=== PATIENT | female | born 1945 | race Caucasian/White ===

== ENCOUNTER 2018-12-14 13:07 | Inpatient (IN) | payer OTHER ==
[2018-12-14 13:26] VITALS: BMI 18.1
--- NOTE | 2018-12-14 13:38 | PDOC ---
Attending Attestation - Resident Resident Name: Fabio Mccarty - ED Attending Attestation I have performed the following: I have examined & evaluated the patient, The case was reviewed & discussed with the resident, I agree w/resident's findings & plan, Exceptions are as noted - HPI HPI: 73 yo F no known PMH brought in by EMS s/p fall at home. Patient is unable to provide any history. As per family, there is always someone who checks on her daily and helps her bathe and change. The brother states he saw her yesterday and she was at baseline, spoke to her last night. He became concerned when she did not answer the phone today. He found that she had fallen. He states that he is ill himself (just had a kidney removed), and while he always goes to check on her, she is usually bathed by other people who see her daily. - Physicial Exam PE: GENERAL: Awake, alert, and oriented to person, in no acute distress. Poor hygiene. HEAD: +Abrasions to the chin. EYES: PERRLA, EOMI, sclera anicteric, conjunctiva clear ENT: Auricles normal inspection, hearing grossly normal, nares patent, oropharynx clear without exudates. Moist mucosa NECK: Normal ROM, supple, no lymphadenopathy, JVD, or masses LUNGS: Breath sounds equal, clear to auscultation bilaterally. No wheezes, and no crackles HEART: Regular rate and rhythm, normal S1 and S2, no murmurs, rubs or gallops ABDOMEN: Soft, nontender, normoactive bowel sounds. No guarding, no rebound. No masses MSK: +Ecchymoses to the elbows and knees B/L. +Abrasion to the L knee. +Large ecchymosis to the lower chest wall with some skin breakdown in the center of the lesion in a linear distribution. +Skin breakdown beneath the R breast. Extremities with normal range of motion, no edema. No clubbing or cyanosis. + Overgrown toenails, with L great toenail growing into a large curl and curving back over the toe. +Dirt beneath the fingernails. NEUROLOGICAL: Cranial nerves II through XII grossly intact. +Paucity of speech. Motor and sensation intact SKIN: Warm, Dry, normal turgor, no rashes. Multiple hyperkeratotic lesions to the face and feet. - Medical Decision Making 12/14/18 13:47 In light of her appearance, called case management to discuss, as this should be an APS case. Will do a skeletal survey, CTH and c-spine, labs (including CK in light of fall), and UA. Will admit, as she is an unsafe discharge.
--- NOTE | 2018-12-14 13:40 | PDOC ---
History of Present Illness - General History Source: Patient, Family (Brother and [id number] present at bedside) Exam Limitations: Clinical Condition - History of Present Illness Initial Comments: HPI: 73 y/o female BIBEMS to [facility] ER after being found on floor next to bed by brother and [id number]. Multiple old and new appearing injurious faulkner noted on body. Family reports they were previously unaware of such faulkner. Pt lives alone during the day and is assisted by a close family friend. Brother initially reported speaking to pt by telephone last evening, and became concerned after being unable to contact the pt by telephone this morning. On repeat interview, brother reports he and his saw the pt last evening and she was not found to be in any distress. On repeat interview, brother reports believing the pt fell on diana try on night table. Family only able to provide limited medical history. Pt unable to provide any information. PCP: None Social Hx: - Pt is an active smoker, family reports 2-3 packs per day. Medical Hx: - Family denies active medical problems, but has not followed with a physician since 2001. - No medications or known allergies <Fabio Mccarty - Last Filed: 12/17/18 16:47> <Latasha Miles - Last Filed: 12/18/18 16:34> - General Chief Complaint: Injury Stated Complaint: FALL Time Seen by Provider: 12/14/18 13:22 Past History - Past Medical History COPD: No - Suicide/Smoking/Psychosocial Hx Smoking History: Current every day smoker Number of Cigarettes Smoked Daily: 40 Information on smoking cessation initiated: No Hx Alcohol Use: No Drug/Substance Use Hx: No <Fabio Mccarty - Last Filed: 12/17/18 16:47> <Latasha Miles - Last Filed: 12/18/18 16:34> - Past Medical History Allergies/Adverse Reactions: Allergies Allergy/AdvReac Type Severity Reaction Status Date / Time No Known Allergies Allergy Verified 12/14/18 13:26 Home Medications: Ambulatory Orders NK [No Known Home Medication] 12/14/18 Review of Systems - Review of Systems Able to Perform ROS?: No (Pt condition) <Fabio Mccarty - Last Filed: 12/17/18 16:47> *Physical Exam - Vital Signs Last Vital Signs Temp Pulse Resp BP Pulse Ox 18 127/104 H 02/19/19 13:10 12/14/18 13:10 - Physical Exam Comments: Constitutional: Thin, cachectic elderly female in no acute distress. Malodorous with greasy hair and unwashed skin. Found semi-fowlers on hospital bed. Alert and oriented to person and place. Unable / unwilling to answer questions. Head: Normocephalic. No obvious external signs of trauma. Eyes: Pupils 3mm bilaterally. Gaze fixed to upper right side. Sclerae white. Nose: No nasal discharge. Neck: Turned to right side. Unable or unwilling to turn neck. Cardiovascular / Chest: Regular rate and regular rhythm. No murmur, rubs, clicks, or gallops. Peripheral pulses: radial pulses full. Linear lesion with ecchymosis and erythema across center of chest. Skin breakdown under right breast. Skin breakdown to medial aspect of left breast. Respiratory: Breathing unlabored. Equal chest rise and fall. Clear to auscultation bilaterally. No stridor, no wheezing, no rhonchi. Gastrointestinal: abdomen is soft, non-tender, non-distended. Linear erythema lesion across middle of abdomen. Neuro: Eyes open spontaneously. Oriented to person and place but not events or time. Unable or unwilling to move extremities or follow commands. Skin/MSK/Ext: Warm and dry. Circular erythema lesion to bilateral elbows, knees , and anterior aspect of pelvic crests. Old appearing ecchymosis and linear laceration to dorsal aspect of right hand and forearm. Female Pelvic: External genitalia unremarkable. No obvious signs of trauma. Unable to locate urethra for tobias placement. Attempts results in minimal mucosal bleeding. <Fabio Mccarty - Last Filed: 12/17/18 16:47> - Vital Signs Last Vital Signs Temp Pulse Resp BP Pulse Ox 97.9 F 74 18 131/68 99 12/18/18 14:00 12/18/18 14:00 12/18/18 14:00 12/18/18 14:00 12/18/18 09:00 <Latasha Miles - Last Filed: 12/18/18 16:34> Moderate Sedation - Procedure Monitoring Vital Signs: Procedure Monitoring Vital Signs Temperature Pulse Rate Respiratory Rate 18 12/14/18 13:10 Blood Pressure 127/104 H 12/14/18 13:10 O2 Sat by Pulse Oximetry (%) <Fabio Mccarty - Last Filed: 12/17/18 16:47> - Procedure Monitoring Vital Signs: Procedure Monitoring Vital Signs Temperature 97.9 F 12/18/18 14:00 Pulse Rate 74 12/18/18 14:00 Respiratory Rate 18 12/18/18 14:00 Blood Pressure 131/68 12/18/18 14:00 O2 Sat by Pulse Oximetry (%) 99 12/18/18 09:00 <Latasha Miles - Last Filed: 12/18/18 16:34> ED Treatment Course - LABORATORY CBC & Chemistry Diagram: 12/17/18 06:00 12/17/18 06:00 <Fabio Mccarty - Last Filed: 12/17/18 16:47> - LABORATORY CBC & Chemistry Diagram: 12/18/18 06:30 12/18/18 06:30 - ADDITIONAL ORDERS Additional order review: 12/14/18 12/14/18 14:45 14:00 RBC 5.20 MCV 89.4 MCHC 33.8 RDW 14.0 MPV 8.8 Neutrophils % 92.1 H Lymphocytes % 2.3 L Monocytes % 4.7 Eosinophils % 0.0 Basophils % 0.9 POC Glucometer 139 - Medications Given in the ED: ED Medications Discontinued Medications Generic Name Dose Route Start Last Admin Trade Name Monisha PRN Reason Stop Dose Admin Albuterol/Ipratropium 1 amp 12/16/18 00:19 12/16/18 00:36 Duoneb - NEB 12/16/18 00:20 1 amp ONCE ONE Administration Aspirin 300 mg 12/14/18 15:14 12/14/18 16:11 Asa - VA 12/14/18 15:15 300 mg ONCE ONE Administration Aspirin 81 mg 12/15/18 10:00 12/16/18 10:27 Ecotrin - PO 81 mg DAILY LUIS FELIPE Administration Furosemide 20 mg 12/16/18 09:17 12/16/18 10:27 Lasix Injection - IVPB 12/16/18 09:18 20 mg ONCE ONE Administration Furosemide 40 mg 12/18/18 11:12 12/18/18 11:25 Lasix - PO 12/18/18 11:13 40 mg ONCE ONE Administration Heparin Sodium (Porcine) 5,000 unit 12/14/18 22:00 12/15/18 14:43 Heparin - SQ 5,000 unit TID LUIS FELIPE Administration Dextrose/Lactated Ringer's 1,000 mls @ 0 mls/hr 12/14/18 14:15 12/14/18 15:04 D5-Lr - IV 1,000 mls/hr ASDIR LUIS FELIPE Administration Wide Open Piperacillin Sod/Tazobactam 50 mls @ 100 mls/hr 12/14/18 15:23 12/14/18 16:11 Sod 3.375 gm/ Dextrose IVPB 12/14/18 15:52 100 mls/hr ONCE ONE Administration Protocol Sodium Chloride 1,000 mls @ 100 mls/hr 12/14/18 16:00 12/14/18 16:11 Normal Saline - IV 100 mls/hr ASDIR LUIS FELIPE Administration Sodium Chloride 1,000 mls @ 75 mls/hr 12/14/18 21:29 12/15/18 20:44 Normal Saline - IV Not Given ASDIR LUIS FELIPE Piperacillin Sod/Tazobactam 50 mls @ 100 mls/hr 12/15/18 10:00 12/16/18 01:13 Sod 2.25 gm/ Dextrose IVPB 12/16/18 10:29 100 mls/hr Q8H-IV LUIS FELIPE Administration Protocol Heparin Sodium (Porcine) 25, 500 mls @ 16 mls/hr 12/15/18 18:15 12/17/18 05: 26 000 unit/ Sodium Chloride IV 800 unit/hr TITR LUIS FELIPE 16 mls/hr Administration Protocol 800 UNIT/HR Lisinopril 5 mg 12/18/18 11:13 12/18/18 11:25 Prinivil PO 12/18/18 11:14 5 mg ONCE ONE Administration Magnesium Sulfate 1 gm 12/18/18 08:52 12/18/18 09:33 Magnesium Sulfate IVPB 12/18/18 08:53 1 gm ONCE ONE Administration Metoprolol Tartrate 12.5 mg 12/15/18 10:00 12/15/18 21:15 Lopressor - PO 12.5 mg BID LUIS FELIPE Administration Potassium Phos/Sodium Phos 2 packet 12/17/18 09:22 12/17/18 10:21 Phos-Nak Packet - PO 12/17/18 09:23 2 packet ONCE ONE Administration Vancomycin HCl 1,000 mg 12/14/18 15:22 12/14/18 17:12 Vancomycin (Pre-Docked) IVPB 12/14/18 15:23 1,000 mg ONCE ONE Administration Protocol <Latasha Miles - Last Filed: 12/18/18 16:34> Medical Decision Making - Medical Decision Making *Reviewed vital signs, nursing notes, and prior visit documentation (if available). 73 y/o female with multiple injuries of varying ages to body. Limited medical history as pt does not follow with a physician. Reports vague unwitnessed fall. Unknown time on ground. Accompanied by brother and [id number]. Afebrile. Vitals unremarkable for hypotension or tachycardia. Physical exam as described above. Will obtain skeletal survey of areas of obvious injury. Will obtain basic labs. Will contact social work nurse for guidance in terms of reporting and with concern of pts inability to perform ADLs. Telephone conversation with social work nurse. Will come and evaluate the pt in the ED. Will consider APS versus police. Referral placed. No new or old bony injuries noted on radiographs. Lab reports T/S hemolyzed. Reordered. Elevated troponin and CK without EKG LOIS or STD. Ordered ASA VA. Will consult cardiology. 16:[address] Amaro. Verbally appraised of the pts HPI, ED course, and current plan of management. Expressed believe the pts elevated troponin was likely secondary to rhabdo given CK index is less than 5. Suggests aggressive fluid management with nephrology involvement. Will evaluate pt and likely order Echo. Telephone consultation with Dr. Cardozo, urologist waste transportation technician. Verbally appraised of the pts HPI, ED course, and current plan of management. Requested assistance with tobias placement given atypical urogenital anatomy and multiple attempts with adult and pediatric catheters. Suggested paging Dr. Lang, who he believed to still be in the hospital. Dr. Antonio is covering for Dr. Lang. Assisted with tobias placement in ED. Pt admitted to hospitalist service for acute rhabdomyolysis, elevated troponin, and placement. <Fabio Mccarty - Last Filed: 12/17/18 16:47> *DC/Admit/Observation/Transfer - Discharge Dispostion Decision to Admit order: Yes <Fabio Mccarty - Last Filed: 12/17/18 16:47> <Latasha Miles - Last Filed: 12/18/18 16:34> Diagnosis at time of Disposition: Fall in elderly patient, Very low level of personal hygiene, Skin breakdown Rhabdomyolysis Qualifiers: Rhabdomyolysis type: traumatic Encounter type: initial encounter Qualified Code (s): T79.6XXA - Traumatic ischemia of muscle, initial encounter - Discharge Dispostion Condition at time of disposition: Stable
[2018-12-14] MEDS ORDERED: DEXTROSE 5%-LACTATED RINGERS 1,000 ML IV SCH (14:15)
[2018-12-14 14:20] LABS: BASO % 0.9 % (0-2.0); HEMATOCRIT 46.5 % (32.4-45.2); HEMOGLOBIN 15.7 GM/dL (10.7-15.3); LYMPH % 2.3 % (8-40); MCH 30.2 pg (25.7-33.7); MCHC 33.8 g/dl (32.0-36.0); MEAN CELL VOLUME 89.4 fl (80-96); MEAN PLT VOLUME 8.8 fl (7.5-11.1); MONO % 4.7 % (3.8-10.2); NEUT % 92.1 % (42.8-82.8); PLATELET COUNT 302 K/MM3 (134-434); WHITE BLOOD COUNT 29.6 K/mm3 (4.0-10.0)
[2018-12-14 15:08] LABS: ALBUMIN 3.5 g/dl (3.4-5.0); ALK PHOS 138 U/L (45-117); ANION GAP 14 MMOL/L (8-16); BILIRUBIN,TOTAL 1.2 mg/dL (0.2-1); BLOOD UREA NITROGEN 33 mg/dL (7-18); CALCIUM 9.4 mg/dL (8.5-10.1); CHLORIDE 105 mmol/L (98-107); CO2 22 mmol/L (21-32); CREATININE 1.9 mg/dL (0.55-1.3); GLUCOSE,RANDOM 148 mg/dL (74-106); MAGNESIUM 2.6 mg/dL (1.8-2.4); PHOSPHOROUS 4.2 mg/dL (2.5-4.9); POTASSIUM 3.6 mmol/L (3.5-5.1); SGOT/AST 101 U/L (15-37); SGPT/ALT 23 U/L (13-61); SODIUM 140 mmol/L (136-145); TOT PROT 7.5 g/dl (6.4-8.2)
[2018-12-14] MEDS ORDERED: ASPIRIN 300 MG SUPP.RECT PR ONE (15:14)
[2018-12-14] MEDS ORDERED: VANCOMYCIN 1 GM in D5W (PRE-DOCKED) 1,000 MG/250 ML IVPB ONE (15:22)
[2018-12-14] MEDS ORDERED: PIPERACILLIN/TAZOB 3.375 GM 3.375 GM in DEXTROSE 5%-WATER - 50 ML IVPB ONE (15:23)
[2018-12-14 15:44] LABS: PLATELET ESTIMATE NORMAL
[2018-12-14 15:49] LABS: INR 1.11 (0.83-1.09); PROTHROMBIN TIME (PATIENT) 13.1 SEC (9.7-13.0)
[2018-12-14 15:52] LABS: ACTIVATED PTT 25.9 SECONDS (25.2-36.5)
[2018-12-14] MEDS ORDERED: SODIUM CHLORIDE 1,000 ML IV SCH (16:00)
[2018-12-14] MEDS ORDERED: PIPERACILLIN/TAZOB 3.375 GM 3.375 GM/50 ML BAG IVPB ONE (16:08)
[2018-12-14] MEDS ORDERED: VANCOMYCIN 1 GRAM (PRE-DOCKED) 1,000 MG/250 ML BAG IVPB ONE (16:08)
[2018-12-14] MEDS ORDERED: ASPIRIN 300 MG SUPP.RECT RC ONE (16:08)
--- NOTE | 2018-12-14 16:58 | CON.CARD ---
Consult Consult Specialty:: cardiology Reason for Consultation:: elevated TNI - History of Present Illness Chief Complaint: Pt alert; now able to recognize brother; knows she is in a hospital, but not which, nor the city or date. Denies any problems; no pain. Moves all extremities (weakly) on request. History of Present Illness: 73 yo white woman with no known PMH brought in by EMS s/p fall at home. Patient is unable to provide any history. As per family, there is always someone who checks on her daily and helps her bathe and change. The brother states he saw her yesterday and she was at baseline, spoke to her last night. He became concerned when she did not answer the phone today. He found that she had fallen. He states that he is ill himself (just had a kidney removed), and while he always goes to check on her, she is usually bathed by other people who see her daily. 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 Cardio/Vascular: Yes: CHF (systolic), Murmur (mod-severe AR) Reproductive: Yes: Postmenopausal ...: No - Alcohol/Substance Use Hx Alcohol Use: No - Smoking History Smoking history: Current every day smoker Aproximately how many cigarettes per day: 40 Home Medications - Allergies Allergies/Adverse Reactions: Allergies Allergy/AdvReac Type Severity Reaction Status Date / Time No Known Allergies Allergy Verified 12/14/18 13:26 - Home Medications Home Medications: Ambulatory Orders NK [No Known Home Medication] 12/14/18 Review of Systems Unable to obtain ROS, reason: dementia - Risk Factors Known Risk Factors: Yes: Age, Physical Inactivity, Other (disheveled; red bruises on chest, knees) Vital Signs: Vital Signs Temperature 98.5 F 12/14/18 15:03 Pulse Rate 98 H 12/14/18 15:03 Respiratory Rate 18 12/14/18 15:03 Blood Pressure 119/90 12/14/18 15:03 O2 Sat by Pulse Oximetry (%) 100 12/14/18 15:03 Constitutional: Yes: Thin Eyes: Yes: WNL HENT: Yes: WNL Neck: Yes: Decreased ROM Respiratory: Yes: Regular Gastrointestinal: Yes: Soft Renal/: No: Anuria Cardiovascular: Yes: Tachycardia JVD: No Carotid Bruit: No Heart Sounds: Yes: S1, S2 Murmur: Yes: Diastolic Murmur, Grade 2 Musculoskeletal: Yes: Muscle Weakness Extremities: Yes: Cool Edema: No Peripheral Pulses WNL: No Integumentary: Yes: Bruising (red large bruises on chest, elbows, knees) Neurological: Yes: Confusion, Weakness Psychiatric: Yes: Other (dementia) - Other Data Labs, Other Data: CBC, BMP 12/14/18 14:00 12/14/18 14:00 INR, PTT INR 1.11 (0.83-1.09) H 12/14/18 14:00 Troponin, BNP 12/14/18 14:00 Troponin I 13.70 H* Troponin, BNP 12/14/18 14:00 Troponin I 13.70 H* Abnormal Lab Results 12/17/18 12/17/18 06:00 06:00 PTT (Actin FS) 54.2 H Chloride 112 H BUN 25 H Calcium 7.7 L Phosphorus 2.3 L Creatine Kinase 1816 H CK-MB (CK-2) 8.7 H Imaging - Results Chest X-ray: Image Reviewed EKG: Image Reviewed Problem List - Problems (1) NSTEMI (non-ST elevated myocardial infarction) Assessment/Plan: +TNI +CKMB (though relative index is low, this may be due to high level of total CK caused by rhabdomyolysis). EKG: sinus tachycardia; inferior and anterior NJ (age undetermined); poor R wave progression. Recommend: IV fluids for rhabdomyolysis. ECHO for LVEF, wall motionn, chamber sizes, valve status. On ASA On metoprolol. IV heparin (unless contraindicated by fall with subsequent wounds). F/u lipids. Code(s): I21.4 - NON-ST ELEVATION (NSTEMI) MYOCARDIAL INFARCTION (2) CHF (congestive heart failure) Assessment/Plan: f/u ECHO BUN/Cr, Is and Os (Hodge); daily weight; electrolytes. Code(s): I50.9 - HEART FAILURE, UNSPECIFIED (3) Fall in elderly patient Code(s): R29.6 - REPEATED FALLS (4) Rhabdomyolysis Assessment/Plan: s/p fall, with extensive skin damage, bruises. TNI elevated; EKG changes suggestive of IW and AW NJ (age undetermined); poor R wave progression. ? NSTEMI with arrhythmia leading to syncope. CKMB elevateed (relative index is low, but likely due to high CK from rhabdo; cannot r/o NJ). Plan: Fluids IV bolus of 1-2 leters, then hourly (ECHO to determine LVEF, which will help dictate rate of IV). F/u BUN/Cr, electrolytes (Hodge catheter is needed). Serial TNI, CK/CKMG. EKG serially. See NSTEMI section. Code(s): M62.82 - RHABDOMYOLYSIS Qualifiers: Rhabdomyolysis type: traumatic Encounter type: initial encounter Qualified Code(s): T79.6XXA - Traumatic ischemia of muscle, initial encounter (5) Skin breakdown Code(s): L90.9 - ATROPHIC DISORDER OF SKIN, UNSPECIFIED (6) Very low level of personal hygiene Code(s): R46.0 - VERY LOW LEVEL OF PERSONAL HYGIENE (7) Sepsis Assessment/Plan: elevated WBCs, neutrophils. F?u with ID Code(s): A41.9 - SEPSIS, UNSPECIFIED ORGANISM
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
--- NOTE | 2018-12-14 21:12 | HP ---
CHIEF COMPLAINT: altered mental status, fall PCP:none HISTORY OF PRESENT ILLNESS: Patient is a 73 year old female with no known past medical history, BIBEMS after a fall. Patient is a poor historian, most of the history provided by the sister and brother. In the last 20 years, patient has been dependent on her siblings for necessities. Patient reportedly refused any doctor visits, and has not seen a doctor. About 4 years ago, after a fall, as per the brother, the patient since did not want to leave the house, with her siblings alternately taking care of her, bringing her food daily. During the day, patient's friend would come and visit her, and would take care of her during the day. Last night , brother visited the patient and brought her food. When he came home, he called the patient to say good night. In the morning, he tried calling the patient, but she was not answering the phone. Concerned, brother went to patient 's house, and found her lying flat, face down on the floor. He immediately called EMS. Patient reported remembering falling down, but could not provide any more information. She denies fever, chills, headache, dizziness, nausea, vomiting, chest pain, SOB, palpitations, abdominal pain, diarrhea, urinary symptoms. 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 PAST SURGICAL HISTORY: unknown Social History: Smokinppd x >50years Alcohol:occasional Drugs: denies Family History: noncontributory Allergies No Known Allergies Allergy (Verified 12/14/18 13:26) HOME MEDICATIONS: Home Medications Medication Instructions Recorded NK [No Known Home Medication] 12/14/18 REVIEW OF SYSTEMS CONSTITUTIONAL: Absent: fever, chills, diaphoresis, generalized weakness, malaise, loss of appetite, weight change HEENT: Absent: rhinorrhea, nasal congestion, throat pain, throat swelling, difficulty swallowing, mouth swelling, ear pain, eye pain, visual changes CARDIOVASCULAR: Absent: chest pain, syncope, palpitations, irregular heart rate, lightheadedness , peripheral edema RESPIRATORY: Absent: cough, shortness of breath, dyspnea with exertion, orthopnea, wheezing, stridor, hemoptysis GASTROINTESTINAL: Absent: abdominal pain, abdominal distension, nausea, vomiting, diarrhea, constipation, melena, hematochezia GENITOURINARY: Absent: dysuria, frequency, urgency, hesitancy, hematuria, flank pain, genital pain MUSCULOSKELETAL: Absent: myalgia, arthralgia, joint swelling, back pain, neck pain SKIN: Absent: rash, itching, pallor HEMATOLOGIC/IMMUNOLOGIC: Absent: easy bleeding, easy bruising, lymphadenopathy, frequent infections ENDOCRINE: Absent: unexplained weight gain, unexplained weight loss, heat intolerance, cold intolerance NEUROLOGIC: Absent: headache, focal weakness or paresthesias, dizziness, unsteady gait, seizure, mental status changes, bladder or bowel incontinence PSYCHIATRIC: Absent: anxiety, depression, suicidal or homicidal ideation, hallucinations. PHYSICAL EXAMINATION Vital Signs - 24 hr 12/14/18 12/14/18 12/14/18 13:10 14:41 15:03 Temperature 98.5 F Pulse Rate [ 98 H Apical] Respiratory 18 18 Rate Blood Pressure 127/104 H Blood Pressure 119/90 [Right Arm] O2 Sat by Pulse 100 100 Oximetry (%) GENERAL: Awake, alert, thin, cachectic and unkempt, on 2L NC HEAD: +wound on the chin EYES: PERRLA, EOMI, sclera anicteric, conjunctiva clear. EARS, NOSE, THROAT: Ears normal, oropharynx clear without exudates. Dry mucous membranes. NECK: left-sided neck flexion, unable to move neck LUNGS: Breath sounds equal, clear to auscultation bilaterally. HEART: Regular rate and rhythm, normal S1 and S2 without murmur, rub or gallop. ABDOMEN: Soft, nontender, not distended, normoactive bowel sounds. MUSCULOSKELETAL: Limited ROM on the neck and UE/LE UPPER EXTREMITIES: 2+ pulses, warm, well-perfused. No peripheral edema. LOWER EXTREMITIES: 2+ pulses, warm, well-perfused. No peripheral edema. NEUROLOGICAL: awake, alert, oriented to place and person, unable to follow commands, Motor strength at least 3/5 SKIN: Warm, dry, normal turgor, +erythema and wound on the chest, +erythema on both knees, +wound on left knee Laboratory Results - last 24 hr 12/14/18 12/14/1819 14:00 14:00 14:00 WBC 29.6 H RBC 5.20 Hgb 15.7 H Hct 46.5 H MCV 89.4 MCH 30.2 MCHC 33.8 RDW 14.0 Plt Count 302 MPV 8.8 Absolute Neuts (auto) 27.2 H Total Counted 100 Neutrophils % 92.1 H Neutrophils % (Manual) 89.0 H Band Neutrophils % 4.0 Lymphocytes % 2.3 L Lymphocytes % (Manual) 5.0 L Monocytes % 4.7 Monocytes % (Manual) 2 L Eosinophils % 0.0 Basophils % 0.9 Nucleated RBC % 0 Platelet Estimate Normal PT with INR INR PTT (Actin FS) Sodium 140 Potassium 3.6 Chloride 105 Carbon Dioxide 22 Anion Gap 14 BUN 33 H Creatinine 1.9 H Creat Clearance w eGFR 25.84 POC Glucometer Random Glucose 148 H Calcium 9.4 Phosphorus 4.2 Magnesium 2.6 H Total Bilirubin 1.2 H AST 101 H ALT 23 Alkaline Phosphatase 138 H Ammonia < 10.00 L Creatine Kinase 5600 H Creatine Kinase Index 0.8 CK-MB (CK-2) 49.55 H Troponin I 13.70 H* Total Protein 7.5 Albumin 3.5 Blood Type Antibody Screen 12/14/18 12/14/18 12/14/18 14:00 14:00 14:45 WBC RBC Hgb Hct MCV MCH MCHC RDW Plt Count MPV Absolute Neuts (auto) Total Counted Neutrophils % Neutrophils % (Manual) Band Neutrophils % Lymphocytes % Lymphocytes % (Manual) Monocytes % Monocytes % (Manual) Eosinophils % Basophils % Nucleated RBC % Platelet Estimate PT with INR 13.10 H INR 1.11 H PTT (Actin FS) 25.9 Sodium Potassium Chloride Carbon Dioxide Anion Gap BUN Creatinine Creat Clearance w eGFR POC Glucometer 139 Random Glucose Calcium Phosphorus Magnesium Total Bilirubin AST ALT Alkaline Phosphatase Ammonia Creatine Kinase Creatine Kinase Index CK-MB (CK-2) Troponin I Total Protein Albumin Blood Type Cancelled Antibody Screen Cancelled ASSESSMENT/PLAN: Patient is a 73 year old female with no known past medical history, BIBEMS after a fall. #Acute metabolic encephalopathy: unclear etiology -rule out infection, may be 2/2 concussion, rhabdomyolysis, LEILA -IV vanc/zosyn given at the ED prior to UA/UCx and BCx -Electrolytes wnl -Head CT: generalized volume loss with moderated ventricular dilatation and mod- marked periventricular chronic microvascular ischemic disease changes. No acute intracranial pathology -will order RPR, TSH, Vit B12, Folate, Utox, Salicylates and Tylenol level -UA negative for UTI -Urine and blood cx pending -Gentle IV hydration -Speech and swallow consulted #Rhabdomyolysis likely 2/2 fall -CK 5600 -UA 3+ blood, 1 RBC -IV fluids -will trend CK #Leukocytosis -likely reactive, will rule out infection -UA negative -Abdominal US ordered #Troponinemia -Trop 13.7 -likely 2/2 demand ischemia from HTN, LEILA, rhabdo -Will continue to trend Trop and EKG -Cardiology (Dr. Amaro) consulted. Recommendations appreciated. -Echo ordered #LEILA -BUN/Cr 33/1.9 -Likely 2/2 rhabdo, DHN -Will continue IV fluids -Nephrology (Dr. Linton) consulted. #Acute transaminitis, Hyperbilirubinemia -will trend LFTs -Abdominal US ordered #Prolonged QTc: 630 #FEN -IV NS @75cc/hr -Electrolytes wnl, routine bmp monitoring -NPO for now pending speech and swallow consult #Prophylaxis -Heparin 5000units sq tid #Disposition -full code -Social work in the case Visit type - Emergency Visit Emergency Visit: Yes ED Registration Date: 12/14/18 Care time: The patient presented to the Emergency Department on the above date and was hospitalized for further evaluation of their emergent condition. - New Patient This patient is new to me today: Yes Date on this admission: 12/15/18 - Critical Care Critical Care patient: No
[2018-12-14 21:42] LABS: COCAINE, UR NEGATIVE ng/ml (CUTOFF=300); METHADONE, UR NEGATIVE ng/ml (CUTOFF=300); OPIATES, URI NEGATIVE ng/ml (CUTOFF=300); PHENCYCLIDINE,URINE NEGATIVE ng/ml (CUTOFF=25); URINE AMPHETAMINES NEGATIVE ng/ml (CUTOFF=500); URINE APPEARANCE CLOUDY; URINE BARBITURATES NEGATIVE ng/ml (CUTOFF=200); URINE BENZODIAZEPINES NEGATIVE ng/ml (CUTOFF=200); URINE BILIRUBIN NEGATIVE (<2.0 mg/dL); URINE COLOR LTYELLOW; URINE GLUCOSE (UA) 3+ (NEGATIVE); URINE KETONE NEGATIVE (NEGATIVE); URINE LEUK ESTERASE NEGATIVE (NEGATIVE); URINE NITRITE NEGATIVE (NEGATIVE); URINE PROTEIN 2+ (NEGATIVE); URINE UROBILINOGEN NEGATIVE mg/dL (0.2-1.0)
[2018-12-14 21:46] LABS: EPI CELLS RARE /HPF (FEW); URINE HYALINE CAST 9 /lpf; URINE MUCUS RARE
[2018-12-14 22:16] LABS: CHOLESTEROL 162 mg/dL (50-200); HDL CHOLESTEROL 41 mg/dL (40-60); TRIGLYCERIDES 93 mg/dL (0-150)
[2018-12-14 23:18] LABS: ACTIVATED PTT 25.6 SECONDS (25.2-36.5)
[2018-12-14] MEDS ORDERED: HEPARIN NA (PORCINE) 5,000 UNITS/ML 1ML VIAL ONE (23:20)
[2018-12-14 23:24] LABS: INR 1.13 (0.83-1.09); PROTHROMBIN TIME (PATIENT) 13.3 SEC (9.7-13.0)
[2018-12-14] MEDS: SODIUM CHLORIDE 1,000 ML IV SCH (23:41)
[2018-12-14] MEDS: HEPARIN NA (PORCINE) 5,000 UNITS/ML 1ML VIAL SQ SCH (23:41)
[2018-12-15] MEDS: HEPARIN NA (PORCINE) 5,000 UNITS/ML 1ML VIAL SQ SCH ×2 (05:49→14:43)
[2018-12-15 06:58] LABS: BASO % 0.3 % (0-2.0); EOS % 0.1 % (0-4.5); HEMATOCRIT 40.7 % (32.4-45.2); HEMOGLOBIN 13.7 GM/dL (10.7-15.3); LYMPH % 3.8 % (8-40); MCH 29.8 pg (25.7-33.7); MCHC 33.7 g/dl (32.0-36.0); MEAN CELL VOLUME 88.5 fl (80-96); MEAN PLT VOLUME 8.7 fl (7.5-11.1); NEUT % 92.8 % (42.8-82.8); PLATELET COUNT 246 K/MM3 (134-434); WHITE BLOOD COUNT 21.2 K/mm3 (4.0-10.0)
[2018-12-15 07:46] LABS: ALBUMIN 2.6 g/dl (3.4-5.0); ALK PHOS 100 U/L (45-117); ANION GAP 8 MMOL/L (8-16); BILIRUBIN,TOTAL 1.1 mg/dL (0.2-1); BLOOD UREA NITROGEN 30 mg/dL (7-18); CALCIUM 7.9 mg/dL (8.5-10.1); CHLORIDE 112 mmol/L (98-107); CHOLESTEROL 164 mg/dL (50-200); CO2 21 mmol/L (21-32); CREATININE 1.1 mg/dL (0.55-1.3); GLUCOSE,RANDOM 98 mg/dL (74-106); HDL CHOLESTEROL 45 mg/dL (40-60); MAGNESIUM 1.9 mg/dL (1.8-2.4); PHOSPHOROUS 3.6 mg/dL (2.5-4.9); POTASSIUM 3.8 mmol/L (3.5-5.1); SGOT/AST 158 U/L (15-37); SGPT/ALT 27 U/L (13-61); SODIUM 141 mmol/L (136-145); TOT PROT 5.6 g/dl (6.4-8.2); TRIGLYCERIDES 100 mg/dL (0-150)
--- NOTE | 2018-12-15 08:48 | CON.CARD ---
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 - Alcohol/Substance Use Hx Alcohol Use: No - Smoking History Smoking history: Current every day smoker Have you smoked in the past 12 months: Yes Aproximately how many cigarettes per day: 40 Home Medications - Allergies Allergies/Adverse Reactions: Allergies Allergy/AdvReac Type Severity Reaction Status Date / Time No Known Allergies Allergy Verified 12/14/18 13:26 - Home Medications Home Medications: Ambulatory Orders NK [No Known Home Medication] 12/14/18 Vital Signs: Vital Signs Temperature 97.0 F L 12/15/18 05:00 Pulse Rate 94 H 12/15/18 05:00 Respiratory Rate 16 12/15/18 05:00 Blood Pressure 133/97 12/15/18 05:00 O2 Sat by Pulse Oximetry (%) 98 12/15/18 00:37 - Other Data Labs, Other Data: CBC, BMP 12/15/18 06:30 12/15/18 06:30 INR, PTT INR 1.13 (0.83-1.09) H 12/14/18 21:35 Troponin, BNP 12/14/18 12/14/18 12/15/18 14:00 21:35 06:30 Troponin I 13.70 H* 15.80 H* 14.30 H* Troponin, BNP 12/14/18 12/14/18 12/15/18 14:00 21:35 06:30 Troponin I 13.70 H* 15.80 H* 14.30 H*
[2018-12-15] MEDS ORDERED: PIPERACILLIN/TAZOBACTAM 2.25 GM VIAL IVPB ONE ×2 (09:13→16:46)
[2018-12-15] MEDS ORDERED: DEXTROSE 5%-WATER - 50 ML IVPB ONE ×2 (09:14→16:46)
[2018-12-15] MEDS: ASPIRIN COATED 81 MG TABLET.EC PO SCH (09:24)
[2018-12-15] MEDS: METOPROLOL TARTRATE 25 MG TABLET (FP) PO SCH ×2 (09:24→21:15)
[2018-12-15] MEDS: PIPERACILLIN/TAZOB 2.25 GM 2.25 GM in DEXTROSE 5%-WATER - 50 ML IVPB SCH ×2 (09:25→17:01)
--- NOTE | 2018-12-15 11:28 | CONSULT ---
Admitting History and Physical - Primary Care Physician PCP: Sun Rocha - Admission History of Present Illness: Per EMR: HISTORY OF PRESENT ILLNESS: Patient is a 73 year old female with no known past medical history, BIBEMS after a fall. Patient is a poor historian, most of the history provided by the sister and brother. In the last 20 years, patient has been dependent on her siblings for necessities. Patient reportedly refused any doctor visits, and has not seen a doctor. About 4 years ago, after a fall, as per the brother, the patient since did not want to leave the house, with her siblings alternately taking care of her, bringing her food daily. During the day, patient's friend would come and visit her, and would take care of her during the day. Last night , brother visited the patient and brought her food. When he came home, he called the patient to say good night. In the morning, he tried calling the patient, but she was not answering the phone. Concerned, brother went to patient 's house, and found her lying flat, face down on the floor. He immediately called EMS. Patient reported remembering falling down, but could not provide any more information. She denies fever, chills, headache, dizziness, nausea, vomiting, chest pain, SOB, palpitations, abdominal pain, diarrhea, urinary symptoms. 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 - Smoking History Smoking history: Current every day smoker Have you smoked in the past 12 months: Yes Aproximately how many cigarettes per day: 40 - Alcohol/Substance Use Hx Alcohol Use: No History - Admission Reason For Visit: POOR HYGIENE, FALL IN ELDERLY PATIENT - Diagnostics X-ray: Report Reviewed CT Scan: Report Reviewed - General Mental Status: Awake and Alert, Able to Follow Commands, Forgetful, Vague, Confused, Flat Affect Attention: Distractible, Mild Impairment, Moderate Impairment Ability to Follow Directions: Fair Head/Neck Control: Needs Assist (extended) - Hearing Hearing: Functional Hearing Aide: No Speech Evaluation - Communication Primary Language: [place] Communication: Yes: Simple Responses - Speech Production Intelligibility: Yes: WNL - Speech Characteristics Voice Loudness: Normal Voice Pitch: Yes: Normal Voice Phonatory-based Quality: Yes: Normal Speech Clarity: < 100% Nasal Resonance: Normal Articulation: Yes: Precise - Language/Auditory Comprehension Follows: Yes: 1 Stage Simple Commands Observation: Able to respond to yes/no queries: Yes, Yes/No Confusion: No, Comprehends Conversational Speech: Yes - Language/Verbal Expression Able to Communicate Wants and Needs: Yes: WNL - Swallow Evaluation/Bedside Assessment Current Nutritional Intake: NPO, Other (Tolerated medication) Oral Secretions: Yes: WFL Dentition: Yes: Edentulous Facial Symmetry at Rest: Facial Droop Left (slight?) Jaw Position: Open at Rest Smile: Weak (limited excursion. flat affect) Lingual Movement: Normal, Symmetric Lingual Speed of Movement: Normal Laryngeal Movement: Able to Palpate, Labored,delay initiation Rate of Intake: WFL Labial Seal: WFL Oral Prep Time: Increased Pocketing: None Timing of Swallow: Delayed Coughing/Throat Clear: Yes (thin liquid. "I need to catch my breath") Recommendations - Speech Evaluation, Impression/Plan Impression: Verbal,Monotonous but precise speech production, repeatedly called me "Shelby", Oriented to hospital and that she fell off her bed, otherwise not oriented "47"yo.Thinks she lives with her brother. Limited retention of info after 2 min with dsistraction. Left neglect? Aspiration on thin liquid. - Disposition Discharge to: [facility] - Dysphagia Impressions/Plan Swallowing Skills: Impaired Dysphagia Impressions: Mild Impairment, Moderate Impairment, Suspect Aspiration *Silent aspiration: cannot be R/O at bedside Dysphagia Treatment Plan: Small Bites, Chin Tuck/Down (piollow behind head, flex before PO intake), Clear Pocket Food, Trial Feedings, Safe Rate, 1/2 tsp. at a time, Elevate HOB during feed, Other (NPO if cough, congestion, fever) - Recommendations Diet Consistency: Dysphagia Pureed Medication Administration: Crushed with applesauce Liquids: Honey Thick (on tsp, no straws)
--- NOTE | 2018-12-15 12:29 | CONSULT ---
Consult Consult Specialty:: Nephrology Reason for Consultation:: bonnie and rhabdo - History of Present Illness Chief Complaint: braught in after being found on the floor History of Present Illness: Pt is a 73 year old female who was brought to the ER after being found on the floor. She is awake and able to give some history. She says she remembers falling and remembers being on the floor. She does not remember how long she was on the ground. She was found by her family and brought to the hospital. She has a brother that helps take care of her. She does not leave the house much. She was found to be in renal failure and found to be in rhabdo so I was called to evaluate her. She denies dysuria. 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 - Alcohol/Substance Use Hx Alcohol Use: No - Smoking History Smoking history: Current every day smoker Have you smoked in the past 12 months: Yes Aproximately how many cigarettes per day: 40 Home Medications - Allergies Allergies/Adverse Reactions: Allergies Allergy/AdvReac Type Severity Reaction Status Date / Time No Known Allergies Allergy Verified 12/14/18 13:26 - Home Medications Home Medications: Ambulatory Orders NK [No Known Home Medication] 12/14/18 Family Disease History - Family Disease History Family History: Denies Review of Systems - Review of Systems Constitutional: reports: Loss of Appetite, Malaise, Weakness Eyes: reports: No Symptoms HENT: reports: No Symptoms Neck: reports: No Symptoms Cardiovascular: reports: No Symptoms Respiratory: reports: No Symptoms Gastrointestinal: reports: No Symptoms Genitourinary: reports: No Symptoms Musculoskeletal: reports: Joint Pain Neurological: reports: Headache Endocrine: reports: No Symptoms Psychiatric: reports: No Symptoms Physical Exam Vital Signs: Vital Signs Temperature 97.3 F L 12/15/18 09:00 Pulse Rate 88 12/15/18 09:00 Respiratory Rate 17 12/15/18 09:00 Blood Pressure 139/82 12/15/18 09:00 O2 Sat by Pulse Oximetry (%) 98 12/15/18 09:00 Constitutional: Yes: Calm Eyes: Yes: Conjunctiva Clear Cardiovascular: Yes: S1, S2 Respiratory: Yes: CTA Bilaterally Gastrointestinal: Yes: Soft Renal/: Yes: Incontinence Musculoskeletal: Yes: Muscle Weakness Edema: No Neurological: Yes: Oriented Psychiatric: Yes: Oriented Labs: CBC, BMP 02/20/19 06:30 12/15/18 06:30 Laboratory Tests 12/14/18 12/14/18 12/14/18 14:00 14:00 21:35 WBC 29.6 H INR 1.13 H Sodium Potassium Carbon Dioxide Anion Gap BUN Creatinine 1.9 H Creatine Kinase 5600 H 12/15/18 12/15/18 06:30 06:30 WBC 21.2 H INR Sodium 141 Potassium 3.8 Carbon Dioxide 21 Anion Gap 8 BUN 30 H Creatinine 1.1 Creatine Kinase 5627 H Imaging - Results Ultrasound: Report Reviewed Problem List - Problems (1) Fall in elderly patient Code(s): R29.6 - REPEATED FALLS (2) NSTEMI (non-ST elevated myocardial infarction) Code(s): I21.4 - NON-ST ELEVATION (NSTEMI) MYOCARDIAL INFARCTION (3) Rhabdomyolysis Code(s): M62.82 - RHABDOMYOLYSIS Qualifiers: Rhabdomyolysis type: traumatic Encounter type: initial encounter Qualified Code(s): T79.6XXA - Traumatic ischemia of muscle, initial encounter Assessment/Plan Current Medications Generic Name Dose Route Start Last Admin Trade Name Freq PRN Reason Stop Dose Admin Aspirin 81 mg 12/15/18 10:00 12/15/18 09:24 Ecotrin - PO 81 mg DAILY LUIS FELIPE Administration Heparin Sodium (Porcine) 5,000 unit 12/14/18 22:00 12/15/18 05:49 Heparin - SQ 5,000 unit TID LUIS FELIPE Administration Sodium Chloride 1,000 mls @ 75 mls/hr 12/14/18 21:29 12/14/18 23:41 Normal Saline - IV 75 mls/hr ASDIR LUIS FELIPE Administration Piperacillin Sod/Tazobactam 50 mls @ 100 mls/hr 12/15/18 10:00 12/15/18 09:25 Sod 2.25 gm/ Dextrose IVPB 12/16/18 10:29 100 mls/hr Q8H-IV LUIS FELIPE Administration Protocol Piperacillin Sod/Tazobactam 50 mls @ 100 mls/hr 12/16/18 18:00 Sod 2.25 gm/ Dextrose IVPB Q8H-IV LUIS FELIPE Metoprolol Tartrate 12.5 mg 12/15/18 10:00 12/15/18 09:24 Lopressor - PO 12.5 mg BID LUIS FELIPE Administration Impression 1. rhabdo 2. bonnie 3. s/p fall 4. nstemi 5. htn Plan - renal function is improving - cont with fluids - monitor cpk - renal function is improved - cardio eval Dr Linton
[2018-12-15 13:01] LABS: ANISOCYTOSIS 0; HELMET CELLS 0; HOWELL-JOLLY BODIES 0; MACROCYTOSIS 0; OVALOCYTE 0; PLATELET ESTIMATE NORMAL; ROULEAU 0; SICKELED CELLS 0; TARGET CELLS 0; TEAR DROP CELLS 0; TOXIC GRANULATION 0
[2018-12-15] MEDS: SODIUM CHLORIDE 1,000 ML IV SCH ×2 (13:01→20:44)
--- NOTE | 2018-12-15 13:44 | PN ---
Physical Exam: SUBJECTIVE: Patient seen and examined at bedside- no acute events overnight- patient is oriented to self and place but not time however denies any pain OBJECTIVE: Vital Signs Period Temp Pulse Resp BP Sys/Robin Pulse Ox Last 24 Hr 97.0 F-98.5 F 84-108 16-20 119-139/82-97 97-100 GENERAL: The patient is awake, alert,, confused in no distress, cachectic EYES: PEERLA: EOMI; NECK: no JVD, no lymphadenopathy LUNGS: CTA B.L; no rales,rhnchi or wheezing HEART: Regular rate and rhythm, S1, S2 without murmur, rub or gallop. ABDOMEN: Soft, nontender, nondistended, normoactive bowel sounds, no guarding, no rebound, no hepatosplenomegaly, no masses. EXTREMITIES:warm; well-perfused, no clubbing/cyanosis or edema. PSYCH: Normal mood, normal affect. SKIN: Warm, dry, normal turgor, no rashes or lesions noted Laboratory Results - last 24 hr 12/14/18 12/14/18 12/14/18 09:40 14:00 14:00 WBC 29.6 H RBC 5.20 Hgb 15.7 H Hct 46.5 H MCV 89.4 MCH 30.2 MCHC 33.8 RDW 14.0 Plt Count 302 MPV 8.8 Absolute Neuts (auto) 27.2 H Total Counted 100 Neutrophils % 92.1 H Neutrophils % (Manual) 89.0 H Band Neutrophils % 4.0 Lymphocytes % 2.3 L Lymphocytes % (Manual) 5.0 L Monocytes % 4.7 Monocytes % (Manual) 2 L Eosinophils % 0.0 Basophils % 0.9 Nucleated RBC % 0 Platelet Estimate Normal PT with INR INR PTT (Actin FS) Sodium 140 Potassium 3.6 Chloride 105 Carbon Dioxide 22 Anion Gap 14 BUN 33 H Creatinine 1.9 H Creat Clearance w eGFR 25.84 POC Glucometer Random Glucose 148 H Hemoglobin A1c % Calcium 9.4 Phosphorus 4.2 Magnesium 2.6 H Total Bilirubin 1.2 H AST 101 H ALT 23 Alkaline Phosphatase 138 H Ammonia Creatine Kinase 5600 H Creatine Kinase Index 0.8 CK-MB (CK-2) 49.55 H Troponin I 13.70 H* Total Protein 7.5 Albumin 3.5 Triglycerides Cholesterol Total LDL Cholesterol HDL Cholesterol Vitamin B12 Serum Folate TSH Urine Color Urine Appearance Urine pH Ur Specific Knox Urine Protein Urine Glucose (UA) Urine Ketones Urine Blood Urine Nitrite Urine Bilirubin Urine Urobilinogen Ur Leukocyte Esterase Urine WBC (Auto) Urine RBC (Auto) Ur Epithelial Cells Hyaline Casts Urine Mucus Salicylates Opiates Screen Methadone Screen Acetaminophen Barbiturate Screen Phencyclidine Screen Ur Amphetamines Screen MDMA (Ecstasy) Screen Benzodiazepines Screen Cocaine Screen U Marijuana (THC) Screen RPR Titer Blood Type A POSITIVE Antibody Screen Negative 12/14/18 12/14/18 12/14/18 14:00 14:00 14:00 WBC RBC Hgb Hct MCV MCH MCHC RDW Plt Count MPV Absolute Neuts (auto) Total Counted Neutrophils % Neutrophils % (Manual) Band Neutrophils % Lymphocytes % Lymphocytes % (Manual) Monocytes % Monocytes % (Manual) Eosinophils % Basophils % Nucleated RBC % Platelet Estimate PT with INR 13.10 H INR 1.11 H PTT (Actin FS) 25.9 Sodium Potassium Chloride Carbon Dioxide Anion Gap BUN Creatinine Creat Clearance w eGFR POC Glucometer Random Glucose Hemoglobin A1c % Calcium Phosphorus Magnesium Total Bilirubin AST ALT Alkaline Phosphatase Ammonia < 10.00 L Creatine Kinase Creatine Kinase Index CK-MB (CK-2) Troponin I Total Protein Albumin Triglycerides Cholesterol Total LDL Cholesterol HDL Cholesterol Vitamin B12 Serum Folate TSH Urine Color Urine Appearance Urine pH Ur Specific Knox Urine Protein Urine Glucose (UA) Urine Ketones Urine Blood Urine Nitrite Urine Bilirubin Urine Urobilinogen Ur Leukocyte Esterase Urine WBC (Auto) Urine RBC (Auto) Ur Epithelial Cells Hyaline Casts Urine Mucus Salicylates Opiates Screen Methadone Screen Acetaminophen Barbiturate Screen Phencyclidine Screen Ur Amphetamines Screen MDMA (Ecstasy) Screen Benzodiazepines Screen Cocaine Screen U Marijuana (THC) Screen RPR Titer Blood Type Cancelled Antibody Screen Cancelled 12/14/18 12/14/18 12/14/18 14:45 21:20 21:20 WBC RBC Hgb Hct MCV MCH MCHC RDW Plt Count MPV Absolute Neuts (auto) Total Counted Neutrophils % Neutrophils % (Manual) Band Neutrophils % Lymphocytes % Lymphocytes % (Manual) Monocytes % Monocytes % (Manual) Eosinophils % Basophils % Nucleated RBC % Platelet Estimate PT with INR INR PTT (Actin FS) Sodium Potassium Chloride Carbon Dioxide Anion Gap BUN Creatinine Creat Clearance w eGFR POC Glucometer 139 Random Glucose Hemoglobin A1c % Calcium Phosphorus Magnesium Total Bilirubin AST ALT Alkaline Phosphatase Ammonia Creatine Kinase Creatine Kinase Index CK-MB (CK-2) Troponin I Total Protein Albumin Triglycerides Cholesterol Total LDL Cholesterol HDL Cholesterol Vitamin B12 Serum Folate TSH Urine Color Ltyellow Urine Appearance Cloudy Urine pH 5.0 Ur Specific Knox 1.011 Urine Protein 2+ H Urine Glucose (UA) 3+ H Urine Ketones Negative Urine Blood 3+ H Urine Nitrite Negative Urine Bilirubin Negative Urine Urobilinogen Negative Ur Leukocyte Esterase Negative Urine WBC (Auto) 5 Urine RBC (Auto) 1 Ur Epithelial Cells Rare Hyaline Casts 9 Urine Mucus Rare Salicylates Opiates Screen Negative Methadone Screen Negative Acetaminophen Barbiturate Screen Negative Phencyclidine Screen Negative Ur Amphetamines Screen Negative MDMA (Ecstasy) Screen Negative Benzodiazepines Screen Negative Cocaine Screen Negative U Marijuana (THC) Screen Negative RPR Titer Blood Type Antibody Screen 12/14/18 12/14/18 12/14/18 21:35 21:35 21:35 WBC RBC Hgb Hct MCV MCH MCHC RDW Plt Count MPV Absolute Neuts (auto) Total Counted Neutrophils % Neutrophils % (Manual) Band Neutrophils % Lymphocytes % Lymphocytes % (Manual) Monocytes % Monocytes % (Manual) Eosinophils % Basophils % Nucleated RBC % Platelet Estimate PT with INR 13.30 H INR 1.13 H PTT (Actin FS) 25.6 Sodium Potassium Chloride Carbon Dioxide Anion Gap BUN Creatinine Creat Clearance w eGFR POC Glucometer Random Glucose Hemoglobin A1c % Calcium Phosphorus Magnesium Total Bilirubin AST ALT Alkaline Phosphatase Ammonia Creatine Kinase Creatine Kinase Index CK-MB (CK-2) Troponin I 15.80 H* Total Protein Albumin Triglycerides 93 Cholesterol 162 Total LDL Cholesterol 104 H HDL Cholesterol 41 Vitamin B12 Serum Folate 6 TSH 0.80 Urine Color Urine Appearance Urine pH Ur Specific Knox Urine Protein Urine Glucose (UA) Urine Ketones Urine Blood Urine Nitrite Urine Bilirubin Urine Urobilinogen Ur Leukocyte Esterase Urine WBC (Auto) Urine RBC (Auto) Ur Epithelial Cells Hyaline Casts Urine Mucus Salicylates Opiates Screen Methadone Screen Acetaminophen Barbiturate Screen Phencyclidine Screen Ur Amphetamines Screen MDMA (Ecstasy) Screen Benzodiazepines Screen Cocaine Screen U Marijuana (THC) Screen RPR Titer Blood Type Antibody Screen 12/14/18 12/14/18 12/14/18 21:35 21:35 21:35 WBC RBC Hgb Hct MCV MCH MCHC RDW Plt Count MPV Absolute Neuts (auto) Total Counted Neutrophils % Neutrophils % (Manual) Band Neutrophils % Lymphocytes % Lymphocytes % (Manual) Monocytes % Monocytes % (Manual) Eosinophils % Basophils % Nucleated RBC % Platelet Estimate PT with INR INR PTT (Actin FS) Sodium Potassium Chloride Carbon Dioxide Anion Gap BUN Creatinine Creat Clearance w eGFR POC Glucometer Random Glucose Hemoglobin A1c % Calcium Phosphorus Magnesium Total Bilirubin AST ALT Alkaline Phosphatase Ammonia Creatine Kinase Creatine Kinase Index CK-MB (CK-2) Troponin I Total Protein Albumin Triglycerides Cholesterol Total LDL Cholesterol HDL Cholesterol Vitamin B12 286 Serum Folate TSH Urine Color Urine Appearance Urine pH Ur Specific Knox Urine Protein Urine Glucose (UA) Urine Ketones Urine Blood Urine Nitrite Urine Bilirubin Urine Urobilinogen Ur Leukocyte Esterase Urine WBC (Auto) Urine RBC (Auto) Ur Epithelial Cells Hyaline Casts Urine Mucus Salicylates < 1.7 L Opiates Screen Methadone Screen Acetaminophen < 2.0 L Barbiturate Screen Phencyclidine Screen Ur Amphetamines Screen MDMA (Ecstasy) Screen Benzodiazepines Screen Cocaine Screen U Marijuana (THC) Screen RPR Titer Nonreactive Blood Type Antibody Screen 12/14/18 12/15/18 12/15/18 21:35 06:30 06:30 WBC 21.2 H RBC 4.60 Hgb 13.7 Hct 40.7 MCV 88.5 MCH 29.8 MCHC 33.7 RDW 14.0 Plt Count 246 MPV 8.7 Absolute Neuts (auto) 19.6 H Total Counted Neutrophils % 92.8 H Neutrophils % (Manual) Band Neutrophils % Lymphocytes % 3.8 L D Lymphocytes % (Manual) Monocytes % 3.0 L Monocytes % (Manual) Eosinophils % 0.1 D Basophils % 0.3 Nucleated RBC % 0 Platelet Estimate PT with INR INR PTT (Actin FS) Sodium 141 Potassium 3.8 Chloride 112 H Carbon Dioxide 21 Anion Gap 8 BUN 30 H Creatinine 1.1 Creat Clearance w eGFR 48.55 POC Glucometer Random Glucose 98 Hemoglobin A1c % 5.7 Calcium 7.9 L Phosphorus 3.6 Magnesium 1.9 Total Bilirubin 1.1 H AST 158 H ALT 27 Alkaline Phosphatase 100 Ammonia Creatine Kinase 5627 H Creatine Kinase Index 0.9 CK-MB (CK-2) 52.3 H Troponin I 14.30 H* Total Protein 5.6 L Albumin 2.6 L Triglycerides 100 Cholesterol 164 Total LDL Cholesterol 99 HDL Cholesterol 45 Vitamin B12 Serum Folate TSH Urine Color Urine Appearance Urine pH Ur Specific Knox Urine Protein Urine Glucose (UA) Urine Ketones Urine Blood Urine Nitrite Urine Bilirubin Urine Urobilinogen Ur Leukocyte Esterase Urine WBC (Auto) Urine RBC (Auto) Ur Epithelial Cells Hyaline Casts Urine Mucus Salicylates Opiates Screen Methadone Screen Acetaminophen Barbiturate Screen Phencyclidine Screen Ur Amphetamines Screen MDMA (Ecstasy) Screen Benzodiazepines Screen Cocaine Screen U Marijuana (THC) Screen RPR Titer Blood Type Antibody Screen 12/15/18 12/15/18 06:30 06:30 WBC RBC Hgb Hct MCV MCH MCHC RDW Plt Count MPV Absolute Neuts (auto) Total Counted Neutrophils % Neutrophils % (Manual) Band Neutrophils % Lymphocytes % Lymphocytes % (Manual) Monocytes % Monocytes % (Manual) Eosinophils % Basophils % Nucleated RBC % Platelet Estimate PT with INR INR PTT (Actin FS) Sodium Potassium Chloride Carbon Dioxide Anion Gap BUN Creatinine Creat Clearance w eGFR POC Glucometer Random Glucose Hemoglobin A1c % 5.6 Calcium Phosphorus Magnesium Total Bilirubin AST ALT Alkaline Phosphatase Ammonia Creatine Kinase Creatine Kinase Index CK-MB (CK-2) Troponin I Total Protein Albumin Triglycerides Cholesterol Total LDL Cholesterol HDL Cholesterol Vitamin B12 Serum Folate TSH Urine Color Urine Appearance Urine pH Ur Specific Knox Urine Protein Urine Glucose (UA) Urine Ketones Urine Blood Urine Nitrite Urine Bilirubin Urine Urobilinogen Ur Leukocyte Esterase Urine WBC (Auto) Urine RBC (Auto) Ur Epithelial Cells Hyaline Casts Urine Mucus Salicylates Opiates Screen Methadone Screen Acetaminophen Barbiturate Screen Phencyclidine Screen Ur Amphetamines Screen MDMA (Ecstasy) Screen Benzodiazepines Screen Cocaine Screen U Marijuana (THC) Screen RPR Titer Blood Type A POSITIVE Antibody Screen Active Medications Generic Name Dose Route Start Last Admin Trade Name Freq PRN Reason Stop Dose Admin Aspirin 81 mg 12/15/18 10:00 12/15/18 09:24 Ecotrin - PO 81 mg DAILY LUIS FELIPE Administration Heparin Sodium (Porcine) 5,000 unit 12/14/18 22:00 12/15/18 05:49 Heparin - SQ 5,000 unit TID LUIS FELIPE Administration Sodium Chloride 1,000 mls @ 75 mls/hr 12/14/18 21:29 12/15/18 13:01 Normal Saline - IV 75 mls/hr ASDIR LUIS FELIPE Administration Piperacillin Sod/Tazobactam 50 mls @ 100 mls/hr 12/15/18 10:00 12/15/18 09:25 Sod 2.25 gm/ Dextrose IVPB 12/16/18 10:29 100 mls/hr Q8H-IV LUIS FELIPE Administration Protocol Piperacillin Sod/Tazobactam 50 mls @ 100 mls/hr 12/16/18 18:00 Sod 2.25 gm/ Dextrose IVPB Q8H-IV LUIS FELIPE Metoprolol Tartrate 12.5 mg 12/15/18 10:00 12/15/18 09:24 Lopressor - PO 12.5 mg BID LUIS FELIPE Administration ASSESSMENT/PLAN: Patient is a 73 year old female with no known past medical history, BIBEMS after a fall. #Acute metabolic encephalopathy: unclear etiology -rule out infection, may be 2/2 concussion, rhabdomyolysis, LEILA -Electrolytes wnl -Head CT: generalized volume loss with moderated ventricular dilatation and mod- marked periventricular chronic microvascular ischemic disease changes. No acute intracranial pathology -will order RPR, TSH, Vit B12, Folate, Utox, Salicylates and Tylenol level -UA negative for UTI -Urine and blood cx pending -Gentle IV hydration -Speech and swallow consulted- dysphagia diet #Rhabdomyolysis likely 2/2 fall -CK 5600 -UA 3+ blood, 1 RBC -IV fluids -will trend CK- improving #Leukocytosis -likely reactive, will rule out infection -UA negative -Abdominal US ordered #Troponinemia -Trop 13.7 -likely 2/2 demand ischemia from HTN, LEILA, rhabdo -Will continue to trend Trop and EKG -Cardiology (Dr. Amaro) consulted. Recommendations appreciated. -Echo ordered -ASA 81 daily; metoprolol 12.5 BID #LEILA -BUN/Cr 30/1.6 -Likely 2/2 rhabdo, DHN -Will continue IV fluids -Nephrology (Dr. Linton) consulted. #Acute transaminitis, Hyperbilirubinemia -will trend LFTs -Abdominal US ordered #Prolonged QTc: 630 #FEN -IV NS @75cc/hr -Electrolytes wnl, routine bmp monitoring -dysphagia pureed diet Problem List - Problems (1) CHF (congestive heart failure) Code(s): I50.9 - HEART FAILURE, UNSPECIFIED (2) NSTEMI (non-ST elevated myocardial infarction) Code(s): I21.4 - NON-ST ELEVATION (NSTEMI) MYOCARDIAL INFARCTION (3) Rhabdomyolysis Code(s): M62.82 - RHABDOMYOLYSIS Qualifiers: Rhabdomyolysis type: traumatic Encounter type: initial encounter Qualified Code(s): T79.6XXA - Traumatic ischemia of muscle, initial encounter Visit type - Emergency Visit Emergency Visit: Yes ED Registration Date: 12/14/18 Care time: The patient presented to the Emergency Department on the above date and was hospitalized for further evaluation of their emergent condition. - New Patient This patient is new to me today: Yes Date on this admission: 12/15/18 - Critical Care Critical Care patient: No
--- NOTE | 2018-12-15 14:11 | ECHO ---
Name: KARLIE DRAKE Exam:Adult Echocardiogram Study Date: 12/15/2018 08:24 AM Age: 73 yrs Reason For Study: NSTEMI Height: 71 in Weight: 236 lb BSA: 2.3 m2 MMode/2D Measurements & Calculations IVSd: 1.1 cm Ao root diam: 3.0 cm LVIDd: 4.2 cm LA dimension: 3.2 cm LVIDs: 2.6 cm LVPWd: 0.75 cm EDV(Teich): 78.8 ml LVOT diam: 2.1 cm ESV(Teich): 24.7 ml Doppler Measurements & Calculations MV E max shubham: 28.1 cm/sec Ao V2 max: 92.3 cm/sec MV A max shubham: 69.6 cm/sec Ao max P.4 mmHg MV E/A: 0.40 AI P1/2t: 346.0 msec MV dec time: 0.14 sec BERTA(V,D): 1.5 cm2 AI max shubham: 219.5 cm/sec LV V1 max P.62 mmHg AI max P.7 mmHg LV V1 max: 39.3 cm/sec AI dec slope: 185.8 cm/sec2 TR max shubham: 258.9 cm/sec Med Peak E' Shubham: 2.1 cm/sec TR max P.1 mmHg Med E/e': 13.5 Lat Peak E' Shubham: 1.8 cm/sec Lat E/e': 16.0 Left Ventricle The left ventricle is mildly dilated. Left ventricular systolic function is moderate to severely redu mary. Ejection Fraction = 30%. The transmitral spectral Doppler flow pattern is suggestive of impaired LV relaxation. There is apical akinesis. There are regional wall motion abnormalities as specified. Ther e is mid anteroseptal wall akinesis. Right Ventricle A calcified moderator band is seen in the right ventricle. The right ventricular systolic function is grossly normal. Atria The left atrium is mildly dilated. The right atrium is mildly dilated. There is no Doppler evidence f or an atrial septal defect. Mitral Valve There is mild mitral valve thickening. There is moderate mitral regurgitation. Tricuspid Valve There is moderate to severe tricuspid regurgitation. Right ventricular systolic pressure is elevated at 30- 40mmHg. Aortic Valve Moderate to severe aortic regurgitation. Pulmonic Valve The pulmonic valve is not well visualized. Trace to mild pulmonic valvular regurgitation. Great Vessels The aortic root is normal size. Pericardium/Pleura There is no pericardial effusion. Interpretation Summary The left ventricle is mildly dilated. Left ventricular systolic function is moderate to severely reduced. There is apical akinesis. There are regional wall motion abnormalities as specified. There is mid anteroseptal wall akinesis. The right ventricular systolic function is grossly normal. A calcified moderator band is seen in the right ventricle. The right atrium is mildly dilated. There is no Doppler evidence for an atrial septal defect. Moderate to severe aortic regurgitation. There is moderate to severe tricuspid regurgitation. Right ventricular systolic pressure is elevated at 30-40mmHg. Ejection Fraction = 30%. The transmitral spectral Doppler flow pattern is suggestive of impaired LV relaxation. The pulmonic valve is not well visualized. Trace to mild pulmonic valvular regurgitation. The aortic root is normal size. There is no pericardial effusion. Raphael Amaro MD 12/15/2018 02:10 PM
[2018-12-15] MEDS ORDERED: HEPARIN NA (PORCINE) 5,000 UNITS/ML 1ML VIAL IVPUSH PRN ×2 (18:04)
--- NOTE | 2018-12-15 18:07 | PN ---
Teaching Attending Note Name of Resident: Bette Sahu ATTENDING PHYSICIAN STATEMENT I saw and evaluated the patient. I reviewed the resident's note and discussed the case with the resident. I agree with the resident's findings and plan as documented. SUBJECTIVE: limited history as slightly confused but denies pain. OBJECTIVE: NAD, constantly calling her friend May HEENT: MMM, chin laceration . L thyroid lobe with a nodule. neck deviation to the R . no tenderness in neck CV: RRR, no M RG Lungs: limited exam, fine crackles at L base Ext: bruises and stage one on knees . long thick discoloered toe nails Skin : stage one and stage 2 ulcers on anterior chest wall. no decubs on sacral area. ASSESSMENT AND PLAN: 73 y/o lady with no medical care who lives alone, and presented after a fall . She was found to have Rhabdo, LEILA, and NSTEMI 1- Fall, ? mechanical vs syncpe. trauma w/u with no fractures or dislocations 2- Rhabdomyolysis : - cont IVf - follow CPk and Cr 3- LEILA: due to rhabdo and volume depletion . Cr is better now - cont IVF . monitor for signs of heart fialure, will diurese if needed 4- NSTEMI: trop peaked then trended down. echo with severely reduced Ef, decreased compliance, and Mod-Severe MR/AR. - add ASa and BB - card eval pending - ? need for heparin gtt . - further recs to follow 5- leukocytosis : no signs of infection . will monitor . hold off Abx 6- uro inserted a tobias in ER. dislodged now. urinating in diaper, with no residual. will not insert back. monitor 7- Podiatry consult for toe nail and foot care 8- Torticollis: monitor . No fx . 9- L thyrpid nodule enlargement with nodule. TSH nl .w/u as out pt will d/w social work
[2018-12-15] MEDS ORDERED: PT OWN MED DRAWER 7, Y5N ONE (19:49)
[2018-12-15 20:17] LABS: HEMOGLOBIN 13.7 GM/dL (10.7-15.3); MCH 30.7 pg (25.7-33.7); MCHC 34.3 g/dl (32.0-36.0); MEAN CELL VOLUME 89.4 fl (80-96); PLATELET COUNT 250 K/MM3 (134-434); RBC 4.48 M/mm3 (3.60-5.2); RDW 14.1 % (11.6-15.6); WHITE BLOOD COUNT 19.4 K/mm3 (4.0-10.0)
[2018-12-15] MEDS: HEPARIN - 25,000 UNIT in SODIUM CHLORIDE 495 ML IV SCH (20:43)
[2018-12-16] MEDS ORDERED: ALBUTEROL SO4 2.5/IPRATROPIUM 0.5 INH SOL 3 ML VIAL.NEB. NEB ONE (00:19)
[2018-12-16] MEDS ORDERED: PIPERACILLIN/TAZOBACTAM 2.25 GM VIAL IVPB ONE ×2 (01:10→01:12)
[2018-12-16] MEDS ORDERED: DEXTROSE 5%-WATER - 50 ML IVPB ONE ×2 (01:10→01:12)
[2018-12-16 01:13] LABS: ARTERIAL BLOOD GAS BASE EXCESS -4.1 meq/l (-2-2); ARTERIAL BLOOD GAS PCO2 31.8 mmHg (35-45); ARTERIAL BLOOD GAS PO2 85.3 mmHg (70-100)
[2018-12-16] MEDS: PIPERACILLIN/TAZOB 2.25 GM 2.25 GM in DEXTROSE 5%-WATER - 50 ML IVPB SCH (01:13)
[2018-12-16 01:16] LABS: ALLENS TEST POSITIVE
--- NOTE | 2018-12-16 02:33 | EKG ---
Test Reason : Blood Pressure : / mmHG Vent. Rate : 074 BPM Atrial Rate : 074 BPM P-R Int : 116 ms QRS Dur : 070 ms QT Int : 490 ms P-R-T Axes : 043 -48 134 degrees QTc Int : 543 ms SINUS RHYTHM WITH FREQUENT PREMATURE VENTRICULAR COMPLEXES POSSIBLE LEFT ATRIAL ENLARGEMENT LEFT AXIS DEVIATION INFERIOR INFARCT (CITED ON OR BEFORE 14-DEC-2018) T WAVE ABNORMALITY, CONSIDER ANTEROLATERAL ISCHEMIA PROLONGED QT ABNORMAL ECG WHEN COMPARED WITH ECG OF 15-DEC-2018 00:42, T WAVE INVERSION NOW EVIDENT IN ANTERIOR LEADS QT HAS LENGTHENED Confirmed by PAVITHRA ABDI MD ([id number]) on 12/16/2018 2:32:48 AM Referred By: PAVITHRA ABDI Confirmed By:PAVITHRA ABDI MD
--- NOTE | 2018-12-16 02:36 | EKG ---
Test Reason : Blood Pressure : / mmHG Vent. Rate : 103 BPM Atrial Rate : 103 BPM P-R Int : 114 ms QRS Dur : 072 ms QT Int : 366 ms P-R-T Axes : 069 -50 106 degrees QTc Int : 479 ms SINUS TACHYCARDIA WITH FREQUENT PREMATURE VENTRICULAR COMPLEXES BIATRIAL ENLARGEMENT LEFT ANTERIOR FASCICULAR BLOCK LEFT VENTRICULAR HYPERTROPHY WITH REPOLARIZATION ABNORMALITY INFERIOR INFARCT (CITED ON OR BEFORE 14-DEC-2018) ABNORMAL ECG WHEN COMPARED WITH ECG OF 14-DEC-2018 14:00, ST NO LONGER DEPRESSED IN INFERIOR LEADS Confirmed by PAVITHRA ABDI MD ([id number]) on 12/16/2018 2:36:23 AM Referred By: Confirmed By:PAVITHRA ABDI MD
[2018-12-16 08:11] LABS: HEMATOCRIT 38.4 % (32.4-45.2); HEMOGLOBIN 12.8 GM/dL (10.7-15.3); MCH 29.9 pg (25.7-33.7); MCHC 33.4 g/dl (32.0-36.0); MEAN CELL VOLUME 89.3 fl (80-96); PLATELET COUNT 231 K/MM3 (134-434); RBC 4.29 M/mm3 (3.60-5.2); RDW 13.9 % (11.6-15.6)
--- NOTE | 2018-12-16 08:32 | PN ---
Physical Exam: SUBJECTIVE: Patient seen and examined at bedside- patient was short of breath overnight; BNP was ordered and came back at 28,000; CXR done showing cardiomegaly and interstitial markings consistent with CHF; however this AM patient resting comfortably and her breathing is improved OBJECTIVE: Vital Signs Period Temp Pulse Resp BP Sys/Robin Pulse Ox Last 24 Hr 97.0 F-98.1 F 75-108 16-36 111-146/66-92 94-98 GENERAL: The patient is awake, alert oriented to self and place EYES: PEERLA; EOMI; no scleral icterus. NECK: no JVD; large lump on left side of neck LUNGS: slight crackles at the bases; distant breath sounds HEART: Regular rate and rhythm, S1, S2 without murmur, rub or gallop. ABDOMEN: Soft, nontender, nondistended, normoactive bowel sounds, no guarding, no rebound, no hepatosplenomegaly, no masses. EXTREMITIES: 2+ pulses, warm, well-perfused, no edema. PSYCH: Normal mood, normal affect. SKIN: Warm, dry, normal turgor, no rashes or lesions noted Laboratory Results - last 24 hr 12/14/18 12/14/18 12/14/18 09:40 14:00 21:35 WBC RBC Hgb Hct MCV MCH MCHC RDW Plt Count MPV Neutrophils % (Manual) Band Neutrophils % Lymphocytes % (Manual) Monocytes % (Manual) Eosinophils % (Manual) Basophils % (Manual) Myelocytes % (Man) Promyelocytes % (Man) Blast Cells % (Manual) Metamyelocytes Hypochromia Toxic Granulation Dohle Bodies Platelet Estimate Polychromasia Poikilocytosis Basophilic Stippling Anisocytosis Microcytosis Macrocytosis Spherocytes Sickle Cells Target Cells Tear Drop Cells Ovalocytes Stomatocytes Helmet Cells Giang-Mellott Bodies [place] Rings Jeremy Cells Acanthocytes (Spur) Rouleaux Fragmented RBCs Schistocytes PTT (Actin FS) Anticoagulation Therapy Puncture Site ABG pH ABG pCO2 at Pt Temp ABG pO2 at Pt Temp ABG HCO3 ABG O2 Sat (Measured) ABG O2 Content ABG Base Excess Paresh Test O2 Delivery Device Oxygen Flow Rate Vent Mode Vent Rate Mechanical Rate Pressure Support Vent Creatine Kinase Creatine Kinase Index CK-MB (CK-2) Troponin I B-Natriuretic Peptide RPR Titer Nonreactive Blood Type A POSITIVE Cancelled Antibody Screen Negative Cancelled 12/15/18 12/15/18 12/15/18 06:30 06:30 15:30 WBC RBC Hgb Hct MCV MCH MCHC RDW Plt Count MPV Neutrophils % (Manual) 97.0 H Band Neutrophils % 0.0 Lymphocytes % (Manual) 2.0 L Monocytes % (Manual) 1 L Eosinophils % (Manual) 0.0 Basophils % (Manual) 0.0 Myelocytes % (Man) 0 Promyelocytes % (Man) 0 Blast Cells % (Manual) 0 Metamyelocytes 0 Hypochromia 0 Toxic Granulation 0 Dohle Bodies 0 Platelet Estimate Normal Polychromasia 0 Poikilocytosis 0 Basophilic Stippling 0 Anisocytosis 0 Microcytosis 0 Macrocytosis 0 Spherocytes 0 Sickle Cells 0 Target Cells 0 Tear Drop Cells 0 Ovalocytes 0 Stomatocytes 0 Helmet Cells 0 Giang-Mellott Bodies 0 [place] Rings 0 Jeremy Cells 0 Acanthocytes (Spur) 0 Rouleaux 0 Fragmented RBCs 0 Schistocytes 0 PTT (Actin FS) Anticoagulation Therapy Puncture Site ABG pH ABG pCO2 at Pt Temp ABG pO2 at Pt Temp ABG HCO3 ABG O2 Sat (Measured) ABG O2 Content ABG Base Excess Paresh Test O2 Delivery Device Oxygen Flow Rate Vent Mode Vent Rate Mechanical Rate Pressure Support Vent Creatine Kinase Creatine Kinase Index CK-MB (CK-2) Troponin I 10.90 H* B-Natriuretic Peptide RPR Titer Blood Type A POSITIVE Antibody Screen 12/15/18 12/15/18 12/15/18 19:45 19:45 19:45 WBC 19.4 H RBC 4.48 Hgb 13.7 Hct 40.0 MCV 89.4 MCH 30.7 MCHC 34.3 RDW 14.1 Plt Count 250 MPV 9.0 Neutrophils % (Manual) Band Neutrophils % Lymphocytes % (Manual) Monocytes % (Manual) Eosinophils % (Manual) Basophils % (Manual) Myelocytes % (Man) Promyelocytes % (Man) Blast Cells % (Manual) Metamyelocytes Hypochromia Toxic Granulation Dohle Bodies Platelet Estimate Polychromasia Poikilocytosis Basophilic Stippling Anisocytosis Microcytosis Macrocytosis Spherocytes Sickle Cells Target Cells Tear Drop Cells Ovalocytes Stomatocytes Helmet Cells Giang-Mellott Bodies [place] Rings Drayden Cells Acanthocytes (Spur) Rouleaux Fragmented RBCs Schistocytes PTT (Actin FS) 29.0 Anticoagulation Therapy Puncture Site ABG pH ABG pCO2 at Pt Temp ABG pO2 at Pt Temp ABG HCO3 ABG O2 Sat (Measured) ABG O2 Content ABG Base Excess Paresh Test O2 Delivery Device Oxygen Flow Rate Vent Mode Vent Rate Mechanical Rate Pressure Support Vent Creatine Kinase 3770 H Creatine Kinase Index 0.8 CK-MB (CK-2) 30.9 H Troponin I 9.59 H* B-Natriuretic Peptide RPR Titer Blood Type Antibody Screen 12/16/18 12/16/18 12/16/18 01:05 02:45 02:45 WBC RBC Hgb Hct MCV MCH MCHC RDW Plt Count MPV Neutrophils % (Manual) Band Neutrophils % Lymphocytes % (Manual) Monocytes % (Manual) Eosinophils % (Manual) Basophils % (Manual) Myelocytes % (Man) Promyelocytes % (Man) Blast Cells % (Manual) Metamyelocytes Hypochromia Toxic Granulation Dohle Bodies Platelet Estimate Polychromasia Poikilocytosis Basophilic Stippling Anisocytosis Microcytosis Macrocytosis Spherocytes Sickle Cells Target Cells Tear Drop Cells Ovalocytes Stomatocytes Helmet Cells Giang-Mellott Bodies [place] Rings Drayden Cells Acanthocytes (Spur) Rouleaux Fragmented RBCs Schistocytes PTT (Actin FS) 58.6 H Anticoagulation Therapy No Result Required. Puncture Site Left radial ABG pH 7.40 ABG pCO2 at Pt Temp 31.8 L ABG pO2 at Pt Temp 85.3 ABG HCO3 19.3 L ABG O2 Sat (Measured) 96.0 ABG O2 Content 17.5 ABG Base Excess -4.1 L Paresh Test Positive O2 Delivery Device N/c 3.0lpm Oxygen Flow Rate Yes Vent Mode No Result Required. Vent Rate No Result Required. Mechanical Rate No Result Required. Pressure Support Vent No Result Required. Creatine Kinase Creatine Kinase Index CK-MB (CK-2) Troponin I B-Natriuretic Peptide 42799.8 H RPR Titer Blood Type Antibody Screen 12/16/18 12/16/18 02:45 07:00 WBC 17.0 H RBC 4.29 Hgb 12.8 Hct 38.4 MCV 89.3 MCH 29.9 MCHC 33.4 RDW 13.9 Plt Count 231 MPV 9.0 Neutrophils % (Manual) Band Neutrophils % Lymphocytes % (Manual) Monocytes % (Manual) Eosinophils % (Manual) Basophils % (Manual) Myelocytes % (Man) Promyelocytes % (Man) Blast Cells % (Manual) Metamyelocytes Hypochromia Toxic Granulation Dohle Bodies Platelet Estimate Polychromasia Poikilocytosis Basophilic Stippling Anisocytosis Microcytosis Macrocytosis Spherocytes Sickle Cells Target Cells Tear Drop Cells Ovalocytes Stomatocytes Helmet Cells Giang-Mellott Bodies [place] Rings Drayden Cells Acanthocytes (Spur) Rouleaux Fragmented RBCs Schistocytes PTT (Actin FS) Anticoagulation Therapy Puncture Site ABG pH ABG pCO2 at Pt Temp ABG pO2 at Pt Temp ABG HCO3 ABG O2 Sat (Measured) ABG O2 Content ABG Base Excess Paresh Test O2 Delivery Device Oxygen Flow Rate Vent Mode Vent Rate Mechanical Rate Pressure Support Vent Creatine Kinase Creatine Kinase Index CK-MB (CK-2) Troponin I 8.69 H* B-Natriuretic Peptide RPR Titer Blood Type Antibody Screen Active Medications Generic Name Dose Route Start Last Admin Trade Name Freq PRN Reason Stop Dose Admin Aspirin 81 mg 12/15/18 10:00 12/15/18 09:24 Ecotrin - PO 81 mg DAILY LUIS FELIPE Administration Heparin Sodium (Porcine) 1,000 unit 12/15/18 18:04 Heparin - IVPUSH PRN PRN Heparin Heparin Sodium (Porcine) 5,000 unit 12/15/18 18:04 Heparin - IVPUSH PRN PRN Heparin Heparin Sodium (Porcine) 25, 500 mls @ 16 mls/hr 12/15/18 18:15 12/15/18 20: 43 000 unit/ Sodium Chloride IV 800 unit/hr TITR LUIS FELIPE 16 mls/hr Administration Protocol 800 UNIT/HR Metoprolol Tartrate 12.5 mg 12/15/18 10:00 12/15/18 21:15 Lopressor - PO 12.5 mg BID LUIS FELIPE Administration Nicotine 14 mg 12/16/18 10:00 Nicoderm Patch - TD DAILY LUIS FELIPE ASSESSMENT/PLAN: Patient is a 73 year old female with no known past medical history, BIBEMS after a fall. #Acute metabolic encephalopathy: unclear etiology -Electrolytes wnl -Head CT: generalized volume loss with moderated ventricular dilatation and mod- marked periventricular chronic microvascular ischemic disease changes. No acute intracranial pathology -will order RPR, TSH, Vit B12, Folate, Utox, Salicylates and Tylenol level -UA negative for UTI -Gentle IV hydration -Speech and swallow consulted- dysphagia diet #Rhabdomyolysis likely 2/2 fall -CK 5600 -UA 3+ blood, 1 RBC -IV fluids- NS @75mls -will trend CK- improving #Leukocytosis -likely reactive, will rule out infection -UA negative -Abdominal US ordered #Troponinemia -Trop 13.7- latest is 8.9 -likely 2/2 demand ischemia from HTN, LEILA, rhabdo -Will continue to trend Trop and EKG -Cardiology (Dr. Amaro) consulted. Recommendations appreciated. -started on heparin drip last night -ASA 81 daily; metoprolol 25 BID #LEILA -BUN/Cr 30/1.6 -Likely 2/2 rhabdo, DHN -Will continue IV fluids -Nephrology (Dr. Linton) consulted. #Acute transaminitis, Hyperbilirubinemia -will trend LFTs- downtrending likely 2/2 rhabdo -Abdominal US ordered #Prolonged QTc: 630 #FEN -IV NS @75cc/hr -Electrolytes wnl, routine bmp monitoring -dysphagia pureed diet- going for barium swallow today Problem List - Problems (1) CHF (congestive heart failure) Code(s): I50.9 - HEART FAILURE, UNSPECIFIED (2) NSTEMI (non-ST elevated myocardial infarction) Code(s): I21.4 - NON-ST ELEVATION (NSTEMI) MYOCARDIAL INFARCTION (3) Rhabdomyolysis Code(s): M62.82 - RHABDOMYOLYSIS Qualifiers: Rhabdomyolysis type: traumatic Encounter type: initial encounter Qualified Code(s): T79.6XXA - Traumatic ischemia of muscle, initial encounter Visit type - Emergency Visit Emergency Visit: Yes ED Registration Date: 12/14/18 Care time: The patient presented to the Emergency Department on the above date and was hospitalized for further evaluation of their emergent condition. - New Patient This patient is new to me today: No - Critical Care Critical Care patient: No
[2018-12-16 08:42] LABS: ALBUMIN 2.6 g/dl (3.4-5.0); ALK PHOS 82 U/L (45-117); ANION GAP 8 MMOL/L (8-16); BILIRUBIN,TOTAL 0.7 mg/dL (0.2-1); BLOOD UREA NITROGEN 29 mg/dL (7-18); CALCIUM 7.7 mg/dL (8.5-10.1); CHLORIDE 112 mmol/L (98-107); CO2 21 mmol/L (21-32); CREATININE 0.8 mg/dL (0.55-1.3); GLUCOSE,RANDOM 89 mg/dL (74-106); POTASSIUM 3.6 mmol/L (3.5-5.1); SGOT/AST 137 U/L (15-37); SGPT/ALT 32 U/L (13-61); SODIUM 141 mmol/L (136-145); TOT PROT 5.5 g/dl (6.4-8.2)
[2018-12-16] MEDS ORDERED: FUROSEMIDE 100 MG/10 ML INJECTABLE VIAL IVPB ONE (09:17)
[2018-12-16] MEDS: SODIUM CHLORIDE 1,000 ML IV SCH (10:00)
[2018-12-16] MEDS: METOPROLOL TARTRATE 25 MG TABLET (FP) PO SCH ×2 (10:27→22:07)
[2018-12-16] MEDS: NICOTINE 14 MG/24 HOURS TOPICAL PATCH TD SCH (10:27)
[2018-12-16] MEDS: ASPIRIN COATED 81 MG TABLET.EC PO SCH (10:27)
--- NOTE | 2018-12-16 10:57 | CONSULT ---
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 - Alcohol/Substance Use Hx Alcohol Use: No - Smoking History Smoking history: Current every day smoker Have you smoked in the past 12 months: Yes Aproximately how many cigarettes per day: 40 Home Medications - Allergies Allergies/Adverse Reactions: Allergies Allergy/AdvReac Type Severity Reaction Status Date / Time No Known Allergies Allergy Verified 12/14/18 13:26 - Home Medications Home Medications: Ambulatory Orders NK [No Known Home Medication] 12/14/18 Physical Exam Vital Signs: Vital Signs Temperature 97.9 F 12/16/18 06:00 Pulse Rate 108 H 12/16/18 06:00 Respiratory Rate 18 12/16/18 06:00 Blood Pressure 146/90 12/16/18 06:00 O2 Sat by Pulse Oximetry (%) 97 12/16/18 03:00 Labs: CBC, BMP 12/16/18 07:00 12/16/18 07:00
--- NOTE | 2018-12-16 11:53 | EKG ---
Test Reason : Blood Pressure : / mmHG Vent. Rate : 082 BPM Atrial Rate : 082 BPM P-R Int : 106 ms QRS Dur : 076 ms QT Int : 446 ms P-R-T Axes : 060 -43 199 degrees QTc Int : 521 ms SINUS RHYTHM WITH SHORT VA WITH FREQUENT PREMATURE VENTRICULAR COMPLEXES IN A PATTERN OF BIGEMINY BIATRIAL ENLARGEMENT LEFT AXIS DEVIATION INFERIOR INFARCT (CITED ON OR BEFORE 14-DEC-2018) ANTERIOR INFARCT , AGE UNDETERMINED T WAVE ABNORMALITY, CONSIDER LATERAL ISCHEMIA ABNORMAL ECG WHEN COMPARED WITH ECG OF 15-DEC-2018 12:45, INVERTED T WAVES HAVE REPLACED NONSPECIFIC T WAVE ABNORMALITY IN INFERIOR LEADS Confirmed by ALOK SINHA MD ([id number]) on 12/16/2018 11:53:32 AM Referred By: Confirmed By:ALOK SINHA MD
--- NOTE | 2018-12-16 11:57 | EKG ---
Test Reason : Blood Pressure : / mmHG Vent. Rate : 110 BPM Atrial Rate : 110 BPM P-R Int : 000 ms QRS Dur : 064 ms QT Int : 466 ms P-R-T Axes : 070 -54 058 degrees QTc Int : 630 ms POOR DATA QUALITY, INTERPRETATION MAY BE ADVERSELY AFFECTED SINUS TACHYCARDIA WITH FREQUENT PREMATURE VENTRICULAR COMPLEXES LEFT ANTERIOR FASCICULAR BLOCK INFERIOR INFARCT , AGE UNDETERMINED ANTERIOR INFARCT , AGE UNDETERMINED PROLONGED QT ABNORMAL ECG NO PREVIOUS ECGS AVAILABLE Confirmed by ALOK SINHA MD ([id number]) on 12/16/2018 11:57:37 AM Referred By: Confirmed By:ALOK SINHA MD
--- NOTE | 2018-12-16 12:22 | PN ---
Progress Note, GLAZIER HELPER - Note Progress Note: CXR-Progressive bilateral infiltrates Pt was on Dys puree/honey thick liquids. Reported to tolerate meals last night and this morning.However, increased congestion last night,pt with labored breathing and tachypneic. Wheezes and crackles auscultated. r/o silent Aspiration Selected Entries 12/15/18 12/15/18 12/15/18 00:30 05:00 09:00 Diet Tolerated Eating (Feeding Moderate ) Ability Assistance Lunch Supper Temperature 98.0 F 97.0 F L 97.3 F L 12/15/18 12/15/18 12/15/18 14:39 18:00 21:00 Diet Tolerated Poor Eating (Feeding ) Ability Lunch NPO Supper 25% Temperature 97.3 F L 98.1 F 97.8 F 12/16/18 12/16/18 12/16/18 00:00 02:00 06:00 Diet Tolerated Fair Eating (Feeding ) Ability Lunch Supper Temperature 97.0 F L 97.4 F L 97.9 F Laboratory Tests 12/14/18 12/15/18 12/16/18 14:00 06:30 07:00 WBC 29.6 H 21.2 H 17.0 H Suggest: NPO/MBS
--- NOTE | 2018-12-16 12:23 | PN ---
Teaching Attending Note Name of Resident: Bette Sahu ATTENDING PHYSICIAN STATEMENT I saw and evaluated the patient. I reviewed the resident's note and discussed the case with the resident. I agree with the resident's findings and plan as documented. SUBJECTIVE: No fever or chills. denies any pain, denies SOB. events last night noted for hypoxia , and resp distress. she was placed on O2. OBJECTIVE: NAD, knows her location, not age or year. comfortable HEENT: MMM, chin laceration . L thyroid lobe enlargement . neck deviation to the R . no tenderness in neck CV: RRR, no MRG . + JVD Lungs: fine crackles at bases, half way down Ext: resolving erythema on knees . long thick discoloered toe nails Skin : stage one and stage 2 ulcers on anterior chest wall. ASSESSMENT AND PLAN: 73 y/o lady with no medical care who lives alone, and presented after a fall . She was found to have Rhabdo, LEILA, and NSTEMI 1- Fall, ? mechanical vs syncpe. trauma w/u with no fractures or dislocations 2- Rhabdomyolysis : - cont IVf - follow CPk and Cr 3- LEILA: due to rhabdo . resolved 4- NSTEMI: trop peaked then trended down. echo with severely reduced Ef, decreased compliance, and Mod-Severe MR/AR. - cont ASa - increase metoprolol due to BP and HR not at goal - heaprin gtt. - further recs to follow 5-Acute systolic heart failure: due to IVf which we need for rhabdo. Cxray , BNP reviewed. Now on O2 - give 20 of IV lasix today and reassess whil on IVF - repeat EKG reviewed. has prolonged QTC 521. 6- leukocytosis : no signs of infection . will monitor . hold off Abx 7- Podiatry consult for toe nail and foot care. recs are pending 8- Torticollis: monitor . No fx . 9- L thyrpid nodule enlargement with nodule. TSH nl .w/u as out pt will d/w social work family ( brother and sister) indicate that pt lives by herself. family checks on her daily and bring her food. she ambulated with a walker and able to get to fridge and eat . they have not been able to get her to the bathtub, so they clean her with wipes.
[2018-12-16] MEDS: ACETAMINOPHEN 325 MG TABLET (FP) PO PRN (14:41)
--- NOTE | 2018-12-16 16:15 | PN ---
Progress Note, Physician History of Present Illness: Pt seen and examined at bedside. She is more awake and interactive today. She denies shortness of breath. - Current Medication List Current Medications: Active Medications Acetaminophen (Tylenol -) 325 mg PO Q6H PRN PRN Reason: PAIN 1-3 Last Admin: 12/16/18 14:41 Dose: 325 mg Atorvastatin Calcium (Lipitor -) 10 mg PO HS [facility] Heparin Sodium (Porcine) (Heparin -) 1,000 unit IVPUSH PRN PRN PRN Reason: Heparin Heparin Sodium (Porcine) (Heparin -) 5,000 unit IVPUSH PRN PRN PRN Reason: Heparin Heparin Sodium (Porcine) 25, (000 unit/ Sodium Chloride) 500 mls @ 16 mls/hr IV TITR LUIS FELIPE; Protocol Last Admin: 12/15/18 20:43 Dose: 800 unit/hr, 16 mls/hr Sodium Chloride (Normal Saline -) 1,000 mls @ 75 mls/hr IV ASDIR [facility] Last Admin: 12/16/18 10:00 Dose: 75 mls/hr Metoprolol Tartrate (Lopressor -) 25 mg PO BID [facility] Last Admin: 12/16/18 10:27 Dose: 25 mg Nicotine (Nicoderm Patch -) 14 mg TD DAILY [facility] Last Admin: 12/16/18 10:27 Dose: 14 mg - Objective Vital Signs: Vital Signs Temperature 98.3 F 12/16/18 14:10 Pulse Rate 65 12/16/18 14:10 Respiratory Rate 18 12/16/18 14:10 Blood Pressure 110/64 12/16/18 14:10 O2 Sat by Pulse Oximetry (%) 97 12/16/18 03:00 Constitutional: Yes: Calm Eyes: Yes: Conjunctiva Clear HENT: Yes: Atraumatic Neck: Yes: Supple Cardiovascular: Yes: S1, S2 Respiratory: Yes: On Nasal O2 Gastrointestinal: Yes: Soft Genitourinary: Yes: Incontinence Musculoskeletal: Yes: Muscle Weakness Edema: No Neurological: Yes: Oriented Labs: CBC, BMP 12/16/18 07:00 12/16/18 07:00 INR, PTT INR 1.13 (0.83-1.09) H 12/14/18 21:35 Problem List - Problems (1) Fall in elderly patient Code(s): R29.6 - REPEATED FALLS (2) NSTEMI (non-ST elevated myocardial infarction) Code(s): I21.4 - NON-ST ELEVATION (NSTEMI) MYOCARDIAL INFARCTION (3) Rhabdomyolysis Code(s): M62.82 - RHABDOMYOLYSIS Qualifiers: Rhabdomyolysis type: traumatic Encounter type: initial encounter Qualified Code(s): T79.6XXA - Traumatic ischemia of muscle, initial encounter Assessment/Plan Current Medications Generic Name Dose Route Start Last Admin Trade Name Freq PRN Reason Stop Dose Admin Acetaminophen 325 mg 12/16/18 14:33 12/16/18 14:41 Tylenol - PO 325 mg Q6H PRN Administration PAIN 1-3 Atorvastatin Calcium 10 mg 12/16/18 22:00 Lipitor - PO HS LUIS FELIPE Heparin Sodium (Porcine) 1,000 unit 12/15/18 18:04 Heparin - IVPUSH PRN PRN Heparin Heparin Sodium (Porcine) 5,000 unit 12/15/18 18:04 Heparin - IVPUSH PRN PRN Heparin Heparin Sodium (Porcine) 25, 500 mls @ 16 mls/hr 12/15/18 18:15 12/15/18 20: 43 000 unit/ Sodium Chloride IV 800 unit/hr TITR LUIS FELIPE 16 mls/hr Administration Protocol 800 UNIT/HR Sodium Chloride 1,000 mls @ 75 mls/hr 12/16/18 09:30 12/16/18 10:00 Normal Saline - IV 75 mls/hr ASDIR LUIS FELIPE Administration Metoprolol Tartrate 25 mg 12/16/18 10:00 12/16/18 10:27 Lopressor - PO 25 mg BID LUIS FELIPE Administration Nicotine 14 mg 12/16/18 10:00 12/16/18 10:27 Nicoderm Patch - TD 14 mg DAILY LUIS FELIPE Administration Impression 1. rhabdo 2. bonnie 3. s/p fall 4. nstemi 5. htn Plan - cont fluids - cpk improving, cont fluids - repeat labs in am - rhabdo likely from being on the ground for an extended period of time - renal function is improved - cardio eval Dr Linton
[2018-12-16] MEDS ORDERED: PIPERACILLIN/TAZOB 2.25 GM 2.25 GM in DEXTROSE 5%-WATER - 50 ML IVPB SCH (18:00)
[2018-12-16] MEDS: ATORVASTATIN CA 10 MG TABLET (FP) PO SCH (22:07)
--- NOTE | 2018-12-16 22:15 | CONSULT ---
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 - Alcohol/Substance Use Hx Alcohol Use: No - Smoking History Smoking history: Current every day smoker Have you smoked in the past 12 months: Yes Aproximately how many cigarettes per day: 40 Home Medications - Allergies Allergies/Adverse Reactions: Allergies Allergy/AdvReac Type Severity Reaction Status Date / Time No Known Allergies Allergy Verified 12/14/18 13:26 - Home Medications Home Medications: Ambulatory Orders NK [No Known Home Medication] 12/14/18 Physical Exam Vital Signs: Vital Signs Temperature 98.3 F 12/16/18 14:10 Pulse Rate 65 12/16/18 14:10 Respiratory Rate 18 12/16/18 14:10 Blood Pressure 110/64 12/16/18 14:10 O2 Sat by Pulse Oximetry (%) 98 12/16/18 09:00 Extremities: Yes: Other (+tender dystrophic mycotic nails with subungual debris , +inflammed nail beds, +distal seperation of nail from bed, +onychomycosis x 10 ) Labs: CBC, BMP 12/16/18 07:00 12/16/18 07:00 Assessment/Plan onychomycosis pain Debride nails x 10. foot care q 8 weeks. off load heels. ammonium lactate b/l feet.
[2018-12-17] MEDS ORDERED: PT OWN MED DRAWER 7, Y5N ONE (04:35)
[2018-12-17] MEDS: SODIUM CHLORIDE 1,000 ML IV SCH ×2 (05:25→10:22)
[2018-12-17] MEDS: HEPARIN - 25,000 UNIT in SODIUM CHLORIDE 495 ML IV SCH (05:26)
[2018-12-17 07:36] LABS: HEMATOCRIT 36.1 % (32.4-45.2); HEMOGLOBIN 12.2 GM/dL (10.7-15.3); MCH 30.3 pg (25.7-33.7); MCHC 33.9 g/dl (32.0-36.0); MEAN CELL VOLUME 89.5 fl (80-96); MEAN PLT VOLUME 9.1 fl (7.5-11.1); PLATELET COUNT 211 K/MM3 (134-434); RBC 4.03 M/mm3 (3.60-5.2); WHITE BLOOD COUNT 8.7 K/mm3 (4.0-10.0)
[2018-12-17 08:53] LABS: ANION GAP 8 MMOL/L (8-16); BLOOD UREA NITROGEN 25 mg/dL (7-18); CALCIUM 7.7 mg/dL (8.5-10.1); CHLORIDE 112 mmol/L (98-107); CO2 24 mmol/L (21-32); CREATININE 0.7 mg/dL (0.55-1.3); GLUCOSE,RANDOM 90 mg/dL (74-106); MAGNESIUM 2.1 mg/dL (1.8-2.4); PHOSPHOROUS 2.3 mg/dL (2.5-4.9); POTASSIUM 3.5 mmol/L (3.5-5.1); SODIUM 144 mmol/L (136-145)
[2018-12-17] MEDS ORDERED: NAPH,MB-DB/K PH,MBDB POWDER PACKET PO ONE (09:22)
[2018-12-17] MEDS: NICOTINE 14 MG/24 HOURS TOPICAL PATCH TD SCH (10:21)
[2018-12-17] MEDS: METOPROLOL TARTRATE 25 MG TABLET (FP) PO SCH ×2 (10:22→21:00)
--- NOTE | 2018-12-17 11:05 | PN ---
Progress Note, Physician History of Present Illness: Pt seen and examined at bedside. She is more awake and alert. SHe denies shortness of breath. - Current Medication List Current Medications: Active Medications Acetaminophen (Tylenol -) 325 mg PO Q6H PRN PRN Reason: PAIN 1-3 Last Admin: 12/16/18 14:41 Dose: 325 mg Atorvastatin Calcium (Lipitor -) 10 mg PO HS [facility] Last Admin: 12/16/18 22:07 Dose: 10 mg Heparin Sodium (Porcine) (Heparin -) 1,000 unit IVPUSH PRN PRN PRN Reason: Heparin Heparin Sodium (Porcine) (Heparin -) 5,000 unit IVPUSH PRN PRN PRN Reason: Heparin Heparin Sodium (Porcine) 25, (000 unit/ Sodium Chloride) 500 mls @ 16 mls/hr IV TITR LUIS FELIPE; Protocol Last Admin: 12/17/18 05:26 Dose: 800 unit/hr, 16 mls/hr Sodium Chloride (Normal Saline -) 1,000 mls @ 75 mls/hr IV ASDIR [facility] Last Admin: 12/17/18 10:22 Dose: 75 mls/hr Metoprolol Tartrate (Lopressor -) 25 mg PO BID [facility] Last Admin: 12/17/18 10:22 Dose: 25 mg Nicotine (Nicoderm Patch -) 14 mg TD DAILY [facility] Last Admin: 12/17/18 10:21 Dose: 14 mg - Objective Vital Signs: Vital Signs Temperature 97.9 F 12/17/18 10:00 Pulse Rate 80 12/17/18 10:00 Respiratory Rate 16 12/17/18 10:00 Blood Pressure 125/48 L 12/17/18 10:00 O2 Sat by Pulse Oximetry (%) 100 12/16/18 21:00 Constitutional: Yes: Calm Eyes: Yes: Conjunctiva Clear HENT: Yes: Atraumatic Cardiovascular: Yes: S1, S2 Respiratory: Yes: CTA Bilaterally Gastrointestinal: Yes: Soft Genitourinary: Yes: Incontinence Musculoskeletal: Yes: Muscle Weakness Edema: No Neurological: Yes: Oriented Psychiatric: Yes: Oriented Labs: CBC, BMP 12/17/18 06:00 12/17/18 06:00 INR, PTT INR 1.13 (0.83-1.09) H 12/14/18 21:35 Problem List - Problems (1) Fall in elderly patient Code(s): R29.6 - REPEATED FALLS (2) NSTEMI (non-ST elevated myocardial infarction) Code(s): I21.4 - NON-ST ELEVATION (NSTEMI) MYOCARDIAL INFARCTION (3) Rhabdomyolysis Code(s): M62.82 - RHABDOMYOLYSIS Qualifiers: Rhabdomyolysis type: traumatic Encounter type: initial encounter Qualified Code(s): T79.6XXA - Traumatic ischemia of muscle, initial encounter Assessment/Plan Current Medications Generic Name Dose Route Start Last Admin Trade Name Freq PRN Reason Stop Dose Admin Acetaminophen 325 mg 12/16/18 14:33 12/16/18 14:41 Tylenol - PO 325 mg Q6H PRN Administration PAIN 1-3 Atorvastatin Calcium 10 mg 12/16/18 22:00 12/16/18 22:07 Lipitor - PO 10 mg HS LUIS FELIPE Administration Heparin Sodium (Porcine) 1,000 unit 12/15/18 18:04 Heparin - IVPUSH PRN PRN Heparin Heparin Sodium (Porcine) 5,000 unit 12/15/18 18:04 Heparin - IVPUSH PRN PRN Heparin Heparin Sodium (Porcine) 25, 500 mls @ 16 mls/hr 12/15/18 18:15 12/17/18 05: 26 000 unit/ Sodium Chloride IV 800 unit/hr TITR LUIS FELIPE 16 mls/hr Administration Protocol 800 UNIT/HR Sodium Chloride 1,000 mls @ 75 mls/hr 12/16/18 09:30 12/17/18 10:22 Normal Saline - IV 75 mls/hr ASDIR LUIS FELIPE Administration Metoprolol Tartrate 25 mg 12/16/18 10:00 12/17/18 10:22 Lopressor - PO 25 mg BID LUIS FELIPE Administration Nicotine 14 mg 12/16/18 10:00 12/17/18 10:21 Nicoderm Patch - TD 14 mg DAILY LUIS FELIPE Administration Laboratory Tests 12/17/18 06:00 Potassium 3.5 Phosphorus 2.3 L Creatine Kinase 1816 H Impression 1. rhabdo 2. bonnie 3. s/p fall 4. nstemi 5. htn Plan - replace phos - will give a dose of potassium - cont fluids - cpk improving - repeat cpk in am - rhabdo likely from being on the ground for an extended period of time - renal function is improved Dr Linton
--- NOTE | 2018-12-17 11:39 | PN ---
Progress Note, SERVICE CONSULTANT - Note Progress Note: Selected Entries 12/16/18 12/17/18 12/17/18 22:57 02:00 06:00 Supper 25% Temperature 97.3 F L 97.4 F L 12/17/18 10:00 Supper Temperature 97.9 F Laboratory Tests 12/15/18 12/16/18 06:30 07:00 WBC 21.2 H 17.0 H Pt on pureed diet and honey thick liquid. Tolerating it well. Reviewed MBS with staff and recommendastion for diet upgrade and compensatory swallowing strategies. Rec: dys ground, and sips of thin liquid Ensure, magic cup
--- NOTE | 2018-12-17 14:51 | PN ---
Physical Exam: SUBJECTIVE: Patient seen and examined at bedside- no acute events overnight; patients breathing is much improved; the social media job titles did a debridment on her toes yesterday' she denies any pain OBJECTIVE: Vital Signs Period Temp Pulse Resp BP Sys/Robin Pulse Ox Last 24 Hr 97.3 F-98 F 73-83 16-18 113-130/48-72 100-100 GENERAL: The patient is awake, oriented to self and place but not time EYES: PEERLA; EOMI; .no scleral icteur NECK: torticollis; left sided mass LUNGS:CTA B/L; no rales, rhonchi or wheezing HEART: CTA B/L; no rales, rhonchi or wheezing ABDOMEN: Soft, nontender, nondistended, normoactive bowel sounds, no guarding, no rebound, no hepatosplenomegaly, no masses. EXTREMITIES: 2+ pulses, warm, well-perfused, no edema. NEUROLOGICAL: Cranial nerves II through XII grossly intact. Normal speech, gait not observed. PSYCH: Normal mood, normal affect. SKIN: Warm, dry, normal turgor, no rashes or lesions noted Laboratory Results - last 24 hr 12/17/18 12/17/18 12/17/18 06:00 06:00 06:00 WBC 8.7 RBC 4.03 Hgb 12.2 Hct 36.1 MCV 89.5 MCH 30.3 MCHC 33.9 RDW 14.0 Plt Count 211 MPV 9.1 PTT (Actin FS) 54.2 H Sodium 144 Potassium 3.5 Chloride 112 H Carbon Dioxide 24 Anion Gap 8 BUN 25 H Creatinine 0.7 Creat Clearance w eGFR > 60 Random Glucose 90 Calcium 7.7 L Phosphorus 2.3 L Magnesium 2.1 Creatine Kinase 1816 H Creatine Kinase Index 0.4 CK-MB (CK-2) 8.7 H Active Medications Generic Name Dose Route Start Last Admin Trade Name Freq PRN Reason Stop Dose Admin Acetaminophen 325 mg 12/16/18 14:33 12/16/18 14:41 Tylenol - PO 325 mg Q6H PRN Administration PAIN 1-3 Atorvastatin Calcium 10 mg 12/16/18 22:00 12/16/18 22:07 Lipitor - PO 10 mg HS LUIS FELIPE Administration Heparin Sodium (Porcine) 1,000 unit 12/15/18 18:04 Heparin - IVPUSH PRN PRN Heparin Heparin Sodium (Porcine) 5,000 unit 12/15/18 18:04 Heparin - IVPUSH PRN PRN Heparin Heparin Sodium (Porcine) 25, 500 mls @ 16 mls/hr 12/15/18 18:15 12/17/18 05: 26 000 unit/ Sodium Chloride IV 800 unit/hr TITR LUIS FELIPE 16 mls/hr Administration Protocol 800 UNIT/HR Sodium Chloride 1,000 mls @ 75 mls/hr 12/16/18 09:30 12/17/18 10:22 Normal Saline - IV 75 mls/hr ASDIR LUIS FELIPE Administration Metoprolol Tartrate 25 mg 12/16/18 10:00 12/17/18 10:22 Lopressor - PO 25 mg BID LUIS FELIPE Administration Nicotine 14 mg 12/16/18 10:00 12/17/18 10:21 Nicoderm Patch - TD 14 mg DAILY LUIS FELIPE Administration ASSESSMENT/PLAN: Patient is a 73 year old female with no known past medical history, BIBEMS after a fall. #Acute metabolic encephalopathy: unclear etiology- resolved -Electrolytes wnl -Head CT: generalized volume loss with moderated ventricular dilatation and mod- marked periventricular chronic microvascular ischemic disease changes. No acute intracranial pathology #Rhabdomyolysis likely 2/ fall -CK 1816 -IV fluids- NS @75mls -will trend CK- improving #Leukocytosis -resolved #Troponinemia -Trop 13.7- peaked and downtrended -Cardiology (Dr. Amaro) consulted. Recommendations appreciated. -started on heparin drip ; can start plavix [address] amaro -ASA 81 daily; metoprolol 25 BID #LEILA -resolved -c/w fluids #Prolonged QTc: 630 #FEN -IV NS @75cc/hr -Electrolytes wnl, routine bmp monitoring -dysphagia pureed diet- Problem List - Problems (1) CHF (congestive heart failure) Code(s): I50.9 - HEART FAILURE, UNSPECIFIED (2) NSTEMI (non-ST elevated myocardial infarction) Code(s): I21.4 - NON-ST ELEVATION (NSTEMI) MYOCARDIAL INFARCTION (3) Rhabdomyolysis Code(s): M62.82 - RHABDOMYOLYSIS Qualifiers: Rhabdomyolysis type: traumatic Encounter type: initial encounter Qualified Code(s): T79.6XXA - Traumatic ischemia of muscle, initial encounter Visit type - Emergency Visit Emergency Visit: Yes ED Registration Date: 12/14/18 Care time: The patient presented to the Emergency Department on the above date and was hospitalized for further evaluation of their emergent condition. - New Patient This patient is new to me today: No - Critical Care Critical Care patient: No
--- NOTE | 2018-12-17 19:15 | PN ---
Teaching Attending Note Name of Resident: Bette Sahu ATTENDING PHYSICIAN STATEMENT I saw and evaluated the patient. I reviewed the resident's note and discussed the case with the resident. I agree with the resident's findings and plan as documented. SUBJECTIVE: No fever or chills . No pain, no SOB . No events over night OBJECTIVE: NAD, comfortable . neck is deviated to R HEENT: MMM, chin laceration. neck deviation to the R . no tenderness in neck CV: RRR, no MRG. + JVD Lungs: minimal crackles at bases , much improved form yesterday Ext: resolving erythema on knees . Skin : stage one and stage 2 ulcers on anterior chest wall.improved ASSESSMENT AND PLAN: 73 y/o lady with no medical care who lives alone, and presented after a fall . She was found to have Rhabdo, LEILA, and NSTEMI 1- Fall, ? mechanical vs syncpe. trauma w/u with no fractures or dislocations 2- Rhabdomyolysis : - cont IVF - follow CPk and Cr 3- LEILA: due to rhabdo . resolved 4- NSTEMI: trop peaked then trended down. echo with severely reduced Ef, decreased compliance, and Mod-Severe MR/AR. - cont ASa and add plavix. stop heparin gtt tomorrow am. d/w card - cont BB 5-Acute systolic heart failure: recievd IV lasix x 1 yesterday. improved. does not need o ne today. will assess later 6- leukocytosis : no signs of infection . resolved 7- Torticollis: monitor . No fx . 8- L thyrpid nodule enlargement with nodule. TSH nl .w/u as out pt unable to reach family to discuss code status
[2018-12-17] MEDS: ATORVASTATIN CA 10 MG TABLET (FP) PO SCH (21:00)
[2018-12-17] MEDS: ACETAMINOPHEN 325 MG TABLET (FP) PO PRN (21:00)
--- NOTE | 2018-12-18 07:48 | PN ---
Progress Note, Physician Chief Complaint: Pt opens eyes, responds to verbal queries; moves extremities on request. History of Present Illness: 73 yo white woman with no known PMH brought in by EMS s/p fall at home. Patient is unable to provide any history. As per family, there is always someone who checks on her daily and helps her bathe and change. The brother states he saw her yesterday and she was at baseline, spoke to her last night. He became concerned when she did not answer the phone today. He found that she had fallen. He states that he is ill himself (just had a kidney removed), and while he always goes to check on her, she is usually bathed by other people who see her daily. - Current Medication List Current Medications: Active Medications Acetaminophen (Tylenol -) 325 mg PO Q6H PRN PRN Reason: PAIN 1-3 Last Admin: 12/17/18 21:00 Dose: 325 mg Aspirin (Ecotrin -) 81 mg PO DAILY [facility] Atorvastatin Calcium (Lipitor -) 10 mg PO HS [facility] Last Admin: 12/17/18 21:00 Dose: 10 mg Clopidogrel Bisulfate (Plavix -) 75 mg PO DAILY [facility] Heparin Sodium (Porcine) (Heparin -) 1,000 unit IVPUSH PRN PRN PRN Reason: Heparin Heparin Sodium (Porcine) (Heparin -) 5,000 unit IVPUSH PRN PRN PRN Reason: Heparin Heparin Sodium (Porcine) 25, (000 unit/ Sodium Chloride) 500 mls @ 16 mls/hr IV TITR LUIS FELIPE; Protocol Last Admin: 12/17/18 05:26 Dose: 800 unit/hr, 16 mls/hr Sodium Chloride (Normal Saline -) 1,000 mls @ 75 mls/hr IV ASDIR [facility] Last Admin: 12/17/18 10:22 Dose: 75 mls/hr Metoprolol Tartrate (Lopressor -) 25 mg PO BID [facility] Last Admin: 12/17/18 21:00 Dose: 25 mg Nicotine (Nicoderm Patch -) 14 mg TD DAILY [facility] Last Admin: 12/17/18 10:21 Dose: 14 mg - Objective Vital Signs: Vital Signs Temperature 97.8 F 12/18/18 02:00 Pulse Rate 75 12/18/18 02:00 Respiratory Rate 20 12/18/18 02:00 Blood Pressure 165/63 12/18/18 02:00 O2 Sat by Pulse Oximetry (%) 99 12/17/18 21:00 Constitutional: Yes: Calm, Thin Eyes: Yes: WNL HENT: Yes: WNL Neck: Yes: Decreased ROM Cardiovascular: Yes: S1, S2 Respiratory: Yes: Regular Gastrointestinal: Yes: Soft ...Rectal Exam: Yes: Deferred Genitourinary: No: Anuria Breast(s): Yes: WNL Musculoskeletal: Yes: Muscle Weakness Extremities: Yes: Cool Edema: No Peripheral Pulses WNL: No Peripheral Pulses: Left Doralis Pedis: 1+, Right Dorsalis Pedis: 1+ Integumentary: Yes: Other (deformed toes; unkempt toonails) Neurological: Yes: Alert, Confusion, Weakness Psychiatric: Yes: Other (hx dementia) Labs: CBC, BMP 12/17/18 06:00 12/17/18 06:00 INR, PTT INR 1.13 (0.83-1.09) H 12/14/18 21:35 - ....Imaging Other: Image Reviewed Problem List - Problems (1) NSTEMI (non-ST elevated myocardial infarction) Assessment/Plan: +TNI +CKMB (though relative index is low, this may be due to high level of total CK caused by rhabdomyolysis). EKG: sinus tachycardia; inferior and anterior RI (age undetermined); poor R wave progression. Recommend: IV fluids for rhabdomyolysis. ECHO for LVEF, wall motionn, chamber sizes, valve status. On ASA On metoprolol. IV heparin (unless contraindicated by fall with subsequent wounds). F/u lipids. Code(s): I21.4 - NON-ST ELEVATION (NSTEMI) MYOCARDIAL INFARCTION (2) CHF (congestive heart failure) Assessment/Plan: f/u ECHO BUN/Cr, Is and Os (Hodge); daily weight; electrolytes. Code(s): I50.9 - HEART FAILURE, UNSPECIFIED (3) Fall in elderly patient Code(s): R29.6 - REPEATED FALLS (4) Rhabdomyolysis Assessment/Plan: s/p fall, with extensive skin damage, bruises. TNI elevated; EKG changes suggestive of IW and AW RI (age undetermined); poor R wave progression. ? NSTEMI with arrhythmia leading to syncope. CKMB elevateed (relative index is low, but likely due to high CK from rhabdo; cannot r/o RI). Plan: Fluids IV bolus of 1-2 leters, then hourly (ECHO to determine LVEF, which will help dictate rate of IV). F/u BUN/Cr, electrolytes (Hodge catheter is needed). Serial TNI, CK/CKMG. EKG serially. See NSTEMI section. Code(s): M62.82 - RHABDOMYOLYSIS Qualifiers: Rhabdomyolysis type: traumatic Encounter type: initial encounter Qualified Code(s): T79.6XXA - Traumatic ischemia of muscle, initial encounter (5) Skin breakdown Code(s): L90.9 - ATROPHIC DISORDER OF SKIN, UNSPECIFIED (6) Very low level of personal hygiene Code(s): R46.0 - VERY LOW LEVEL OF PERSONAL HYGIENE (7) Sepsis Assessment/Plan: elevated WBCs, neutrophils. F?u with ID Code(s): A41.9 - SEPSIS, UNSPECIFIED ORGANISM
[2018-12-18 08:04] LABS: HEMATOCRIT 37.8 % (32.4-45.2); HEMOGLOBIN 12.7 GM/dL (10.7-15.3); MCH 30.2 pg (25.7-33.7); MCHC 33.7 g/dl (32.0-36.0); MEAN CELL VOLUME 89.4 fl (80-96); MEAN PLT VOLUME 8.7 fl (7.5-11.1); PLATELET COUNT 228 K/MM3 (134-434); RBC 4.23 M/mm3 (3.60-5.2); RDW 14.2 % (11.6-15.6); WHITE BLOOD COUNT 10.8 K/mm3 (4.0-10.0)
[2018-12-18 08:38] LABS: ANION GAP 5 MMOL/L (8-16); BLOOD UREA NITROGEN 19 mg/dL (7-18); CALCIUM 8.4 mg/dL (8.5-10.1); CHLORIDE 113 mmol/L (98-107); CO2 27 mmol/L (21-32); CREATININE 0.7 mg/dL (0.55-1.3); GLUCOSE,RANDOM 98 mg/dL (74-106); MAGNESIUM 1.7 mg/dL (1.8-2.4); PHOSPHOROUS 2.8 mg/dL (2.5-4.9); POTASSIUM 3.8 mmol/L (3.5-5.1); SODIUM 145 mmol/L (136-145)
[2018-12-18] MEDS ORDERED: MAGNESIUM SULF 50% (8.12 MEQ/2 ML-1 GM VIAL) IVPB ONE (08:52)
[2018-12-18] MEDS ORDERED: PT OWN MED DRAWER 7, Y5N ONE (09:29)
[2018-12-18] MEDS: METOPROLOL TARTRATE 25 MG TABLET (FP) PO SCH ×2 (09:33→22:38)
[2018-12-18] MEDS: CLOPIDOGREL BISULFATE 75 MG TABLET (FP) PO SCH (09:33)
[2018-12-18] MEDS: ASPIRIN COATED 81 MG TABLET.EC PO SCH (09:33)
[2018-12-18] MEDS: NICOTINE 14 MG/24 HOURS TOPICAL PATCH TD SCH (09:33)
[2018-12-18] MEDS ORDERED: FUROSEMIDE 40 MG TABLET (FP) PO ONE (11:12)
[2018-12-18] MEDS ORDERED: LISINOPRIL 5 MG TABLET (FP) PO ONE (11:13)
--- NOTE | 2018-12-18 11:19 | PN ---
Teaching Attending Note Name of Resident: Krishna Bradshaw ATTENDING PHYSICIAN STATEMENT I saw and evaluated the patient. I reviewed the resident's note and discussed the case with the resident. I agree with the resident's findings and plan as documented. SUBJECTIVE: No fever or chills. No JONES, no NA/V , no CP or SOB OBJECTIVE: NAD, comfortable . HEENT: MMM, chin laceration. neck deviation to the R . CV: RRR, no MRG. + JVD Lungs: worsening crackles at bases Ext: resolving erythema on knees . Skin : chect wall laceration , improved ASSESSMENT AND PLAN: 73 y/o lady with no medical care who lives alone, and presented after a fall . She was found to have Rhabdo, LEILA, and NSTEMI 1- Fall, ? mechanical vs syncpe. trauma w/u with no fractures or dislocations 2- Rhabdomyolysis : CPK improved, still > 1000 - cont IVF at current rate - follow CPk and Cr 3- LEILA: due to rhabdo . resolved 4- NSTEMI: medical management echo with severely reduced Ef, decreased compliance, and Mod-Severe MR/AR. - DC heparin gtt. start Asa and plavix - cont BB - add low dose lisinopril as BP is not at goal 5-Acute systolic heart failure: improved. will give one dose of po lasix today as crackles are worse and she will continue on IVF 6- leukocytosis : no signs of infection . no fever , blood cx neg x 72 hours. neg urine cx. monitor off Abx 7- Torticollis: likely due to positioning while on floor . 8- L thyroid nodule enlargement with nodule. TSH nl .w/u as out pt start sq heparin for DVT px
[2018-12-18] MEDS: SODIUM CHLORIDE 1,000 ML IV SCH (11:26)
[2018-12-18] MEDS: ACETAMINOPHEN 325 MG TABLET (FP) PO PRN (11:40)
--- NOTE | 2018-12-18 12:49 | PN ---
Physical Exam: SUBJECTIVE: Patient seen and examined at bedside. Pt offers no complaints currently except feeling thirsty. She is AAOX2(person and place). OBJECTIVE: Vital Signs Temperature 97.6 F 12/18/18 10:00 Pulse Rate 84 12/18/18 10:00 Respiratory Rate 12/18/18 10:00 Blood Pressure 157/87 12/18/18 10:00 O2 Sat by Pulse Oximetry (%) 99 12/18/18 09:00 GENERAL: The patient is awake, alert, and oriented x2. Head turned to right and cannot turn to the left. EYES:extraocular movements intact ENT: Ears normal, nares patent NECK: Head turned to right from torticollis LUNGS: b/l crackles HEART: Regular rate and rhythm, S1, S2 ABDOMEN: Soft, nontender, nondistended, normoactive bowel sounds EXTREMITIES: warm, well-perfused, no edema. NEUROLOGICAL: torticollis of neck to the R PSYCH: Normal mood, normal affect. SKIN: Warm, dry Laboratory Results - last 24 hr 12/18/18 12/18/18 12/18/18 06:30 06:30 06:30 WBC 10.8 H RBC 4.23 Hgb 12.7 Hct 37.8 MCV 89.4 MCH 30.2 MCHC 33.7 RDW 14.2 Plt Count 228 MPV 8.7 PTT (Actin FS) 27.9 Sodium 145 Potassium 3.8 Chloride 113 H Carbon Dioxide 27 Anion Gap 5 L BUN 19 H Creatinine 0.7 Creat Clearance w eGFR > 60 Random Glucose 98 Calcium 8.4 L Phosphorus 2.8 Magnesium 1.7 L Creatine Kinase Creatine Kinase Index CK-MB (CK-2) 12/18/18 06:30 WBC RBC Hgb Hct MCV MCH MCHC RDW Plt Count MPV PTT (Actin FS) Sodium Potassium Chloride Carbon Dioxide Anion Gap BUN Creatinine Creat Clearance w eGFR Random Glucose Calcium Phosphorus Magnesium Creatine Kinase 1109 H Creatine Kinase Index 0.9 CK-MB (CK-2) 10.4 H Active Medications Generic Name Dose Route Start Last Admin Trade Name Freq PRN Reason Stop Dose Admin Acetaminophen 325 mg 12/16/18 14:33 12/18/18 11:40 Tylenol - PO 325 mg Q6H PRN Administration PAIN 1-3 Aspirin 81 mg 12/18/18 10:00 12/18/18 09:33 Ecotrin - PO 81 mg DAILY LUIS FELIPE Administration Atorvastatin Calcium 10 mg 12/16/18 22:00 12/17/18 21:00 Lipitor - PO 10 mg HS LUIS FELIPE Administration Clopidogrel Bisulfate 75 mg 12/18/18 10:00 12/18/18 09:33 Plavix - PO 75 mg DAILY LUIS FELIPE Administration Heparin Sodium (Porcine) 5,000 unit 12/18/18 14:00 Heparin - SQ TID LUIS FELIPE Sodium Chloride 1,000 mls @ 75 mls/hr 12/16/18 09:30 12/18/18 11:26 Normal Saline - IV 75 mls/hr ASDIR LUIS FELIPE Administration Lisinopril 5 mg 12/19/18 10:00 Prinivil PO DAILY LUIS FELIPE Metoprolol Tartrate 25 mg 12/16/18 10:00 12/18/18 09:33 Lopressor - PO 25 mg BID LUIS FELIPE Administration Nicotine 14 mg 12/16/18 10:00 12/18/18 09:33 Nicoderm Patch - TD 14 mg DAILY LUIS FELIPE Administration ASSESSMENT/PLAN: 73 y/o F w/no known PMH presented to the ER after a fall. She was found to have rhabdo, LEILA, and NSTEMI. -Fall -mechanical vs syncopal. etiology is unclear. Head CT was negative -continue to monitor on tele for arrhythmias -Rhabdomyolysis -CK continues to downtrend. -c/w NS @ 75 ml/hr -trend CK -LEILA secondary to rhabdomyolysis -now resolved -NSTEMI -heparin d/c'd today -c/w asa, plavix, lipitor, lopressor 25 mg bid -HTN -Will start on lisinopril 5 mg especially with hx of NSTEMI -CHF -crackles in lungs with fluids -will give lasix 40 mg po once -Torticollis -from fall. Will continue to monitor -DVT ppx -Heparin 5000 units sq q8h -FEN -NS @ 75 ml/hr -HypoMg - Mg sulfate 1g IV ordered -Dysphagia diet -Code status: Spoke with her brother Cesario Wolf on the phone today. He says her wishes would be to be FULL CODE. -Dispo: continue to monitor on tele Visit type - Emergency Visit Emergency Visit: Yes ED Registration Date: 12/14/18 Care time: The patient presented to the Emergency Department on the above date and was hospitalized for further evaluation of their emergent condition. - New Patient This patient is new to me today: Yes Date on this admission: 12/18/18 - Critical Care Critical Care patient: No
[2018-12-18] MEDS: HEPARIN NA (PORCINE) 5,000 UNITS/ML 1ML VIAL SQ SCH ×2 (14:06→22:39)
--- NOTE | 2018-12-18 16:32 | PN ---
Progress Note (short form) - Note Progress Note: covering dr bryan problems 1. rhabdo 2. bonnie 3. s/p fall 4. nstemi 5. htn Current Medications Acetaminophen (Tylenol -) 325 mg PO Q6H PRN PRN Reason: PAIN 1-3 Last Admin: 12/18/18 11:40 Dose: 325 mg Aspirin (Ecotrin -) 81 mg PO DAILY [facility] Last Admin: 12/18/18 09:33 Dose: 81 mg Atorvastatin Calcium (Lipitor -) 10 mg PO HS [facility] Last Admin: 12/17/18 21:00 Dose: 10 mg Clopidogrel Bisulfate (Plavix -) 75 mg PO DAILY [facility] Last Admin: 12/18/18 09:33 Dose: 75 mg Heparin Sodium (Porcine) (Heparin -) 5,000 unit SQ TID [facility] Last Admin: 12/18/18 14:06 Dose: 5,000 unit Sodium Chloride (Normal Saline -) 1,000 mls @ 75 mls/hr IV ASDIR [facility] Last Admin: 12/18/18 11:26 Dose: 75 mls/hr Lisinopril (Prinivil) 5 mg PO DAILY [facility] Metoprolol Tartrate (Lopressor -) 25 mg PO BID [facility] Last Admin: 12/18/18 09:33 Dose: 25 mg Nicotine (Nicoderm Patch -) 14 mg TD DAILY [facility] Last Admin: 12/18/18 09:33 Dose: 14 mg Last Vital Signs Temp Pulse Resp BP Pulse Ox 97.9 F 74 18 131/68 99 12/18/18 14:00 12/18/18 14:00 12/18/18 14:00 12/18/18 14:00 12/18/18 09:00 CBC, BMP 12/18/18 06:30 12/18/18 06:30 IMP rhabdo, no kidney injury, resolving cpk mild prerenal azotemia Plan continue supportive care
[2018-12-18] MEDS: ATORVASTATIN CA 10 MG TABLET (FP) PO SCH (22:38)
[2018-12-18] MEDS ORDERED: FUROSEMIDE 40 MG/4 ML INJECTABLE VIAL IVPUSH ONE (22:50)
[2018-12-19] MEDS: HEPARIN NA (PORCINE) 5,000 UNITS/ML 1ML VIAL SQ SCH ×3 (05:17→21:01)
[2018-12-19 07:51] LABS: BASO % 0.5 % (0-2.0); EOS % 0.4 % (0-4.5); HEMATOCRIT 37.5 % (32.4-45.2); HEMOGLOBIN 12.5 GM/dL (10.7-15.3); LYMPH % 5.3 % (8-40); MCHC 33.3 g/dl (32.0-36.0); MEAN CELL VOLUME 89.9 fl (80-96); MONO % 3.7 % (3.8-10.2); NEUT % 90.1 % (42.8-82.8); PLATELET COUNT 241 K/MM3 (134-434); RBC 4.17 M/mm3 (3.60-5.2); WHITE BLOOD COUNT 10.8 K/mm3 (4.0-10.0)
[2018-12-19 08:18] LABS: ALBUMIN 2.6 g/dl (3.4-5.0); ALK PHOS 85 U/L (45-117); ANION GAP 5 MMOL/L (8-16); BILIRUBIN,TOTAL 0.5 mg/dL (0.2-1); BLOOD UREA NITROGEN 14 mg/dL (7-18); CHLORIDE 108 mmol/L (98-107); CO2 30 mmol/L (21-32); CREATININE 0.7 mg/dL (0.55-1.3); GLUCOSE,RANDOM 98 mg/dL (74-106); MAGNESIUM 1.5 mg/dL (1.8-2.4); PHOSPHOROUS 2.8 mg/dL (2.5-4.9); POTASSIUM 3.4 mmol/L (3.5-5.1); SGOT/AST 51 U/L (15-37); SGPT/ALT 32 U/L (13-61); SODIUM 143 mmol/L (136-145); TOT PROT 5.7 g/dl (6.4-8.2)
[2018-12-19] MEDS: NICOTINE 14 MG/24 HOURS TOPICAL PATCH TD SCH (10:07)
[2018-12-19] MEDS: LISINOPRIL 5 MG TABLET (FP) PO SCH (10:07)
[2018-12-19] MEDS: SODIUM CHLORIDE 1,000 ML IV SCH (10:07)
[2018-12-19] MEDS: METOPROLOL TARTRATE 25 MG TABLET (FP) PO SCH ×2 (10:07→21:01)
[2018-12-19] MEDS: ASPIRIN COATED 81 MG TABLET.EC PO SCH (10:07)
[2018-12-19] MEDS: CLOPIDOGREL BISULFATE 75 MG TABLET (FP) PO SCH (10:07)
--- NOTE | 2018-12-19 15:30 | PN ---
Progress Note (short form) - Note Progress Note: Subjective: no fever or chills. No pain or SOB Objective: Vital Signs: Last Vital Signs Temp Pulse Resp BP Pulse Ox 97.9 F 78 20 138/71 97 12/19/18 14:00 12/19/18 14:00 12/19/18 14:00 12/19/18 14:00 12/19/18 09:00 Laboratory Results - last 24 hr 12/18/18 12/19/18 12/19/18 11:00 06:00 06:00 WBC 10.8 H RBC 4.17 Hgb 12.5 Hct 37.5 MCV 89.9 MCH 30.0 MCHC 33.3 RDW 14.0 Plt Count 241 MPV 9.0 Absolute Neuts (auto) 9.8 H Neutrophils % 90.1 H Lymphocytes % 5.3 L D Monocytes % 3.7 L Eosinophils % 0.4 D Basophils % 0.5 Nucleated RBC % 0 PTT (Actin FS) 31.6 Sodium Potassium Chloride Carbon Dioxide Anion Gap BUN Creatinine Creat Clearance w eGFR Random Glucose Calcium Phosphorus Magnesium Total Bilirubin AST ALT Alkaline Phosphatase Creatine Kinase Creatine Kinase Index CK-MB (CK-2) Total Protein Albumin Stool Occult Blood Negative 12/19/18 06:00 WBC RBC Hgb Hct MCV MCH MCHC RDW Plt Count MPV Absolute Neuts (auto) Neutrophils % Lymphocytes % Monocytes % Eosinophils % Basophils % Nucleated RBC % PTT (Actin FS) Sodium 143 Potassium 3.4 L Chloride 108 H Carbon Dioxide 30 Anion Gap 5 L BUN 14 Creatinine 0.7 Creat Clearance w eGFR > 60 Random Glucose 98 Calcium 8.0 L Phosphorus 2.8 Magnesium 1.5 L Total Bilirubin 0.5 AST 51 H ALT 32 Alkaline Phosphatase 85 Creatine Kinase 758 H Creatine Kinase Index 0.9 CK-MB (CK-2) 7.5 H Total Protein 5.7 L Albumin 2.6 L Stool Occult Blood Physical Exam: NAD, comfortable . HEENT: MMM, chin laceration. neck deviation to the R but position has improved . CV: RRR, no MRG. + JVD Lungs: crackles at bases Ext:bruises , no edema , thick discolored toe nails Skin : chest wall laceration , improved ASSESSMENT AND PLAN: 73 y/o lady with no medical care who lives alone, and presented after a fall . She was found to have Rhabdo, LEILA, and NSTEMI 1- Fall, ? mechanical vs syncpe. trauma w/u with no fractures or dislocations 2- Rhabdomyolysis : CPK improved. dc IVF 3- LEILA: due to rhabdo . resolved 4- NSTEMI: medical management - cont Asa and plavix - cont BB - cont lisinopril 5-Acute systolic heart failure: improved.dc iVF now. will assess for need of lasix in am 6- leukocytosis: no signs of infection. no fever , blood cx neg x 96 hours. neg urine cx. monitor off Abx 7- Torticollis: likely due to positioning while on floor . 8- L thyroid nodule enlargement with nodule. TSH nl .w/u as out pt SQ heparin for DVT px need rehab placement . might be ready tomorrow Visit type - Emergency Visit Emergency Visit: Yes ED Registration Date: 12/14/18 Care time: The patient presented to the Emergency Department on the above date and was hospitalized for further evaluation of their emergent condition. - New Patient This patient is new to me today: No - Critical Care Critical Care patient: No
[2018-12-19] MEDS ORDERED: MAGNESIUM SULF 50% (8.12 MEQ/2 ML-1 GM VIAL) IVPB ONE (15:32)
[2018-12-19] MEDS ORDERED: POTASSIUM CHLORIDE TABS 20 MEQ TABLET.ER (FP) PO ONE (15:32)
[2018-12-19] MEDS: ATORVASTATIN CA 10 MG TABLET (FP) PO SCH (21:01)
[2018-12-19] MEDS: AMMONIUM LACTATE 12% LOTION 225 GM BOTTLE TP SCH (21:01)
--- NOTE | 2018-12-19 21:39 | PN ---
Progress Note (short form) - Note Progress Note: covering dr bryan problems 1. rhabdo 2. bonnie 3. s/p fall 4. nstemi 5. htn Current Medications Acetaminophen (Tylenol -) 325 mg PO Q6H PRN PRN Reason: PAIN 1-3 Last Admin: 12/18/18 11:40 Dose: 325 mg Aspirin (Ecotrin -) 81 mg PO DAILY [facility] Last Admin: 12/19/18 10:07 Dose: 81 mg Atorvastatin Calcium (Lipitor -) 10 mg PO HS [facility] Last Admin: 12/19/18 21:01 Dose: 10 mg Clopidogrel Bisulfate (Plavix -) 75 mg PO DAILY [facility] Last Admin: 12/19/18 10:07 Dose: 75 mg Heparin Sodium (Porcine) (Heparin -) 5,000 unit SQ TID [facility] Last Admin: 12/19/18 21:01 Dose: 5,000 unit Lactic Acid (Lac-Hydrin 12) 1 applic TP BID [facility] Last Admin: 12/19/18 21:01 Dose: 1 applic Lisinopril (Prinivil) 5 mg PO DAILY [facility] Last Admin: 12/19/18 10:07 Dose: 5 mg Metoprolol Tartrate (Lopressor -) 25 mg PO BID [facility] Last Admin: 12/19/18 21:01 Dose: 25 mg Nicotine (Nicoderm Patch -) 14 mg TD DAILY [facility] Last Admin: 12/19/18 10:07 Dose: 14 mg Last Vital Signs Temp Pulse Resp BP Pulse Ox 98.1 F 45 L 19 131/58 L 97 12/19/18 18:00 12/19/18 18:00 12/19/18 18:00 12/19/18 18:00 12/19/18 09:00 o/e in nad lungs clear heart reg Abd soft Ext no edema CBC, BMP 12/19/18 06:00 12/19/18 06:00 CBC, BMP 12/18/18 06:30 12/18/18 06:30 IMP rhabdo, no kidney injury, resolving cpk mild prerenal azotemia- resolved Plan continue supportive care
--- NOTE | 2018-12-19 23:12 | CONS ---
DATE OF CONSULTATION: 12/14/2018 The patient is a 73-year-old female who was brought to the emergency room by EMS after sustaining a fall at home. The patient was unable to provide any history. As per her family, there is always someone there to check on her daily and help her. The brother states that he saw her yesterday on the 13 of December and she appeared to be fine. He became concerned when she did not answer the phone today. He went to the house and found her on the floor. He states that he usually takes care of her hygienically and other people take care of her. Multiple attempts in the emergency room to place a Hodge catheter were unsuccessful. Therefore, Urology was called. Physical examination revealed a frail, elderly female with a distended bladder. 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 Using a 14-Brune[place] coude with a wire guide, after difficulty and dilation, the Hodge was passed atraumatically. Approximately 600 mL of clear yellow urine was passed. The Hodge is attached to a leg bag. The patient is unable to communicate any history. Her medication list includes Lipitor, Tylenol, Plavix; therefore, will commence the patient on those medications. In the emergency room her temperature was 97.8, her blood pressure was 165/63, her pulse rate was 65. She does have a history of smoking daily. Her CBC revealed a white count of 8.7, hemoglobin of 12.2, hematocrit 36.1. Her platelets were 211. Her BUN was 25, creatinine 0.7. Random glucose was 90. Her INR was 1.3. IMPRESSION: At present, is a 73-year-old female with history of fall of undetermined time. She did have EKG suggestive of inferior wall and anterior wall myocardial infarction. She does have poor R-wave progression and a possible non-ST elevation myocardial infarction episode with an arrhythmia lead into syncope could have been the cause of the fall. She does have elevated CK, the MB band. This is indicative of rhabdomyolysis. Will follow with you. MP CANNON M.D. [id number]
[2018-12-20] MEDS ORDERED: ALBUTEROL SO4 2.5/IPRATROPIUM 0.5 INH SOL 3 ML VIAL.NEB. NEB ONE (00:06)
[2018-12-20] MEDS ORDERED: FUROSEMIDE 40 MG/4 ML INJECTABLE VIAL IVPUSH ONE (01:14)
[2018-12-20] MEDS ORDERED: FUROSEMIDE 40 MG/4 ML INJECTABLE VIAL ONE (01:22)
[2018-12-20] MEDS: HEPARIN NA (PORCINE) 5,000 UNITS/ML 1ML VIAL SQ SCH ×2 (05:15→13:45)
[2018-12-20 05:29] VITALS: BP 146/79; PULSE 86; TEMP 97.9
[2018-12-20 07:55] LABS: HEMATOCRIT 37.3 % (32.4-45.2); MCH 31.1 pg (25.7-33.7); MCHC 34.7 g/dl (32.0-36.0); MEAN CELL VOLUME 89.6 fl (80-96); MEAN PLT VOLUME 9.2 fl (7.5-11.1); PLATELET COUNT 270 K/MM3 (134-434); RBC 4.17 M/mm3 (3.60-5.2); RDW 13.9 % (11.6-15.6); WHITE BLOOD COUNT 9.7 K/mm3 (4.0-10.0)
[2018-12-20 08:20] LABS: ANION GAP 5 MMOL/L (8-16); BLOOD UREA NITROGEN 13 mg/dL (7-18); CHLORIDE 106 mmol/L (98-107); CO2 31 mmol/L (21-32); CREATININE 0.6 mg/dL (0.55-1.3); GLUCOSE,RANDOM 96 mg/dL (74-106); MAGNESIUM 2.2 mg/dL (1.8-2.4); PHOSPHOROUS 2.6 mg/dL (2.5-4.9); POTASSIUM 4.1 mmol/L (3.5-5.1); SODIUM 142 mmol/L (136-145)
[2018-12-20] MEDS: ASPIRIN COATED 81 MG TABLET.EC PO SCH (09:07)
[2018-12-20] MEDS: LISINOPRIL 5 MG TABLET (FP) PO SCH (09:07)
[2018-12-20] MEDS: AMMONIUM LACTATE 12% LOTION 225 GM BOTTLE TP SCH (09:07)
[2018-12-20] MEDS: CLOPIDOGREL BISULFATE 75 MG TABLET (FP) PO SCH (09:07)
[2018-12-20] MEDS: NICOTINE 14 MG/24 HOURS TOPICAL PATCH TD SCH (09:07)
[2018-12-20] MEDS: METOPROLOL TARTRATE 25 MG TABLET (FP) PO SCH (09:07)
--- NOTE | 2018-12-20 09:33 | EKG ---
Test Reason : Blood Pressure : / mmHG Vent. Rate : 097 BPM Atrial Rate : 097 BPM P-R Int : 104 ms QRS Dur : 078 ms QT Int : 398 ms P-R-T Axes : 060 -33 160 degrees QTc Int : 505 ms SINUS RHYTHM WITH SHORT [place] WITH FREQUENT PREMATURE VENTRICULAR COMPLEXES LEFT ATRIAL ENLARGEMENT LEFT AXIS DEVIATION ANTERIOR INFARCT (CITED ON OR BEFORE 14-DEC-2018) ABNORMAL ECG WHEN COMPARED WITH ECG OF 16-DEC-2018 09:02, NO SIGNIFICANT CHANGE WAS FOUND Confirmed by RENA MENENDEZ, CANDE ([id number]) on 12/20/2018 9:33:29 AM Referred By: TRINIDAD ARSHAD DR Confirmed By:CANDE CHASE MD
--- NOTE | 2018-12-20 09:41 | PN ---
Progress Note, Physician Chief Complaint: Pt more alert; knows name of hospital, city, state.Denies chest pain or dyspnea. History of Present Illness: 73 yo white woman with no known PMH brought in by EMS s/p fall at home. Patient is unable to provide any history. As per family, there is always someone who checks on her daily and helps her bathe and change. The brother states he saw her yesterday and she was at baseline, spoke to her last night. He became concerned when she did not answer the phone today. He found that she had fallen. He states that he is ill himself (just had a kidney removed), and while he always goes to check on her, she is usually bathed by other people who see her daily. - Current Medication List Current Medications: Active Medications Acetaminophen (Tylenol -) 325 mg PO Q6H PRN PRN Reason: PAIN 1-3 Last Admin: 12/18/18 11:40 Dose: 325 mg Aspirin (Ecotrin -) 81 mg PO DAILY [facility] Last Admin: 12/20/18 09:07 Dose: 81 mg Atorvastatin Calcium (Lipitor -) 10 mg PO HS [facility] Last Admin: 12/19/18 21:01 Dose: 10 mg Clopidogrel Bisulfate (Plavix -) 75 mg PO DAILY [facility] Last Admin: 12/20/18 09:07 Dose: 75 mg Heparin Sodium (Porcine) (Heparin -) 5,000 unit SQ TID [facility] Last Admin: 12/20/18 05:15 Dose: 5,000 unit Lactic Acid (Lac-Hydrin 12) 1 applic TP BID [facility] Last Admin: 12/20/18 09:07 Dose: 1 applic Lisinopril (Prinivil) 5 mg PO DAILY [facility] Last Admin: 12/20/18 09:07 Dose: 5 mg Metoprolol Tartrate (Lopressor -) 25 mg PO BID [facility] Last Admin: 12/20/18 09:07 Dose: 25 mg Nicotine (Nicoderm Patch -) 14 mg TD DAILY [facility] Last Admin: 12/20/18 09:07 Dose: 14 mg - Objective Vital Signs: Vital Signs Temperature 97.9 F 12/20/18 05:00 Pulse Rate 86 12/20/18 05:00 Respiratory Rate 22 H 12/20/18 08:12 Blood Pressure 146/79 12/20/18 05:00 O2 Sat by Pulse Oximetry (%) 94 L 12/20/18 08:12 Constitutional: Yes: Calm Eyes: Yes: WNL HENT: Yes: WNL Neck: Yes: WNL Cardiovascular: Yes: S1, S2 Respiratory: Yes: WNL Gastrointestinal: Yes: Soft ...Rectal Exam: Yes: Deferred Genitourinary: No: Anuria Breast(s): Yes: WNL Musculoskeletal: Yes: Muscle Weakness Extremities: Yes: Cool, Other (toe deformities) Edema: No Peripheral Pulses WNL: No Peripheral Pulses: Left Doralis Pedis: 1+, Right Dorsalis Pedis: 1+ Neurological: Yes: Alert, Confusion, Weakness Psychiatric: Yes: Other (hx dementia) Labs: CBC, BMP 12/20/18 07:00 12/20/18 07:00 INR, PTT INR 1.13 (0.83-1.09) H 12/14/18 21:35 - ....Imaging Other: Image Reviewed (telemetry: NSR; no arrhythmias) Problem List - Problems (1) NSTEMI (non-ST elevated myocardial infarction) Assessment/Plan: Resolvin rhabdomyolysis. TNI trending down. Consider coronary artery study (stress test) only after discussing with health- care proxy because of pt's mutlipel comorbities and mental status. Code(s): I21.4 - NON-ST ELEVATION (NSTEMI) MYOCARDIAL INFARCTION (2) CHF (congestive heart failure) Code(s): I50.9 - HEART FAILURE, UNSPECIFIED (3) Fall in elderly patient Code(s): R29.6 - REPEATED FALLS (4) Rhabdomyolysis Assessment/Plan: Largely resolved. F/u with unmanned aircraft systems roboticist. Code(s): M62.82 - RHABDOMYOLYSIS Qualifiers: Rhabdomyolysis type: traumatic Encounter type: initial encounter Qualified Code(s): T79.6XXA - Traumatic ischemia of muscle, initial encounter (5) Skin breakdown Code(s): L90.9 - ATROPHIC DISORDER OF SKIN, UNSPECIFIED (6) Very low level of personal hygiene Code(s): R46.0 - VERY LOW LEVEL OF PERSONAL HYGIENE (7) Sepsis Code(s): A41.9 - SEPSIS, UNSPECIFIED ORGANISM (8) Acute on chronic systolic (congestive) heart failure Assessment/Plan: Severely reduced LVEF. On metoprolol and lisionpril. Fecommend adding spironolactone. F/u BUN/Cr, electrolytes, daily weight, Is and Os. Code(s): I50.23 - ACUTE ON CHRONIC SYSTOLIC (CONGESTIVE) HEART FAILURE
--- NOTE | 2018-12-20 11:05 | PN ---
Progress Note, Physician History of Present Illness: 73 yo white woman with no known PMH brought in by EMS s/p fall at home. Patient is unable to provide any history. As per family, there is always someone who checks on her daily and helps her bathe and change. The brother states he saw her yesterday and she was at baseline, spoke to her last night. He became concerned when she did not answer the phone today. He found that she had fallen. He states that he is ill himself (just had a kidney removed), and while he always goes to check on her, she is usually bathed by other people who see her daily. - Current Medication List Current Medications: Active Medications Acetaminophen (Tylenol -) 325 mg PO Q6H PRN PRN Reason: PAIN 1-3 Last Admin: 12/18/18 11:40 Dose: 325 mg Aspirin (Ecotrin -) 81 mg PO DAILY [facility] Last Admin: 12/20/18 09:07 Dose: 81 mg Atorvastatin Calcium (Lipitor -) 10 mg PO HS [facility] Last Admin: 12/19/18 21:01 Dose: 10 mg Clopidogrel Bisulfate (Plavix -) 75 mg PO DAILY [facility] Last Admin: 12/20/18 09:07 Dose: 75 mg Furosemide (Lasix -) 20 mg PO DAILY [facility] Heparin Sodium (Porcine) (Heparin -) 5,000 unit SQ TID [facility] Last Admin: 12/20/18 05:15 Dose: 5,000 unit Lactic Acid (Lac-Hydrin 12) 1 applic TP BID [facility] Last Admin: 12/20/18 09:07 Dose: 1 applic Lisinopril (Prinivil) 5 mg PO DAILY [facility] Last Admin: 12/20/18 09:07 Dose: 5 mg Metoprolol Tartrate (Lopressor -) 25 mg PO BID [facility] Last Admin: 12/20/18 09:07 Dose: 25 mg Nicotine (Nicoderm Patch -) 14 mg TD DAILY [facility] Last Admin: 12/20/18 09:07 Dose: 14 mg - Objective Vital Signs: Vital Signs Temperature 97.9 F 12/20/18 05:00 Pulse Rate 86 12/20/18 05:00 Respiratory Rate 22 H 12/20/18 08:12 Blood Pressure 146/79 12/20/18 05:00 O2 Sat by Pulse Oximetry (%) 94 L 12/20/18 08:12 Eyes: Yes: WNL, Conjunctiva Clear, EOM Intact HENT: Yes: WNL, Atraumatic, Normocephalic Neck: Yes: WNL, Supple, Trachea Midline Cardiovascular: Yes: WNL, Regular Rate and Rhythm Respiratory: Yes: WNL, Regular, CTA Bilaterally Gastrointestinal: Yes: WNL, Normal Bowel Sounds Genitourinary: Yes: WNL Musculoskeletal: Yes: WNL Extremities: Yes: WNL Edema: No Integumentary: Yes: WNL ...Motor Strength: WNL Psychiatric: Yes: WNL Labs: CBC, BMP 12/20/18 07:00 12/20/18 07:00 INR, PTT INR 1.13 (0.83-1.09) H 12/14/18 21:35 Assessment/Plan - Problems (1) NSTEMI (non-ST elevated myocardial infarction) Assessment/Plan: Resolvin rhabdomyolysis. TNI trending down. Consider coronary artery study (stress test) only after discussing with health- care proxy because of pt's mutlipel comorbities and mental status. Code(s): I21.4 - NON-ST ELEVATION (NSTEMI) MYOCARDIAL INFARCTION (2) CHF (congestive heart failure) Code(s): I50.9 - HEART FAILURE, UNSPECIFIED (3) Fall in elderly patient Code(s): R29.6 - REPEATED FALLS (4) Rhabdomyolysis Assessment/Plan: Largely resolved. F/u with mainframe systems engineer. Code(s): M62.82 - RHABDOMYOLYSIS Qualifiers: Rhabdomyolysis type: traumatic Encounter type: initial encounter Qualified Code(s): T79.6XXA - Traumatic ischemia of muscle, initial encounter (5) Skin breakdown Code(s): L90.9 - ATROPHIC DISORDER OF SKIN, UNSPECIFIED (6) Very low level of personal hygiene Code(s): R46.0 - VERY LOW LEVEL OF PERSONAL HYGIENE (7) Sepsis Code(s): A41.9 - SEPSIS, UNSPECIFIED ORGANISM (8) Acute on chronic systolic (congestive) heart failure Assessment/Plan: Severely reduced LVEF. On metoprolol and lisionpril. Fecommend adding spironolactone. F/u BUN/Cr, electrolytes, daily weight, Is and Os. Code(s): I50.23 - ACUTE ON CHRONIC SYSTOLIC (CONGESTIVE) HEART FAILURE
--- NOTE | 2018-12-20 12:46 | PN ---
Progress Note, .NET DEVELOPER - Note Progress Note: Selected Entries 12/19/18 12/19/18 12/19/18 02:00 05:48 10:00 Breakfast Diet Tolerated Supper Temperature 97.6 F 98.4 F 97.8 F 12/19/18 12/19/18 12/19/18 14:00 18:00 20:50 Breakfast Diet Tolerated Well Supper 75% Temperature 97.9 F 98.1 F 12/19/18 12/20/18 12/20/18 21:00 00:15 05:00 Breakfast Diet Tolerated Supper Temperature 98.1 F 98.5 F 97.9 F 12/20/18 10:28 Breakfast 100% Diet Tolerated Well Supper Temperature Laboratory Tests 12/18/18 12/20/18 06:30 07:00 WBC 10.8 H 9.7 Medical events noted. Tolerating diet.
--- NOTE | 2018-12-20 13:42 | PN ---
Teaching Attending Note Name of Resident: Bette Sahu ATTENDING PHYSICIAN STATEMENT I saw and evaluated the patient. I reviewed the resident's note and discussed the case with the resident. I agree with the resident's findings and plan as documented. SUBJECTIVE: No fever or chills. No abd pain, no CP. OBJECTIVE: NAD, comfortable . HEENT: MMM, chin laceration which is dry now. neck deviation to the R CV: RRR, no MRG. + JVD Lungs: crackles at bases, imporved compared to yesterdya Ext:bruises , no edema , thick discolored toe nails Skin : chest wall laceration , improved , also dry now ASSESSMENT AND PLAN: 73 y/o lady with no medical care who lives alone, and presented after a fall . She was found to have Rhabdo, LEILA, and NSTEMI 1- Fall, ? mechanical vs syncpe. trauma w/u with no fractures or dislocations 2- Rhabdomyolysis : CPK improved. 3- LEILA: due to rhabdo . resolved 4- NSTEMI: medical management - cont Asa and plavix - cont BB - cont lisinopril 5-Acute systolic heart failure: improved. start lasix 20 daily and spironolactone given her EF. will need repeat echo in few weeks to evaluate EF 6- leukocytosis: no signs of infection. resolved 7- Torticollis: likely due to positioning while on floor f orm many hours. 8- L thyroid nodule enlargement with nodule. TSH nl. w/u as out pt DC to rehab today
--- NOTE | 2018-12-20 15:56 | PN ---
Progress Note, Physician History of Present Illness: Pt seen and examined at bedside. She is awake and appears comfortable. - Current Medication List Current Medications: Active Medications Acetaminophen (Tylenol -) 325 mg PO Q6H PRN PRN Reason: PAIN 1-3 Last Admin: 12/18/18 11:40 Dose: 325 mg Aspirin (Ecotrin -) 81 mg PO DAILY [facility] Last Admin: 12/20/18 09:07 Dose: 81 mg Atorvastatin Calcium (Lipitor -) 10 mg PO HS [facility] Last Admin: 12/19/18 21:01 Dose: 10 mg Clopidogrel Bisulfate (Plavix -) 75 mg PO DAILY [facility] Last Admin: 12/20/18 09:07 Dose: 75 mg Furosemide (Lasix -) 20 mg PO DAILY [facility] Heparin Sodium (Porcine) (Heparin -) 5,000 unit SQ TID [facility] Last Admin: 12/20/18 13:45 Dose: 5,000 unit Lactic Acid (Lac-Hydrin 12) 1 applic TP BID [facility] Last Admin: 12/20/18 09:07 Dose: 1 applic Lisinopril (Prinivil) 5 mg PO DAILY [facility] Last Admin: 12/20/18 09:07 Dose: 5 mg Metoprolol Tartrate (Lopressor -) 25 mg PO BID [facility] Last Admin: 12/20/18 09:07 Dose: 25 mg Nicotine (Nicoderm Patch -) 14 mg TD DAILY [facility] Last Admin: 12/20/18 09:07 Dose: 14 mg Spironolactone (Aldactone -) 25 mg PO DAILY [facility] - Objective Vital Signs: Vital Signs Temperature 97.9 F 12/20/18 05:00 Pulse Rate 86 12/20/18 05:00 Respiratory Rate 22 H 12/20/18 08:12 Blood Pressure 146/79 12/20/18 05:00 O2 Sat by Pulse Oximetry (%) 94 L 12/20/18 08:12 Constitutional: Yes: Calm Eyes: Yes: Conjunctiva Clear HENT: Yes: Atraumatic Neck: Yes: Supple Cardiovascular: Yes: S1, S2 Respiratory: Yes: CTA Bilaterally Gastrointestinal: Yes: Soft Genitourinary: Yes: Incontinence Musculoskeletal: Yes: WNL Edema: No Neurological: Yes: Oriented Psychiatric: Yes: Oriented Labs: CBC, BMP 12/20/18 07:00 12/20/18 07:00 INR, PTT INR 1.13 (0.83-1.09) H 12/14/18 21:35 Problem List - Problems (1) Fall in elderly patient Code(s): R29.6 - REPEATED FALLS (2) NSTEMI (non-ST elevated myocardial infarction) Code(s): I21.4 - NON-ST ELEVATION (NSTEMI) MYOCARDIAL INFARCTION (3) Rhabdomyolysis Code(s): M62.82 - RHABDOMYOLYSIS Qualifiers: Rhabdomyolysis type: traumatic Encounter type: initial encounter Qualified Code(s): T79.6XXA - Traumatic ischemia of muscle, initial encounter Assessment/Plan Current Medications Generic Name Dose Route Start Last Admin Trade Name Freq PRN Reason Stop Dose Admin Acetaminophen 325 mg 12/16/18 14:33 12/18/18 11:40 Tylenol - PO 325 mg Q6H PRN Administration PAIN 1-3 Aspirin 81 mg 12/18/18 10:00 12/20/18 09:07 Ecotrin - PO 81 mg DAILY [facility] Administration Atorvastatin Calcium 10 mg 12/16/18 22:00 12/19/18 21:01 Lipitor - PO 10 mg HS [facility] Administration Clopidogrel Bisulfate 75 mg 12/18/18 10:00 12/20/18 09:07 Plavix - PO 75 mg DAILY [facility] Administration Furosemide 20 mg 12/21/18 10:00 Lasix - PO DAILY [facility] Heparin Sodium (Porcine) 5,000 unit 12/18/18 14:00 12/20/18 13:45 Heparin - SQ 5,000 unit TID [facility] Administration Lactic Acid 1 applic 12/19/18 22:00 12/20/18 09:07 Lac-Hydrin 12 TP 1 applic BID [facility] Administration Lisinopril 5 mg 12/19/18 10:00 12/20/18 09:07 Prinivil PO 5 mg DAILY [facility] Administration Metoprolol Tartrate 25 mg 12/16/18 10:00 12/20/18 09:07 Lopressor - PO 25 mg BID [facility] Administration Nicotine 14 mg 12/16/18 10:00 12/20/18 09:07 Nicoderm Patch - TD 14 mg DAILY [facility] Administration Spironolactone 25 mg 12/21/18 10:00 Aldactone - PO DAILY [facility] Laboratory Tests 12/20/18 07:00 Creatine Kinase 386 H Laboratory Tests 12/20/18 07:00 Phosphorus 2.6 Magnesium 2.2 Impression 1. rhabdo 2. bonnie 3. s/p fall 4. nstemi 5. htn Plan - cpk improved - can stop fluids - encourage PO intake - phos level improved - renal function is improved Dr Linton
--- NOTE | 2018-12-20 17:38 | DS ---
Physical Exam: SUBJECTIVE: Patient seen and examined at bedside- patient was SOB/ diaphoretic overnight; she got a duonebs and 10 lasix OBJECTIVE: Vital Signs Period Temp Pulse Resp BP Sys/Robin Pulse Ox Last 24 Hr 97.9 F-98.5 F 45-90 19-30 131-152/53-79 94-94 PHYSICAL EXAM GENERAL: The patient is awake, oriented to self and place. EYES: PEELRA; EOMI: no scleral icterus NECK: Trachea midline, full range of motion, supple. LUNGS: CTA B/L; no rales, rhonchi or wheezing. HEART: Regular rate and rhythm, S1, S2 without murmur, rub or gallop. ABDOMEN: Soft, nontender, nondistended, normoactive bowel sounds, no guarding, no rebound, no hepatosplenomegaly, no masses. EXTREMITIES: 2+ pulses, warm, well-perfused, no edema. NEUROLOGICAL: Cranial nerves II through XII grossly intact. Normal speech, gait not observed. PSYCH: Normal mood, normal affect. SKIN: Warm, dry, normal turgor, no rashes or lesions noted. LABS Laboratory Results - last 24 hr 12/20/18 12/20/18 12/20/18 07:00 07:00 07:00 WBC 9.7 RBC 4.17 Hgb 13.0 Hct 37.3 MCV 89.6 MCH 31.1 MCHC 34.7 RDW 13.9 Plt Count 270 MPV 9.2 PTT (Actin FS) 30.2 Sodium 142 Potassium 4.1 Chloride 106 Carbon Dioxide 31 Anion Gap 5 L BUN 13 Creatinine 0.6 Creat Clearance w eGFR > 60 Random Glucose 96 Calcium 8.0 L Phosphorus 2.6 Magnesium 2.2 Creatine Kinase 386 H Creatine Kinase Index 1.1 CK-MB (CK-2) 4.4 H HOSPITAL COURSE: Date of Admission:12/14/18 73 y/o with no PMH came to the ED after being found on the ground by her brother ; her CK was elevated in the 7000's and she had a trop of 13. she was started on IVF,. seen by cardiology- was started on heparin drip for NSTEMI, in addition to metoprolol . patient was seen by batch blender as well. She was on IVF regularly and her CK was trended daily. she was on heparin drip for 3 days and then was started on plavix. we got an echo and her EF was 30 percent; she was started metoprolol 25 daily in addition to lipitor and lisinopril. She also was started on spironolactone 25 daily. she was discharged to SNF adn will need extensive outpatient cardio follow up for possible need for life vest Date of Discharge: 12/20/18 Minutes to complete discharge: 39 Discharge Summary Reason For Visit: POOR HYGIENE, FALL IN ELDERLY PATIENT Current Active Problems CHF (congestive heart failure) (Acute) NSTEMI (non-ST elevated myocardial infarction) (Acute) Skin breakdown (Chronic) Very low level of personal hygiene (Chronic) Condition: Stable - Instructions Diet, Activity, Other Instructions: You were brought to the hospital after you were found down by your brother and your muscle breakdown enzymes were very elevated. In addition, you were found to have a myocardial infarction for which we started you on medications. You were also found to have congestive heart failure for which you were started on a water pill. Your symptoms improved and you are going to a halfway facility. Please take the following medications; -Aspirin 81 daily -Metoprolol 25mg twice a day -Plavix 75 daily (which is a blood thinner) -Lasix 20mg daily -Lisinopril 5mg daily -Atorvastatin 10mg at bedtime -Spironolactone We are referring you to a primary care physician and would like you to follow up with them within one week. you will also need Please follow up with the food editor, Dr. Amaro within one week *if you begin to experience any chest pain, shortness of breath, fevers or chills please return to the emergency room immediately Referrals: Ahmet Marina MD [Staff Physician] - Raphael Amaro MD [Staff Physician] - 1 Week Disposition: [facility]ILITY - Home Medications Comprehensive Discharge Medication List: Ambulatory Orders Aspirin Coated [Ecotrin -] 81 mg PO DAILY tablet.ec 12/20/18 Atorvastatin Ca [Lipitor] 10 mg PO HS tablet 12/20/18 Clopidogrel Bisulfate [Plavix -] 75 mg PO DAILY tablet 12/20/18 Furosemide [Lasix -] 20 mg PO DAILY tablet 12/20/18 Lisinopril [Prinivil] 5 mg PO DAILY tablet 12/20/18 Metoprolol Tartrate [Lopressor -] 25 mg PO BID tablet 12/20/18 Spironolactone [Aldactone -] 25 mg PO DAILY tablet 12/20/18 Problem List - Problems (1) CHF (congestive heart failure) Code(s): I50.9 - HEART FAILURE, UNSPECIFIED (2) NSTEMI (non-ST elevated myocardial infarction) Code(s): I21.4 - NON-ST ELEVATION (NSTEMI) MYOCARDIAL INFARCTION (3) Rhabdomyolysis Code(s): M62.82 - RHABDOMYOLYSIS Qualifiers: Rhabdomyolysis type: traumatic Encounter type: initial encounter Qualified Code(s): T79.6XXA - Traumatic ischemia of muscle, initial encounter This patient is new to me today: No Emergency Visit: Yes ED Registration Date: 12/14/18 Care time: The patient presented to the Emergency Department on the above date and was hospitalized for further evaluation of their emergent condition. Critical Care patient: No - Discharge Referral Referred to [facility] Med [facility] No
[2018-12-21] MEDS ORDERED: FUROSEMIDE 20 MG TABLET (FP) PO SCH (10:00)
[2018-12-21] MEDS ORDERED: SPIRONOLACTONE 25 MG TABLET (FP) PO SCH (10:00)
== END 2018-12-20 18:40 | DRG 280 ==
LOC: JER 13:07 → JERBED 19:58 → J4S 12-15 01:05
PROVIDERS: ADMIT Internal Medicine; ATTEND Internal Medicine
DX: I21.4 Non-ST elevation (NSTEMI) myocardial infarction (principal); G93.41 Metabolic encephalopathy; I50.23 Acute on chronic systolic (congestive) heart failure; N17.9 Acute kidney failure, unspecified; R64 Cachexia; Z68.1 Body mass index [BMI] 19.9 or less, adult; T79.6XXA Traumatic ischemia of muscle, initial encounter; D72.829 Elevated white blood cell count, unspecified; I10 Essential (primary) hypertension
CPT/HCPCS: 36415; 36600; 70450-TC; 71045-TC-FY; 71111-TC-FY; 72125-TC; 72170-TC-FY; 73030-TC-RT-FY; 73060-TC-LT-FY; 73060-TC-RT-FY; 73070-TC-LT-FY; 73070-TC-RT-FY; 73090-TC-LT-FY; 73090-TC-RT-FY; 73552-TC-LT-FY; 73552-TC-RT-FY; 73560-TC-LT-FY; 73560-TC-RT-FY; 73590-TC-LT-FY; 73590-TC-RT-FY; 74230-TC-FY; 76700-TC; 80048; 80053; 80061; 80307; 81003; 81015; 82140; 82272; 82465; 82550; 82553; 82607; 82746; 82803; 82962; 83036; 83718; 83721; 83735; 83880; 84100; 84443; 84478; 84484; 85025; 85027; 85610; 85730; 86593; 86850; 86900; 86901; 87040; 87086; 92611-GN; 93005; 93010; 93306-TC; 94640; 97161-GP; 99285-25; J1644; J7030

== ENCOUNTER 2018-12-22 15:10 | Inpatient (IN) | payer OTHER ==
--- NOTE | 2018-12-22 15:18 | PDOC ---
History of Present Illness - General Stated Complaint: INJUYR TO SHOULDER Time Seen by Provider: 12/22/18 15:17 - History of Present Illness Initial Comments: 73yo F patient with PMH of CHF, [place] presenting from [facility] for suspected RUE fracture/dislocation/clot. Patient is oriented to person and place , but not time as she says she is 43yo and the month is March. Upon being asked, she denies any pain, responding "no, baby." Multiple attempts to call PA unsuccessful. tPA Exclusion checklist 3-4.5h - Time Elapsed Date last known well: 12/20/18 Time last known well: 17:35 Elaspsed time: 3 Day(s) and 13 Hour(s) and 59 Minutes - Thrombolytic Therapy Candidate Is patient eligible for thrombolytic therapy: No - Ineligibility reason(s) Reasons No tPA given: Outside of window - delayed arrival NIH Stroke Scale - Last Known Well Date/Time & Onset Date Last Known Well: 12/20/18 Time Last Known Well: 17:35 - Initial Evaluation Level of consciousness: Alert Ask patient the month and their age: Both incorrect Ask patient to open & close eyes; make fist and let go: Obeys both correctly Best gaze (horizontal eye movement): Normal Visual field testing: No visual field loss Facial paresis (Show teeth/raise eyebrows/close eyes tight): Normal symmetrical movement Motor Function: Left Arm: Normal Motor Function: Right Arm: Untestable (Joint fused or limb amputated), explain : (right shoulder dislocation) Motor Function: Left Leg: Normal (extends leg 30 degrees for 5 seconds without drift) Motor Function: Right Leg: Normal (extends leg 30 degrees for 5 seconds without drift) Limb Ataxia: Untestable (Joint fused or limb amputated), explain: (dislocated RUE) Sensory(Use pinprick test arms,legs,trunk,face/side to side): Mild to moderate decrease in sensation Best language (Describe picture, name items, read sentences): Mild to moderate aphasia (speaks with 2-3 word sentences, majority are monosyllabic) Dysarthria (read several words): Normal articulation Extinction and Inattention: No abnormality - Total Score NIH Stroke Scale Score: 4 Past History - Past Medical History Allergies/Adverse Reactions: Allergies Allergy/AdvReac Type Severity Reaction Status Date / Time No Known Allergies Allergy Verified 12/14/18 13:26 Home Medications: Ambulatory Orders Aspirin Coated [Ecotrin -] 81 mg PO DAILY tablet.ec 12/20/18 Atorvastatin Ca [Lipitor] 10 mg PO HS tablet 12/20/18 Clopidogrel Bisulfate [Plavix -] 75 mg PO DAILY tablet 12/20/18 Furosemide [Lasix -] 20 mg PO DAILY tablet 12/20/18 Lisinopril [Prinivil] 5 mg PO DAILY tablet 12/20/18 Metoprolol Tartrate [Lopressor -] 25 mg PO BID tablet 12/20/18 Spironolactone [Aldactone -] 25 mg PO DAILY tablet 12/20/18 COPD: No - Suicide/Smoking/Psychosocial Hx Smoking History: Current every day smoker Have you smoked in the past 12 months: Yes Number of Cigarettes Smoked Daily: 40 'Breaking Loose' booklet given: 12/15/18 Hx Alcohol Use: No Drug/Substance Use Hx: No Substance Use Type: None Hx Substance Use Treatment: No *Physical Exam - Physical Exam Comments: General: Awake, alert, and states her name but incorrect age ("43") and incorrect month ("March"), but correct name, year, and location; in no acute distress Head: no signs of trauma Eyes: EOMI, sclera anicteric ENT: Dry mucus membranes Neck: Normal ROM, supple Lungs: Lungs clear, Normal breath sounds Cardio: Regular rhythm, S1 and S2 present Abdomen: Soft, nontender. No guarding, no rebound, no masses Extremities: Distal pulses present RUE edematous, unable to extend above head, externally rotated and abducted SKIN: Warm, Dry, normal turgor Neurologic: Cranial nerves II through XII grossly intact. Normal speech. Follows commands Procedures - Joint Reduction Right Joint Reduction Site: right: Shoulder Pre-Procedure NV Exam: normal Conscious Sedation: No Procedure: Traction Counter Traction Post-Procedure NV Exam: normal Complications: No Splint: Yes Immobilized: Yes ED Treatment Course - LABORATORY CBC & Chemistry Diagram: 12/23/18 06:30 12/24/18 06:00 Medical Decision Making - Medical Decision Making 73yo F patient with PMH of CHF, [place] presenting from [facility] for suspected RUE fracture/dislocation/clot. Multiple attempts to call PA unsuccessful High suspicion for right shoulder dislocation and fracture given patient's physical exam Ordered radiographs and duplex of RUE CT head for suspected fall. Patient takes aspirin and plavix 12/22/18 16:52 Images confirm R. shoulder dislocation, impaction fx of radius CT head with findings for acute/subacute cerebellar infarct Plan to admit 12/22/18 18:25 Volar wrist splint applied with ortho-glass and sandra wrap Discussed case with neurology, Dr. Lazo, who will come evaluate the patient. 12/22/18 19:31 Patient dislocated right arm reduced. Neurovascularly intact. Post-reduction film ordered 12/22/18 19:52 Dr. Izquierdo evaluated patient. Appreciated recommendations. 12/22/18 20:19 Discussed case with inpatient team who accepted patient for admission under Dr. Jiménez 12/22/18 20:23 *DC/Admit/Observation/Transfer Diagnosis at time of Disposition: Dislocation, shoulder - Discharge Dispostion Condition at time of disposition: Guarded Decision to Admit order: Yes - Referrals - Patient Instructions - Post Discharge Activity
--- NOTE | 2018-12-22 16:15 | PDOC ---
Attending Attestation - HPI HPI: 12/22/18 16:21 The patient is a 73 year old female, with a significant past medical history of CHF, who presents to the emergency department sent by [facility] for suspected redislocation of right shoulder after being discharged from our hospital 2 days ago. The patient is confused at baseline and unable to provide history. Allergies: NKDA PCP - Dr. Melton <Jade Jensen - Last Filed: 12/22/18 17:38> - Resident Resident Name: Latasha Marquis - ED Attending Attestation I have performed the following: I have examined & evaluated the patient, The case was reviewed & discussed with the resident, I agree w/resident's findings & plan, Exceptions are as noted - Physicial Exam PE: 12/22/18 18:23 GENERAL: The patient is in no acute distress, HEAD: Normal with no signs of trauma. EYES: PERRLA, EOMI, pt does not appear to focus on examiner ENT: Ears normal, nares patent, oropharynx clear without exudates. Moist mucous membranes. NECK: Normal range of motion, supple without midline tenderness LUNGS: Breath sounds equal, clear to auscultation bilaterally. HEART:Regular rate and rhythm, normal S1 and S2 without murmur, rub or gallop. ABDOMEN: Soft, nontender, normoactive bowel sounds. EXTREMITIES: Normal range of motion, no edema. RUE - swollen, moves fingers, moves elbows Right shoulder deformity noted NEUROLOGICAL: Cranial nerves II through XII grossly intact. Normal speech. SKIN: bruising and swelling of the right hand - Critical Care Time Total Critical Care Time: 65 Critical Care Statement: The care of this patient involved high complexity decision making to prevent further life threatening deterioration of the patient 's condition and/or to evaluate & treat vital organ system(s) failure or risk of failure. - Medical Decision Making 12/22/18 18:25 73 yo F returned to the ER for assessment from [facility] She was seen in the ER last week for fall from bed Admitted Initial x ray demonstrated shoulder dislocation Repeat x ray read as normal Pt sent to longterm At longterm, pt had x ray which was read as dislocated Currently: Xray forearm: Distal radius fracture - new Xray shoulder: Right Shoulder dislocation CT head: Right parietal cortical/subcortical infarct, also, infarcts on the inferior aspect of the right cerebellar hemisphere Labs pending Splint distal radius fracture Shoulder reduction 12/23/18 11:21 New sub acute infarct unclear to me when this happened as pt was discharged from the hospital with a normal exam We are unable to reach ANYONE at [facility] to discuss this patient She is therefore NOT a TPA candidate Consult to Neuro Consult to Ortho Splint by Dr Marquis Reduction by Dr. Baker Will Admit <Crystal Holman - Last Filed: 12/23/18 12:01> NIH Stroke Scale - Last Known Well Date/Time & Onset Date Last Known Well: 12/20/18 Time Last Known Well: 15:30 - Initial Evaluation Level of consciousness: Alert Ask patient the month and their age: Both incorrect Ask patient to open & close eyes; make fist and let go: Both incorrect Best gaze (horizontal eye movement): Normal Visual field testing: No visual field loss Facial paresis (Show teeth/raise eyebrows/close eyes tight): Minor paralysis ( flattened nasolabial fold, asymmetry on smiling) Motor Function: Left Arm: Some effort against gravity Motor Function: Right Arm: Some effort against gravity Motor Function: Left Leg: Some effort against gravity Motor Function: Right Leg: Some effort against gravity Limb Ataxia: Present in two limbs Sensory(Use pinprick test arms,legs,trunk,face/side to side): Normal Best language (Describe picture, name items, read sentences): No Aphasia Dysarthria (read several words): Near unintelligible or unable to speak Extinction and Inattention: Inattention or extinction bilaterally to one of the sensory modalities - Total Score NIH Stroke Scale Score: 18 <Crystal Holman - Last Filed: 12/23/18 12:01> Attestations - Attestations 12/22/18 16:22 Documentation prepared by Jade Jensen, acting as medical dosimetrist for Crystal Holman MD <Jade Jensen - Last Filed: 12/22/18 17:38> tPA Exclusion checklist 3-4.5h - Time Elapsed Date last known well: 12/20/18 Time last known well: 15:30 Elaspsed time: 2 Day(s) and 19 Hour(s) and 49 Minutes - Thrombolytic Therapy Candidate Is patient eligible for thrombolytic therapy: No - Exclusion Criteria 3-4.5 hr SBP greater than 185 or DBP greater than 110mmHg despite tx: No Recent IC/spinal surgery,head trauma or stroke<3mos.: No Hx IC hemorrhage, IC neoplasm, AV malformation or aneurysm: No Active internal bleeding: No Blding diathesis(low plt ct, inc PTT,INR>1.7 or use of NOAC): No Symptoms suggest subarachnoid hemorrhage: No CT demonstrates multilobar infarct(>1/3 cerebral hemiphere): No Arterial puncture at noncompressible site in previous 7 days: No Blood glucose concentration less than 50mg/dL (2.7mmol/L): No - Relative Exclusion Criteria 3-4.5 hr Life expectancy <1 yr or severe co-morbid illness: No : No Patient/family refused: No Rapid improvement: No Stroke severity too mild: No Recent acute IN (w/in previous 3 months): No Seizure at onset with postictal residual neuro impairments: No Major surgery or serious trauma w/in previous 14 days: No Recent GI or hemorrhage (w/in previous 21 days): No - Add'l Relative Exclusion 3-4.5 hr Age > 80: No Hx of both diabetes AND prior ischemic stroke: No Taking an oral anticoagulant regardless of INR: No NIHSS >25: No - Ineligibility reason(s) Reasons No tPA given: Outside of window - delayed arrival <Crystal Holman - Last Filed: 12/23/18 12:01>
[2018-12-22] MEDS ORDERED: morphine CARPU-JECT 4 MG/1 ML DISP.SYRIN IVPUSH ONE (18:10)
[2018-12-22 19:03] LABS: BASO % 1.1 % (0-2.0); EOS % 2.6 % (0-4.5); HEMATOCRIT 39.5 % (32.4-45.2); HEMOGLOBIN 13.6 GM/dL (10.7-15.3); LYMPH % 14.1 % (8-40); MCHC 34.4 g/dl (32.0-36.0); MEAN PLT VOLUME 8.4 fl (7.5-11.1); MONO % 6.1 % (3.8-10.2); NEUT % 76.1 % (42.8-82.8); PLATELET COUNT 435 K/MM3 (134-434); RBC 4.39 M/mm3 (3.60-5.2); RDW 14.2 % (11.6-15.6); WHITE BLOOD COUNT 9.2 K/mm3 (4.0-10.0)
[2018-12-22] MEDS ORDERED: morphine SULFATE 4 MG/ML VIAL ONE (19:03)
[2018-12-22 19:20] LABS: INR 1.03 (0.83-1.09); PROTHROMBIN TIME (PATIENT) 12.1 SEC (9.7-13.0)
[2018-12-22 19:53] LABS: ALBUMIN 2.9 g/dl (3.4-5.0); ALK PHOS 110 U/L (45-117); ANION GAP 7 MMOL/L (8-16); BILIRUBIN,TOTAL 0.7 mg/dL (0.2-1); BLOOD UREA NITROGEN 15 mg/dL (7-18); CALCIUM 8.5 mg/dL (8.5-10.1); CHLORIDE 102 mmol/L (98-107); CO2 29 mmol/L (21-32); CREATININE 0.6 mg/dL (0.55-1.3); GLUCOSE,RANDOM 96 mg/dL (74-106); POTASSIUM 4.5 mmol/L (3.5-5.1); SGOT/AST 30 U/L (15-37); SGPT/ALT 33 U/L (13-61); SODIUM 138 mmol/L (136-145); TOT PROT 6.6 g/dl (6.4-8.2)
--- NOTE | 2018-12-22 20:19 | CON.NEURO ---
Consult Consult Specialty:: NEUROLOGY-PHILLIP MENENDEZ - History of Present Illness History of Present Illness: 73yo F patient with PMH of CHF, [place] presenting from [facility] for suspected RUE fracture/dislocation/clot. Multiple attempts to call [place] unsuccessful High suspicion for right shoulder dislocation and fracture given patient's physical exam Ordered radiographs and duplex of RUE CT head for suspected fall. Patient takes aspirin and plavix.Pt. is unable to relate hx. 12/22/18 16:52 Images confirm R. 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 Cardio/Vascular: Yes: CHF (systolic), Murmur (mod-severe AR) - Alcohol/Substance Use Hx Alcohol Use: No - Smoking History Smoking history: Current every day smoker Have you smoked in the past 12 months: Yes Aproximately how many cigarettes per day: 40 Home Medications - Allergies Allergies/Adverse Reactions: Allergies Allergy/AdvReac Type Severity Reaction Status Date / Time No Known Allergies Allergy Verified 12/14/18 13:26 - Home Medications Home Medications: Ambulatory Orders Aspirin Coated [Ecotrin -] 81 mg PO DAILY tablet.ec 12/20/18 Atorvastatin Ca [Lipitor] 10 mg PO HS tablet 12/20/18 Clopidogrel Bisulfate [Plavix -] 75 mg PO DAILY tablet 12/20/18 Furosemide [Lasix -] 20 mg PO DAILY tablet 12/20/18 Lisinopril [Prinivil] 5 mg PO DAILY tablet 12/20/18 Metoprolol Tartrate [Lopressor -] 25 mg PO BID tablet 12/20/18 Spironolactone [Aldactone -] 25 mg PO DAILY tablet 12/20/18 Physical Exam-Neuro Vital Signs: Vital Signs Temperature 97.5 F L 12/22/18 15:32 Pulse Rate 74 12/22/18 15:32 Respiratory Rate 20 12/22/18 15:32 Blood Pressure 128/66 12/22/18 15:32 O2 Sat by Pulse Oximetry (%) 100 12/22/18 15:32 Labs: CBC, BMP 12/22/18 18:50 12/22/18 18:50 INR, PTT INR 1.03 (0.83-1.09) 12/22/18 18:50 - Neuro Exam Level Of Consciousness: Yes: Alert (oriented to self only) Eyes: Yes: PERRL (neck/eyes tonically deviated to left/upwards but can be Dolled to other side) Speech: Other (makes monosyllables only) Mini Mental Exam: Unable to test formally, pt.is with severe cog.deficits, only answers"yes/no" monosyllabic answers Cranial Nerves II-XII Intact: Yes (left facial droop?? old) Gag: Present DTR's: 0 Left Achilles, 0 Right Achilles (+bilat upgoing toes), 2+ Left Tricep, 2+ Right Tricep, 2+ Left Brachioradialis, 2+ Right Brachioradialis, 3+ Left Bicep, 3+ Right Bicep Babinski: Present (bilat upgoing toes) Response to light touch: Abnormal (withdraws all 4 ext.to pain, unable to test rest of sensations) Motor Strength: 3/5: Left Arm, Right Arm, Left Leg, Right Leg (Markedly increased tone all 4 ext) Gait: Other (unable to stand) Imaging - Results X-ray: Report Reviewed (Right parietal and inf.cerebellar infarcts not seen on CT 12/14/18) Assessment/Plan Pt. with dementia/fall/shoulder disloc and by imaging small right cerebellar inf. and ?? new right small parietal inf(by CT report). Given ischemia in two different territories would suspect embolioc dz. Suggest: d/c ASA(unless both agents are indicated together from cardiac viewpoint and cont.Plavix, embolic w/ u-telemetry, echo(she is documented to have EF of 30%?? 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 Thank you, Taniya Bellamy MD
--- NOTE | 2018-12-22 20:19 | PN ---
Teaching Attending Note Name of Resident: Margot Altman ATTENDING PHYSICIAN STATEMENT I saw and evaluated the patient. I reviewed the resident's note and discussed the case with the resident. I agree with the resident's findings and plan as documented. SUBJECTIVE: Patient is 73 year old woman with history of Tobacco use from [facility] who present with possible re-dislocation of right shoulder. She was seen in the ER last week (12/14/18) for fall from her bed and was found to have LEILA, Rhabdomyolysis, ?Right shoulder dislocation, ?NSTEMI and prolonged QTc. Xray at the [facility] demonstrated right shoulder dislocation. In the ER xray showed distal radius fracture and right shoulder dislocation. She denies any pain. She had reduction of the dislocation in the ER and splinting of the radius fracture. Head CT showed Right parietal cortical/subcortical infarct, also, infarcts on the inferior aspect of the right cerebellar hemisphere OBJECTIVE: Alert Vital Signs Period Temp Pulse Resp BP Sys/Robin Pulse Ox Last 24 Hr 97.5 F 74 20 128/66 100-100 HEENT: No Jaundice, eye redness or discharge, PERRLA, Head twisted to the left. Normocephalic, atraumatic. External ears are normal; No nasal discharge. Neck: Supple, nontender. No palpable adenopathy or thyromegaly. No JVD Chest: Good effort. Clear to auscultation and percussion. Heart: Regular. No S3, rub or murmur Abdomen: Not distended, soft, nontender and no HSM. No rebound or guarding. Normoactive bowel sounds. Ext: Peripheral pulses intact. Swelling and bruising of right hand; swollen RUE , right shoulder deformity with limited ROM; No leg edema. Skin: Warm and dry. No petechiae, rash or ecchymosis. Neuro: Alert. Oriented to person. Able to follow some simple commands. Unable to test all the cranial nerves. Sensation grossly intact in all four extremities ; reduced escrow officer strength; weak lower extremities. Home Medications Medication Instructions Recorded Aspirin Coated [Ecotrin -] 81 mg PO DAILY tablet.ec 12/20/18 Atorvastatin Ca [Lipitor] 10 mg PO HS tablet 12/20/18 Clopidogrel Bisulfate [Plavix -] 75 mg PO DAILY tablet 12/20/18 Furosemide [Lasix -] 20 mg PO DAILY tablet 12/20/18 Lisinopril [Prinivil] 5 mg PO DAILY tablet 12/20/18 Metoprolol Tartrate [Lopressor -] 25 mg PO BID tablet 12/20/18 Spironolactone [Aldactone -] 25 mg PO DAILY tablet 12/20/18 Abnormal Lab Results 12/22/18 12/22/18 18:50 18:50 Plt Count 435 H D Anion Gap 7 L Albumin 2.9 L ASSESSMENT AND PLAN: 1. Right shoulder dislocation and radius fracture - She had reduction of the dislocation in the ER and splinting of the radius fracture. Unclear whether she fell down again at the [facility] to explain the fracture. Will continue pain control. Ortho consulted. 2. Cerebellar Infarct - Noted on head CT. EKG pending. Will admit to telemetry to rule out arrhythmia, keep her NPO until speech and swallow evaluation; PT consult, get ECHO, carotid doppler, and brain MRI/MRA. Do neurochecks, implement aspiration, seizure and fall precautions. Patient seen by neurology in the ER. Will hold aspirin and continue plavix. Elevated troponin likely related to recent NSTEMI - but will continue to trend troponin and do EKGs to rule out "new" ACS. Cardiology consult. 3. Hypoalbuminemia - Possibly due to combined effects of malnutrition and inflammation associated with comorbid chronic conditions. Will ensure adequate dietary protein intake and also consult chief clerk shelter. 4. New onset DM? ?Patient is not known to have DM. Will do HbA1c and treat with insulin to control blood sugar and then implement sliding scale insulin regimen. Provide comprehensive diabetes care with patient teaching and counseling about the importance of adherence to prescribed diabetes regimen, euglycemia, eye care and foot care. 5. Tobacco Use We will provide patient all the necessary assistance to facilitate smoking cessation and prescribe Nicotine patch. 6. DVT prophylaxis - Lovenox 40 mg SQ q 24 hours. 7. Advance directives - Full code
--- NOTE | 2018-12-22 21:13 | CONSULT ---
Consult - text type - Consultation Consultation Note: ORTHOPEDIC SURGERY CONSULTATION NOTE Department of Orthopedic Surgery HISTORY OF PRESENT ILLNESS Lor Wolf is a 73 year old female with a history of dementia, CHF, [place] who presents to [facility] ED with right shoulder and wrist pain. The orthopedic service was consulted for a right shoulder dislocation and right distal radius and ulna fracture. The right shoulder was closed reduced in the ED prior to me evaluating the patient. The injury occurred today. The patient notes pain to right shoulder and wrist. Denies any other pain or injuries. Denies numbness, tingling or other constitutional complaints. The patient lives at home and uses a walker at baseline. She was recently admitted to [facility] after a fall. She appears to have dislocated the right shoulder on prior radiographs from that admission. She was discharged to [facility]. 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 CHF,Murmur Social History Smoking history Current every day smoker Aproximately how many 40 cigarettes per day Hx Alcohol Use No Allergies Allergy/AdvReac Type Severity Reaction Status Date / Time No Known Allergies Allergy Verified 12/14/18 13:26 Vital Signs (last) Temp Pulse Resp BP Pulse Ox 97.5 F L 74 20 128/66 100 12/22/18 15:32 12/22/18 15:32 12/22/18 15:32 12/22/18 15:32 12/22/18 15:32 Intake and Output 12/20/18 12/21/18 12/22/18 23:59 23:59 23:59 Other: Voiding Method Diaper Weight 140 lb Height 4 ft 11 in Body Mass Index (BMI) 28.3 Weight Measurement Method Estimated by Staff Laboratory 12/22/18 18:50 12/22/18 18:50 PT with INR 12.10 SEC (9.7-13.0) 12/22/18 18:50 PTT (Actin FS) 25.5 SECONDS (25.2-36.5) 12/22/18 19:03 FAMILY HISTORY Unknown REVIEW OF SYMPTOMS A twelve-point review of systems was performed and was negative except as noted in HPI. PHYSICAL EXAM Constitutional: Alert and awake. Not following commands. No acute distress. Right Upper Extremity: Right shoulder swelling. Right distal radius swelling and ecchymosis. Skin warm, dry, and intact. Skin lesion right shoulder. Muscle mass equal and symmetric to contralateral side. Tender to palpation at right shoulder and wrist; nontender throughout rest of extremity. Full passive and active elbow ROM, free from pain. Motor and sensory exam difficult to obtain secondary to patient's mental status. 2+ radial pulses; Cap refill brisk. Left Upper Extremity: No tenderness to palpation. Full passive and active ROM, free from pain. Right Lower Extremity: No tenderness to palpation. Full passive and active ROM, free from pain. Left Lower Extremity: No tenderness to palpation. Full passive and active ROM, free from pain. IMAGING I personally reviewed all radiographs. They demonstrate a right anterior glenohumeral dislocation status post reduction. Right distal radius and ulna fracture. ASSESSMENT AND PLAN Lor Wolf is a 73 year old female presenting with a right sided anterior shoulder dislocation and right sided closed distal radius and ulna fracture. We have reviewed the imaging and clinical findings in detail, as well as their potential implications. After appropriate informed discussion, the patient was placed in a well-padded sugar tong splint. - No acute surgical intervention at this time - Sling for 1-2 weeks followed by early shoulder range of motion; Elbow and finger range of motion okay. - Physical therapy consult - GOSIA RIGGS - Keep the splint clean and dry - Pain control Procedure Note - Application of right sugar tong splint After informed consent the patient was placed in a well padded sugar tong splint. She tolerated the procedure well. She was able to move her fingers afterwards and capillary refill was under 2 seconds. All questions were answered. Thank you for involving our team in the care of this patient. Please have patient follow up in our office in 1-2 weeks [phone].
[2018-12-22] MEDS ORDERED: METOPROLOL TARTRATE 25 MG TABLET (FP) ONE (22:10)
[2018-12-22] MEDS ORDERED: ATORVASTATIN CA 10 MG TABLET (FP) ONE (22:11)
[2018-12-22] MEDS ORDERED: HEPARIN NA (PORCINE) 5,000 UNITS/ML 1ML VIAL ONE (22:11)
--- NOTE | 2018-12-22 23:12 | HP ---
CHIEF COMPLAINT:right shoulder dislocation PCP:None HISTORY OF PRESENT ILLNESS: Patient is a 73 year old female, recently diagnosed with systolic CHF and NSTEMI , was brought in from [facility] for suspected RUE fracture/dislocation/clot. Because of suspected fall, Head CT was done which revealed acute/subacute right inferior cerebellar infarct that was not seen on head CT done last week. Attempt to contact [place] was done but has been unsuccessful. Patient was recently admitted after a fall and was noted to have rhabdomyolysis, NSTEMI, CHF, and was treated accordingly and discharged to [facility]. Patient is a poor historian , only oriented to person. She denies any fever, chills, chest pain, SOB, abdominal pain. ER course was notable for: (1)Head CT: small right parietal and right inferior cerebellar infarcts, not visualized on previous CT, therefore apparently acute/subacute. (2)RUE US: no DVT, no thrombophlebitis (3)R arm xray: shoulder- anterior subcoracoid dislocation, no fracture, forearm - new deformity of distal radius, impaction fracture, loss of bone density Recent Travel:denies PAST MEDICAL HISTORY: Systolic CHF NSTEMI PAST SURGICAL HISTORY: unknown Social History: Smokinppd >50years Alcohol:denies Drugs: denies Family History: noncontributory Allergies No Known Allergies Allergy (Verified 12/14/18 13:26) HOME MEDICATIONS: Home Medications Medication Instructions Recorded Aspirin Coated [Ecotrin -] 81 mg PO DAILY tablet.ec 12/20/18 Atorvastatin Ca [Lipitor] 10 mg PO HS tablet 12/20/18 Clopidogrel Bisulfate [Plavix -] 75 mg PO DAILY tablet 12/20/18 Furosemide [Lasix -] 20 mg PO DAILY tablet 12/20/18 Lisinopril [Prinivil] 5 mg PO DAILY tablet 12/20/18 Metoprolol Tartrate [Lopressor -] 25 mg PO BID tablet 12/20/18 Spironolactone [Aldactone -] 25 mg PO DAILY tablet 12/20/18 REVIEW OF SYSTEMS CONSTITUTIONAL: Absent: fever, chills, diaphoresis, generalized weakness, malaise, loss of appetite, weight change HEENT: Absent: rhinorrhea, nasal congestion, throat pain, throat swelling, difficulty swallowing, mouth swelling, ear pain, eye pain, visual changes CARDIOVASCULAR: Absent: chest pain, syncope, palpitations, irregular heart rate, lightheadedness , peripheral edema RESPIRATORY: Absent: cough, shortness of breath, dyspnea with exertion, orthopnea, wheezing, stridor, hemoptysis GASTROINTESTINAL: Absent: abdominal pain, abdominal distension, nausea, vomiting, diarrhea, constipation, melena, hematochezia GENITOURINARY: Absent: dysuria, frequency, urgency, hesitancy, hematuria, flank pain, genital pain MUSCULOSKELETAL: Absent: myalgia, arthralgia, joint swelling, back pain, neck pain SKIN: Absent: rash, itching, pallor HEMATOLOGIC/IMMUNOLOGIC: Absent: easy bleeding, easy bruising, lymphadenopathy, frequent infections ENDOCRINE: Absent: unexplained weight gain, unexplained weight loss, heat intolerance, cold intolerance NEUROLOGIC: Absent: headache, focal weakness or paresthesias, dizziness, unsteady gait, seizure, mental status changes, bladder or bowel incontinence PSYCHIATRIC: Absent: anxiety, depression, suicidal or homicidal ideation, hallucinations. PHYSICAL EXAMINATION Vital Signs - 24 hr 12/22/18 12/22/18 15:30 15:32 Temperature 97.5 F L Pulse Rate 74 Respiratory 20 Rate Blood Pressure 128/66 O2 Sat by Pulse 100 100 Oximetry (%) GENERAL: Awake, alert, thin, on 2L NC HEAD: no signs of head trauma EYES: PERRLA, EOMI, sclera anicteric, conjunctiva clear. EARS, NOSE, THROAT: Ears normal, oropharynx clear without exudates. Dry mucous membranes. NECK: left-sided neck flexion, not moving the head LUNGS: Breath sounds equal, clear to auscultation bilaterally. HEART: Regular rate and rhythm, normal S1 and S2 without murmur, rub or gallop. ABDOMEN: Soft, nontender, not distended, normoactive bowel sounds. MUSCULOSKELETAL: Limited ROM on the neck UPPER EXTREMITIES: 2+ pulses, warm, well-perfused. RUE: immobilized on a sling, no tenderness on shoulders or arms. No peripheral edema. LOWER EXTREMITIES: 2+ pulses, warm, well-perfused. No peripheral edema. NEUROLOGICAL: awake, alert, oriented to person only, follows commands, Motor strength at least 3/5 on all extremities SKIN: Warm, dry, normal turgor. Laboratory Results - last 24 hr 12/22/18 12/22/18 12/22/18 18:50 18:50 18:50 WBC 9.2 RBC 4.39 Hgb 13.6 Hct 39.5 MCV 90.0 MCH 31.0 MCHC 34.4 RDW 14.2 Plt Count 435 H D MPV 8.4 Absolute Neuts (auto) 7.0 Neutrophils % 76.1 Lymphocytes % 14.1 D Monocytes % 6.1 Eosinophils % 2.6 D Basophils % 1.1 Nucleated RBC % 0 PT with INR 12.10 INR 1.03 PTT (Actin FS) Sodium 138 Potassium 4.5 Chloride 102 Carbon Dioxide 29 Anion Gap 7 L BUN 15 Creatinine 0.6 Creat Clearance w eGFR > 60 Random Glucose 96 Calcium 8.5 Total Bilirubin 0.7 AST 30 ALT 33 Alkaline Phosphatase 110 Troponin I 0.81 H* Total Protein 6.6 Albumin 2.9 L Blood Type Antibody Screen 12/22/18 12/22/18 18:50 19:03 WBC RBC Hgb Hct MCV MCH MCHC RDW Plt Count MPV Absolute Neuts (auto) Neutrophils % Lymphocytes % Monocytes % Eosinophils % Basophils % Nucleated RBC % PT with INR INR PTT (Actin FS) 25.5 Sodium Potassium Chloride Carbon Dioxide Anion Gap BUN Creatinine Creat Clearance w eGFR Random Glucose Calcium Total Bilirubin AST ALT Alkaline Phosphatase Troponin I Total Protein Albumin Blood Type A POSITIVE Antibody Screen Negative ASSESSMENT/PLAN: Patient is a 73 year old female, recently diagnosed with systolic CHF and NSTEMI , was brought in from [facility] for suspected RUE fracture/dislocation/clot. Because of suspected fall, Head CT was done which revealed acute/subacute right inferior cerebellar infarct that was not seen on head CT done last week. #Acute/subacute cerebellar infarct on CT scan -Head CT: small right parietal and right inferior cerebellar infarcts are noted which cannot be definitely visualized on previous CT, and which therefore apparently acute/subacute. Moderate to marked periventricular and subcortical chronic microvascular iscemic changes are again seen. -Neurology (Dr. Bellamy) consulted. REcommendations appreciated. -Given ischemia in 2 different locations, would suspect embolic disease -Suggest discontinue ASA unless dual therapy indicated from cardiac viewpoint -Continue plavix 75mg daily -Echo ordered -Carotid doppler -Tele monitoring -Speech and swallow consulted -would keep NPO except meds for now -A1c, lipid profile -physical therapy -Neuro checks, seizure precs -fall risk, dysphagia precautions -Cardiology consulted. #Right shoulder dislocation -R arm xray: shoulder- anterior subcoracoid dislocation, no fracture, forearm - new deformity of distal radius, impaction fracture, loss of bone density -Ortho (Dr. Berg) consulted. Recommendations appreciated. -No acute surgical intervention at this time. -Sling for 1-2 weeks followed by early shoulder ROM. -Physical therapy -NWB RUE -Keep splint clean and dry -Pain control -To follow-up as outpatient in 1-2 weeks. #Elevated troponins, Hx of NSTEMI -Trop 0.81 --> 0.78 (from 8.69 on 12/16/18) -Likely from hx of [place] last week, trops still trending down -Continue Plavix 75mg -Hold ASA 81mg for now, awaiting cardio recommendations -Cardiology (Dr. Amaro) consulted. #Systolic CHF -Echo (12/15/18): EF 30%, decreased compliance, mod-severe MR/AR -Continue home Lasix 20mg daily, Spironolactone 25mg daily -Lisinopril 5mg daily and Lopressor 25mg BID #FEN -Not on any standing fluids -Electrolytes wnl, routine bmp monitoring -NPO #Prophylaxis -Heparin 5000units sq BID #Disposition -full code -admit to tele Visit type - Emergency Visit Emergency Visit: Yes ED Registration Date: 12/22/18 Care time: The patient presented to the Emergency Department on the above date and was hospitalized for further evaluation of their emergent condition. - New Patient This patient is new to me today: Yes Date on this admission: 12/24/18 - Critical Care Critical Care patient: No
[2018-12-22] MEDS: ATORVASTATIN CA 10 MG TABLET (FP) PO SCH (23:18)
[2018-12-22] MEDS: HEPARIN NA (PORCINE) 5,000 UNITS/ML 1ML VIAL SQ SCH (23:18)
[2018-12-22] MEDS: METOPROLOL TARTRATE 25 MG TABLET (FP) PO SCH (23:18)
--- NOTE | 2018-12-22 23:49 | CON.CARD ---
Consult - History of Present Illness History of Present Illness: 73yo F patient with PMH of CHF, MS presenting from [facility] for suspected RUE fracture/dislocation/clot. Patient is oriented to person and place , but not time as she says she is 43yo and the month is March. Upon being asked, she denies any pain, responding "no, baby." Multiple attempts to call [place] unsuccessful. - Past Medical History [employer]: Yes: Dementia Cardio/Vascular: Yes: CHF (systolic), Murmur (mod-severe AR) - Alcohol/Substance Use Hx Alcohol Use: No - Smoking History Smoking history: Current every day smoker Have you smoked in the past 12 months: Yes Aproximately how many cigarettes per day: 40 Home Medications - Allergies Allergies/Adverse Reactions: Allergies Allergy/AdvReac Type Severity Reaction Status Date / Time No Known Allergies Allergy Verified 12/14/18 13:26 - Home Medications Home Medications: Ambulatory Orders Aspirin Coated [Ecotrin -] 81 mg PO DAILY tablet.ec 12/20/18 Atorvastatin Ca [Lipitor] 10 mg PO HS tablet 12/20/18 Clopidogrel Bisulfate [Plavix -] 75 mg PO DAILY tablet 12/20/18 Furosemide [Lasix -] 20 mg PO DAILY tablet 12/20/18 Lisinopril [Prinivil] 5 mg PO DAILY tablet 12/20/18 Metoprolol Tartrate [Lopressor -] 25 mg PO BID tablet 12/20/18 Spironolactone [Aldactone -] 25 mg PO DAILY tablet 12/20/18 Vital Signs: Vital Signs Temperature 97.5 F L 12/22/18 15:32 Pulse Rate 74 12/22/18 15:32 Respiratory Rate 20 12/22/18 15:32 Blood Pressure 128/66 12/22/18 15:32 O2 Sat by Pulse Oximetry (%) 100 12/22/18 15:32 - Other Data Labs, Other Data: CBC, BMP 12/22/18 18:50 12/22/18 18:50 INR, PTT INR 1.03 (0.83-1.09) 12/22/18 18:50 Troponin, BNP 12/22/18 18:50 Troponin I 0.81 H* Troponin, BNP 12/22/18 18:50 Troponin I 0.81 H*
[2018-12-23] MEDS: ACETAMINOPHEN 325 MG TABLET (FP) PO PRN (05:52)
[2018-12-23 07:17] LABS: EOS % 2.9 % (0-4.5); HEMATOCRIT 37.2 % (32.4-45.2); HEMOGLOBIN 12.6 GM/dL (10.7-15.3); LYMPH % 10.4 % (8-40); MCH 30.5 pg (25.7-33.7); MCHC 33.9 g/dl (32.0-36.0); MEAN CELL VOLUME 89.8 fl (80-96); MEAN PLT VOLUME 8.6 fl (7.5-11.1); MONO % 6.3 % (3.8-10.2); NEUT % 79.4 % (42.8-82.8); PLATELET COUNT 388 K/MM3 (134-434); RBC 4.14 M/mm3 (3.60-5.2); RDW 14.1 % (11.6-15.6)
[2018-12-23 08:01] LABS: ALBUMIN 2.6 g/dl (3.4-5.0); ALK PHOS 94 U/L (45-117); ANION GAP 7 MMOL/L (8-16); BILIRUBIN,TOTAL 0.8 mg/dL (0.2-1); BLOOD UREA NITROGEN 16 mg/dL (7-18); CALCIUM 8.3 mg/dL (8.5-10.1); CHLORIDE 103 mmol/L (98-107); CHOLESTEROL 144 mg/dL (50-200); CO2 27 mmol/L (21-32); CREATININE 0.5 mg/dL (0.55-1.3); GLUCOSE,RANDOM 91 mg/dL (74-106); HDL CHOLESTEROL 39 mg/dL (40-60); PHOSPHOROUS 3.4 mg/dL (2.5-4.9); POTASSIUM 4.2 mmol/L (3.5-5.1); SGOT/AST 24 U/L (15-37); SGPT/ALT 30 U/L (13-61); SODIUM 138 mmol/L (136-145); TOT PROT 5.8 g/dl (6.4-8.2); TRIGLYCERIDES 178 mg/dL (0-150)
--- NOTE | 2018-12-23 08:55 | PN ---
Teaching Attending Note Name of Resident: Johnny nAtonio ATTENDING PHYSICIAN STATEMENT I saw and evaluated the patient. I reviewed the resident's note and discussed the case with the resident. I agree with the resident's findings and plan as documented. SUBJECTIVE: Patient is 73 year old woman with history of Tobacco use from [facility] who present with right shoulder disclocation and radial fx. OBJECTIVE: Vital Signs Temperature 97.7 F 12/23/18 06:26 Pulse Rate 87 12/23/18 06:26 Respiratory Rate 18 12/23/18 06:26 Blood Pressure 129/55 L 12/23/18 06:26 O2 Sat by Pulse Oximetry (%) 99 12/23/18 01:58 Vital Signs Temperature 97.7 F 12/23/18 06:26 Pulse Rate 87 12/23/18 06:26 Respiratory Rate 18 12/23/18 06:26 Blood Pressure 129/55 L 12/23/18 06:26 O2 Sat by Pulse Oximetry (%) 99 12/23/18 01:58 GENERAL: Awake, alert, thin, on 2L NC HEAD: no signs of head trauma EYES: PERRLA, EOMI, sclera anicteric, conjunctiva clear. EARS, NOSE, THROAT: Ears normal, oropharynx clear without exudates. Dry mucous membranes. NECK: left-sided neck flexion, not moving the head LUNGS: Breath sounds equal, clear to auscultation bilaterally. HEART: Regular rate and rhythm, normal S1 and S2 without murmur, rub or gallop. ABDOMEN: Soft, nontender, not distended, normoactive bowel sounds. MUSCULOSKELETAL: Limited ROM on the neck EXTREMITIES: 2+ pulses, warm, well-perfused. RUE: immobilized on a sling, no tenderness on shoulders or arms. No peripheral edema. NEUROLOGICAL: awake, alert, oriented to person only, follows commands, Motor strength at least 3/5 on all extremities SKIN: Warm, dry, normal turgor. CBCD WBC 8.0 K/mm3 (4.0-10.0) 12/23/18 06:30 RBC 4.14 M/mm3 (3.60-5.2) 12/23/18 06:30 Hgb 12.6 GM/dL (10.7-15.3) 12/23/18 06:30 Hct 37.2 % (32.4-45.2) 12/23/18 06:30 MCV 89.8 fl (80-96) 12/23/18 06:30 MCHC 33.9 g/dl (32.0-36.0) 12/23/18 06:30 RDW 14.1 % (11.6-15.6) 12/23/18 06:30 Plt Count 388 K/MM3 (134-434) 12/23/18 06:30 MPV 8.6 fl (7.5-11.1) 12/23/18 06:30 CMP Sodium 138 mmol/L (136-145) 12/23/18 06:30 Potassium 4.2 mmol/L (3.5-5.1) 12/23/18 06:30 Chloride 103 mmol/L (98-107) 12/23/18 06:30 Carbon Dioxide 27 mmol/L (21-32) 12/23/18 06:30 Anion Gap 7 MMOL/L (8-16) L 12/23/18 06:30 BUN 16 mg/dL (7-18) 12/23/18 06:30 Creatinine 0.5 mg/dL (0.55-1.3) L 12/23/18 06:30 Creat Clearance w eGFR > 60 (>60) 12/23/18 06:30 Random Glucose 91 mg/dL (74-106) 12/23/18 06:30 Calcium 8.3 mg/dL (8.5-10.1) L 12/23/18 06:30 Total Bilirubin 0.8 mg/dL (0.2-1) 12/23/18 06:30 AST 24 U/L (15-37) 12/23/18 06:30 ALT 30 U/L (13-61) 12/23/18 06:30 Alkaline Phosphatase 94 U/L (45-117) 12/23/18 06:30 Total Protein 5.8 g/dl (6.4-8.2) L 12/23/18 06:30 Albumin 2.6 g/dl (3.4-5.0) L 12/23/18 06:30 CARDIAC ENZYMES Troponin I 0.78 ng/ml (0.00-0.05) H* 12/23/18 00:30 Current Medications Generic Name Dose Route Start Last Admin Trade Name Freq PRN Reason Stop Dose Admin Acetaminophen 650 mg 12/22/18 21:39 12/23/18 05:52 Tylenol - PO 650 mg Q6H PRN Administration PAIN OR FEVER Atorvastatin Calcium 10 mg 12/22/18 22:00 12/22/18 23:18 Lipitor - PO 10 mg HS LUIS FELIPE Administration Clopidogrel Bisulfate 75 mg 12/23/18 10:00 Plavix - PO DAILY LUIS FELIPE Furosemide 20 mg 12/23/18 10:00 Lasix - PO DAILY LUIS FELIPE Heparin Sodium (Porcine) 5,000 unit 12/22/18 22:00 12/22/18 23:18 Heparin - SQ 5,000 unit BID LUIS FELIPE Administration Lisinopril 5 mg 12/23/18 10:00 Prinivil PO DAILY LUIS FELIPE Metoprolol Tartrate 25 mg 12/22/18 22:00 12/22/18 23:18 Lopressor - PO 25 mg BID LUIS FELIPE Administration Spironolactone 25 mg 12/23/18 10:00 Aldactone - PO DAILY [facility] Home Medications Medication Instructions Recorded Aspirin Coated [Ecotrin -] 81 mg PO DAILY tablet.ec 12/20/18 Atorvastatin Ca [Lipitor] 10 mg PO HS tablet 12/20/18 Clopidogrel Bisulfate [Plavix -] 75 mg PO DAILY tablet 12/20/18 Furosemide [Lasix -] 20 mg PO DAILY tablet 12/20/18 Lisinopril [Prinivil] 5 mg PO DAILY tablet 12/20/18 Metoprolol Tartrate [Lopressor -] 25 mg PO BID tablet 12/20/18 Spironolactone [Aldactone -] 25 mg PO DAILY tablet 12/20/18 ASSESSMENT AND PLAN: Patient is a 73 year old female, recently diagnosed with systolic CHF and NSTEMI , was brought in from [facility] for suspected RUE fracture/dislocation/clot. presented with right shoulder dislocation and radius fx. # Acute Right shoulder dislocation and radius fracture - She had reduction of the dislocation in the ER and splinting of the radius fracture. ortho consulted , continue pain control. #Acute/subacute right inferior cerebellar Infarct - Noted on head CT. EKG , Will admit to telemetry to rule out arrhythmia, continue with diet: Dysphagia Minced Meds. Crushed with applesauce, Thin Liquids, supplement: Ensure, Magic Cup, Ensure Pudding as per speech and swallow evaluation; PT consult appreciated , follow ECHO, carotid doppler, and brain MRI/MRA. Neurochecks, aspiration precaution, seizure and fall precautions. Patient seen by neurologist to continue to hold aspirin and continue plavix. # Elevated troponin likely related to recent NSTEMI - but will continue to trend troponin and will repeat EKGs . Cardiology consult appreciated. # Tobacco Use smoking cessation advised and prescribe Nicotine patch. DVT prophylaxis - Lovenox 40 mg SQ q 24 hours. Advance directives - Full code
[2018-12-23] MEDS ORDERED: PT OWN MED DRAWER 7, Y5N ONE (09:04)
[2018-12-23] MEDS: HEPARIN NA (PORCINE) 5,000 UNITS/ML 1ML VIAL SQ SCH ×2 (10:09→21:13)
[2018-12-23] MEDS: LISINOPRIL 5 MG TABLET (FP) PO SCH (10:09)
[2018-12-23] MEDS: SPIRONOLACTONE 25 MG TABLET (FP) PO SCH (10:09)
[2018-12-23] MEDS: CLOPIDOGREL BISULFATE 75 MG TABLET (FP) PO SCH (10:09)
[2018-12-23] MEDS: FUROSEMIDE 20 MG TABLET (FP) PO SCH (10:09)
[2018-12-23] MEDS: METOPROLOL TARTRATE 25 MG TABLET (FP) PO SCH ×2 (10:09→21:13)
--- NOTE | 2018-12-23 10:30 | PN ---
Progress Note, Physician Chief Complaint: Pt knows she is in [facility]; confused to city, date, person. History of Present Illness: The patient is a 73 year old white woman, with a significant past medical history of dementia, who presents to the emergency department sent by [facility] for suspected redislocation of right shoulder after being discharged from our hospital 2 days ago; she had been admitted then after being found on the floor, likely for hours; she was treated then for rhabdomyolysis and NSTEMI. The patient is confused at baseline and unable to provide history. Allergies: NKDA PCP - Dr. Melton - Current Medication List Current Medications: Active Medications Acetaminophen (Tylenol -) 650 mg PO Q6H PRN PRN Reason: PAIN OR FEVER Last Admin: 12/23/18 05:52 Dose: 650 mg Atorvastatin Calcium (Lipitor -) 10 mg PO HS [facility] Last Admin: 12/22/18 23:18 Dose: 10 mg Clopidogrel Bisulfate (Plavix -) 75 mg PO DAILY [facility] Last Admin: 12/23/18 10:09 Dose: 75 mg Furosemide (Lasix -) 20 mg PO DAILY [facility] Last Admin: 12/23/18 10:09 Dose: 20 mg Heparin Sodium (Porcine) (Heparin -) 5,000 unit SQ BID [facility] Last Admin: 12/23/18 10:09 Dose: 5,000 unit Lisinopril (Prinivil) 5 mg PO DAILY [facility] Last Admin: 12/23/18 10:09 Dose: 5 mg Metoprolol Tartrate (Lopressor -) 25 mg PO BID [facility] Last Admin: 12/23/18 10:09 Dose: 25 mg Spironolactone (Aldactone -) 25 mg PO DAILY [facility] Last Admin: 12/23/18 10:09 Dose: 25 mg - Objective Vital Signs: Vital Signs Temperature 97.9 F 12/23/18 10:00 Pulse Rate 71 12/23/18 10:00 Respiratory Rate 18 12/23/18 10:00 Blood Pressure 116/49 L 12/23/18 10:00 O2 Sat by Pulse Oximetry (%) 99 12/23/18 01:58 Constitutional: Yes: Calm Eyes: Yes: WNL HENT: Yes: WNL Neck: Yes: WNL Cardiovascular: Yes: Murmur, S1, S2 Respiratory: Yes: WNL Gastrointestinal: Yes: Soft Genitourinary: Yes: Anuria Breast(s): Yes: WNL Musculoskeletal: Yes: Muscle Weakness Extremities: Yes: Cool Edema: No Peripheral Pulses WNL: Yes Integumentary: Yes: Bruising Neurological: Yes: Confusion, Weakness Psychiatric: Yes: Other Labs: CBC, BMP 12/23/18 06:30 12/23/18 06:30 INR, PTT INR 1.03 (0.83-1.09) 12/22/18 18:50 Abnormal Lab Results 12/24/18 12/24/18 06:00 06:00 RBC 3.57 L Hct 32.0 L Anion Gap 4 L Calcium 7.9 L - ....Imaging Chest X-ray: Image Reviewed EKG: Image Reviewed Problem List - Problems (1) Dislocation, shoulder Assessment/Plan: reduced in ER. Code(s): S43.006A - UNSP DISLOCATION OF UNSPECIFIED SHOULDER JOINT, INIT ENCNTR (2) NSTEMI (non-ST elevated myocardial infarction) Assessment/Plan: occurred on last admission, just 2 weeks ago. ? systolic dysfunction noted then; f/u ECHO for LVEF, wall motion. Not considered a candidate for coronary artery evaluation, as discussed with family, medical team, due to dementia, frail state, multipel comorbidities. Code(s): I21.4 - NON-ST ELEVATION (NSTEMI) MYOCARDIAL INFARCTION (3) Skin breakdown Code(s): L90.9 - ATROPHIC DISORDER OF SKIN, UNSPECIFIED (4) Rhabdomyolysis Assessment/Plan: on 12/14 admission after fall. Code(s): M62.82 - RHABDOMYOLYSIS Qualifiers: Rhabdomyolysis type: traumatic Encounter type: initial encounter Qualified Code(s): T79.6XXA - Traumatic ischemia of muscle, initial encounter
--- NOTE | 2018-12-23 11:19 | CONSULT ---
Admitting History and Physical - Primary Care Physician PCP: Bang Sawyer - Admission History of Present Illness: Patient is a 73 year old female, recently diagnosed with systolic CHF and NSTEMI , was brought in from [facility] for suspected RUE fracture/dislocation/clot. Because of suspected fall, Head CT was done which revealed acute/subacute right inferior cerebellar infarct that was not seen on head CT done last week. Selected Entries 12/22/18 12/23/18 12/23/18 15:32 01:58 06:26 Temperature 97.5 F L 97.7 F 97.7 F 12/23/18 10:00 Temperature 97.9 F Laboratory Tests 12/22/18 12/23/18 18:50 06:30 WBC 9.2 8.0 Known to me from recent admission. MBS 12/16/18, tolerated minced foods, thin liquids, during last admission with assistance, with good appetite. 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: Dementia Cardiovascular: Yes: CHF (systolic), Murmur (mod-severe AR) - Smoking History Smoking history: Current every day smoker Have you smoked in the past 12 months: Yes Aproximately how many cigarettes per day: 40 - Alcohol/Substance Use Hx Alcohol Use: No History - Admission Reason For Visit: CEREBELLAR INFARCTION/DISLOCATION OF SHOULDER - Diagnostics X-ray: Report Reviewed CT Scan: Report Reviewed - General Mental Status: Awake and Alert, Able to Follow Commands, Forgetful, Vague, Confused Attention: Distractible, Mild Impairment Ability to Follow Directions: Fair Head/Neck Control: Fair - Hearing Hearing: Normal Speech Evaluation - Communication Primary Language: CHADIAN Communication: Yes: Simple Responses (Limited. Perseverative) - Speech Production Able to Make Needs Known: Yes: WNL Intelligibility: Yes: WNL, Mildly Impaired - Speech Characteristics Voice Loudness: Normal Voice Pitch: Yes: Normal Articulation: Yes: Precise - Language/Auditory Comprehension Follows: Yes: 1 Stage Simple Commands Observation: Able to respond to yes/no queries: Yes, Yes/No Confusion: No, Comprehends Conversational Speech: Yes - Language/Verbal Expression Able to Communicate Wants and Needs: Yes: WNL (Simple short responses. Quite limited sec to cognitive deficits.) - Swallow Evaluation/Bedside Assessment Current Nutritional Intake: NPO Oral Secretions: Yes: WFL Dentition: Yes: Edentulous Facial Symmetry at Rest: Symmetrical Facial Symmetry on Retraction: Symmetrical Sensation: Normal Jaw Position: Open at Rest Against Resistance Opening: Weak Against Resistance Closing: Weak Lingual Movement: Symmetric Lingual Speed of Movement: Reduced Lingual Movement Strgth Against Opposition: Reduced Lingual Movement Characteristics: Normal Laryngeal Movement: Labored,delay initiation Rate of Intake: WFL Bolus Size: WFL Labial Seal: WFL Chewing: Impaired (fairly coordinated) Oral Prep Time: WFL A-P Transit: WFL Pocketing: None Change in Voice: No Recommendations - Speech Evaluation, Impression/Plan Impression: Performance similar to recent admission. Oriented to hospital only. Poor memory, insight. Passive, cooperative. Swallowing is functional. - Disposition Discharge to: [facility] - Dysphagia Impressions/Plan Dysphagia Impressions: Mild Impairment *Silent aspiration: cannot be R/O at bedside Dysphagia Treatment Plan: Small Bites, Chin Tuck/Down, Trial Feedings, Safe Rate , 1/2 tsp. at a time, Elevate HOB during feed, Other (Please feed pt) Recommendations: Modified Barium Swallow (If cough,congestion,fever) - Recommendations Diet Consistency: Dysphagia Minced Medication Administration: Crushed with applesauce Liquids: Thin Liquids Supplement: Ensure, Magic Cup, Ensure Pudding
--- NOTE | 2018-12-23 14:55 | ECHO ---
Name: KARLIE DRAKE Exam:Adult Echocardiogram Study Date: 12/23/2018 08:39 AM Age: 73 yrs Reason For Study: CVA Height: 59 in Weight: 140 lb BSA: 1.6 m2 MMode/2D Measurements & Calculations IVSd: 1.0 cm Ao root diam: 3.0 cm LVIDd: 3.8 cm LA dimension: 2.7 cm LVIDs: 2.3 cm LVPWd: 0.97 cm EDV(Teich): 63.1 ml LVOT diam: 2.0 cm ESV(Teich): 19.1 ml LAV (MOD-bp): 36.5 ml Doppler Measurements & Calculations MV E max shubham: 64.5 cm/sec Ao V2 max: 186.7 cm/sec MV A max shubham: 82.0 cm/sec Ao max P.3 mmHg MV E/A: 0.79 Ao V2 mean: 108.7 cm/sec MV dec time: 0.12 sec Ao mean P.9 mmHg Ao V2 VTI: 29.9 cm BERTA(I,D): 1.7 cm2 AI P1/2t: 629.8 msec BERTA(V,D): 1.6 cm2 AI max shubham: 383.6 cm/sec LV V1 max P.7 mmHg AI max P.9 mmHg LV V1 mean P.7 mmHg AI dec slope: 178.4 cm/sec2 LV V1 max: 96.5 cm/sec LV V1 mean: 57.9 cm/sec LV V1 VTI: 17.1 cm SV(LVOT): 51.9 ml TR max shubham: 250.8 cm/sec TR max P.5 mmHg PA V2 max: 101.8 cm/sec Med Peak E' Shubham: 5.8 cm/sec PA max P.1 mmHg Med E/e': 11.2 Lat Peak E' Shubham: 7.6 cm/sec Lat E/e': 8.5 PI Vmax: 177.8 cm/sec Procedure A complete two-dimensional transthoracic echocardiogram was performed (2D, M-mode, Doppler and color flow Doppler). Left Ventricle The left ventricular size, thickness and function are normal. The left ventricular ejection fraction is normal. Ejection Fraction = 55-60%. The left ventricular wall motion is normal. Right Ventricle The right ventricle is normal in size and function. Atria Normal left and right atrial size and function. Mitral Valve There is no mitral regurgitation noted. Tricuspid Valve There is mild tricuspid regurgitation. Right ventricular systolic pressure is normal. Aortic Valve The aortic valve is trileaflet. No hemodynamically significant valvular aortic stenosis. Mild aortic regurgitation. Pulmonic Valve Trace pulmonic valvular regurgitation. Great Vessels The aortic root is normal size. Pericardium/Pleura There is no pericardial effusion. Interpretation Summary The left ventricular size, thickness and function are normal The right ventricle is normal in size and function. There is mild tricuspid regurgitation. Mild aortic regurgitation. Trace pulmonic valvular regurgitation. MD Thang Vernon 12/23/2018 02:54 PM
--- NOTE | 2018-12-23 15:58 | PN ---
Physical Exam: SUBJECTIVE: Patient seen and examined at bedside. Presented to ED from [facility] 11/27 mechanical fall. OBJECTIVE: Vital Signs Period Temp Pulse Resp BP Sys/Robin Pulse Ox Last 24 Hr 97.7 F-98.1 F 63-87 18-20 91-146/49-77 94-99 GENERAL: NAD on 2L NC HEAD: Neck deviation Right side EYES: PERRLA, EOMI, sclera anicteric, conjunctiva clear. EARS, NOSE, THROAT: Dry mucous membranes LUNGS: Decreased Breath sounds at bases HEART: RR nl S1S2 ABDOMEN: NDNT MUSCULOSKELETAL: Limited ROM on the neck EXTREMITIES: No CCE. Onychomycosis b/l feet. NEUROLOGICAL: Responds to questions appropriately. Gait not observed. Facial asymmetry SKIN: Hyperketatotic mass forehead. Laboratory Results - last 24 hr 12/22/18 12/22/18 12/22/18 18:50 18:50 18:50 WBC 9.2 RBC 4.39 Hgb 13.6 Hct 39.5 MCV 90.0 MCH 31.0 MCHC 34.4 RDW 14.2 Plt Count 435 H D MPV 8.4 Absolute Neuts (auto) 7.0 Neutrophils % 76.1 Lymphocytes % 14.1 D Monocytes % 6.1 Eosinophils % 2.6 D Basophils % 1.1 Nucleated RBC % 0 PT with INR 12.10 INR 1.03 PTT (Actin FS) Sodium 138 Potassium 4.5 Chloride 102 Carbon Dioxide 29 Anion Gap 7 L BUN 15 Creatinine 0.6 Creat Clearance w eGFR > 60 Random Glucose 96 Hemoglobin A1c % Calcium 8.5 Phosphorus Magnesium Total Bilirubin 0.7 AST 30 ALT 33 Alkaline Phosphatase 110 Troponin I 0.81 H* Total Protein 6.6 Albumin 2.9 L Triglycerides Cholesterol Total LDL Cholesterol HDL Cholesterol Blood Type Antibody Screen 12/22/18 12/22/18 12/23/18 18:50 19:03 00:30 WBC RBC Hgb Hct MCV MCH MCHC RDW Plt Count MPV Absolute Neuts (auto) Neutrophils % Lymphocytes % Monocytes % Eosinophils % Basophils % Nucleated RBC % PT with INR INR PTT (Actin FS) 25.5 Sodium Potassium Chloride Carbon Dioxide Anion Gap BUN Creatinine Creat Clearance w eGFR Random Glucose Hemoglobin A1c % Calcium Phosphorus Magnesium Total Bilirubin AST ALT Alkaline Phosphatase Troponin I 0.78 H* Total Protein Albumin Triglycerides Cholesterol Total LDL Cholesterol HDL Cholesterol Blood Type A POSITIVE Antibody Screen Negative 12/23/18 12/23/18 12/23/18 06:30 06:30 06:30 WBC 8.0 RBC 4.14 Hgb 12.6 Hct 37.2 MCV 89.8 MCH 30.5 MCHC 33.9 RDW 14.1 Plt Count 388 MPV 8.6 Absolute Neuts (auto) 6.3 Neutrophils % 79.4 Lymphocytes % 10.4 D Monocytes % 6.3 Eosinophils % 2.9 Basophils % 1.0 Nucleated RBC % 0 PT with INR INR PTT (Actin FS) Sodium 138 Potassium 4.2 Chloride 103 Carbon Dioxide 27 Anion Gap 7 L BUN 16 Creatinine 0.5 L Creat Clearance w eGFR > 60 Random Glucose 91 Hemoglobin A1c % 5.6 Calcium 8.3 L Phosphorus 3.4 Magnesium 2.0 Total Bilirubin 0.8 AST 24 ALT 30 Alkaline Phosphatase 94 Troponin I Total Protein 5.8 L Albumin 2.6 L Triglycerides 178 H Cholesterol 144 Total LDL Cholesterol 83 HDL Cholesterol 39 L Blood Type Antibody Screen Active Medications Generic Name Dose Route Start Last Admin Trade Name Freq PRN Reason Stop Dose Admin Acetaminophen 650 mg 12/22/18 21:39 12/23/18 05:52 Tylenol - PO 650 mg Q6H PRN Administration PAIN OR FEVER Atorvastatin Calcium 10 mg 12/22/18 22:00 12/22/18 23:18 Lipitor - PO 10 mg HS LUIS FELIPE Administration Clopidogrel Bisulfate 75 mg 12/23/18 10:00 12/23/18 10:09 Plavix - PO 75 mg DAILY LUIS FELIPE Administration Furosemide 20 mg 12/23/18 10:00 12/23/18 10:09 Lasix - PO 20 mg DAILY LUIS FELIPE Administration Heparin Sodium (Porcine) 5,000 unit 12/22/18 22:00 12/23/18 10:09 Heparin - SQ 5,000 unit BID LUIS FELIPE Administration Lisinopril 5 mg 12/23/18 10:00 12/23/18 10:09 Prinivil PO 5 mg DAILY LUIS FELIPE Administration Metoprolol Tartrate 25 mg 12/22/18 22:00 12/23/18 10:09 Lopressor - PO 25 mg BID LUIS FELIPE Administration Spironolactone 25 mg 12/23/18 10:00 12/23/18 10:09 Aldactone - PO 25 mg DAILY LUIS FELIPE Administration ASSESSMENT/PLAN: Patient is a 73 year old female, recently diagnosed with systolic CHF and NSTEMI , was brought in from [facility] for suspected RUE fracture/dislocation/clot. Because of suspected fall, Head CT was done which revealed acute/subacute right inferior cerebellar infarct that was not seen on head CT done last week #Acute/subacute cerebellar infarct on CT scan -Head CT: small right parietal and right inferior cerebellar infarcts are noted which cannot be definitely visualized on previous CT, and which therefore apparently acute/subacute. Moderate to marked periventricular and subcortical chronic microvascular iscemic changes are again seen. 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 R ventricle nl in size and function. Mild tricuspid regurg. Mild aortic regurg. trace pulmonic valvular regurg -Carotid doppler----> Significant intimal thickening witjh small calcified plaques in the left common carotid artery and moderate size plaques with calcifications at the left common carotid bifurcation, bulb, and proximal internal carotid artery with borderline hemodynamicaly significatn stenosis. 50- 69% stenosis. -Tele monitoring -Speech and swallow Danelleximena Mirzas on board---> small Bites, Chin Tuck/Down, Trial Feedings, Safe Rate, 1/2 tsp. at a time, Elevate HOB during feed. -would keep NPO except meds for now -A1c 5.6%, -physical therapy -Neuro checks, seizure precs -fall risk, dysphagia precautions -Cardiology consulted. #Right shoulder dislocation -R arm xray: shoulder- anterior subcoracoid dislocation, no fracture, forearm - new deformity of distal radius, impaction fracture, loss of bone density -Dr Diallo on board Recomendations below -No acute surgical intervention at this time. -Sling for 1-2 weeks followed by early shoulder ROM. -Physical therapy -NWB RUE -Keep splint clean and dry -Pain control -To follow-up as outpatient in 1-2 weeks. #Elevated troponins, Hx of NSTEMI -Trop 0.81 --> 0.78 (from 8.69 on 12/16/18) -Likely from hx of MT last week, trops still trending down -Continue Plavix 75mg -Hold ASA 81mg for now, awaiting cardio recommendations -Cardiology (Dr. Amaro) consulted. #Systolic CHF -Echo (12/15/18): EF 30%, decreased compliance, mod-severe MR/AR -Continue home Lasix 20mg daily, Spironolactone 25mg daily -Lisinopril 5mg daily and Lopressor 25mg BID #FEN -No fluids -Monitor Electrolytes -Dysphagia Chopped #Prophylaxis -Heparin 5000units sq BID #Disposition -full code -admit to tele Visit type - Emergency Visit Emergency Visit: Yes ED Registration Date: 12/22/18 Care time: The patient presented to the Emergency Department on the above date and was hospitalized for further evaluation of their emergent condition. - New Patient This patient is new to me today: No - Critical Care Critical Care patient: No - Discharge Referral Referred to [facility] Med P.C.: No
[2018-12-23] MEDS: ATORVASTATIN CA 10 MG TABLET (FP) PO SCH (21:13)
[2018-12-24] MEDS: ACETAMINOPHEN 325 MG TABLET (FP) PO PRN ×2 (00:52→21:08)
[2018-12-24 07:00] LABS: ANION GAP 4 MMOL/L (8-16); BLOOD UREA NITROGEN 18 mg/dL (7-18); CALCIUM 7.9 mg/dL (8.5-10.1); CHLORIDE 106 mmol/L (98-107); CO2 30 mmol/L (21-32); CREATININE 0.6 mg/dL (0.55-1.3); GLUCOSE,RANDOM 91 mg/dL (74-106); MAGNESIUM 2.1 mg/dL (1.8-2.4); PHOSPHOROUS 3.2 mg/dL (2.5-4.9); POTASSIUM 3.9 mmol/L (3.5-5.1); SODIUM 140 mmol/L (136-145)
[2018-12-24 07:03] LABS: HEMOGLOBIN 11.1 GM/dL (10.7-15.3); MCH 31.1 pg (25.7-33.7); MCHC 34.7 g/dl (32.0-36.0); MEAN CELL VOLUME 89.5 fl (80-96); MEAN PLT VOLUME 8.7 fl (7.5-11.1); PLATELET COUNT 370 K/MM3 (134-434); RBC 3.57 M/mm3 (3.60-5.2); RDW 14.2 % (11.6-15.6); WHITE BLOOD COUNT 6.7 K/mm3 (4.0-10.0)
[2018-12-24] MEDS: FUROSEMIDE 20 MG TABLET (FP) PO SCH (09:24)
[2018-12-24] MEDS: LISINOPRIL 5 MG TABLET (FP) PO SCH (09:24)
[2018-12-24] MEDS: HEPARIN NA (PORCINE) 5,000 UNITS/ML 1ML VIAL SQ SCH ×2 (09:24→21:08)
[2018-12-24] MEDS: CLOPIDOGREL BISULFATE 75 MG TABLET (FP) PO SCH (09:24)
[2018-12-24] MEDS: METOPROLOL TARTRATE 25 MG TABLET (FP) PO SCH ×2 (09:24→21:08)
[2018-12-24] MEDS: SPIRONOLACTONE 25 MG TABLET (FP) PO SCH (09:24)
--- NOTE | 2018-12-24 13:09 | PN ---
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 Selected Entries 12/23/18 12/24/18 12/24/18 18:00 01:14 06:00 Breakfast Supper 75% Temperature 97.8 F 97.4 F L 12/24/18 08:45 Breakfast 100% Supper Temperature Laboratory Tests 12/24/18 06:00 WBC 6.7 Continue Dys chopped/thin/supplements.
[2018-12-24 13:24] VITALS: BMI 18.1
[2018-12-24] MEDS ORDERED: ATORVASTATIN CA 40 MG TABLET (FP) PO SCH ×2 (13:32→22:00)
--- NOTE | 2018-12-24 14:58 | PN ---
Teaching Attending Note Name of Resident: Johnny Antonio ATTENDING PHYSICIAN STATEMENT I saw and evaluated the patient. I reviewed the resident's note and discussed the case with the resident. I agree with the resident's findings and plan as documented. SUBJECTIVE: Patient is feeling better with no acute distress. OBJECTIVE: Vital Signs Temperature 98.5 F 12/24/18 14:00 Pulse Rate 80 12/24/18 14:00 Respiratory Rate 19 12/24/18 14:00 Blood Pressure 106/56 L 12/24/18 14:00 O2 Sat by Pulse Oximetry (%) 96 12/24/18 09:00 GENERAL: Awake, alert, thin, on 2L NC HEAD: no signs of head trauma EYES: PERRLA, EOMI, sclera anicteric, conjunctiva clear. EARS, NOSE, THROAT: Ears normal, oropharynx clear without exudates. Dry mucous membranes. NECK: left-sided neck flexion, not moving the head LUNGS: Breath sounds equal, clear to auscultation bilaterally. HEART: Regular rate and rhythm, normal S1 and S2 without murmur, rub or gallop. ABDOMEN: Soft, nontender, not distended, normoactive bowel sounds. MUSCULOSKELETAL: Limited ROM on the neck EXTREMITIES: 2+ pulses, warm, well-perfused. RUE in the sling. RUE: immobilized on a sling, no tenderness on shoulders or arms. No peripheral edema. NEUROLOGICAL: awake, alert, oriented to person only, follows commands, Motor strength at least 3/5 on all extremities SKIN: Warm, dry, normal turgor. Home Medications Medication Instructions Recorded Aspirin Coated [Ecotrin -] 81 mg PO DAILY tablet.ec 12/20/18 Atorvastatin Ca [Lipitor] 10 mg PO HS tablet 12/20/18 Clopidogrel Bisulfate [Plavix -] 75 mg PO DAILY tablet 12/20/18 Furosemide [Lasix -] 20 mg PO DAILY tablet 12/20/18 Lisinopril [Prinivil] 5 mg PO DAILY tablet 12/20/18 Metoprolol Tartrate [Lopressor -] 25 mg PO BID tablet 12/20/18 Spironolactone [Aldactone -] 25 mg PO DAILY tablet 12/20/18 Current Medications Generic Name Dose Route Start Last Admin Trade Name Freq PRN Reason Stop Dose Admin Acetaminophen 650 mg 12/22/18 21:39 12/24/18 00:52 Tylenol - PO 650 mg Q6H PRN Administration PAIN OR FEVER Aspirin 81 mg 12/24/18 15:00 Ecotrin - PO DAILY LUIS FELIPE Atorvastatin Calcium 40 mg 12/24/18 22:00 Lipitor - PO HS LUIS FELIPE Clopidogrel Bisulfate 75 mg 12/23/18 10:00 12/24/18 09:24 Plavix - PO 75 mg DAILY LUIS FELIPE Administration Furosemide 20 mg 12/23/18 10:00 12/24/18 09:24 Lasix - PO 20 mg DAILY LUIS FELIPE Administration Heparin Sodium (Porcine) 5,000 unit 12/22/18 22:00 12/24/18 09:24 Heparin - SQ 5,000 unit BID LUIS FELIPE Administration Lisinopril 5 mg 12/23/18 10:00 12/24/18 09:24 Prinivil PO 5 mg DAILY LUIS FELIPE Administration Metoprolol Tartrate 25 mg 12/22/18 22:00 12/24/18 09:24 Lopressor - PO 25 mg BID LUIS FELIPE Administration Spironolactone 25 mg 12/23/18 10:00 12/24/18 09:24 Aldactone - PO 25 mg DAILY LUIS FELIPE Administration ASSESSMENT AND PLAN: Patient is a 73 year old female, recently diagnosed with systolic CHF and NSTEMI , was brought in from [facility] for suspected RUE fracture/dislocation/clot. presented with right shoulder dislocation and radius fx. # Acute Right shoulder dislocation and radius fracture - She had reduction of the dislocation in the ER and splinting of the radius fracture. ortho consulted , continue pain control. going to rehab. #Acute/subacute right inferior cerebellar Infarct - Noted on head CT. EKG , Will admit to telemetry to rule out arrhythmia, continue with diet: Dysphagia Minced Meds. Crushed with applesauce, Thin Liquids, supplement: Ensure, Magic Cup, Ensure Pudding as per speech and swallow evaluation; PT consult appreciated , follow ECHO, carotid doppler, and brain MRI/MRA. Neurochecks, aspiration precaution, seizure and fall precautions. Patient seen by neurologist to continue to plavix, as per refiner operator tony Grier to continue Aspirin 81mg since patient had a NSTEMI on the last admission. # Hx of NSTEMI (non-ST elevated myocardial infarction): Last admission on Plavix and ASpirin to continue; Elevated troponin likely related to recent NSTEMI Cardiology consult appreciated. # hx of CHF on Lopressor/spironolactone/Prinivil/Lasix # Fall in elderly patient : bed alarm and fall precaution # Tobacco Use smoking cessation advised and prescribe Nicotine patch. DVT prophylaxis - Lovenox 40 mg SQ q 24 hours. Advance directives - Full code discharge patient to rehab. when bed is available.
[2018-12-24] MEDS: ASPIRIN COATED 81 MG TABLET.EC PO SCH (17:03)
--- NOTE | 2018-12-24 19:24 | DS ---
Physical Exam: SUBJECTIVE: Patient seen and examined at bedside. No acute events overnight. OBJECTIVE: Vital Signs Period Temp Pulse Resp BP Sys/Robin Pulse Ox Last 24 Hr 97.3 F-98.5 F 66-92 18-19 106-119/55-60 96-96 PHYSICAL EXAM GENERAL: NAD on 2L NC HEAD: Neck deviation Right side. Seborrheic keratosis forehead. EYES: PERRLA, EOMI, sclera anicteric, conjunctiva clear. EARS, NOSE, THROAT: Dry mucous membranes LUNGS: Decreased Breath sounds at bases HEART: RR nl S1S2 ABDOMEN: NDNT MUSCULOSKELETAL: Limited ROM on the neck EXTREMITIES: No CCE. Onychomycosis b/l feet. NEUROLOGICAL: Responds to questions appropriately. Knows location, thinks its 1999. SKIN: Hyperketatotic mass forehead. LABS Laboratory Results - last 24 hr 12/24/18 12/24/18 06:00 06:00 WBC 6.7 RBC 3.57 L Hgb 11.1 Hct 32.0 L MCV 89.5 MCH 31.1 MCHC 34.7 RDW 14.2 Plt Count 370 MPV 8.7 Sodium 140 Potassium 3.9 Chloride 106 Carbon Dioxide 30 Anion Gap 4 L BUN 18 Creatinine 0.6 Creat Clearance w eGFR > 60 Random Glucose 91 Calcium 7.9 L Phosphorus 3.2 Magnesium 2.1 HOSPITAL COURSE: Date of Admission:12/22/18 Patient is a 73 year old female, recently diagnosed with systolic CHF and NSTEMI , who was brought in from [facility] for suspected RUE fracture/dislocation 2/2 mechanical fall. pt underwent imaging of her head and upper body which revealed small right parietal and right inferior cerebellar infarcts. X-ray of the right forearm revealed a new deformity of the distal radius indicative of an impaction fracture. Pt was evaluated by Neurology and Orthopedic surgery. Pt was placed in a R arm splint. Neurology believed, given ischemia in two different territories, that pt suffered possible embolic disease and recommended telemetry and an echo. Echo revealed an EF between 55-60% and nl LV function. Pt was placed on ASA and remained on plavix per cardiology. U/S Common carotid revealed significant intimal thickening witch small calcified plaques in the left common carotid artery and moderate size plaques with calcifications at the left common carotid bifurcation, bulb, and proximal internal carotid artery with borderline hemodynamicaly significatn stenosis. 50- 69% stenosis. Pt was d/c back to [facility]. Date of Discharge: 12/24/18 Minutes to complete discharge: 35 Discharge Summary Reason For Visit: CEREBELLAR INFARCTION/DISLOCATION OF SHOULDER Current Active Problems Dislocation, shoulder (Acute) Condition: Improved - Instructions Diet, Activity, Other Instructions: [facility] You were found to have a fracture of the bone in your right arm as well as new infarcts ( tissue) in separate regions of your brain. Please follow up with the Neurologist, Dr Bellamy in 1 week. Please follow up with the Director Sanitation Bureau, Dr Amaro in 1 week. Please follow up with Dr Diallo, the Orthopedic surgeon. Please see him in 1 week to remove the splint on your arm. Please continue to take your home medications as prescribed. Please take Aspirin 81 mg Daily in addition to your daily Plavix 75 MG Daily. You were evaluated by a speech and swallow specialist. they recommend for you to continue a Dysphagia chopped diet with /thin liquids/supplements. Please return to the emergency department if you experience any chest pain, shortness of breath, nausea/vomiting, or any other abnormal symptoms. Referrals: Rosana Bellamy MD [Staff Physician] - 1 Week Kaylee Rivera MD [Primary Care Provider] - Raphael Amaro MD [Staff Physician] - 1 Week Thang Diallo DO [Staff Physician] - Disposition: [facility] - Home Medications Comprehensive Discharge Medication List: Ambulatory Orders Clopidogrel Bisulfate [Plavix -] 75 mg PO DAILY tablet 12/20/18 Furosemide [Lasix -] 20 mg PO DAILY tablet 12/20/18 Lisinopril [Prinivil] 5 mg PO DAILY tablet 12/20/18 Metoprolol Tartrate [Lopressor -] 25 mg PO BID tablet 12/20/18 Spironolactone [Aldactone -] 25 mg PO DAILY tablet 12/20/18 Aspirin Coated [Ecotrin -] 81 mg PO DAILY tablet.ec 12/24/18 Atorvastatin Ca [Lipitor] 40 mg PO HS tablet 12/24/18 This patient is new to me today: No Emergency Visit: Yes ED Registration Date: 12/22/18 Care time: The patient presented to the Emergency Department on the above date and was hospitalized for further evaluation of their emergent condition. Critical Care patient: No - Discharge Referral Referred to [facility] Med P.C.: No
--- NOTE | 2018-12-25 07:07 | PN ---
Progress Note, Physician Chief Complaint: Pt more confused; unable to say where she is. History of Present Illness: The patient is a 73 year old white woman, with a significant past medical history of dementia, who presents to the emergency department sent by [facility] for suspected redislocation of right shoulder after being discharged from our hospital 2 days ago; she had been admitted then after being found on the floor, likely for hours; she was treated then for rhabdomyolysis and NSTEMI. The patient is confused at baseline and unable to provide history. Allergies: NKDA PCP - Dr. Melton - Current Medication List Current Medications: Active Medications Acetaminophen (Tylenol -) 650 mg PO Q6H PRN PRN Reason: PAIN OR FEVER Last Admin: 12/24/18 21:08 Dose: 650 mg Aspirin (Ecotrin -) 81 mg PO DAILY [facility] Last Admin: 12/24/18 17:03 Dose: 81 mg Atorvastatin Calcium (Lipitor -) 40 mg PO HS [facility] Last Admin: 12/24/18 21:08 Dose: 40 mg Clopidogrel Bisulfate (Plavix -) 75 mg PO DAILY [facility] Last Admin: 12/24/18 09:24 Dose: 75 mg Furosemide (Lasix -) 20 mg PO DAILY [facility] Last Admin: 12/24/18 09:24 Dose: 20 mg Heparin Sodium (Porcine) (Heparin -) 5,000 unit SQ BID [facility] Last Admin: 12/24/18 21:08 Dose: 5,000 unit Lisinopril (Prinivil) 5 mg PO DAILY [facility] Last Admin: 12/24/18 09:24 Dose: 5 mg Metoprolol Tartrate (Lopressor -) 25 mg PO BID [facility] Last Admin: 12/24/18 21:08 Dose: 25 mg Spironolactone (Aldactone -) 25 mg PO DAILY [facility] Last Admin: 12/24/18 09:24 Dose: 25 mg - Objective Vital Signs: Vital Signs Temperature 98.4 F 12/25/18 05:36 Pulse Rate 87 12/25/18 05:36 Respiratory Rate 20 12/25/18 05:36 Blood Pressure 160/78 12/25/18 05:36 O2 Sat by Pulse Oximetry (%) 95 12/24/18 20:44 Constitutional: Yes: Anxious, Thin Eyes: Yes: WNL HENT: Yes: WNL Neck: Yes: Decreased ROM Cardiovascular: Yes: S1, S2 Respiratory: Yes: WNL Gastrointestinal: Yes: Soft Genitourinary: No: Anuria Breast(s): Yes: WNL Musculoskeletal: Yes: Muscle Weakness Extremities: Yes: Cool, Deformity (toes) Edema: No Peripheral Pulses WNL: Yes Integumentary: Yes: Bruising, Laceration, Other (healing abrasions to knees, chest from prior fall) Neurological: Yes: Confusion, Weakness Psychiatric: Yes: Other (dementia) Labs: CBC, BMP 12/24/18 06:00 12/24/18 06:00 INR, PTT INR 1.03 (0.83-1.09) 12/22/18 18:50 Abnormal Lab Results 12/24/18 06:00 RBC 3.57 L Hct 32.0 L - ....Imaging Other: Image Reviewed (telemetry: NSR) Problem List - Problems (1) Dislocation, shoulder Assessment/Plan: reduced in ER. Code(s): S43.006A - UNSP DISLOCATION OF UNSPECIFIED SHOULDER JOINT, INIT ENCNTR (2) NSTEMI (non-ST elevated myocardial infarction) Assessment/Plan: TNI 0.7 (was >17 earlier in November); NSTEMI occurred on last admission, just 2 weeks ago. ? systolic dysfunction noted then (on metoprolol, lisinopril, and spironolactone ); f/u ECHO for LVEF, wall motion. Not considered a candidate for coronary artery evaluation, as discussed with family, medical team, due to dementia, frail state, multilel comorbidities. Code(s): I21.4 - NON-ST ELEVATION (NSTEMI) MYOCARDIAL INFARCTION (3) Skin breakdown Code(s): L90.9 - ATROPHIC DISORDER OF SKIN, UNSPECIFIED (4) Rhabdomyolysis Assessment/Plan: on 12/14 admission after fall. Code(s): M62.82 - RHABDOMYOLYSIS Qualifiers: Rhabdomyolysis type: traumatic Encounter type: initial encounter Qualified Code(s): T79.6XXA - Traumatic ischemia of muscle, initial encounter
--- NOTE | 2018-12-25 08:31 | PN ---
Progress Note (short form) - Note Progress Note: Coverage for Dr. Isidoro Amaro Chief Complaint: Events noted, notes reviewed, denies any chest pain or dyspnea History of Present Illness: Seen and examined on telemetry. Events noted, notes reviewed, denies any chest pain or dyspnea Discrepancy noted between echocardiography reports dated 12/23/18 and 12/15/18, to be reviewed - Current Medication List Current Medications: Current Medications Acetaminophen (Tylenol -) 650 mg PO Q6H PRN PRN Reason: PAIN OR FEVER Last Admin: 12/24/18 21:08 Dose: 650 mg Aspirin (Ecotrin -) 81 mg PO DAILY [facility] Last Admin: 12/24/18 17:03 Dose: 81 mg Atorvastatin Calcium (Lipitor -) 40 mg PO HS [facility] Last Admin: 12/24/18 21:08 Dose: 40 mg Clopidogrel Bisulfate (Plavix -) 75 mg PO DAILY [facility] Last Admin: 12/24/18 09:24 Dose: 75 mg Furosemide (Lasix -) 20 mg PO DAILY [facility] Last Admin: 12/24/18 09:24 Dose: 20 mg Heparin Sodium (Porcine) (Heparin -) 5,000 unit SQ BID [facility] Last Admin: 12/24/18 21:08 Dose: 5,000 unit Lisinopril (Prinivil) 5 mg PO DAILY [facility] Last Admin: 12/24/18 09:24 Dose: 5 mg Metoprolol Tartrate (Lopressor -) 25 mg PO BID [facility] Last Admin: 12/24/18 21:08 Dose: 25 mg Spironolactone (Aldactone -) 25 mg PO DAILY [facility] Last Admin: 12/24/18 09:24 Dose: 25 mg Review of Systems Cardiovascular: As noted above Respiratory: denies: denies: Cough or Sputum Production Gastrointestinal: denies: Nausea, Vomiting, Diarrhea, Constipation or Abdominal Discomfort Musculoskeletal: No Symptoms Reported Endocrine: No Symptoms Reported - Objective Vital Signs: Last Vital Signs Temp Pulse Resp BP Pulse Ox 98.4 F 87 20 160/78 95 12/25/18 05:36 12/25/18 05:36 12/25/18 05:36 12/25/18 05:36 12/24/18 20:44 Intake & Output 12/22/18 12/23/18 12/24/18 12/25/18 23:59 23:59 23:59 23:59 Intake Total 300 710 100 Balance 300 710 100 Weight 140 lb 90 lb 12.8 oz 90 lb Constitutional: No Distress Neck: Supple Negative JVD No Bruit Cardiovascular: S1 S2 Regular Rate Rhythm Respiratory: Clear to A&P Bilaterally Gastrointestinal: Soft Benign Normal Bowel Sounds Ext: No Edema Labs: CBC, BMP 12/24/18 06:00 12/24/18 06:00 Hepatic Panel Total Bilirubin 0.8 mg/dL (0.2-1) 12/23/18 06:30 AST 24 U/L (15-37) 12/23/18 06:30 ALT 30 U/L (13-61) 12/23/18 06:30 Alkaline Phosphatase 94 U/L (45-117) 12/23/18 06:30 Albumin 2.6 g/dl (3.4-5.0) L 12/23/18 06:30 Assessment/Plan ASSESSMENT: 1. CAD post NSTEMI angina pectoris 2. Systolic/diastolic LV dysfunction with clinical class 0 NYHA classification LV failure 3. HTN 4. hypercholesterolemia 5. History of dementia 6. Fall shoulder dislocation 7. Anemia PLAN: 1. Continue Aspirin and Plavix 2. Continue Lipitor 3. Continue Furosemide and Spironolactone 4. Continue Lopressor 5. Continue Lisinopril 6. Echocardiography studies to be reviewed, will discuss with the primary team/ and primary cardiology team 7. As outlined in prior notes, plan for conservative medical management considering patient's co-morbidities Harrison Harper MD
[2018-12-25 08:55] VITALS: BP 156/80; PULSE 94; TEMP 97
[2018-12-25] MEDS: ASPIRIN COATED 81 MG TABLET.EC PO SCH (09:19)
[2018-12-25] MEDS: SPIRONOLACTONE 25 MG TABLET (FP) PO SCH (09:19)
[2018-12-25] MEDS: FUROSEMIDE 20 MG TABLET (FP) PO SCH (09:19)
[2018-12-25] MEDS: METOPROLOL TARTRATE 25 MG TABLET (FP) PO SCH (09:19)
[2018-12-25] MEDS: LISINOPRIL 5 MG TABLET (FP) PO SCH (09:19)
[2018-12-25] MEDS: CLOPIDOGREL BISULFATE 75 MG TABLET (FP) PO SCH (09:19)
[2018-12-25] MEDS: HEPARIN NA (PORCINE) 5,000 UNITS/ML 1ML VIAL SQ SCH (09:19)
== END 2018-12-25 11:51 | DRG 64 ==
LOC: JER 15:10 → JERBED 18:27 → J4S 12-23 01:46
PROVIDERS: ADMIT Internal Medicine; ATTEND Internal Medicine
PROC: 0RSJXZZ Reposition Right Shoulder Joint, External Approach (ICD-10-PCS; principal; 2018-12-22)
DX: I63.9 Cerebral infarction, unspecified (principal); I21.4 Non-ST elevation (NSTEMI) myocardial infarction; S52.501A Unspecified fracture of the lower end of right radius, initial encounter for closed fracture; I50.20 Unspecified systolic (congestive) heart failure; S43.084A Other dislocation of right shoulder joint, initial encounter; I11.0 Hypertensive heart disease with heart failure; F03.90 Unspecified dementia, unspecified severity, without behavioral disturbance, psychotic disturbance, mood disturbance, and anxiety; D64.9 Anemia, unspecified; F17.210 Nicotine dependence, cigarettes, uncomplicated; I25.119 Atherosclerotic heart disease of native coronary artery with unspecified angina pectoris; W19.XXXA Unspecified fall, initial encounter; Y93.9 Activity, unspecified; Y92.89 Other specified places as the place of occurrence of the external cause; Y99.9 Unspecified external cause status
CPT/HCPCS: 36415; 70450-TC; 73030-TC-RT-FY; 73060-TC-RT-FY; 73090-TC-RT-FY; 73110-TC-RT-FY; 73130-TC-RT-FY; 80048; 80053; 80061; 83036; 83721; 83735; 84100; 84484; 85025; 85027; 85610; 85730; 86850; 86900; 86901; 93306-TC; 93880-TC; 93971; 97162-GP; 99282-25; J1644

== ENCOUNTER 2019-01-10 12:30 | Inpatient (IN) | payer OTHER ==
--- NOTE | 2019-01-10 12:46 | PDOC ---
History of Present Illness - General Stated Complaint: AMS Time Seen by Provider: 01/10/19 12:46 History Source: Patient, Custodial Records, Old Records Exam Limitations: Dementia - History of Present Illness Initial Comments: HPI: 73 y/o female [facility]. Transfer paperwork states the reason for transfer is, change in status, high potassium, 5.6 bun 61. Wheezing noted upon expiration. b/p97/55, hr90 O2 applied. Change in mental status. Lab work included in packet shows a draw date of 07 January 2019. Pt demented at baseline. Denies active complaint at time of interview. Past History - Past Medical History Allergies/Adverse Reactions: Allergies Allergy/AdvReac Type Severity Reaction Status Date / Time No Known Allergies Allergy Verified 12/14/18 13:26 Home Medications: Ambulatory Orders Clopidogrel Bisulfate [Plavix -] 75 mg PO DAILY tablet 12/20/18 Lisinopril [Prinivil] 5 mg PO DAILY tablet 12/20/18 Metoprolol Tartrate [Lopressor -] 25 mg PO BID tablet 12/20/18 Aspirin Coated [Ecotrin -] 81 mg PO DAILY tablet.ec 12/24/18 Acetaminophen [Tylenol] 650 mg PO Q6H PRN 01/10/19 Atorvastatin Ca [Lipitor] 10 mg PO HS 01/10/19 Docusate Sodium [Colace -] 100 mg PO BID 01/10/19 LORazepam [Ativan] 0.5 mg PO DAILY 01/10/19 Cardiac Disorders: Yes (NE) COPD: No HTN: Yes Hypercholesterolemia: Yes - Suicide/Smoking/Psychosocial Hx Smoking History: Current every day smoker Have you smoked in the past 12 months: Yes Number of Cigarettes Smoked Daily: 40 'Breaking Loose' booklet given: 12/15/18 Hx Alcohol Use: No Drug/Substance Use Hx: No Substance Use Type: None Hx Substance Use Treatment: No Review of Systems - Review of Systems Able to Perform ROS?: Yes Comments:: In addition to that documented in the HPI above, the additional ROS was obtained : Constitutional: Denies fevers or chills Head: Denies vision changes ENMT: Denies sore throat CV: Denies chest pain Resp: Denies SOB GI: Denies vomiting or diarrhea : Denies painful urination MSK: Denies recent trauma Skin: Denies new rashes Neuro: Denies new numbness or tingling or weakness Endocrine: Denies polyuria Heme: Denies bleeding or bruising *Physical Exam - Physical Exam Comments: Constitutional: Non-toxic thin adult female in no acute distress or obvious discomfort. Found semi-fowlers on hospital bed. Alert and oriented to person, place, evets, but not time. Speech was non-labored, non-pressured. Head: Normocephalic. No obvious external signs of trauma. Eyes: Sclerae white. Ears: Hearing grossly intact. Nose: No nasal discharge. Neck: Torticollis to right (baseline per previous documentation) Cardiovascular / Chest: Regular rate and regular rhythm. No murmur, rubs, clicks, or gallops. Peripheral pulses: radial pulses full. Respiratory: Breathing unlabored. Equal chest rise and fall. Clear to auscultation bilaterally. No stridor, no wheezing, no rhonchi. Gastrointestinal: abdomen is soft, non-tender, non-distended. Neuro: Alert and oriented to documented baseline. Moving all four extremities spontaneously. Skin: Warm, dry, and intact. MSK: Diffuse muscle wasting. Psych: Affect: appropriate. Mood: normal. ED Treatment Course - LABORATORY CBC & Chemistry Diagram: 01/10/19 13:13 01/10/19 13:13 *DC/Admit/Observation/Transfer Diagnosis at time of Disposition: SIRS (systemic inflammatory response syndrome) Fever Qualifiers: Fever type: unspecified Qualified Code(s): R50.9 - Fever, unspecified - Discharge Dispostion Condition at time of disposition: Stable Decision to Admit order: Yes - Referrals Referrals: Ahmet Marina MD [Primary Care Provider] - - Patient Instructions - Post Discharge Activity
[2019-01-10] MEDS ORDERED: SODIUM CHLORIDE 500 ML IV STA (13:05)
[2019-01-10 13:25] LABS: BASO % 0.2 % (0-2.0); EOS % 0.4 % (0-4.5); HEMATOCRIT 36.6 % (32.4-45.2); HEMOGLOBIN 12.5 GM/dL (10.7-15.3); LYMPH % 5.2 % (8-40); MCH 31.6 pg (25.7-33.7); MCHC 34.1 g/dl (32.0-36.0); MEAN CELL VOLUME 92.7 fl (80-96); MEAN PLT VOLUME 8.9 fl (7.5-11.1); MONO % 5.3 % (3.8-10.2); NEUT % 88.9 % (42.8-82.8); PLATELET COUNT 315 K/MM3 (134-434); RBC 3.95 M/mm3 (3.60-5.2); RDW 15.6 % (11.6-15.6); WHITE BLOOD COUNT 16.5 K/mm3 (4.0-10.0)
[2019-01-10 13:26] LABS: VENOUS PC02 40.2 mmHg (41-51); VENOUS PH 7.36 (7.31-7.41); VENOUS PO2 39.3 mmHg (30-40)
[2019-01-10 13:35] LABS: INR 1.13 (0.83-1.09); PROTHROMBIN TIME (PATIENT) 13.4 SEC (9.7-13.0)
[2019-01-10 13:54] LABS: ALK PHOS 129 U/L (45-117); ANION GAP 9 MMOL/L (8-16); BILIRUBIN,TOTAL 0.6 mg/dL (0.2-1); BLOOD UREA NITROGEN 65 mg/dL (7-18); CALCIUM 8.8 mg/dL (8.5-10.1); CHLORIDE 111 mmol/L (98-107); CO2 21 mmol/L (21-32); CREATININE 1.3 mg/dL (0.55-1.3); GLUCOSE,RANDOM 116 mg/dL (74-106); POTASSIUM 4.6 mmol/L (3.5-5.1); SGOT/AST 17 U/L (15-37); SGPT/ALT 32 U/L (13-61); SODIUM 140 mmol/L (136-145); TOT PROT 6.9 g/dl (6.4-8.2)
[2019-01-10 13:57] VITALS: BMI 16.1
--- NOTE | 2019-01-10 15:29 | PDOC ---
Attending Attestation - Resident Resident Name: Fabio Mccarty - ED Attending Attestation I have performed the following: I have examined & evaluated the patient, The case was reviewed & discussed with the resident, I agree w/resident's findings & plan, Exceptions are as noted - HPI HPI: 01/10/19 15:29 The patient is a 73 year old female, with a significant PMH of CHF, who presents to the emergency department today from [facility] for evaluation of fever and AMS. Per NH, pt had Tmax of 101.2 and was more lethargic today. In ED, pt is AnOx2, at her baseline, and has no focal complaints. The patient denies chest pain, shortness of breath, headache and dizziness. Denies fever, chills, nausea, vomit, diarrhea and constipation. Denies dysuria, frequency, urgency and hematuria. Allergies: NKA Social history: None reported PCP: Dr. Marina - Physicial Exam PE: 01/10/19 15:30 GENERAL: Awake, alert, in no acute distress. HEAD: No signs of trauma EYES: PERRLA, EOMI, sclera anicteric, conjunctiva clear ENT: Auricles normal inspection, hearing grossly normal, nares patent, oropharynx clear without exudates. Moist mucosa NECK: Nontender, no stepoffs, Normal ROM, supple, no lymphadenopathy, JVD, or masses LUNGS: Breath sounds equal, clear to auscultation bilaterally. No wheezes, and no crackles HEART: Regular rate and rhythm, normal S1 and S2, no murmurs, rubs or gallops ABDOMEN: Soft, nontender, normoactive bowel sounds. No guarding, no rebound. No masses EXTREMITIES: Normal range of motion, no edema. No clubbing or cyanosis. No cords, erythema, or tenderness NEUROLOGICAL: Cranial nerves II through XII intact. 5/5 strength and sensation in all extremities, Normal speech, normal gait, normal cerebellar function SKIN: Warm, Dry, normal turgor, no rashes or lesions noted. - Medical Decision Making 01/10/19 15:31 73 F with fever at [place]. In ED, vitals are stable. No focal infectious s/s. - Labs, cultures - CXR, UA
[2019-01-10] MEDS ORDERED: PIPERACILLIN/TAZOB 4.5 GM 4.5 GM in DEXTROSE 5%-WATER 100 ML IVPB ONE (15:36)
[2019-01-10] MEDS ORDERED: VANCOMYCIN 1,000 MG in DEXTROSE 5%-WATER - 250 ML IVPB ONE (15:36)
[2019-01-10] MEDS ORDERED: CEFTRIAXONE 1 GM in DEXTROSE 5%-WATER - 50 ML IVPB SCH (16:00)
[2019-01-10] MEDS ORDERED: PIPERACILLIN/TAZOB 4.5 GM 4.5 GM/100 ML BAG IVPB ONE (16:20)
[2019-01-10] MEDS ORDERED: VANCOMYCIN 1 GRAM (PRE-DOCKED) 1,000 MG/250 ML BAG IVPB ONE (16:21)
--- NOTE | 2019-01-10 16:26 | HP ---
Admitting History and Physical - Admission Chief Complaint: Transferred from [place] with LEILA , Fever and Hyoerkalemia History of Present Illness: 73 yrs old F 3rd Hospitalization since 12/14/2018 at [facility] currently a [place] resident last Dc from [place] on after treated for Rt wrist fracture and Left shoulder dislocation, mostly bed bound transferred to Ed with c/o worsening MS, poor Po intake , fever lab shows LEILA and Hyperklaemia, patient is a poor historian unable to provide any information , as per patient brother who visit her daily says , patient is gradually deteriorating over past 1 wk, feeling weak , c/o burning micturation, feeling thirsty, patient is on puree since last hospitalization, on arrival to Ed w/u shows dehydration, elevated BUN 65 Creat 1.6 Elevated TWBC 16.5 K Lactic acid 1.2 , UA (was not collected due to difficult cathterization( was called) patient was diagnosed CVA, Rt Inf Cerbellar infarct, 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, systolic/diastolic HF, History Source: Family Member, Medical Record - Past 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, 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 Cardiovascular: Yes: CHF (systolic), Murmur (mod-severe AR) - Past Surgical History Past Surgical History: Yes: None - Smoking History Smoking history: Current every day smoker Have you smoked in the past 12 months: Yes Aproximately how many cigarettes per day: 40 - Alcohol/Substance Use Hx Alcohol Use: No - Social History Usual Living Arrangement: Yes: Jail Home Medications - Allergies Allergies/Adverse Reactions: Allergies Allergy/AdvReac Type Severity Reaction Status Date / Time No Known Allergies Allergy Verified 12/14/18 13:26 - Home Medications Home Medications: Ambulatory Orders Clopidogrel Bisulfate [Plavix -] 75 mg PO DAILY tablet 12/20/18 Lisinopril [Prinivil] 5 mg PO DAILY tablet 12/20/18 Metoprolol Tartrate [Lopressor -] 25 mg PO BID tablet 12/20/18 Aspirin Coated [Ecotrin -] 81 mg PO DAILY tablet.ec 12/24/18 Acetaminophen [Tylenol] 650 mg PO Q6H PRN 01/10/19 Atorvastatin Ca [Lipitor] 10 mg PO HS 01/10/19 Docusate Sodium [Colace -] 100 mg PO BID 01/10/19 LORazepam [Ativan] 0.5 mg PO DAILY 01/10/19 Family Disease History - Family Disease History Family History: Unremarkable (for this presenttaion) Review of Systems Unable to obtain ROS, reason: Due to altered mental sta Physical Examination Vital Signs: Vital Signs Temperature 99.9 F H 01/10/19 12:30 Pulse Rate 90 01/10/19 12:30 Respiratory Rate 20 01/10/19 12:30 Blood Pressure 113/44 L 01/10/19 12:30 O2 Sat by Pulse Oximetry (%) 100 01/10/19 12:30 Elderly frail F in dystonic posture gazing on Rt side (as per team previously took care of the patient it is her base line) NECK; Dystonia , no JVd No Bruit CHEST: Throat conducted sound ABD: non tender BS + EXT: No edema feet, no calf tenderness 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 Labs: CBC, BMP CBC,CMP WBC 16.5 K/mm3 (4.0-10.0) H 01/10/19 13:13 RBC 3.95 M/mm3 (3.60-5.2) 01/10/19 13:13 Hgb 12.5 GM/dL (10.7-15.3) 01/10/19 13:13 Hct 36.6 % (32.4-45.2) 01/10/19 13:13 MCV 92.7 fl (80-96) 01/10/19 13:13 MCH 31.6 pg (25.7-33.7) 01/10/19 13:13 MCHC 34.1 g/dl (32.0-36.0) 01/10/19 13:13 RDW 15.6 % (11.6-15.6) 01/10/19 13:13 Plt Count 315 K/MM3 (134-434) 01/10/19 13:13 MPV 8.9 fl (7.5-11.1) 01/10/19 13:13 Absolute Neuts (auto) 14.6 K/mm3 (1.5-8.0) H 01/10/19 13:13 Neutrophils % 88.9 % (42.8-82.8) H 01/10/19 13:13 Lymphocytes % 5.2 % (8-40) L D 01/10/19 13:13 Monocytes % 5.3 % (3.8-10.2) 01/10/19 13:13 Eosinophils % 0.4 % (0-4.5) D 01/10/19 13:13 Basophils % 0.2 % (0-2.0) 01/10/19 13:13 Nucleated RBC % 0 % (0-0) 01/10/19 13:13 Sodium 140 mmol/L (136-145) 01/10/19 13:13 Potassium 4.6 mmol/L (3.5-5.1) 01/10/19 13:13 Chloride 111 mmol/L (98-107) H 01/10/19 13:13 Carbon Dioxide 21 mmol/L (21-32) 01/10/19 13:13 Anion Gap 9 MMOL/L (8-16) 01/10/19 13:13 BUN 65 mg/dL (7-18) H 01/10/19 13:13 Creatinine 1.3 mg/dL (0.55-1.3) 01/10/19 13:13 Creat Clearance w eGFR 40.04 (>60) 01/10/19 13:13 Random Glucose 116 mg/dL (74-106) H 01/10/19 13:13 Lactic Acid 1.2 mmol/L (0.4-2.0) 01/10/19 13:13 Calcium 8.8 mg/dL (8.5-10.1) 01/10/19 13:13 Magnesium 2.0 mg/dL (1.8-2.4) 01/10/19 15:38 Total Bilirubin 0.6 mg/dL (0.2-1) 01/10/19 13:13 AST 17 U/L (15-37) 01/10/19 13:13 ALT 32 U/L (13-61) 01/10/19 13:13 Alkaline Phosphatase 129 U/L (45-117) H 01/10/19 13:13 Creatine Kinase 51 U/L (26-192) 01/10/19 15:38 Troponin I 0.26 ng/ml (0.00-0.05) H 01/10/19 15:38 Total Protein 6.9 g/dl (6.4-8.2) 01/10/19 13:13 Albumin 3.0 g/dl (3.4-5.0) L 01/10/19 13:13 UA Pending Imaging - Results Chest X-ray: Report Reviewed (Pre torres no infiltrates) X-ray: Report Reviewed (Pre torres no obvious fracture) EKG: Report Reviewed (HR 87 VA 116 LAD T wave abnormality in Lat leads (same as base line)) Problem List - Problems (1) LEILA (acute kidney injury) Assessment/Plan: Recurrent probably due to poor access of water as family patient lawys feels thirsty elevated BUN Na is normal , D5 IV 83 cc/Hr F/U BMP, Foleys cathter by ROMAINE F/U UA and U Lytes, Hold Lisinopril and diuretics Code(s): N17.9 - ACUTE KIDNEY FAILURE, UNSPECIFIED (2) Toxic metabolic encephalopathy Assessment/Plan: worsening mental status with dehydration, uremia will re evalute after IV Hydration previously seen by Neuro at base line patient has Rt Inf Cerbellar infarct Code(s): G92 - TOXIC ENCEPHALOPATHY (3) Elevated troponin I level Assessment/Plan: previously admitted with NSTEMI on 12/14/2018 troponin level is gradually decrese today is lowest EKG unremarkable unlikely ACS will F/U Trop I , last ECHO was reported normal Code(s): R74.8 - ABNORMAL LEVELS OF OTHER SERUM ENZYMES (4) Fever Assessment/Plan: Documented at DC elevated TWBC 16.5 K, (UA awaited) CXr no obvious infiltrate but sounds congested chest BLood cultures collected in the ED received Vancomycine Cont Zosyn till we get culture result, ID consult, Ua will be collected by ROMAINE as Ed couldnt pass a catheter. 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 Code(s): Z71.89 - OTHER SPECIFIED COUNSELING
[2019-01-10] MEDS ORDERED: DEXTROSE 5%-WATER - 1,000 ML IV SCH (16:30)
[2019-01-10 18:20] LABS: URINE APPEARANCE CLOUDY; URINE BILIRUBIN NEGATIVE (<2.0 mg/dL); URINE COLOR YELLOW; URINE GLUCOSE (UA) NEGATIVE (NEGATIVE); URINE KETONE NEGATIVE (NEGATIVE); URINE LEUK ESTERASE 3+ (NEGATIVE); URINE NITRITE POSITIVE (NEGATIVE); URINE PROTEIN 2+ (NEGATIVE); URINE UROBILINOGEN NEGATIVE mg/dL (0.2-1.0)
[2019-01-10] MEDS: PIPERACILLIN/TAZOB 3.375 GM 3.375 GM in DEXTROSE 5%-WATER - 50 ML IVPB SCH (18:21)
[2019-01-10 18:33] LABS: EPI CELLS RARE /HPF (FEW); URINE BACTERIA RARE /hpf (NONE SEEN)
--- NOTE | 2019-01-10 19:02 | CON.GU ---
Consult - History of Present Illness History of Present Illness: 73 yo female being admitted for sepsis. Tobias could not be placed in ER and so I was called. Pt has h/o atrophic vagina and urethral stricture requiring dilation in the past. On exam, urethral meatua is not visible. 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 Cardio/Vascular: Yes: CHF (systolic), Murmur (mod-severe AR) - Past Surgical History Past Surgical History: Yes: None - Alcohol/Substance Use Hx Alcohol Use: No - Smoking History Smoking history: Current every day smoker Have you smoked in the past 12 months: Yes Aproximately how many cigarettes per day: 40 Home Medications - Allergies Allergies/Adverse Reactions: Allergies Allergy/AdvReac Type Severity Reaction Status Date / Time No Known Allergies Allergy Verified 12/14/18 13:26 - Home Medications Home Medications: Ambulatory Orders Clopidogrel Bisulfate [Plavix -] 75 mg PO DAILY tablet 12/20/18 Lisinopril [Prinivil] 5 mg PO DAILY tablet 12/20/18 Metoprolol Tartrate [Lopressor -] 25 mg PO BID tablet 12/20/18 Aspirin Coated [Ecotrin -] 81 mg PO DAILY tablet.ec 12/24/18 Acetaminophen [Tylenol] 650 mg PO Q6H PRN 01/10/19 Atorvastatin Ca [Lipitor] 10 mg PO HS 01/10/19 Docusate Sodium [Colace -] 100 mg PO BID 01/10/19 LORazepam [Ativan] 0.5 mg PO DAILY 01/10/19 Physical Exam- Vital Signs: Vital Signs Temperature 99.9 F H 01/10/19 12:30 Pulse Rate 82 01/10/19 16:23 Respiratory Rate 17 01/10/19 16:23 Blood Pressure 132/56 L 01/10/19 16:23 O2 Sat by Pulse Oximetry (%) 99 01/10/19 16:23 Labs: CBC, BMP 01/10/19 13:13 01/10/19 13:13 Problem List - Problems (1) Urethral stricture Assessment/Plan: cont tobias Code(s): OTF6105 -
[2019-01-10] MEDS ORDERED: LORazepam 0.5 MG TABLET PO STA (22:36)
[2019-01-10] MEDS ORDERED: LORazepam 0.5 MG TABLET ONE (22:43)
[2019-01-10] MEDS ORDERED: METOPROLOL TARTRATE 25 MG TABLET (FP) ONE (22:43)
[2019-01-10] MEDS ORDERED: PIPERACILLIN/TAZOB 3.375 GM 3.375 GM/50 ML BAG IVPB ONE (22:44)
[2019-01-10] MEDS ORDERED: HEPARIN NA (PORCINE) 5,000 UNITS/ML 1ML VIAL ONE (22:44)
[2019-01-10] MEDS ORDERED: ATORVASTATIN CA 10 MG TABLET (FP) ONE (22:44)
[2019-01-10] MEDS ORDERED: DOCUSATE SODIUM 100 MG CAPSULE (FP) PO ONE (22:44)
[2019-01-10] MEDS: ATORVASTATIN CA 10 MG TABLET (FP) PO SCH (22:45)
[2019-01-10] MEDS: METOPROLOL TARTRATE 25 MG TABLET (FP) PO SCH (22:45)
--- NOTE | 2019-01-10 22:45 | EKG ---
Test Reason : Blood Pressure : / mmHG Vent. Rate : 087 BPM Atrial Rate : 087 BPM P-R Int : 116 ms QRS Dur : 068 ms QT Int : 352 ms P-R-T Axes : 059 -43 121 degrees QTc Int : 423 ms NORMAL SINUS RHYTHM BIATRIAL ENLARGEMENT LEFT AXIS DEVIATION T WAVE ABNORMALITY, CONSIDER LATERAL ISCHEMIA ABNORMAL ECG WHEN COMPARED WITH ECG OF 20-DEC-2018 08:40, PREMATURE VENTRICULAR COMPLEXES ARE NO LONGER PRESENT T WAVE VARIATION Confirmed by CANDE CHASE MD ([id number]) on 01/10/2019 10:45:00 PM Referred By: Confirmed By:CANDE CHASE MD
[2019-01-10] MEDS: HEPARIN NA (PORCINE) 5,000 UNITS/ML 1ML VIAL SQ SCH (23:00)
[2019-01-10] MEDS: DOCUSATE SODIUM 100 MG CAPSULE (FP) PO SCH (23:09)
[2019-01-11] MEDS: PIPERACILLIN/TAZOB 3.375 GM 3.375 GM in DEXTROSE 5%-WATER - 50 ML IVPB SCH ×3 (03:20→19:05)
[2019-01-11] MEDS ORDERED: HEPARIN NA (PORCINE) 5,000 UNITS/ML 1ML VIAL ONE (05:59)
[2019-01-11] MEDS: HEPARIN NA (PORCINE) 5,000 UNITS/ML 1ML VIAL SQ SCH ×3 (06:15→21:44)
[2019-01-11 06:44] LABS: BASO % 0.7 % (0-2.0); EOS % 0.8 % (0-4.5); HEMATOCRIT 36.7 % (32.4-45.2); HEMOGLOBIN 12.6 GM/dL (10.7-15.3); LYMPH % 6.5 % (8-40); MCHC 34.4 g/dl (32.0-36.0); MEAN CELL VOLUME 93.1 fl (80-96); MEAN PLT VOLUME 9.5 fl (7.5-11.1); MONO % 4.9 % (3.8-10.2); NEUT % 87.1 % (42.8-82.8); PLATELET COUNT 302 K/MM3 (134-434); RBC 3.95 M/mm3 (3.60-5.2); RDW 15.4 % (11.6-15.6); WHITE BLOOD COUNT 15.1 K/mm3 (4.0-10.0)
[2019-01-11 07:34] LABS: ANION GAP 7 MMOL/L (8-16); BLOOD UREA NITROGEN 46 mg/dL (7-18); CHLORIDE 113 mmol/L (98-107); CO2 22 mmol/L (21-32); GLUCOSE,RANDOM 90 mg/dL (74-106); POTASSIUM 4.4 mmol/L (3.5-5.1); SODIUM 142 mmol/L (136-145)
[2019-01-11] MEDS ORDERED: PIPERACILLIN/TAZOB 3.375 GM 3.375 GM in DEXTROSE 5%-WATER - 50 ML IVPB SCH (10:00)
[2019-01-11] MEDS: DOCUSATE SODIUM 100 MG CAPSULE (FP) PO SCH ×2 (11:28→21:44)
[2019-01-11] MEDS: METOPROLOL TARTRATE 25 MG TABLET (FP) PO SCH ×2 (11:32→21:44)
[2019-01-11] MEDS: CLOPIDOGREL BISULFATE 75 MG TABLET (FP) PO SCH (11:32)
[2019-01-11] MEDS: ASPIRIN COATED 81 MG TABLET.EC PO SCH (11:32)
[2019-01-11] MEDS: LORazepam 0.5 MG TABLET PO SCH (11:55)
[2019-01-11] MEDS ORDERED: LORazepam 0.5 MG TABLET ONE (12:37)
[2019-01-11] MEDS ORDERED: PIPERACILLIN/TAZOB 3.375 GM 3.375 GM/50 ML BAG IVPB ONE (12:38)
--- NOTE | 2019-01-11 16:15 | CON.ID ---
Consult Consult Specialty:: infectious diseases Referred by:: dr cheatham Reason for Consultation:: uti,weakness,dysuria - History of Present Illness Chief Complaint: uti History of Present Illness: 73 yrs old F 3rd Hospitalization since 12/14/2018 at [facility] currently a [place] resident last Dc from [place] on after treated for Rt wrist fracture and Left shoulder dislocation, mostly bed bound transferred to Ed with c/o worsening MS, poor Po intake , fever lab shows LEILA and Hyperklaemia, patient is a poor historian unable to provide any information , as per patient brother who visit her daily says , patient is gradually deteriorating over past 1 wk, feeling weak , c/o burning micturation, feeling thirsty, patient is on puree since last hospitalization, on arrival to Ed w/u shows dehydration, elevated BUN 65 Creat 1.6 Elevated TWBC 16.5 K Lactic acid 1.2 , UA (was not collected due to difficult cathterization( was called) patient was diagnosed CVA, Rt Inf Cerbellar infarct, 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, systolic/diastolic HF, - History Source History Provided By: Family Member, Medical Record Limitations to Obtaining History: Clinical Condition - Past Medical History 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, 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 Cardio/Vascular: Yes: CHF (systolic), Murmur (mod-severe AR) - Past Surgical History Past Surgical History: Yes: None - Alcohol/Substance Use Hx Alcohol Use: No - Smoking History Smoking history: Current every day smoker Have you smoked in the past 12 months: Yes Aproximately how many cigarettes per day: 40 Home Medications - Allergies Allergies/Adverse Reactions: Allergies Allergy/AdvReac Type Severity Reaction Status Date / Time No Known Allergies Allergy Verified 12/14/18 13:26 - Home Medications Home Medications: Ambulatory Orders RX: Clopidogrel Bisulfate [Plavix -] 75 mg PO DAILY tablet 12/20/18 RX: Metoprolol Tartrate [Lopressor -] 25 mg PO BID tablet 12/20/18 RX: Acetaminophen [Tylenol] 650 mg PO Q6H PRN 01/10/19 RX: Atorvastatin Ca [Lipitor] 10 mg PO HS 01/10/19 RX: Docusate Sodium [Colace -] 100 mg PO BID 01/10/19 RX: LORazepam [Ativan] 0.5 mg PO DAILY 01/10/19 RX: Lisinopril [Prinivil] 5 mg PO DAILY tablet 01/15/19 Review of Systems Unable to obtain ROS, reason: unable to obtain Physical Exam Vital Signs: Vital Signs Temperature 98.1 F 01/11/19 14:14 Pulse Rate 99 H 01/11/19 14:14 Respiratory Rate 16 01/11/19 14:14 Blood Pressure 106/43 L 01/11/19 14:14 O2 Sat by Pulse Oximetry (%) 98 01/11/19 05:00 Constitutional: Yes: Thin, Other (failure to thrive) Neck: Yes: Supple Cardiovascular: Yes: Regular Rate and Rhythm Respiratory: Yes: Regular, Poor Air Entry Gastrointestinal: Yes: Normal Bowel Sounds, Soft Musculoskeletal: Yes: Other Extremities: Yes: Other Neurological: Yes: Confusion, Lethargy, Other Psychiatric: Yes: Other Labs: CBC, BMP 01/11/19 06:00 01/11/19 06:00 Imaging - Results Chest X-ray: Report Reviewed, Image Reviewed Cat Scan: Report Reviewed, Image Reviewed Assessment/Plan Problem List - Problems (1) LEILA (acute kidney injury) Code(s): N17.9 - ACUTE KIDNEY FAILURE, UNSPECIFIED (2) CAD (coronary artery disease) Code(s): I25.10 - ATHSCL HEART DISEASE OF [place] CORONARY ARTERY W/O ANG PCTRS (3) Dementia Code(s): F03.90 - UNSPECIFIED DEMENTIA WITHOUT BEHAVIORAL DISTURBANCE (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 - DYSPHONIA (5) Failure to thrive Code(s): CAC7398 - (6) Fever Code(s): R50.9 - FEVER, UNSPECIFIED Qualifiers: Fever type: unspecified Qualified Code(s): R50.9 - Fever, unspecified (7) Hx of non-ST elevation myocardial infarction (NSTEMI) Code(s): I25.2 - OLD MYOCARDIAL INFARCTION (8) Toxic metabolic encephalopathy Code(s): G92 - TOXIC ENCEPHALOPATHY (9) UTI (urinary tract infection) Code(s): N39.0 - URINARY TRACT INFECTION, SITE NOT SPECIFIED (10) Dislocation, shoulder Code(s): S43.006A - UNSP DISLOCATION OF UNSPECIFIED SHOULDER JOINT, INIT ENCNTR plan abx nutrition rest as per the team monitor mental status await for all cx reports urology to see the patient
--- NOTE | 2019-01-11 18:16 | PN ---
Physical Exam: SUBJECTIVE: Patient seen and examined in the Ed awaiting bed assignment. confused, fearful. she was re-assured. very thin cachectic elderly female. OBJECTIVE: noted to have scattered rales, possible aspiration? - will ask pulm to follow - will need speech/swallow eval - blood/urine cultures pending Vital Signs Period Temp Pulse Resp BP Sys/Robin Pulse Ox Last 24 Hr 98.0 F-98.1 F 80-101 16-24 106-139/43-101 98-98 GENERAL: confused, fearful. cachectic female in no acute distress. HEAD: Normal with no signs of trauma. EYES: PERRL, extraocular movements intact, sclera anicteric, conjunctiva clear. No ptosis. ENT: Ears normal, nares patent, oropharynx clear without exudates, dry mucous membranes. NECK: Trachea midline, full range of motion, supple. LUNGS: scattered rales. possible aspiration pna HEART: Regular rate and rhythm ABDOMEN: Soft, nontender, nondistended, normoactive bowel sounds, EXTREMITIES: no edema. NEUROLOGICAL: confused PSYCH:fearful, confused SKIN: intact Laboratory Results - last 24 hr 01/10/19 01/10/19 01/11/19 13:13 13:19 06:00 WBC 15.1 H RBC 3.95 Hgb 12.6 Hct 36.7 MCV 93.1 MCH 32.0 MCHC 34.4 RDW 15.4 Plt Count 302 MPV 9.5 Absolute Neuts (auto) 13.1 H Neutrophils % 87.1 H Lymphocytes % 6.5 L D Monocytes % 4.9 Eosinophils % 0.8 D Basophils % 0.7 D Nucleated RBC % 0 VBG pH 7.36 POC VBG pCO2 40.2 L POC VBG pO2 39.3 VBG HCO3 21.9 L VBG O2 Sat (Shad) 68.3 L VBG Base Excess -2.8 L Sodium Potassium Chloride Carbon Dioxide Anion Gap BUN Creatinine Creat Clearance w eGFR Random Glucose Calcium Creatine Kinase Troponin I Urine Color Yellow Urine Appearance Cloudy Urine pH 5.0 Ur Specific [place] 1.019 Urine Protein 2+ H Urine Glucose (UA) Negative Urine Ketones Negative Urine Blood 3+ H Urine Nitrite Positive Urine Bilirubin Negative Urine Urobilinogen Negative Ur Leukocyte Esterase 3+ H Urine WBC (Auto) 199 Urine RBC (Auto) 680 Ur Epithelial Cells Rare Urine Bacteria Rare 01/11/19 06:00 WBC RBC Hgb Hct MCV MCH MCHC RDW Plt Count MPV Absolute Neuts (auto) Neutrophils % Lymphocytes % Monocytes % Eosinophils % Basophils % Nucleated RBC % VBG pH POC VBG pCO2 POC VBG pO2 VBG HCO3 VBG O2 Sat (Shad) VBG Base Excess Sodium 142 Potassium 4.4 Chloride 113 H Carbon Dioxide 22 Anion Gap 7 L BUN 46 H Creatinine 1.0 Creat Clearance w eGFR 54.20 Random Glucose 90 Calcium 9.0 Creatine Kinase 59 Troponin I 0.21 H Urine Color Urine Appearance Urine pH Ur Specific [place] Urine Protein Urine Glucose (UA) Urine Ketones Urine Blood Urine Nitrite Urine Bilirubin Urine Urobilinogen Ur Leukocyte Esterase Urine WBC (Auto) Urine RBC (Auto) Ur Epithelial Cells Urine Bacteria Active Medications Generic Name Dose Route Start Last Admin Trade Name Freq PRN Reason Stop Dose Admin Aspirin 81 mg 01/11/19 10:00 01/11/19 11:32 Ecotrin - PO 81 mg DAILY LUIS FELIPE Administration Atorvastatin Calcium 10 mg 01/10/19 22:00 01/10/19 22:45 Lipitor - PO 10 mg HS LUIS FELIPE Administration Clopidogrel Bisulfate 75 mg 01/11/19 10:00 01/11/19 11:32 Plavix - PO 75 mg DAILY LUIS FELIPE Administration Docusate Sodium 100 mg 01/10/19 22:00 01/11/19 11:28 Colace - PO 100 mg BID LUIS FELIPE Administration Heparin Sodium (Porcine) 5,000 unit 01/10/19 22:00 01/11/19 13:26 Heparin - SQ 5,000 unit TID LUIS FELIPE Administration Dextrose 1,000 mls @ 75 mls/hr 01/10/19 16:30 D5w - IV .[id number] LUIS FELIPE Piperacillin Sod/Tazobactam 50 mls @ 100 mls/hr 01/11/19 18:00 Sod 3.375 gm/ Dextrose IVPB Q8H-IV LUIS FELIPE Protocol Lorazepam 0.5 mg 01/11/19 10:00 01/11/19 11:55 Ativan - PO 0.5 mg DAILY LUIS FELIPE Administration Metoprolol Tartrate 25 mg 01/10/19 22:00 01/11/19 11:32 Lopressor - PO 25 mg BID LUIS FELIPE Administration ASSESSMENT/PLAN: Patient is a 73 year old female from [facility] who presents to the ED with AMS, hyperkalemia and fever. She was recently admitted and was diagnosed with systolic CHF and NSTEMI. On last admission she was brought in from [facility] for suspected RUE fracture/dislocation/clot. A Head CT was done which revealed acute/subacute right inferior cerebellar infarct. She is being admitted again for AMS and meets sepsis criteria on admission. ID: Acute metabolic encephalopathy in the setting of acute UTI, sepsis and severe cachexia Head Ct ordered for AMS blood and urine cultures pending ID: Sepsis criteria on admission presents with leukocytosis, tachycardia, and alerted mental status Concerning for aspiration pneumonia as she was noted to have scattered rales Swallow evaluation to rule out aspiration pneumoia Monitor respiratory status, oxygen therapy to maintain saturations > 90% maintain aspiration precautions chest xray shows course central and congestive changes UTI ua consistent with UTI tobias cathether placed by urology Card: elevated troponins Systolic CHF NSTEMI history on lopressor recent echo 12/23/18 reviewed On previous admissions was not considered a candidate for coronary artery evaluation, due to dementia, frail state, and comorbidities. fen on gentle hydration monitor electrolytes monitor vitals, labs heparin tid full code Visit type - Emergency Visit Emergency Visit: Yes ED Registration Date: 01/11/19 Care time: The patient presented to the Emergency Department on the above date and was hospitalized for further evaluation of their emergent condition. - New Patient This patient is new to me today: Yes Date on this admission: 01/12/19 - Critical Care Critical Care patient: No - Discharge Referral Referred to [facility] Med P.C.: No
[2019-01-11] MEDS ORDERED: DEXTROSE 5%-WATER - 50 ML IVPB ONE (19:04)
[2019-01-11] MEDS ORDERED: PIPERACILLIN/TAZOBACTAM 3.375 GM VIAL IVPB ONE (19:04)
[2019-01-11] MEDS: ATORVASTATIN CA 10 MG TABLET (FP) PO SCH (21:44)
[2019-01-12] MEDS ORDERED: PIPERACILLIN/TAZOBACTAM 3.375 GM VIAL IVPB ONE ×3 (00:21→16:47)
[2019-01-12] MEDS ORDERED: DEXTROSE 5%-WATER - 50 ML IVPB ONE ×3 (00:21→16:48)
[2019-01-12] MEDS: PIPERACILLIN/TAZOB 3.375 GM 3.375 GM in DEXTROSE 5%-WATER - 50 ML IVPB SCH ×3 (02:19→17:04)
[2019-01-12] MEDS: HEPARIN NA (PORCINE) 5,000 UNITS/ML 1ML VIAL SQ SCH ×3 (06:04→21:28)
[2019-01-12 06:36] LABS: BASO % 0.5 % (0-2.0); EOS % 1.2 % (0-4.5); HEMATOCRIT 35.9 % (32.4-45.2); HEMOGLOBIN 12.1 GM/dL (10.7-15.3); LYMPH % 6.5 % (8-40); MCHC 33.7 g/dl (32.0-36.0); MEAN CELL VOLUME 92.1 fl (80-96); MEAN PLT VOLUME 9.5 fl (7.5-11.1); MONO % 5.7 % (3.8-10.2); NEUT % 86.1 % (42.8-82.8); PLATELET COUNT 368 K/MM3 (134-434); RBC 3.89 M/mm3 (3.60-5.2); RDW 15.7 % (11.6-15.6)
[2019-01-12 07:17] LABS: ALBUMIN 2.9 g/dl (3.4-5.0); ALK PHOS 157 U/L (45-117); ANION GAP 8 MMOL/L (8-16); BILIRUBIN,TOTAL 0.8 mg/dL (0.2-1); BLOOD UREA NITROGEN 37 mg/dL (7-18); CALCIUM 8.8 mg/dL (8.5-10.1); CHLORIDE 106 mmol/L (98-107); CO2 23 mmol/L (21-32); GLUCOSE,RANDOM 114 mg/dL (74-106); MAGNESIUM 1.9 mg/dL (1.8-2.4); POTASSIUM 4.3 mmol/L (3.5-5.1); SGOT/AST 23 U/L (15-37); SGPT/ALT 37 U/L (13-61); SODIUM 136 mmol/L (136-145)
--- NOTE | 2019-01-12 09:01 | CON.CARD ---
Consult Consult Specialty:: cardiology Reason for Consultation:: hx CHF; now with fever - History of Present Illness History of Present Illness: The patient is a 73 year old white female, with a significant PMH of diastolic CHF, who presents to the emergency department today from [facility] for evaluation of fever and AMS. Per NH, pt had Tmax of 101.2 and was more lethargic today. In ED, pt is AnOx2, at her baseline, and has no focal complaints. The patient denies chest pain, shortness of breath, headache and dizziness. Denies fever, chills, nausea, vomit, diarrhea and constipation. Denies dysuria, frequency, urgency and hematuria. 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 Cardio/Vascular: Yes: CHF (systolic), Murmur (mod-severe AR) Reproductive: Yes: Postmenopausal ...: No Psych: Yes: Other (dementia) - Past Surgical History Past Surgical History: Yes: None - Alcohol/Substance Use Hx Alcohol Use: No - Smoking History Smoking history: Current every day smoker Have you smoked in the past 12 months: Yes Aproximately how many cigarettes per day: 40 Home Medications - Allergies Allergies/Adverse Reactions: Allergies Allergy/AdvReac Type Severity Reaction Status Date / Time No Known Allergies Allergy Verified 12/14/18 13:26 - Home Medications Home Medications: Ambulatory Orders Clopidogrel Bisulfate [Plavix -] 75 mg PO DAILY tablet 12/20/18 Lisinopril [Prinivil] 5 mg PO DAILY tablet 12/20/18 Metoprolol Tartrate [Lopressor -] 25 mg PO BID tablet 12/20/18 Acetaminophen [Tylenol] 650 mg PO Q6H PRN 01/10/19 Atorvastatin Ca [Lipitor] 10 mg PO HS 01/10/19 Docusate Sodium [Colace -] 100 mg PO BID 01/10/19 LORazepam [Ativan] 0.5 mg PO DAILY 01/10/19 Lisinopril [Prinivil] 5 mg PO DAILY tablet 01/15/19 Review of Systems - Review of Systems Constitutional: reports: Weakness Neck: reports: No Symptoms Cardiovascular: reports: Shortness of Breath Respiratory: reports: No Symptoms Gastrointestinal: reports: No Symptoms Genitourinary: reports: No Symptoms Breasts: reports: No Symptoms Reported Musculoskeletal: reports: Muscle Weakness Neurological: reports: Weakness Endocrine: reports: No Symptoms Hematology/Lymphatic: reports: No Symptoms Psychiatric: reports: Other (dementia) - Risk Factors Known Risk Factors: Yes: Physical Inactivity Vital Signs: Vital Signs Temperature 98 F 01/12/19 06:00 Pulse Rate 85 01/12/19 06:00 Respiratory Rate 18 01/12/19 06:00 Blood Pressure 116/98 01/12/19 06:00 O2 Sat by Pulse Oximetry (%) 93 L 01/11/19 21:00 Abnormal Lab Results 01/13/19 01/13/19 07:15 07:15 RBC 3.55 L Hct 32.3 L Lymphocytes % 7.4 L Anion Gap 6 L BUN 22 H Calcium 8.4 L Alkaline Phosphatase 129 H Total Protein 6.0 L Albumin 2.4 L Constitutional: Yes: Cachectic Eyes: Yes: WNL HENT: Yes: WNL Neck: Yes: WNL Respiratory: Yes: Regular Gastrointestinal: Yes: Soft Renal/: No: Anuria Heart Sounds: Yes: S1, S2 Murmur: Yes: Systolic Murmur, Grade 2 Musculoskeletal: Yes: Muscle Weakness Extremities: Yes: Cool Edema: Yes Peripheral Pulses WNL: No Peripheral Pulses: 1+ Left Doralis Pedis, 1+ Right Dorsalis Pedis Neurological: Yes: Weakness Psychiatric: Yes: Other (dementia) - Other Data Labs, Other Data: CBC, BMP 01/12/19 06:00 01/12/19 06:00 INR, PTT INR 1.13 (0.83-1.09) H 01/10/19 13:13 Imaging - Results Chest X-ray: Image Reviewed EKG: Image Reviewed Problem List - Problems (1) LEILA (acute kidney injury) Code(s): N17.9 - ACUTE KIDNEY FAILURE, UNSPECIFIED (2) Failure to thrive Code(s): [id number] - (3) Fever Code(s): R50.9 - FEVER, UNSPECIFIED Qualifiers: Fever type: unspecified Qualified Code(s): R50.9 - Fever, unspecified (4) Very low level of personal hygiene Code(s): R46.0 - VERY LOW LEVEL OF PERSONAL HYGIENE (5) Hx of non-ST elevation myocardial infarction (NSTEMI) Assessment/Plan: Recent admission with fall and rhabdomyolysis that may have been engendered by NSTEMI (maximum TNI on that admission 15.8 on 11/2018); now 0.24. Code(s): I25.2 - OLD MYOCARDIAL INFARCTION (6) Acute on chronic diastolic (congestive) heart failure Code(s): I50.33 - ACUTE ON CHRONIC DIASTOLIC (CONGESTIVE) HEART FAILURE (7) UTI (urinary tract infection) Assessment/Plan: antibiotics; f/u dultures; f/u with ID. Code(s): N39.0 - URINARY TRACT INFECTION, SITE NOT SPECIFIED (8) Dementia Code(s): F03.90 - UNSPECIFIED DEMENTIA WITHOUT BEHAVIORAL DISTURBANCE
--- NOTE | 2019-01-12 10:17 | PN ---
Progress Note, Physician History of Present Illness: The patient is a 73 year old female, with a significant PMH of CHF, who presents to the emergency department today from [facility] for evaluation of fever and AMS. Per NH, pt had Tmax of 101.2 and was more lethargic today. In ED, pt is AnOx2, at her baseline, and has no focal complaints. The patient denies chest pain, shortness of breath, headache and dizziness. Denies fever, chills, nausea, vomit, diarrhea and constipation. Denies dysuria, frequency, urgency and hematuria. - Current Medication List Current Medications: Active Medications Aspirin (Ecotrin -) 81 mg PO DAILY [facility] Last Admin: 01/11/19 11:32 Dose: 81 mg Atorvastatin Calcium (Lipitor -) 10 mg PO HS [facility] Last Admin: 01/11/19 21:44 Dose: 10 mg Clopidogrel Bisulfate (Plavix -) 75 mg PO DAILY [facility] Last Admin: 01/11/19 11:32 Dose: 75 mg Docusate Sodium (Colace -) 100 mg PO BID [facility] Last Admin: 01/11/19 21:44 Dose: 100 mg Heparin Sodium (Porcine) (Heparin -) 5,000 unit SQ TID [facility] Last Admin: 01/12/19 06:04 Dose: 5,000 unit Dextrose (D5w -) 1,000 mls @ 75 mls/hr IV .[id number] [facility] Piperacillin Sod/Tazobactam (Sod 3.375 gm/ Dextrose) 50 mls @ 100 mls/hr IVPB Q8H-IV LUIS FELIPE; Protocol Last Admin: 01/12/19 02:19 Dose: 100 mls/hr Lorazepam (Ativan -) 0.5 mg PO DAILY [facility] Last Admin: 01/11/19 11:55 Dose: 0.5 mg Metoprolol Tartrate (Lopressor -) 25 mg PO BID [facility] Last Admin: 01/11/19 21:44 Dose: 25 mg - Objective Vital Signs: Vital Signs Temperature 98 F 01/12/19 06:00 Pulse Rate 85 01/12/19 06:00 Respiratory Rate 18 01/12/19 06:00 Blood Pressure 116/98 01/12/19 06:00 O2 Sat by Pulse Oximetry (%) 93 L 01/11/19 21:00 Eyes: Yes: WNL, Conjunctiva Clear, EOM Intact HENT: Yes: WNL, Atraumatic, Normocephalic Neck: Yes: WNL, Supple, Trachea Midline Cardiovascular: Yes: WNL, Regular Rate and Rhythm Respiratory: Yes: WNL, Regular, CTA Bilaterally Gastrointestinal: Yes: WNL, Normal Bowel Sounds Genitourinary: Yes: WNL Musculoskeletal: Yes: WNL Extremities: Yes: WNL Edema: No Integumentary: Yes: WNL Neurological: Yes: WNL, Alert, Oriented ...Motor Strength: WNL Psychiatric: Yes: WNL Labs: CBC, BMP 01/12/19 06:00 01/12/19 06:00 INR, PTT INR 1.13 (0.83-1.09) H 01/10/19 13:13 Assessment/Plan - Problems (1) LEILA (acute kidney injury) Code(s): N17.9 - ACUTE KIDNEY FAILURE, UNSPECIFIED (2) Elevated troponin I level Code(s): R74.8 - ABNORMAL LEVELS OF OTHER SERUM ENZYMES (3) Failure to thrive Code(s): [id number] - (4) Fever Code(s): R50.9 - FEVER, UNSPECIFIED Qualifiers: Fever type: unspecified Qualified Code(s): R50.9 - Fever, unspecified (5) Acute on chronic systolic (congestive) heart failure Code(s): I50.23 - ACUTE ON CHRONIC SYSTOLIC (CONGESTIVE) HEART FAILURE (6) Very low level of personal hygiene Code(s): R46.0 - VERY LOW LEVEL OF PERSONAL HYGIENE (7) Rhabdomyolysis Assessment/Plan: hx on recent admission. Code(s): M62.82 - RHABDOMYOLYSIS Qualifiers: Rhabdomyolysis type: traumatic Encounter type: initial encounter Qualified Code(s): T79.6XXA - Traumatic ischemia of muscle, initial encounter
[2019-01-12] MEDS ORDERED: PT OWN MED DRAWER 7, Y5N ONE (10:19)
--- NOTE | 2019-01-12 10:19 | CONSULT ---
Admitting History and Physical - Primary Care Physician PCP: Marisabel Zavala - Admission History of Present Illness: 73 year old female,brought to ED from [facility] with AMS, hyperkalemia, fever. Dx of acute UTI, sepsis and severe cachexia. CXR (-) CT head (-) Known to me from recent admiossions, last 12/23/18-recently diagnosed with systolic CHF and NSTEMI, was brought in from [facility] for suspected RUE fracture/dislocation/clot. Because of suspected fall, Head CT was done which revealed acute/subacute right inferior cerebellar infarct that was not seen on head CT done last week.Performance was similar to recent admission. Oriented to hospital only. Poor memory, insight. Passive, cooperative. Swallowing is functional. [facility] 12/16/18, tolerated minced foods, thin liquids, during last admission with assistance, with good appetite. 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 Cardiovascular: Yes: CHF (systolic), Murmur (mod-severe AR) - Past Surgical History Past Surgical History: Yes: None - Smoking History Smoking history: Current every day smoker Have you smoked in the past 12 months: Yes Aproximately how many cigarettes per day: 40 - Alcohol/Substance Use Hx Alcohol Use: No History - Admission Reason For Visit: FEVER,SYSTEMIC INFLAMMATORY RESPONSE SYNDROME - Diagnostics X-ray: Report Reviewed CT Scan: Report Reviewed Modified Barium Swallow: Report Reviewed ([facility] 12/16/18, tolerated minced foods, thin liquids, during last admission with assistance, with good appetite.) - General Mental Status: Awake and Alert, Confused Attention: Intact Ability to Follow Directions: Good Head/Neck Control: Good - Hearing Hearing: Impaired Hearing Aide: No Speech Evaluation - Communication Primary Language: PERSI[place] Communication: Yes: Simple Responses Oral Expression Ability: Yes: No Impairment - Speech Production Able to Make Needs Known: Yes: WNL Intelligibility: Yes: WNL - Speech Characteristics Voice Loudness: Normal Voice Pitch: Yes: Normal, Mildly High Voice Phonatory-based Quality: Yes: Normal Speech Pattern: Normal Nasal Resonance: Normal Articulation: Yes: Precise - Language/Auditory Comprehension Follows: Yes: 1 Stage Simple Commands Observation: Able to respond to yes/no queries: Yes, Comprehends Conversational Speech: Yes - Language/Verbal Expression Able to Respond to Simple Queries: Yes: WNL Able to Communicate Wants and Needs: Yes: WNL Functional Communication Status: Yes: WNL - Swallow Evaluation/Bedside Assessment Current Nutritional Intake: Dysphagia Pureed, Thin Liquids Oral Secretions: Yes: WFL Dentition: Yes: Edentulous Facial Symmetry at Rest: Symmetrical Facial Symmetry on Retraction: Symmetrical Facial Movement: Controlled Sensation: Normal Against Resistance Opening: Normal Against Resistance Closing: Normal Pucker Lips: Normal Smile: Normal Lingual Movement: Normal, Symmetric Lingual Speed of Movement: Normal Lingual Movement Strgth Against Opposition: Normal Lingual Movement Characteristics: Normal Velopharyngeal Movement: Normal Laryngeal Elevation: WFL Laryngeal Movement: Able to Palpate Rate of Intake: WFL Bolus Size: WFL Labial Seal: WFL Chewing: WFL (limited. edentulous) Oral Prep Time: WFL A-P Transit: WFL Pocketing: None Coughing/Throat Clear: No Change in Voice: No Recommendations - Speech Evaluation, Impression/Plan Impression: Performance similar to previous assessments, verbal, confused, anxious, swallowing overtly intact. - Disposition [facility] to[facility] - Dysphagia Impressions/Plan Swallowing Skills: [facility] Dysphagia Impressions: Minimal Impairment *Silent aspiration: cannot be R/O at bedside Dysphagia Treatment Plan: Small Bites, Chin Tuck/Down, 1/2 tsp. at a time, Elevate HOB during feed - Recommendations Diet Consistency: Dysphagia Pureed Medication Administration: Crushed with applesauce Liquids: Thin Liquids Supplement: Ensure, Magic Cup, Ensure Pudding
[2019-01-12] MEDS: ASPIRIN COATED 81 MG TABLET.EC PO SCH (10:22)
[2019-01-12] MEDS: METOPROLOL TARTRATE 25 MG TABLET (FP) PO SCH ×2 (10:22→21:28)
[2019-01-12] MEDS: CLOPIDOGREL BISULFATE 75 MG TABLET (FP) PO SCH (10:22)
[2019-01-12] MEDS: DOCUSATE SODIUM 100 MG CAPSULE (FP) PO SCH ×2 (10:22→21:28)
[2019-01-12] MEDS: LORazepam 0.5 MG TABLET PO SCH (10:23)
--- NOTE | 2019-01-12 15:01 | PN ---
Progress Note, Physician History of Present Illness: still a bit lethargic failure to thrive - Current Medication List Current Medications: Active Medications Aspirin (Ecotrin -) 81 mg PO DAILY [facility] Last Admin: 01/12/19 10:22 Dose: 81 mg Atorvastatin Calcium (Lipitor -) 10 mg PO HS [facility] Last Admin: 01/11/19 21:44 Dose: 10 mg Clopidogrel Bisulfate (Plavix -) 75 mg PO DAILY [facility] Last Admin: 01/12/19 10:22 Dose: 75 mg Docusate Sodium (Colace -) 100 mg PO BID [facility] Last Admin: 01/12/19 10:22 Dose: 100 mg Heparin Sodium (Porcine) (Heparin -) 5,000 unit SQ TID [facility] Last Admin: 01/12/19 14:42 Dose: 5,000 unit Dextrose (D5w -) 1,000 mls @ 75 mls/hr IV .[id number] [facility] Piperacillin Sod/Tazobactam (Sod 3.375 gm/ Dextrose) 50 mls @ 100 mls/hr IVPB Q8H-IV [facility]; Protocol Last Admin: 01/12/19 10:24 Dose: 100 mls/hr Lorazepam (Ativan -) 0.5 mg PO DAILY [facility] Last Admin: 01/12/19 10:23 Dose: 0.5 mg Metoprolol Tartrate (Lopressor -) 25 mg PO BID [facility] Last Admin: 01/12/19 10:22 Dose: 25 mg - Objective Vital Signs: Vital Signs Temperature 97.9 F 01/12/19 14:27 Pulse Rate 77 01/12/19 14:27 Respiratory Rate 16 01/12/19 14:27 Blood Pressure 104/64 01/12/19 14:27 O2 Sat by Pulse Oximetry (%) 94 L 01/12/19 09:00 Constitutional: Yes: No Distress, Calm Cardiovascular: Yes: Regular Rate and Rhythm Respiratory: Yes: Regular, CTA Bilaterally Gastrointestinal: Yes: Normal Bowel Sounds, Soft Musculoskeletal: Yes: Other Extremities: Yes: WNL Neurological: Yes: Lethargy Labs: CBC, BMP 01/12/19 06:00 01/12/19 06:00 INR, PTT INR 1.13 (0.83-1.09) H 01/10/19 13:13 Assessment/Plan Problem List - Problems (1) LEILA (acute kidney injury) Code(s): N17.9 - ACUTE KIDNEY FAILURE, UNSPECIFIED (2) CAD (coronary artery disease) Code(s): I25.10 - ATHSCL HEART DISEASE OF [place] CORONARY ARTERY W/O ANG PCTRS (3) Dementia Code(s): F03.90 - UNSPECIFIED DEMENTIA WITHOUT BEHAVIORAL DISTURBANCE (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 - DYSPHONIA (5) Failure to thrive Code(s): [id number] - (6) Fever Code(s): R50.9 - FEVER, UNSPECIFIED Qualifiers: Fever type: unspecified Qualified Code(s): R50.9 - Fever, unspecified (7) Hx of non-ST elevation myocardial infarction (NSTEMI) Code(s): I25.2 - OLD MYOCARDIAL INFARCTION (8) Toxic metabolic encephalopathy Code(s): G92 - TOXIC ENCEPHALOPATHY (9) UTI (urinary tract infection) Code(s): N39.0 - URINARY TRACT INFECTION, SITE NOT SPECIFIED (10) Dislocation, shoulder Code(s): S43.006A - UNSP DISLOCATION OF UNSPECIFIED SHOULDER JOINT, INIT ENCNTR plan continue abx nutrition rest as per the team monitor mental status await for all cx reports
--- NOTE | 2019-01-12 16:08 | PN ---
Physical Exam: SUBJECTIVE: Patient seen and examined. restless. confused. able to state her name. OBJECTIVE: jatinder fell out today, monitor retention Vital Signs Period Temp Pulse Resp BP Sys/Robin Pulse Ox Last 24 Hr 97.9 F-99 F 63-94 16-20 104-144/63-98 93-95 GENERAL: The patient is awake, alert, and oriented to person only. HEAD: Normal with no signs of trauma. EYES: PERRL, extraocular movements intact, sclera anicteric, conjunctiva clear. No ptosis. ENT: Ears normal, nares patent, oropharynx clear without exudates, moist mucous membranes. NECK: Trachea midline, full range of motion, supple. LUNGS: scattered rales HEART: Regular rate and rhythm, S1, S2 without murmur, rub or gallop. ABDOMEN: Soft, nontender, nondistended, normoactive bowel sounds, no guarding, no rebound, no hepatosplenomegaly, no masses. EXTREMITIES: no edema. NEUROLOGICAL: normal speech, bed bound PSYCH: Normal mood, normal affect. SKIN: intact Laboratory Results - last 24 hr 01/12/19 01/12/19 06:00 06:00 WBC 16.0 H RBC 3.89 Hgb 12.1 Hct 35.9 MCV 92.1 MCH 31.0 MCHC 33.7 RDW 15.7 H Plt Count 368 D MPV 9.5 Absolute Neuts (auto) 13.8 H Neutrophils % 86.1 H Lymphocytes % 6.5 L Monocytes % 5.7 Eosinophils % 1.2 Basophils % 0.5 Nucleated RBC % 0 Sodium 136 Potassium 4.3 Chloride 106 Carbon Dioxide 23 Anion Gap 8 BUN 37 H Creatinine 1.0 Creat Clearance w eGFR 54.20 Random Glucose 114 H Calcium 8.8 Magnesium 1.9 Total Bilirubin 0.8 AST 23 ALT 37 Alkaline Phosphatase 157 H Total Protein 7.0 Albumin 2.9 L Active Medications Generic Name Dose Route Start Last Admin Trade Name Agq PRN Reason Stop Dose Admin Aspirin 81 mg 01/11/19 10:00 01/12/19 10:22 Ecotrin - PO 81 mg DAILY LUIS FELIPE Administration Atorvastatin Calcium 10 mg 01/10/19 22:00 01/11/19 21:44 Lipitor - PO 10 mg HS LUIS FELIPE Administration Clopidogrel Bisulfate 75 mg 01/11/19 10:00 01/12/19 10:22 Plavix - PO 75 mg DAILY LUIS FELIPE Administration Docusate Sodium 100 mg 01/10/19 22:00 01/12/19 10:22 Colace - PO 100 mg BID LUIS FELIPE Administration Heparin Sodium (Porcine) 5,000 unit 01/10/19 22:00 01/12/19 14:42 Heparin - SQ 5,000 unit TID LUIS FELIPE Administration Dextrose 1,000 mls @ 75 mls/hr 01/10/19 16:30 D5w - IV .[id number] LUIS FELIPE Piperacillin Sod/Tazobactam 50 mls @ 100 mls/hr 01/11/19 18:00 01/12/19 10:24 Sod 3.375 gm/ Dextrose IVPB 100 mls/hr Q8H-IV LUIS FELIPE Administration Protocol Lorazepam 0.5 mg 01/11/19 10:00 01/12/19 10:23 Ativan - PO 0.5 mg DAILY LUIS FELIPE Administration Metoprolol Tartrate 25 mg 01/10/19 22:00 01/12/19 10:22 Lopressor - PO 25 mg BID LUIS FELIPE Administration ASSESSMENT/PLAN: Patient is a 73 year old female from [facility] who presents to the ED with AMS, hyperkalemia and fever. She was recently admitted and was diagnosed with systolic CHF and NSTEMI. On last admission she was brought in from [facility] for suspected RUE fracture/dislocation/clot. A Head CT was done which revealed acute/subacute right inferior cerebellar infarct. She is being admitted again for AMS and meets sepsis criteria on admission. ID: Acute metabolic encephalopathy in the setting of acute UTI, sepsis and severe cachexia Head Ct ordered for AMS blood and urine cultures pending ID: Sepsis criteria on admission presents with leukocytosis, tachycardia, and alerted mental status Concerning for aspiration pneumonia as she was noted to have scattered rales, required supplemental oxygen Swallow evaluation recommendations noted Monitor respiratory status, oxygen therapy to maintain saturations > 90% maintain aspiration precautions chest xray shows course central and congestive changes Pulmonary Aspiration pneumonia chest xray with congestive changes. along with shortness of breath on admission , requiring supplemental oxygen. she not oxygen dependent at [place]. Monitor airway to maintain o2 92% or greater UTI ua consistent with UTI UC noted with 50-60k Card: elevated troponins Systolic CHF NSTEMI history on [facility] recent echo 12/23/18 reviewed On previous admissions was not considered a candidate for coronary artery evaluation, due to dementia, frail state, and comorbidities. CAD post NSTEMI angina pectoris on Plavix and Lipitor fen on gentle hydration monitor electrolytes monitor vitals, labs heparin tid full code Visit type - Emergency Visit Emergency Visit: Yes ED Registration Date: 01/11/19 Care time: The patient presented to the Emergency Department on the above date and was hospitalized for further evaluation of their emergent condition. - New Patient This patient is new to me today: No - Critical Care Critical Care patient: No - Discharge Referral Referred to [facility] Med P.C.: No
[2019-01-12] MEDS ORDERED: SODIUM CHLORIDE 1,000 ML IV SCH (17:00)
[2019-01-12] MEDS: ATORVASTATIN CA 10 MG TABLET (FP) PO SCH (21:28)
[2019-01-13] MEDS ORDERED: PIPERACILLIN/TAZOBACTAM 3.375 GM VIAL IVPB ONE ×3 (01:10→17:27)
[2019-01-13] MEDS ORDERED: DEXTROSE 5%-WATER - 50 ML IVPB ONE ×3 (01:11→17:27)
[2019-01-13] MEDS: PIPERACILLIN/TAZOB 3.375 GM 3.375 GM in DEXTROSE 5%-WATER - 50 ML IVPB SCH ×3 (01:26→17:26)
[2019-01-13] MEDS: HEPARIN NA (PORCINE) 5,000 UNITS/ML 1ML VIAL SQ SCH ×3 (05:15→21:18)
[2019-01-13 08:22] LABS: BASO % 0.7 % (0-2.0); EOS % 2.9 % (0-4.5); HEMATOCRIT 32.3 % (32.4-45.2); LYMPH % 7.4 % (8-40); MCH 31.1 pg (25.7-33.7); MCHC 34.2 g/dl (32.0-36.0); MONO % 6.2 % (3.8-10.2); NEUT % 82.8 % (42.8-82.8); PLATELET COUNT 309 K/MM3 (134-434); RBC 3.55 M/mm3 (3.60-5.2); RDW 14.8 % (11.6-15.6); WHITE BLOOD COUNT 8.9 K/mm3 (4.0-10.0)
[2019-01-13 08:45] LABS: ALBUMIN 2.4 g/dl (3.4-5.0); ALK PHOS 129 U/L (45-117); ANION GAP 6 MMOL/L (8-16); BILIRUBIN,TOTAL 0.6 mg/dL (0.2-1); BLOOD UREA NITROGEN 22 mg/dL (7-18); CALCIUM 8.4 mg/dL (8.5-10.1); CHLORIDE 107 mmol/L (98-107); CO2 25 mmol/L (21-32); CREATININE 0.7 mg/dL (0.55-1.3); GLUCOSE,RANDOM 94 mg/dL (74-106); MAGNESIUM 1.9 mg/dL (1.8-2.4); POTASSIUM 3.8 mmol/L (3.5-5.1); SGOT/AST 22 U/L (15-37); SGPT/ALT 36 U/L (13-61); SODIUM 138 mmol/L (136-145)
[2019-01-13] MEDS: METOPROLOL TARTRATE 25 MG TABLET (FP) PO SCH ×2 (09:22→21:14)
[2019-01-13] MEDS: CLOPIDOGREL BISULFATE 75 MG TABLET (FP) PO SCH (09:22)
[2019-01-13] MEDS: LORazepam 0.5 MG TABLET PO SCH (09:22)
[2019-01-13] MEDS ORDERED: DOCUSATE NA 100 MG/10 ML UNIT-DOSE CUPS PO PRN (09:50)
[2019-01-13] MEDS ORDERED: ASPIRIN 81 MG CHEWABLE TABLETS PO SCH (10:00)
--- NOTE | 2019-01-13 11:30 | PN ---
Physical Exam: SUBJECTIVE: Patient seen and examined at the bedside. on a nancy vest for safety as she is fall risk. OBJECTIVE: blood cultures are negative, urine cultures with 60k of lactose neg. bacilli. no fevers, wbc now normal (16->8) mentation appears to be improving stop ivf Vital Signs Period Temp Pulse Resp BP Sys/Robin Pulse Ox Last 24 Hr 97.5 F-98.3 F 77-88 16-20 104-150/64-90 94 GENERAL: The patient is awake, alert, and oriented to person only. HEAD: Normal with no signs of trauma. EYES: PERRL, extraocular movements intact, sclera anicteric, conjunctiva clear. No ptosis. ENT: Ears normal, nares patent, oropharynx clear without exudates, moist mucous membranes. NECK: Trachea midline, full range of motion, supple. LUNGS: scattered rales HEART: Regular rate and rhythm, S1, S2 without murmur, rub or gallop. ABDOMEN: Soft, nontender, nondistended, normoactive bowel sounds, no guarding, no rebound, no hepatosplenomegaly, no masses. EXTREMITIES: no edema. NEUROLOGICAL: normal speech, bed bound PSYCH: Normal mood, normal affect. SKIN: intact Laboratory Results - last 24 hr 01/13/19 01/13/19 07:15 07:15 WBC 8.9 RBC 3.55 L Hgb 11.0 Hct 32.3 L MCV 91.0 MCH 31.1 MCHC 34.2 RDW 14.8 Plt Count 309 MPV 9.0 Absolute Neuts (auto) 7.3 Neutrophils % 82.8 Lymphocytes % 7.4 L Monocytes % 6.2 Eosinophils % 2.9 D Basophils % 0.7 Nucleated RBC % 0 Sodium 138 Potassium 3.8 Chloride 107 Carbon Dioxide 25 Anion Gap 6 L BUN 22 H Creatinine 0.7 Creat Clearance w eGFR 81.80 Random Glucose 94 Calcium 8.4 L Magnesium 1.9 Total Bilirubin 0.6 AST 22 ALT 36 Alkaline Phosphatase 129 H Total Protein 6.0 L Albumin 2.4 L Active Medications Generic Name Dose Route Start Last Admin Trade Name Freq PRN Reason Stop Dose Admin Albuterol/Ipratropium 1 amp 01/13/19 12:00 Duoneb - NEB RQID LUIS FELIPE Aspirin 81 mg 01/13/19 10:00 01/13/19 10:14 Asa - PO 81 mg DAILY LUIS FELIPE Administration Atorvastatin Calcium 10 mg 01/10/19 22:00 01/12/19 21:28 Lipitor - PO 10 mg HS LUIS FELIPE Administration Clopidogrel Bisulfate 75 mg 01/11/19 10:00 01/13/19 09:22 Plavix - PO 75 mg DAILY LUIS FELIPE Administration Docusate Sodium 200 mg 01/13/19 09:50 Colace Liquid - PO Q24H PRN CONSTIPATION Heparin Sodium (Porcine) 5,000 unit 01/10/19 22:00 01/13/19 05:15 Heparin - SQ Not Given TID LUIS FELIPE Piperacillin Sod/Tazobactam 50 mls @ 100 mls/hr 01/11/19 18:00 01/13/19 10:14 Sod 3.375 gm/ Dextrose IVPB 100 mls/hr Q8H-IV LUIS FELIEP Administration Protocol Lisinopril 5 mg 01/13/19 11:15 Prinivil PO DAILY LUIS FELIPE Lorazepam 0.5 mg 01/11/19 10:00 01/13/19 09:22 Ativan - PO 0.5 mg DAILY LUIS FELIPE Administration Metoprolol Tartrate 25 mg 01/10/19 22:00 01/13/19 09:22 Lopressor - PO 25 mg BID LUIS FELIPE Administration ASSESSMENT/PLAN: Patient is a 73 year old female from [facility] who presents to the ED with AMS and fever. She was recently admitted and was diagnosed with systolic CHF and NSTEMI. On last admission she was brought in from [facility] for suspected RUE fracture/dislocation/clot. A Head CT was done which revealed acute/subacute right inferior cerebellar infarct. She is being admitted again for AMS and meets sepsis criteria on admission. ID: Acute metabolic encephalopathy in the setting of acute UTI, sepsis and severe cachexia Head Ct ordered for AMS blood and urine cultures pending ID: Sepsis criteria on admission presents with leukocytosis, tachycardia, and alerted mental status WBC elevation now 8.0, tachycardia resolved. AMS improved and is more awake and alert. has nancy vest for safety. Concerning for aspiration pneumonia, required supplemental oxygen Swallow evaluation recommendations noted Monitor respiratory status, oxygen therapy to maintain saturations > 90% maintain aspiration precautions chest xray shows course central and congestive changes Pulmonary Aspiration pneumonia chest xray with congestive changes. along with shortness of breath on admission , requiring supplemental oxygen. she not oxygen dependent at [place]. Monitor airway to maintain o2 92% or greater UTI ua consistent with UTI UC noted with 50-60k Neuro: Subacute right inferior cerebellar infarct. on dual therapy of plavix and asa on lipitor Card: elevated troponins Systolic CHF NSTEMI history on lopressor recent echo 12/23/18 reviewed On previous admissions was not considered a candidate for coronary artery evaluation, due to dementia, frail state, and comorbidities. Recent EF 30% on 11/2018 admission CAD post NSTEMI angina pectoris on Plavix and Lipitor fen on gentle hydration monitor electrolytes monitor vitals, labs heparin tid full code Visit type - Emergency Visit Emergency Visit: Yes ED Registration Date: 01/11/19 Care time: The patient presented to the Emergency Department on the above date and was hospitalized for further evaluation of their emergent condition. - New Patient This patient is new to me today: No - Critical Care Critical Care patient: No - Discharge Referral Referred to [facility] Med P.C.: No
[2019-01-13] MEDS: LISINOPRIL 5 MG TABLET (FP) PO SCH (11:31)
[2019-01-13] MEDS: ALBUTEROL SO4 2.5/IPRATROPIUM 0.5 INH SOL 3 ML VIAL.NEB. NEB SCH ×3 (11:50→20:53)
--- NOTE | 2019-01-13 14:47 | CON.PULM ---
Consult Consult Specialty:: PULM/CCM Referred by:: CLAUDIA Reason for Consultation:: Abnormal CXR - History of Present Illness Chief Complaint: Fever History of Present Illness: 73 F, past medical history significant for diastolic CHF, dementia, left shoulder dislocation, right wrist fracture, previous CVA, LEILA, and malnutrition. Multiple recent admissions to [facility]. Apparent progressive clinical decline. Admitted via the ER due to abnormal labs, a decrease in mental status, and "wheezing". The patient is unable to provide any information. She is awake and responsive in NAD on 2 L NC O2. Noted fever on admission felt to be due to an infection in the tract. CXR: compared to the film that was taken on 12/17: improvement in central vascular prominence. No new acute infiltrates noted. 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 No: Asthma, COPD, Previously Intubated, Pulmonary Embolus, Pulmonary Fibrosis, Sleep Apnea ...: No Psych: Yes: Other (dementia) - Past Surgical History Past Surgical History: Yes: None - Alcohol/Substance Use Hx Alcohol Use: No - Smoking History Smoking history: Current every day smoker Have you smoked in the past 12 months: Yes Aproximately how many cigarettes per day: 40 Home Medications - Allergies Allergies/Adverse Reactions: Allergies Allergy/AdvReac Type Severity Reaction Status Date / Time No Known Allergies Allergy Verified 12/14/18 13:26 - Home Medications Home Medications: Ambulatory Orders Clopidogrel Bisulfate [Plavix -] 75 mg PO DAILY tablet 12/20/18 Lisinopril [Prinivil] 5 mg PO DAILY tablet 12/20/18 Metoprolol Tartrate [Lopressor -] 25 mg PO BID tablet 12/20/18 Aspirin Coated [Ecotrin -] 81 mg PO DAILY tablet.ec 12/24/18 Acetaminophen [Tylenol] 650 mg PO Q6H PRN 01/10/19 Atorvastatin Ca [Lipitor] 10 mg PO HS 01/10/19 Docusate Sodium [Colace -] 100 mg PO BID 01/10/19 LORazepam [Ativan] 0.5 mg PO DAILY 01/10/19 Review of Systems Unable to obtain ROS, reason: unable to provide Physical Exam Vital Sings: Vital Signs Temperature 97.8 F 01/13/19 13:33 Pulse Rate 80 01/13/19 13:33 Respiratory Rate 16 01/13/19 13:33 Blood Pressure 113/68 01/13/19 13:33 O2 Sat by Pulse Oximetry (%) 94 L 01/12/19 21:00 Constitutional: Yes: No Distress, Cachectic Eyes: Yes: Conjunctiva Clear HENT: Yes: Atraumatic, Normocephalic Neck: Yes: Supple, Trachea Midline Cardiovascular: Yes: Regular Rate and Rhythm Respiratory: Yes: Diminished, On Nasal O2, Rhonchi. No: Accessory Muscle Use, Rales, SOB, SOB on Exertion, Stridor, Tachypnea, Wheezes ...Inspection: Yes: WNL ...Clubbing: No Gastrointestinal: Yes: Normal Bowel Sounds, Soft Musculoskeletal: Yes: WNL Extremities: Yes: WNL Edema: No Peripheral Pulses WNL: Yes Integumentary: Yes: WNL Neurological: Yes: Alert, Confusion, Pre-Existing Deficit Labs: CBC, BMP 01/13/19 07:15 01/13/19 07:15 Imaging - Results Chest X-ray: Report Reviewed, Image Reviewed Problem List - Problems (1) LEILA (acute kidney injury) Code(s): N17.9 - ACUTE KIDNEY FAILURE, UNSPECIFIED (2) CAD (coronary artery disease) Code(s): I25.10 - ATHSCL HEART DISEASE OF [place] CORONARY ARTERY W/O ANG PCTRS (3) Dementia Code(s): F03.90 - UNSPECIFIED DEMENTIA WITHOUT BEHAVIORAL DISTURBANCE (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 - DYSPHONIA (5) Failure to thrive Code(s): [id number] - (6) Fever Code(s): R50.9 - FEVER, UNSPECIFIED Qualifiers: Fever type: unspecified Qualified Code(s): R50.9 - Fever, unspecified (7) Hx of non-ST elevation myocardial infarction (NSTEMI) Code(s): I25.2 - OLD MYOCARDIAL INFARCTION (8) Toxic metabolic encephalopathy Code(s): G92 - TOXIC ENCEPHALOPATHY (9) UTI (urinary tract infection) Code(s): N39.0 - URINARY TRACT INFECTION, SITE NOT SPECIFIED (10) Dislocation, shoulder Code(s): S43.006A - UNSP DISLOCATION OF UNSPECIFIED SHOULDER JOINT, INIT ENCNTR Assessment/Plan Do not suspect PNA or acute bronchospastic disease Noted BD TX ordered. If no appreciable change in status will likely D/C No indication for systemic steroids O2 as needed Aspiration precautions ABX per ID Follow cultures If lethargy worsens, should hold daily Ativan (not hypercapneic on ABG) Will follow Thank you. Dr Bucio
--- NOTE | 2019-01-13 15:00 | PN ---
Progress Note, GRADUATE STUDIES DEAN - Note Progress Note: Selected Entries 01/13/19 01/13/19 01/13/19 02:56 06:00 08:39 Breakfast Diet Tolerated Lunch Temperature 98.3 F 97.9 F 97.9 F 01/13/19 01/13/19 11:14 13:33 Breakfast 100% Diet Tolerated Well Well Lunch 75% Temperature 97.8 F Laboratory Tests 01/12/19 01/13/19 06:00 07:15 WBC 16.0 H 8.9 Overtly tolerating diet.
--- NOTE | 2019-01-13 15:45 | PN ---
Progress Note, Physician History of Present Illness: patient doing a lot better no new issues freinds in room talking - Current Medication List Current Medications: Active Medications Albuterol/Ipratropium (Duoneb -) 1 amp NEB RQID [facility] Aspirin (Asa -) 81 mg PO DAILY [facility] Last Admin: 01/13/19 10:14 Dose: 81 mg Atorvastatin Calcium (Lipitor -) 10 mg PO HS [facility] Last Admin: 01/12/19 21:28 Dose: 10 mg Clopidogrel Bisulfate (Plavix -) 75 mg PO DAILY [facility] Last Admin: 01/13/19 09:22 Dose: 75 mg Docusate Sodium (Colace Liquid -) 200 mg PO Q24H PRN PRN Reason: CONSTIPATION Heparin Sodium (Porcine) (Heparin -) 5,000 unit SQ TID [facility] Last Admin: 01/13/19 13:33 Dose: 5,000 unit Piperacillin Sod/Tazobactam (Sod 3.375 gm/ Dextrose) 50 mls @ 100 mls/hr IVPB Q8H-IV [facility]; Protocol Last Admin: 01/13/19 10:14 Dose: 100 mls/hr Lisinopril (Prinivil) 5 mg PO DAILY [facility] Last Admin: 01/13/19 11:31 Dose: 5 mg Lorazepam (Ativan -) 0.5 mg PO DAILY [facility] Last Admin: 01/13/19 09:22 Dose: 0.5 mg Metoprolol Tartrate (Lopressor -) 25 mg PO BID [facility] Last Admin: 01/13/19 09:22 Dose: 25 mg - Objective Vital Signs: Vital Signs Temperature 97.8 F 01/13/19 13:33 Pulse Rate 80 01/13/19 13:33 Respiratory Rate 16 01/13/19 13:33 Blood Pressure 113/68 01/13/19 13:33 O2 Sat by Pulse Oximetry (%) 94 L 01/12/19 21:00 Constitutional: Yes: Calm, Thin, Other (failure to thrive) Cardiovascular: Yes: Regular Rate and Rhythm Respiratory: Yes: Regular, CTA Bilaterally Gastrointestinal: Yes: Normal Bowel Sounds, Soft Musculoskeletal: Yes: WNL Extremities: Yes: WNL Neurological: Yes: Alert Psychiatric: Yes: Alert Labs: CBC, BMP 01/13/19 07:15 01/13/19 07:15 INR, PTT INR 1.13 (0.83-1.09) H 01/10/19 13:13 Assessment/Plan Problem List - Problems (1) LEILA (acute kidney injury) Code(s): N17.9 - ACUTE KIDNEY FAILURE, UNSPECIFIED (2) CAD (coronary artery disease) Code(s): I25.10 - ATHSCL HEART DISEASE OF [place] CORONARY ARTERY W/O ANG PCTRS (3) Dementia Code(s): F03.90 - UNSPECIFIED DEMENTIA WITHOUT BEHAVIORAL DISTURBANCE (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 - DYSPHONIA (5) Failure to thrive Code(s): [id number] - (6) Fever Code(s): R50.9 - FEVER, UNSPECIFIED Qualifiers: Fever type: unspecified Qualified Code(s): R50.9 - Fever, unspecified (7) Hx of non-ST elevation myocardial infarction (NSTEMI) Code(s): I25.2 - OLD MYOCARDIAL INFARCTION (8) Toxic metabolic encephalopathy Code(s): G92 - TOXIC ENCEPHALOPATHY (9) UTI (urinary tract infection) Code(s): N39.0 - URINARY TRACT INFECTION, SITE NOT SPECIFIED (10) Dislocation, shoulder Code(s): S43.006A - UNSP DISLOCATION OF UNSPECIFIED SHOULDER JOINT, INIT ENCNTR plan continue abx nutrition rest as per the team
--- NOTE | 2019-01-13 15:47 | CON.NEURO ---
Consult - History of Present Illness History of Present Illness: 73 yrs old F 3rd Hospitalization since 12/14/2018 at [facility] currently a [place] resident last Dc from [place] on after treated for Rt wrist fracture and Left shoulder dislocation, mostly bed bound transferred to Ed with c/o worsening MS, poor Po intake , fever lab shows LEILA and Hyperklaemia, as per notes , patient is gradually deteriorating over past 1 wk, feeling weak , c/o burning micturation, feeling thirsty, patient is on puree since last hospitalization, on arrival to Ed w/u shows dehydration, elevated BUN 65 Creat 1.6 Elevated TWBC 16.5 K Lactic acid 1.2 , UA (was not collected due to difficult cathterization( was called) patient was diagnosed CVA, Rt Inf Cerbellar infarct, 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, systolic/ diastolic HF, ; She seems more awake now, answers name as Wicho , severe baseline dementia seen by DR FISHER on prior admission , 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 DX with UTI sepsis now ; HD CT : There is no extra-axial fluid collection. No definite change is seen in comparison to a prior CT study of 12/22/2018. A small right parietal cortical/ subcortical infarct is noted which was not definitely present at the time of a somewhat more remote CT study of 12/14/2018. There is a small focus of subtle chronic right inferior frontal sub-cortical increased density possibly representing a cavernous hemangioma. No obvious interval change is noted. Very small right inferior cerebellar infarcts noted on the 12/22/2018 CT study cannot be appreciated on the current exam possibly due to partial volume averaging. No definite interval infarct is seen. There is no obvious mass lesion on noncontrast imaging. Moderate to marked periventricular and subcortical chronic microvascular ischemic changes are again noted. Involutional changes are seen with mild to moderate ventricular dilatation. The calvarium appears intact. Impression: No definite interval pathology is noted as discussed above. 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 No: Asthma, COPD, Previously Intubated, Pulmonary Embolus, Pulmonary Fibrosis, Sleep Apnea ...: No Psych: Yes: Other (dementia) - Past Surgical History Past Surgical History: Yes: None - Alcohol/Substance Use Hx Alcohol Use: No - Smoking History Smoking history: Current every day smoker Have you smoked in the past 12 months: Yes Aproximately how many cigarettes per day: 40 Home Medications - Allergies Allergies/Adverse Reactions: Allergies Allergy/AdvReac Type Severity Reaction Status Date / Time No Known Allergies Allergy Verified 12/14/18 13:26 - Home Medications Home Medications: Ambulatory Orders Clopidogrel Bisulfate [Plavix -] 75 mg PO DAILY tablet 12/20/18 Lisinopril [Prinivil] 5 mg PO DAILY tablet 12/20/18 Metoprolol Tartrate [Lopressor -] 25 mg PO BID tablet 12/20/18 Aspirin Coated [Ecotrin -] 81 mg PO DAILY tablet.ec 12/24/18 Acetaminophen [Tylenol] 650 mg PO Q6H PRN 01/10/19 Atorvastatin Ca [Lipitor] 10 mg PO HS 01/10/19 Docusate Sodium [Colace -] 100 mg PO BID 01/10/19 LORazepam [Ativan] 0.5 mg PO DAILY 01/10/19 Physical Exam-Neuro Vital Signs: Vital Signs Temperature 97.8 F 01/13/19 13:33 Pulse Rate 80 01/13/19 13:33 Respiratory Rate 16 01/13/19 13:33 Blood Pressure 113/68 01/13/19 13:33 O2 Sat by Pulse Oximetry (%) 94 L 01/12/19 21:00 Constitutional: Yes: No Distress (awake, answers name and age incorrectly, follow basic commands incorrectly , R gaze, and head turned to R , no focal weakness though limited strength testing, plantars up ) Labs: CBC, BMP 01/13/19 07:15 01/13/19 07:15 INR, PTT INR 1.13 (0.83-1.09) H 01/10/19 13:13 Problem List - Problems (1) Dementia Code(s): F03.90 - UNSPECIFIED DEMENTIA WITHOUT BEHAVIORAL DISTURBANCE (2) Failure to thrive Code(s): [id number] - (3) UTI (urinary tract infection) Code(s): N39.0 - URINARY TRACT INFECTION, SITE NOT SPECIFIED Assessment/Plan 73 yrs old F 3rd Hospitalization since 12/14/2018 at [facility] currently a [place] resident last Dc from [place] on after treated for Rt wrist fracture and Left shoulder dislocation, mostly bed bound transferred to Ed with c/o worsening MS, poor Po intake , fever lab shows LEILA and Hyperklaemia, as per notes , patient is gradually deteriorating over past 1 wk, feeling weak , c/o burning micturation, feeling thirsty, patient is on puree since last hospitalization, on arrival to Ed w/u shows dehydration, elevated BUN 65 Creat 1.6 Elevated TWBC 16.5 K Lactic acid 1.2 , UA (was not collected due to difficult cathterization( was called) patient was diagnosed CVA, Rt Inf Cerbellar infarct, 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, systolic/ diastolic HF, ; DX with UTI sepsis; seen by DR FISHER on prior admission , 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 HD CT : There is no extra-axial fluid collection. No definite change is seen in comparison to a prior CT study of 12/22/2018. A small right parietal cortical/ subcortical infarct is noted which was not definitely present at the time of a somewhat more remote CT study of 12/14/2018. There is a small focus of subtle chronic right inferior frontal sub-cortical increased density possibly representing a cavernous hemangioma. No obvious interval change is noted. Very small right inferior cerebellar infarcts noted on the 12/22/2018 CT study cannot be appreciated on the current exam possibly due to partial volume averaging. No definite interval infarct is seen. There is no obvious mass lesion on noncontrast imaging. Moderate to marked periventricular and subcortical chronic microvascular ischemic changes are again noted. Involutional changes are seen with mild to moderate ventricular dilatation. The calvarium appears intact. Impression: No definite interval pathology is noted as discussed above. AP : Delirium with superimposed severe dementia ( vascular, AD) -- suspect current issue is related to UTI , metabolic MS more awake with ABX . hydration no clear evidence of new ischemic event, seizure or meningitis etc CT no new changes , old R Parietal infarct , ? inc density as hemorrhagic focus --can clarify this with MRI although this will not likely change agent as per last admission it was suggested she maintain only one AP (on both ASA, plavix now) , unclear why she is on dual AP embolic MCGEE for past -- FU recent ECHO ; DR BROWNLEE
[2019-01-13] MEDS ORDERED: PT OWN MED DRAWER 7, Y5N ONE (21:07)
[2019-01-13] MEDS: ATORVASTATIN CA 10 MG TABLET (FP) PO SCH (21:14)
[2019-01-14] MEDS ORDERED: PIPERACILLIN/TAZOBACTAM 3.375 GM VIAL IVPB ONE ×4 (01:03→18:03)
[2019-01-14] MEDS ORDERED: DEXTROSE 5%-WATER - 50 ML IVPB ONE ×4 (01:03→18:03)
[2019-01-14] MEDS: PIPERACILLIN/TAZOB 3.375 GM 3.375 GM in DEXTROSE 5%-WATER - 50 ML IVPB SCH ×3 (01:26→18:10)
[2019-01-14] MEDS: HEPARIN NA (PORCINE) 5,000 UNITS/ML 1ML VIAL SQ SCH ×3 (06:11→22:03)
[2019-01-14 07:15] LABS: BASO % 1.2 % (0-2.0); EOS % 3.4 % (0-4.5); HEMATOCRIT 32.7 % (32.4-45.2); HEMOGLOBIN 11.3 GM/dL (10.7-15.3); LYMPH % 12.1 % (8-40); MCH 31.6 pg (25.7-33.7); MCHC 34.6 g/dl (32.0-36.0); MEAN CELL VOLUME 91.5 fl (80-96); MEAN PLT VOLUME 9.2 fl (7.5-11.1); MONO % 6.6 % (3.8-10.2); NEUT % 76.7 % (42.8-82.8); PLATELET COUNT 361 K/MM3 (134-434); RBC 3.58 M/mm3 (3.60-5.2); RDW 14.8 % (11.6-15.6); WHITE BLOOD COUNT 7.5 K/mm3 (4.0-10.0)
[2019-01-14] MEDS: ALBUTEROL SO4 2.5/IPRATROPIUM 0.5 INH SOL 3 ML VIAL.NEB. NEB SCH ×4 (08:06→20:38)
[2019-01-14 08:10] LABS: ALBUMIN 2.5 g/dl (3.4-5.0); ALK PHOS 119 U/L (45-117); ANION GAP 8 MMOL/L (8-16); BILIRUBIN,TOTAL 0.5 mg/dL (0.2-1); BLOOD UREA NITROGEN 17 mg/dL (7-18); CALCIUM 8.5 mg/dL (8.5-10.1); CHLORIDE 107 mmol/L (98-107); CHOLESTEROL 113 mg/dL (50-200); CO2 24 mmol/L (21-32); CREATININE 0.7 mg/dL (0.55-1.3); GLUCOSE,RANDOM 89 mg/dL (74-106); HDL CHOLESTEROL 29 mg/dL (40-60); MAGNESIUM 1.9 mg/dL (1.8-2.4); POTASSIUM 3.8 mmol/L (3.5-5.1); SGOT/AST 15 U/L (15-37); SGPT/ALT 32 U/L (13-61); SODIUM 139 mmol/L (136-145); TRIGLYCERIDES 109 mg/dL (0-150)
[2019-01-14] MEDS: LISINOPRIL 5 MG TABLET (FP) PO SCH (10:26)
[2019-01-14] MEDS: CLOPIDOGREL BISULFATE 75 MG TABLET (FP) PO SCH (10:26)
[2019-01-14] MEDS: METOPROLOL TARTRATE 25 MG TABLET (FP) PO SCH ×2 (10:26→22:03)
[2019-01-14] MEDS: LORazepam 0.5 MG TABLET PO SCH (10:36)
--- NOTE | 2019-01-14 11:19 | PN ---
Progress Note (short form) - Note Progress Note: PULMONARY PRESENT PATIENT IS AWAKE/ALERT "I FEEL NERVOUS" VSS/Afebrile Constitutional: Yes: No Distress, Cachectic Eyes: Yes: Conjunctiva Clear HENT: Yes: Atraumatic, Normocephalic Neck: Yes: Supple, Trachea Midline Cardiovascular: Yes: Regular Rate and Rhythm Respiratory: Yes: Diminished, On Nasal O2, Rhonchi. No: Accessory Muscle Use, Rales, SOB, SOB on Exertion, Stridor, Tachypnea, Wheezes ...Inspection: Yes: WNL ...Clubbing: No Gastrointestinal: Yes: Normal Bowel Sounds, Soft Musculoskeletal: Yes: WNL Extremities: Yes: WNL Edema: No Peripheral Pulses WNL: Yes Integumentary: Yes: WNL Neurological: Yes: Alert, Confusion, Pre-Existing Deficit Labs: noted Imaging - Results Chest X-ray: Report Reviewed, Image Reviewed Problem List - Problems (1) LEILA (acute kidney injury) Code(s): N17.9 - ACUTE KIDNEY FAILURE, UNSPECIFIED (2) CAD (coronary artery disease) Code(s): I25.10 - ATHSCL HEART DISEASE OF [place] CORONARY ARTERY W/O ANG PCTRS (3) Dementia Code(s): F03.90 - UNSPECIFIED DEMENTIA WITHOUT BEHAVIORAL DISTURBANCE (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 - DYSPHONIA (5) Failure to thrive Code(s): [id number] - (6) Fever Code(s): R50.9 - FEVER, UNSPECIFIED Qualifiers: Fever type: unspecified Qualified Code(s): R50.9 - Fever, unspecified (7) Hx of non-ST elevation myocardial infarction (NSTEMI) Code(s): I25.2 - OLD MYOCARDIAL INFARCTION (8) Toxic metabolic encephalopathy Code(s): G92 - TOXIC ENCEPHALOPATHY (9) UTI (urinary tract infection) Code(s): N39.0 - URINARY TRACT INFECTION, SITE NOT SPECIFIED (10) Dislocation, shoulder Code(s): S43.006A - UNSP DISLOCATION OF UNSPECIFIED SHOULDER JOINT, INIT ENCNTR Assessment/Plan Respiratory status is stable Bronchodilators as needed No indication for steroids O2 as needed Aspiration precautions ABX per ID Avoid sedation Ammy COLIN MD
--- NOTE | 2019-01-14 14:30 | PN ---
Progress Note, Physician History of Present Illness: doing much better family in room feels nervous - Current Medication List Current Medications: Active Medications Albuterol/Ipratropium (Duoneb -) 1 amp NEB RQID [facility] Last Admin: 01/14/19 11:21 Dose: 1 amp Atorvastatin Calcium (Lipitor -) 10 mg PO HS [facility] Last Admin: 01/13/19 21:14 Dose: 10 mg Clopidogrel Bisulfate (Plavix -) 75 mg PO DAILY [facility] Last Admin: 01/14/19 10:26 Dose: 75 mg Docusate Sodium (Colace Liquid -) 200 mg PO Q24H PRN PRN Reason: CONSTIPATION Last Admin: 01/13/19 21:16 Dose: 200 mg Heparin Sodium (Porcine) (Heparin -) 5,000 unit SQ TID [facility] Last Admin: 01/14/19 13:19 Dose: 5,000 unit Piperacillin Sod/Tazobactam (Sod 3.375 gm/ Dextrose) 50 mls @ 100 mls/hr IVPB Q8H-IV [facility]; Protocol Last Admin: 01/14/19 10:30 Dose: 100 mls/hr Lisinopril (Prinivil) 5 mg PO DAILY [facility] Last Admin: 01/14/19 10:26 Dose: 5 mg Lorazepam (Ativan -) 0.5 mg PO DAILY [facility] Last Admin: 01/14/19 10:36 Dose: 0.5 mg Metoprolol Tartrate (Lopressor -) 25 mg PO BID [facility] Last Admin: 01/14/19 10:26 Dose: 25 mg - Objective Vital Signs: Vital Signs Temperature 98.1 F 01/14/19 10:00 Pulse Rate 73 01/14/19 10:00 Respiratory Rate 18 01/14/19 10:00 Blood Pressure 137/84 01/14/19 10:00 O2 Sat by Pulse Oximetry (%) 96 01/14/19 09:00 Constitutional: Yes: No Distress, Calm Cardiovascular: Yes: S1, S2 Respiratory: Yes: Regular, CTA Bilaterally Gastrointestinal: Yes: Normal Bowel Sounds, Soft Musculoskeletal: Yes: WNL Extremities: Yes: WNL Neurological: Yes: Alert, Oriented Psychiatric: Yes: Alert Labs: CBC, BMP 01/14/19 06:17 01/14/19 06:17 INR, PTT INR 1.13 (0.83-1.09) H 01/10/19 13:13 Assessment/Plan Problem List - Problems (1) LEILA (acute kidney injury) Code(s): N17.9 - ACUTE KIDNEY FAILURE, UNSPECIFIED (2) CAD (coronary artery disease) Code(s): I25.10 - ATHSCL HEART DISEASE OF [place] CORONARY ARTERY W/O ANG PCTRS (3) Dementia Code(s): F03.90 - UNSPECIFIED DEMENTIA WITHOUT BEHAVIORAL DISTURBANCE (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 - DYSPHONIA (5) Failure to thrive Code(s): [id number] - (6) Fever Code(s): R50.9 - FEVER, UNSPECIFIED Qualifiers: Fever type: unspecified Qualified Code(s): R50.9 - Fever, unspecified (7) Hx of non-ST elevation myocardial infarction (NSTEMI) Code(s): I25.2 - OLD MYOCARDIAL INFARCTION (8) Toxic metabolic encephalopathy Code(s): G92 - TOXIC ENCEPHALOPATHY (9) UTI (urinary tract infection) Code(s): N39.0 - URINARY TRACT INFECTION, SITE NOT SPECIFIED (10) Dislocation, shoulder Code(s): S43.006A - UNSP DISLOCATION OF UNSPECIFIED SHOULDER JOINT, INIT ENCNTR plan abx nutrition incentive ana maria rest as per the team
--- NOTE | 2019-01-14 15:26 | PN ---
Physical Exam: SUBJECTIVE: Patient seen and examined OBJECTIVE: wbc normalized, mentation back to baseline off nancy vest, discharge back to [facility] tomorrow Vital Signs Period Temp Pulse Resp BP Sys/Robin Pulse Ox Last 24 Hr 97.6 F-99.3 F 73-100 18-20 115-153/70-91 96-100 GENERAL: The patient is awake, alert, and oriented to person only. HEAD: Normal with no signs of trauma. EYES: PERRL, extraocular movements intact, sclera anicteric, conjunctiva clear. No ptosis. ENT: Ears normal, nares patent, oropharynx clear without exudates, moist mucous membranes. NECK: Trachea midline, full range of motion, supple. LUNGS: scattered rales HEART: Regular rate and rhythm, S1, S2 without murmur, rub or gallop. ABDOMEN: Soft, nontender, nondistended, normoactive bowel sounds, no guarding, no rebound, no hepatosplenomegaly, no masses. EXTREMITIES: no edema. NEUROLOGICAL: normal speech, bed bound PSYCH: Normal mood, normal affect. SKIN: intact Laboratory Results - last 24 hr 01/14/19 01/14/19 06:17 06:17 WBC 7.5 RBC 3.58 L Hgb 11.3 Hct 32.7 MCV 91.5 MCH 31.6 MCHC 34.6 RDW 14.8 Plt Count 361 MPV 9.2 Absolute Neuts (auto) 5.7 Neutrophils % 76.7 Lymphocytes % 12.1 D Monocytes % 6.6 Eosinophils % 3.4 Basophils % 1.2 Nucleated RBC % 0 Sodium 139 Potassium 3.8 Chloride 107 Carbon Dioxide 24 Anion Gap 8 BUN 17 Creatinine 0.7 Creat Clearance w eGFR 81.80 Random Glucose 89 Calcium 8.5 Magnesium 1.9 Total Bilirubin 0.5 AST 15 ALT 32 Alkaline Phosphatase 119 H Total Protein 6.0 L Albumin 2.5 L Triglycerides 109 Cholesterol 113 Total LDL Cholesterol 69 HDL Cholesterol 29 L Active Medications Generic Name Dose Route Start Last Admin Trade Name Freq PRN Reason Stop Dose Admin Albuterol/Ipratropium 1 amp 01/13/19 12:00 01/14/19 11:21 Duoneb - NEB 1 amp RQID LUIS FELIPE Administration Atorvastatin Calcium 10 mg 01/10/19 22:00 01/13/19 21:14 Lipitor - PO 10 mg HS LUIS FELIPE Administration Clopidogrel Bisulfate 75 mg 01/11/19 10:00 01/14/19 10:26 Plavix - PO 75 mg DAILY LUIS FELIPE Administration Docusate Sodium 200 mg 01/13/19 09:50 01/13/19 21:16 Colace Liquid - PO 200 mg Q24H PRN Administration CONSTIPATION Heparin Sodium (Porcine) 5,000 unit 01/10/19 22:00 01/14/19 13:19 Heparin - SQ 5,000 unit TID LUIS FELIPE Administration Piperacillin Sod/Tazobactam 50 mls @ 100 mls/hr 01/11/19 18:00 01/14/19 10:30 Sod 3.375 gm/ Dextrose IVPB 100 mls/hr Q8H-IV LUIS FELIPE Administration Protocol Lisinopril 5 mg 01/13/19 11:15 01/14/19 10:26 Prinivil PO 5 mg DAILY LUIS FELIPE Administration Lorazepam 0.5 mg 01/11/19 10:00 01/14/19 10:36 Ativan - PO 0.5 mg DAILY LUIS FELIPE Administration Metoprolol Tartrate 25 mg 01/10/19 22:00 01/14/19 10:26 Lopressor - PO 25 mg BID LUIS FELIPE Administration ASSESSMENT/PLAN: patient is a 73 year old female from [facility] who presents to the ED with AMS and fever. She was recently admitted and was diagnosed with systolic CHF and NSTEMI. On last admission she was brought in from [facility] for suspected RUE fracture/dislocation/clot. A Head CT was done which revealed acute/subacute right inferior cerebellar infarct. She is being admitted again for AMS and meets sepsis criteria on admission. ID: Acute metabolic encephalopathy, resolved in the setting of acute UTI, sepsis and severe cachexia blood cultures negative. + UC. on zosyn. transition to PO on discharge. ID: Sepsis criteria on admission, resolved Pulmonary Aspiration pneumonia. resolved seen by speech and swallow. recommendations. noted. followed by pulmonary. noted and recommendations noted. UTI ua consistent with UTI UC noted with 50-60k Neuro: Subacute right inferior cerebellar infarct. on Plavix. per neuro, ASA should be d/c and be on plavix only. on lipitor Card: elevated troponins Systolic CHF NSTEMI history on lopressor recent echo 12/23/18 reviewed On previous admissions was not considered a candidate for coronary artery evaluation, due to dementia, frail state, and comorbidities. Recent EF 30% on 11/2018 admission. cardiology following. CAD post NSTEMI angina pectoris on Plavix and Lipitor fen tolerating po monitor electrolytes monitor vitals, labs heparin tid full code Visit type - Emergency Visit Emergency Visit: Yes ED Registration Date: 01/11/19 Care time: The patient presented to the Emergency Department on the above date and was hospitalized for further evaluation of their emergent condition. - New Patient This patient is new to me today: No - Critical Care Critical Care patient: No - Discharge Referral Referred to [facility] No
--- NOTE | 2019-01-14 17:38 | PN ---
Progress Note (short form) - Note Progress Note: 73 yrs old F 3rd Hospitalization since 12/14/2018 at [facility] currently a [place] resident last Dc from [place] on after treated for Rt wrist fracture and Left shoulder dislocation, mostly bed bound transferred to Ed with c/o worsening MS, poor Po intake , fever lab shows LEILA and Hyperklaemia, as per notes , patient is gradually deteriorating over past 1 wk, feeling weak , c/o burning micturation, feeling thirsty, patient is on puree since last hospitalization, on arrival to Ed w/u shows dehydration, elevated BUN 65 Creat 1.6 Elevated TWBC 16.5 K Lactic acid 1.2 , UA (was not collected due to difficult cathterization( was called) patient was diagnosed CVA, Rt Inf Cerbellar infarct, 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, systolic/ diastolic HF, ; She seems more awake now, answers name as Wicho , severe baseline dementia seen by DR FISHER on prior admission , 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 DX with UTI sepsis now ; HD CT : There is no extra-axial fluid collection. No definite change is seen in comparison to a prior CT study of 12/22/2018. A small right parietal cortical/ subcortical infarct is noted which was not definitely present at the time of a somewhat more remote CT study of 12/14/2018. There is a small focus of subtle chronic right inferior frontal sub-cortical increased density possibly representing a cavernous hemangioma. No obvious interval change is noted. Very small right inferior cerebellar infarcts noted on the 12/22/2018 CT study cannot be appreciated on the current exam possibly due to partial volume averaging. No definite interval infarct is seen. There is no obvious mass lesion on noncontrast imaging. Moderate to marked periventricular and subcortical chronic microvascular ischemic changes are again noted. Involutional changes are seen with mild to moderate ventricular dilatation. The calvarium appears intact. Impression: No definite interval pathology is noted as discussed above. FU : severe dementia awake and conversive - Past Medical History HOME HEALTH CLINICAL LIAISON: Yes: CVA, Dementia Cardio/Vascular: Yes: CHF (systolic), Murmur (mod-severe AR) Pulmonary: Yes: Pneumonia. No: Asthma, COPD, Previously Intubated, Pulmonary Embolus, Pulmonary Fibrosis, Sleep Apnea ...: No Psych: Yes: Other (dementia) - Past Surgical History Past Surgical History: Yes: None - Alcohol/Substance Use Hx Alcohol Use: No - Smoking History Smoking history: Current every day smoker Have you smoked in the past 12 months: Yes Aproximately how many cigarettes per day: 40 Home Medications - Allergies Allergies/Adverse Reactions: Allergies Allergy/AdvReac Type Severity Reaction Status Date / Time No Known Allergies Allergy Verified 12/14/18 13:26 - Home Medications Home Medications: Ambulatory Orders Clopidogrel Bisulfate [Plavix -] 75 mg PO DAILY tablet 12/20/18 Lisinopril [Prinivil] 5 mg PO DAILY tablet 12/20/18 Metoprolol Tartrate [Lopressor -] 25 mg PO BID tablet 12/20/18 Aspirin Coated [Ecotrin -] 81 mg PO DAILY tablet.ec 12/24/18 Acetaminophen [Tylenol] 650 mg PO Q6H PRN 01/10/19 Atorvastatin Ca [Lipitor] 10 mg PO HS 01/10/19 Docusate Sodium [Colace -] 100 mg PO BID 01/10/19 LORazepam [Ativan] 0.5 mg PO DAILY 01/10/19 Physical Exam-Neuro Vital Signs: Vital Signs Vital Signs Temperature 97.8 F 01/14/19 13:27 Pulse Rate 104 H 01/14/19 13:27 Respiratory Rate 16 01/14/19 13:27 Blood Pressure 112/72 01/14/19 13:27 O2 Sat by Pulse Oximetry (%) 96 01/14/19 09:00 Constitutional: Yes: No Distress (awake, answers name and age incorrectly, follow basic commands incorrectly , R gaze, and head turned to R , no focal weakness though limited strength testing, plantars up ) Labs: CBC, BMP 01/13/19 07:15 01/13/19 07:15 INR, PTT INR 1.13 (0.83-1.09) H 01/10/19 13:13 Problem List - Problems (1) Dementia Code(s): F03.90 - UNSPECIFIED DEMENTIA WITHOUT BEHAVIORAL DISTURBANCE (2) Failure to thrive Code(s): [id number] - (3) UTI (urinary tract infection) Code(s): N39.0 - URINARY TRACT INFECTION, SITE NOT SPECIFIED Assessment/Plan 73 yrs old F 3rd Hospitalization since 12/14/2018 at [facility] currently a [place] resident last Dc from [place] on after treated for Rt wrist fracture and Left shoulder dislocation, mostly bed bound transferred to Ed with c/o worsening MS, poor Po intake , fever lab shows LEILA and Hyperklaemia, as per notes , patient is gradually deteriorating over past 1 wk, feeling weak , c/o burning micturation, feeling thirsty, patient is on puree since last hospitalization, on arrival to Ed w/u shows dehydration, elevated BUN 65 Creat 1.6 Elevated TWBC 16.5 K Lactic acid 1.2 , UA (was not collected due to difficult cathterization( was called) patient was diagnosed CVA, Rt Inf Cerbellar infarct, 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, systolic/ diastolic HF, ; DX with UTI sepsis; seen by DR FISHER on prior admission , 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 HD CT : There is no extra-axial fluid collection. No definite change is seen in comparison to a prior CT study of 12/22/2018. A small right parietal cortical/ subcortical infarct is noted which was not definitely present at the time of a somewhat more remote CT study of 12/14/2018. There is a small focus of subtle chronic right inferior frontal sub-cortical increased density possibly representing a cavernous hemangioma. No obvious interval change is noted. Very small right inferior cerebellar infarcts noted on the 12/22/2018 CT study cannot be appreciated on the current exam possibly due to partial volume averaging. No definite interval infarct is seen. There is no obvious mass lesion on noncontrast imaging. Moderate to marked periventricular and subcortical chronic microvascular ischemic changes are again noted. Involutional changes are seen with mild to moderate ventricular dilatation. The calvarium appears intact. Impression: No definite interval pathology is noted as discussed above. AP : Delirium with superimposed severe dementia ( vascular, AD) -- suspect current issue is related to UTI , metabolic MS more awake with ABX . hydration no clear evidence of new ischemic event, seizure or meningitis etc CT no new changes , old R Parietal infarct as per last admission it was suggested she maintain only one AP --now on plavix embolic MCGEE for past -- FU recent ECHO ; neuro sign off and kindly call back if any new issues DR BROWNLEE Problem List - Problems (1) Dementia Code(s): F03.90 - UNSPECIFIED DEMENTIA WITHOUT BEHAVIORAL DISTURBANCE (2) Failure to thrive Code(s): [id number] - (3) UTI (urinary tract infection) Code(s): N39.0 - URINARY TRACT INFECTION, SITE NOT SPECIFIED
[2019-01-14] MEDS: ATORVASTATIN CA 10 MG TABLET (FP) PO SCH (22:03)
[2019-01-15] MEDS ORDERED: DEXTROSE 5%-WATER - 50 ML IVPB ONE ×3 (01:35→17:17)
[2019-01-15] MEDS ORDERED: PIPERACILLIN/TAZOBACTAM 3.375 GM VIAL IVPB ONE ×3 (01:35→17:17)
[2019-01-15] MEDS: PIPERACILLIN/TAZOB 3.375 GM 3.375 GM in DEXTROSE 5%-WATER - 50 ML IVPB SCH ×3 (02:21→19:27)
[2019-01-15] MEDS: HEPARIN NA (PORCINE) 5,000 UNITS/ML 1ML VIAL SQ SCH ×3 (06:07→22:38)
[2019-01-15] MEDS: ALBUTEROL SO4 2.5/IPRATROPIUM 0.5 INH SOL 3 ML VIAL.NEB. NEB SCH ×4 (07:41→21:05)
[2019-01-15] MEDS ORDERED: LORazepam 0.5 MG TABLET PO ONE (07:59)
--- NOTE | 2019-01-15 09:48 | PN ---
Progress Note (short form) - Note Progress Note: PULMONARY Resting comfortably VSS/Afebrile Constitutional: Yes: No Distress, Cachectic Eyes: Yes: Conjunctiva Clear HENT: Yes: Atraumatic, Normocephalic Neck: Yes: Supple, Trachea Midline Cardiovascular: Yes: Regular Rate and Rhythm Respiratory: Yes: Diminished, On Nasal O2, Rhonchi. No: Accessory Muscle Use, Rales, SOB, SOB on Exertion, Stridor, Tachypnea, Wheezes ...Inspection: Yes: WNL ...Clubbing: No Gastrointestinal: Yes: Normal Bowel Sounds, Soft Musculoskeletal: Yes: WNL Extremities: Yes: WNL Edema: No Peripheral Pulses WNL: Yes Integumentary: Yes: WNL Neurological: Yes: Alert, Confusion, Pre-Existing Deficit Labs: noted Chest X-ray: Report Reviewed, Image Reviewed (1) LEILA (acute kidney injury) Code(s): N17.9 - ACUTE KIDNEY FAILURE, UNSPECIFIED (2) CAD (coronary artery disease) Code(s): I25.10 - ATHSCL HEART DISEASE OF [place] CORONARY ARTERY W/O ANG PCTRS (3) Dementia Code(s): F03.90 - UNSPECIFIED DEMENTIA WITHOUT BEHAVIORAL DISTURBANCE (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 - DYSPHONIA (5) Failure to thrive Code(s): [id number] - (6) Fever Code(s): R50.9 - FEVER, UNSPECIFIED Qualifiers: Fever type: unspecified Qualified Code(s): R50.9 - Fever, unspecified (7) Hx of non-ST elevation myocardial infarction (NSTEMI) Code(s): I25.2 - OLD MYOCARDIAL INFARCTION (8) Toxic metabolic encephalopathy Code(s): G92 - TOXIC ENCEPHALOPATHY (9) UTI (urinary tract infection) Code(s): N39.0 - URINARY TRACT INFECTION, SITE NOT SPECIFIED (10) Dislocation, shoulder Code(s): S43.006A - UNSP DISLOCATION OF UNSPECIFIED SHOULDER JOINT, INIT ENCNTR Respiratory status is stable Bronchodilators as needed No indication for steroids O2 as needed Aspiration precautions ABX per ID Avoid oversedation Ammy COLIN MD
[2019-01-15] MEDS: LORazepam 0.5 MG TABLET PO SCH (10:00)
[2019-01-15] MEDS ORDERED: PT OWN MED DRAWER 7, Y5N ONE (10:51)
[2019-01-15] MEDS: CLOPIDOGREL BISULFATE 75 MG TABLET (FP) PO SCH (10:54)
[2019-01-15] MEDS: METOPROLOL TARTRATE 25 MG TABLET (FP) PO SCH ×2 (10:55→22:37)
[2019-01-15] MEDS: LISINOPRIL 5 MG TABLET (FP) PO SCH (10:55)
--- NOTE | 2019-01-15 12:30 | PN ---
Progress Note, Physician Chief Complaint: Pt disoriented to place, person, time. History of Present Illness: The patient is a 73 year old white female, with a significant PMH of diastolic CHF, who presents to the emergency department today from [facility] for evaluation of fever and AMS. Per NH, pt had Tmax of 101.2 and was more lethargic today. In ED, pt is AnOx2, at her baseline, and has no focal complaints. The patient denies chest pain, shortness of breath, headache and dizziness. Denies fever, chills, nausea, vomit, diarrhea and constipation. Denies dysuria, frequency, urgency and hematuria. - Current Medication List Current Medications: Active Medications Albuterol/Ipratropium (Duoneb -) 1 amp NEB RQID [facility] Last Admin: 01/15/19 12:23 Dose: 1 amp Atorvastatin Calcium (Lipitor -) 10 mg PO HS [facility] Last Admin: 01/14/19 22:03 Dose: 10 mg Clopidogrel Bisulfate (Plavix -) 75 mg PO DAILY [facility] Last Admin: 01/15/19 10:54 Dose: 75 mg Docusate Sodium (Colace Liquid -) 200 mg PO Q24H PRN PRN Reason: CONSTIPATION Last Admin: 01/13/19 21:16 Dose: 200 mg Heparin Sodium (Porcine) (Heparin -) 5,000 unit SQ TID [facility] Last Admin: 01/15/19 06:07 Dose: 5,000 unit Piperacillin Sod/Tazobactam (Sod 3.375 gm/ Dextrose) 50 mls @ 100 mls/hr IVPB Q8H-IV [facility]; Protocol Last Admin: 01/15/19 10:54 Dose: 100 mls/hr Lisinopril (Prinivil) 5 mg PO DAILY [facility] Last Admin: 01/15/19 10:55 Dose: 5 mg Lorazepam (Ativan -) 0.5 mg PO DAILY [facility] Last Admin: 01/14/19 10:36 Dose: 0.5 mg Metoprolol Tartrate (Lopressor -) 25 mg PO BID [facility] Last Admin: 01/15/19 10:55 Dose: 25 mg - Objective Vital Signs: Vital Signs Temperature 97.8 F 01/14/19 22:00 Pulse Rate 90 01/15/19 06:00 Respiratory Rate 18 01/15/19 09:00 Blood Pressure 140/72 01/15/19 06:00 O2 Sat by Pulse Oximetry (%) 97 01/15/19 09:00 Constitutional: Yes: Cachectic Eyes: Yes: WNL HENT: Yes: WNL Neck: Yes: WNL Cardiovascular: Yes: Regular Rate and Rhythm Respiratory: Yes: WNL Gastrointestinal: Yes: Soft Genitourinary: No: Anuria Musculoskeletal: Yes: Muscle Weakness Extremities: Yes: Cool Edema: No Peripheral Pulses WNL: No Peripheral Pulses: Left Doralis Pedis: 1+, Right Dorsalis Pedis: 1+ Integumentary: Yes: WNL Neurological: Yes: Pre-Existing Deficit, Weakness Psychiatric: Yes: Other (dementia) Labs: CBC, BMP 01/14/19 06:17 01/14/19 06:17 INR, PTT INR 1.13 (0.83-1.09) H 01/10/19 13:13 Problem List - Problems (1) LEILA (acute kidney injury) Code(s): N17.9 - ACUTE KIDNEY FAILURE, UNSPECIFIED (2) Failure to thrive Code(s): [id number] - (3) Fever Code(s): R50.9 - FEVER, UNSPECIFIED Qualifiers: Fever type: unspecified Qualified Code(s): R50.9 - Fever, unspecified (4) Very low level of personal hygiene Code(s): R46.0 - VERY LOW LEVEL OF PERSONAL HYGIENE (5) Hx of non-ST elevation myocardial infarction (NSTEMI) Assessment/Plan: Recent admission with fall and rhabdomyolysis that may have been engendered by NSTEMI (maximum TNI on that admission 15.8 on 11/2018); now 0.24. Conservative managment of pt's coronary disease. Code(s): I25.2 - OLD MYOCARDIAL INFARCTION (6) Acute on chronic diastolic (congestive) heart failure Code(s): I50.33 - ACUTE ON CHRONIC DIASTOLIC (CONGESTIVE) HEART FAILURE (7) UTI (urinary tract infection) Assessment/Plan: antibiotics; f/u dultures; f/u with ID. Code(s): N39.0 - URINARY TRACT INFECTION, SITE NOT SPECIFIED (8) Dementia Code(s): F03.90 - UNSPECIFIED DEMENTIA WITHOUT BEHAVIORAL DISTURBANCE
--- NOTE | 2019-01-15 12:34 | PN ---
Progress Note, Physician Chief Complaint: Pt remains disoriented to place, person, time. History of Present Illness: The patient is a 73 year old white female, with a significant PMH of diastolic CHF, who presents to the emergency department today from [facility] for evaluation of fever and AMS. Per NH, pt had Tmax of 101.2 and was more lethargic today. In ED, pt is AnOx2, at her baseline, and has no focal complaints. The patient denies chest pain, shortness of breath, headache and dizziness. Denies fever, chills, nausea, vomit, diarrhea and constipation. Denies dysuria, frequency, urgency and hematuria. - Current Medication List Current Medications: Active Medications Albuterol/Ipratropium (Duoneb -) 1 amp NEB RQID [facility] Last Admin: 01/15/19 12:23 Dose: 1 amp Atorvastatin Calcium (Lipitor -) 10 mg PO HS [facility] Last Admin: 01/14/19 22:03 Dose: 10 mg Clopidogrel Bisulfate (Plavix -) 75 mg PO DAILY [facility] Last Admin: 01/15/19 10:54 Dose: 75 mg Docusate Sodium (Colace Liquid -) 200 mg PO Q24H PRN PRN Reason: CONSTIPATION Last Admin: 01/13/19 21:16 Dose: 200 mg Heparin Sodium (Porcine) (Heparin -) 5,000 unit SQ TID [facility] Last Admin: 01/15/19 06:07 Dose: 5,000 unit Piperacillin Sod/Tazobactam (Sod 3.375 gm/ Dextrose) 50 mls @ 100 mls/hr IVPB Q8H-IV [facility]; Protocol Last Admin: 01/15/19 10:54 Dose: 100 mls/hr Lisinopril (Prinivil) 5 mg PO DAILY [facility] Last Admin: 01/15/19 10:55 Dose: 5 mg Lorazepam (Ativan -) 0.5 mg PO DAILY [facility] Last Admin: 01/14/19 10:36 Dose: 0.5 mg Metoprolol Tartrate (Lopressor -) 25 mg PO BID [facility] Last Admin: 01/15/19 10:55 Dose: 25 mg - Objective Vital Signs: Vital Signs Temperature 97.8 F 01/14/19 22:00 Pulse Rate 90 01/15/19 06:00 Respiratory Rate 18 01/15/19 09:00 Blood Pressure 140/72 01/15/19 06:00 O2 Sat by Pulse Oximetry (%) 97 01/15/19 09:00 Constitutional: Yes: Anxious Eyes: Yes: WNL HENT: Yes: WNL Neck: Yes: WNL Cardiovascular: Yes: Regular Rate and Rhythm Respiratory: Yes: WNL Gastrointestinal: Yes: Soft ...Rectal Exam: Yes: Deferred Genitourinary: No: Anuria Breast(s): Yes: WNL Musculoskeletal: Yes: Muscle Weakness Extremities: Yes: Cool Edema: No Peripheral Pulses WNL: No Peripheral Pulses: Left Doralis Pedis: 1+, Right Dorsalis Pedis: 1+ Neurological: Yes: Confusion, Weakness Psychiatric: Yes: Other Labs: CBC, BMP 01/14/19 06:17 01/14/19 06:17 INR, PTT INR 1.13 (0.83-1.09) H 01/10/19 13:13 Problem List - Problems (1) LEILA (acute kidney injury) Assessment/Plan: largely resolved off diuretics; encourage PO fluids. Code(s): N17.9 - ACUTE KIDNEY FAILURE, UNSPECIFIED (2) Failure to thrive Code(s): [id number] - (3) Fever Code(s): R50.9 - FEVER, UNSPECIFIED Qualifiers: Fever type: unspecified Qualified Code(s): R50.9 - Fever, unspecified (4) Very low level of personal hygiene Code(s): R46.0 - VERY LOW LEVEL OF PERSONAL HYGIENE (5) Hx of non-ST elevation myocardial infarction (NSTEMI) Assessment/Plan: Recent admission with fall and rhabdomyolysis that may have been engendered by NSTEMI (maximum TNI on that admission 15.8 on 11/2018); now 0.24. Conservative managment of pt's coronary disease. Code(s): I25.2 - OLD MYOCARDIAL INFARCTION (6) Acute on chronic diastolic (congestive) heart failure Code(s): I50.33 - ACUTE ON CHRONIC DIASTOLIC (CONGESTIVE) HEART FAILURE (7) UTI (urinary tract infection) Assessment/Plan: antibiotics; f/u dultures; f/u with ID. Code(s): N39.0 - URINARY TRACT INFECTION, SITE NOT SPECIFIED (8) Dementia Code(s): F03.90 - UNSPECIFIED DEMENTIA WITHOUT BEHAVIORAL DISTURBANCE
--- NOTE | 2019-01-15 16:16 | PN ---
Progress Note, Physician History of Present Illness: comfortable no complaints - Current Medication List Current Medications: Active Medications Albuterol/Ipratropium (Duoneb -) 1 amp NEB RQID [facility] Last Admin: 01/15/19 15:48 Dose: 1 amp Atorvastatin Calcium (Lipitor -) 10 mg PO HS [facility] Last Admin: 01/14/19 22:03 Dose: 10 mg Clopidogrel Bisulfate (Plavix -) 75 mg PO DAILY [facility] Last Admin: 01/15/19 10:54 Dose: 75 mg Docusate Sodium (Colace Liquid -) 200 mg PO Q24H PRN PRN Reason: CONSTIPATION Last Admin: 01/13/19 21:16 Dose: 200 mg Heparin Sodium (Porcine) (Heparin -) 5,000 unit SQ TID [facility] Last Admin: 01/15/19 13:13 Dose: 5,000 unit Piperacillin Sod/Tazobactam (Sod 3.375 gm/ Dextrose) 50 mls @ 100 mls/hr IVPB Q8H-IV [facility]; Protocol Last Admin: 01/15/19 10:54 Dose: 100 mls/hr Lisinopril (Prinivil) 5 mg PO DAILY [facility] Last Admin: 01/15/19 10:55 Dose: 5 mg Lorazepam (Ativan -) 0.5 mg PO DAILY [facility] Last Admin: 01/14/19 10:36 Dose: 0.5 mg Metoprolol Tartrate (Lopressor -) 25 mg PO BID [facility] Last Admin: 01/15/19 10:55 Dose: 25 mg - Objective Vital Signs: Vital Signs Temperature 97.6 F 01/15/19 13:54 Pulse Rate 79 01/15/19 13:54 Respiratory Rate 16 01/15/19 13:54 Blood Pressure 112/49 L 01/15/19 13:54 O2 Sat by Pulse Oximetry (%) 97 01/15/19 09:00 Constitutional: Yes: No Distress, Calm Cardiovascular: Yes: Regular Rate and Rhythm Respiratory: Yes: Regular, On Nasal O2 Musculoskeletal: Yes: WNL Extremities: Yes: WNL Neurological: Yes: Alert, Oriented Psychiatric: Yes: Alert, Oriented Labs: CBC, BMP 01/14/19 06:17 01/14/19 06:17 INR, PTT INR 1.13 (0.83-1.09) H 01/10/19 13:13 Assessment/Plan Problem List - Problems (1) LEILA (acute kidney injury) Code(s): N17.9 - ACUTE KIDNEY FAILURE, UNSPECIFIED (2) CAD (coronary artery disease) Code(s): I25.10 - ATHSCL HEART DISEASE OF [place] CORONARY ARTERY W/O ANG PCTRS (3) Dementia Code(s): F03.90 - UNSPECIFIED DEMENTIA WITHOUT BEHAVIORAL DISTURBANCE (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 - DYSPHONIA (5) Failure to thrive Code(s): [id number] - (6) Fever Code(s): R50.9 - FEVER, UNSPECIFIED Qualifiers: Fever type: unspecified Qualified Code(s): R50.9 - Fever, unspecified (7) Hx of non-ST elevation myocardial infarction (NSTEMI) Code(s): I25.2 - OLD MYOCARDIAL INFARCTION (8) Toxic metabolic encephalopathy Code(s): G92 - TOXIC ENCEPHALOPATHY (9) UTI (urinary tract infection) Code(s): N39.0 - URINARY TRACT INFECTION, SITE NOT SPECIFIED (10) Dislocation, shoulder Code(s): S43.006A - UNSP DISLOCATION OF UNSPECIFIED SHOULDER JOINT, INIT ENCNTR plan abx nutrition incentive ana maria rest as per the team
--- NOTE | 2019-01-15 17:47 | DS ---
Physical Exam: SUBJECTIVE: Patient seen and examined OBJECTIVE: discharged. awaiting bed at [facility] Vital Signs Period Temp Pulse Resp BP Sys/Robin Pulse Ox Last 24 Hr 97.6 F-98 F 79-103 16-18 112-142/49-88 97-97 PHYSICAL EXAM GENERAL: The patient is awake, alert, and oriented to person only. HEAD: Normal with no signs of trauma. EYES: PERRL, extraocular movements intact, sclera anicteric, conjunctiva clear. No ptosis. ENT: Ears normal, nares patent, oropharynx clear without exudates, moist mucous membranes. NECK: Trachea midline, full range of motion, supple. LUNGS: clear to auscultation jose j. diminished at the bases. HEART: Regular rate and rhythm, S1, S2 without murmur, rub or gallop. ABDOMEN: Soft, nontender, nondistended, normoactive bowel sounds, no guarding, no rebound, no hepatosplenomegaly, no masses. EXTREMITIES: no edema. NEUROLOGICAL: normal speech, bed bound PSYCH: Normal mood, normal affect. SKIN: intact LABS HOSPITAL COURSE: Date of Admission:01/11/19 Date of Discharge: 01/15/19 patient is a 73 year old female from [facility] who presents to the ED with AMS and fever. She was recently admitted and was diagnosed with systolic CHF and NSTEMI. On last admission she was brought in from [facility] for suspected RUE fracture/dislocation/clot. A Head CT was done which revealed acute/subacute right inferior cerebellar infarct. She is being admitted for AMS and meets sepsis criteria on admission. ID: Acute metabolic encephalopathy, resolved in the setting of acute UTI, sepsis and severe cachexia blood cultures negative. + UC. On Zosyn therapy per ID mental status improved on antibiotics. ID: Sepsis criteria on admission, resolved Pulmonary Aspiration pneumonia. resolved seen by speech and swallow. recommendations. noted. followed by pulmonary. UTI ua consistent with UTI UC noted with 50-60k. Low colony count but she was symptomatic and had altered mental status that improved with antibiotics. Neuro: Subacute right inferior cerebellar infarct. on Plavix. per neuro, ASA should be d/c and be on plavix only. on lipitor Card: elevated troponins Systolic CHF NSTEMI history on [facility] recent echo 12/23/18 reviewed On previous admissions was not considered a candidate for coronary artery evaluation, due to dementia, frail state, and comorbidities. Recent EF 30% on 11/2018 admission. cardiology following. CAD post NSTEMI angina pectoris on Plavix and Lipitor discharge back to [facility] pending bed. Minutes to complete discharge: 60 Discharge Summary Reason For Visit: FEVER,SYSTEMIC INFLAMMATORY RESPONSE SYNDROME Current Active Problems LEILA (acute kidney injury) (Acute) Acute on chronic diastolic (congestive) heart failure (Acute) Advance directive discussed with patient (Acute) CAD (coronary artery disease) (Acute) Dementia (Acute) Dystonic dysphonia (Acute) Failure to thrive (Acute) Fever (Acute) Hx of non-ST elevation myocardial infarction (NSTEMI) (Acute) SIRS (systemic inflammatory response syndrome) (Acute) Toxic metabolic encephalopathy (Acute) UTI (urinary tract infection) (Acute) Urethral stricture (Acute) Condition: Improved - Instructions Diet, Activity, Other Instructions: Mrs Wolf/facility staff Mrs Wolf presented to [facility] with signs of sepsis. She was cultured and her blood cultures were negative for infection. She did however have a urinary tract infection. She also had signs of aspiration on admission. Here are our recommendations: Altered mental status Her mentation is back to her baseline. We did a head CT here and she was evaluated by a neurologist. It was recommended that she continue taking the Plavix and stop the Aspirin. Her blood cultures were negative. She was started on Zosyn empirically. We did note that she had a urinary tract infection and she has been treated with 5 days of Zosyn. No further antibiotics will be prescribed. She was also seen by an ID (infectious disease) physician during her stay. Possible aspiration She was evaluated by speech and swallow. Please continue to give her a Pureed diet with thin liquids. Have the head of bed up 90 degrees if she is eating in bed. Best for her to get out of bed for meals. Recommend that she does not eat for at least 2 hours before bed to avoid aspiration. Thank you for allowing us to care for Mrs Wolf. [facility] [phone] Shameka Burroughs NP Referrals: Ahmet Marina MD [Primary Care Provider] - Disposition: CARE HOME FACILITY - Home Medications Comprehensive Discharge Medication List: Ambulatory Orders Clopidogrel Bisulfate [Plavix -] 75 mg PO DAILY tablet 12/20/18 Lisinopril [Prinivil] 5 mg PO DAILY tablet 12/20/18 Metoprolol Tartrate [Lopressor -] 25 mg PO BID tablet 12/20/18 Acetaminophen [Tylenol] 650 mg PO Q6H PRN 01/10/19 Atorvastatin Ca [Lipitor] 10 mg PO HS 01/10/19 Docusate Sodium [Colace -] 100 mg PO BID 01/10/19 LORazepam [Ativan] 0.5 mg PO DAILY 01/10/19 Lisinopril [Prinivil] 5 mg PO DAILY tablet 01/15/19 This patient is new to me today: No Emergency Visit: Yes ED Registration Date: 01/11/19 Care time: The patient presented to the Emergency Department on the above date and was hospitalized for further evaluation of their emergent condition. Critical Care patient: No - Discharge Referral Referred to [facility] Med P.C.: No
[2019-01-15] MEDS ORDERED: ACETAMINOPHEN 325 MG TABLET (FP) PO PRN (18:15)
[2019-01-15] MEDS: ATORVASTATIN CA 10 MG TABLET (FP) PO SCH (22:37)
[2019-01-16] MEDS ORDERED: PIPERACILLIN/TAZOBACTAM 3.375 GM VIAL IVPB ONE ×2 (01:46→08:51)
[2019-01-16] MEDS ORDERED: DEXTROSE 5%-WATER - 50 ML IVPB ONE ×2 (01:46→08:51)
[2019-01-16] MEDS: PIPERACILLIN/TAZOB 3.375 GM 3.375 GM in DEXTROSE 5%-WATER - 50 ML IVPB SCH ×2 (01:54→09:01)
[2019-01-16] MEDS: HEPARIN NA (PORCINE) 5,000 UNITS/ML 1ML VIAL SQ SCH ×2 (06:57→14:24)
[2019-01-16] MEDS: ALBUTEROL SO4 2.5/IPRATROPIUM 0.5 INH SOL 3 ML VIAL.NEB. NEB SCH ×3 (08:32→15:32)
[2019-01-16] MEDS: CLOPIDOGREL BISULFATE 75 MG TABLET (FP) PO SCH (09:01)
[2019-01-16] MEDS: METOPROLOL TARTRATE 25 MG TABLET (FP) PO SCH (09:01)
[2019-01-16] MEDS: LORazepam 0.5 MG TABLET PO SCH (09:01)
[2019-01-16] MEDS: LISINOPRIL 5 MG TABLET (FP) PO SCH (09:01)
--- NOTE | 2019-01-16 10:08 | PN ---
Physical Exam: SUBJECTIVE: Patient seen and examined OBJECTIVE: Vital Signs Period Temp Pulse Resp BP Sys/Robin Pulse Ox Last 24 Hr 96.9 F-97.8 F 79-109 16-24 96-177/49-100 97 GENERAL: The patient is awake, alert, and oriented to person only. HEAD: Normal with no signs of trauma. EYES: PERRL, extraocular movements intact, sclera anicteric, conjunctiva clear. No ptosis. ENT: Ears normal, nares patent, oropharynx clear without exudates, moist mucous membranes. NECK: Trachea midline, full range of motion, supple. LUNGS: clear to auscultation jose j. diminished at the bases. HEART: Regular rate and rhythm, S1, S2 without murmur, rub or gallop. ABDOMEN: Soft, nontender, nondistended, normoactive bowel sounds, no guarding, no rebound, no hepatosplenomegaly, no masses. EXTREMITIES: no edema. NEUROLOGICAL: normal speech, bed bound PSYCH: Normal mood, normal affect. SKIN: intact Active Medications Generic Name Dose Route Start Last Admin Trade Name Freq PRN Reason Stop Dose Admin Acetaminophen 650 mg 01/15/19 18:15 01/15/19 18:22 Tylenol - PO 650 mg Q6H PRN Administration PAIN LEVEL 4 - 6 Albuterol/Ipratropium 1 amp 01/13/19 12:00 01/16/19 08:32 Duoneb - NEB 1 amp RQID [facility] Administration Atorvastatin Calcium 10 mg 01/10/19 22:00 01/15/19 22:37 Lipitor - PO Not Given HS [facility] FEL[facility] Clopidogrel Bisulfate 75 mg 01/11/19 10:00 01/16/19 09:01 Plavix - PO 75 mg DAILY [facility]EL[facility] Administration Docusate Sodium 200 mg 01/13/19 09:50 01/13/19 21:16 Colace Liquid - PO 200 mg Q24H PRN Administration CONSTIPATION Heparin Sodium (Porcine) 5,000 unit 01/10/19 22:00 01/16/19 06:57 Heparin - SQ Not Given TID [facility] Piperacillin Sod/Tazobactam 50 mls @ 100 mls/hr 01/11/19 18:00 01/16/19 09:01 Sod 3.375 gm/ Dextrose IVPB 100 mls/hr Q8H-IV [facility] Administration Protocol Lisinopril 5 mg 01/13/19 11:15 01/16/19 09:01 Prinivil PO 5 mg DAILY [facility] FELIPE Administration Lorazepam 0.5 mg 01/11/19 10:00 01/16/19 09:01 Ativan - PO 0.5 mg DAILY [facility] FEL[facility] Administration Metoprolol Tartrate 25 mg 01/10/19 22:00 01/16/19 09:01 Lopressor - PO 25 mg BID [facility] FEL[facility] Administration ASSESSMENT/PLAN: patient is a 73 year old female from [facility] who presents to the ED with AMS and fever. She was recently admitted and was diagnosed with systolic CHF and NSTEMI. On last admission she was brought in from [facility] for suspected RUE fracture/dislocation/clot. A Head CT was done which revealed acute/subacute right inferior cerebellar infarct. She is being admitted for AMS and meets sepsis criteria on admission. ID: Acute metabolic encephalopathy, resolved in the setting of acute UTI, sepsis and severe cachexia blood cultures negative. + UC. On Zosyn therapy per ID mental status improved on antibiotics. ID: Sepsis criteria on admission, resolved Pulmonary Aspiration pneumonia. resolved seen by speech and swallow. recommendations. noted. followed by pulmonary. UTI ua consistent with UTI UC noted with 50-60k. Low colony count but she was symptomatic and had altered mental status that improved with antibiotics. Neuro: Subacute right inferior cerebellar infarct. on Plavix. per neuro, ASA should be d/c and be on plavix only. on lipitor Card: elevated troponins Systolic CHF NSTEMI history on lopressor recent echo 12/23/18 reviewed On previous admissions was not considered a candidate for coronary artery evaluation, due to dementia, frail state, and comorbidities. Recent EF 30% on 11/2018 admission. cardiology following. CAD post NSTEMI angina pectoris on Plavix and Lipitor awaiting bed at [facility] Visit type - Emergency Visit Emergency Visit: Yes ED Registration Date: 01/11/19 Care time: The patient presented to the Emergency Department on the above date and was hospitalized for further evaluation of their emergent condition. - New Patient This patient is new to me today: Yes Date on this admission: 03/04/19 - Critical Care Critical Care patient: No - Discharge Referral Referred to [facility] Med P.C.: No
--- NOTE | 2019-01-16 10:15 | PN ---
Progress Note, Physician Chief Complaint: Pt remains disoriented to place, person, time. History of Present Illness: The patient is a 73 year old white female, with a significant PMH of diastolic CHF, who presents to the emergency department today from [facility] for evaluation of fever and AMS. Per NH, pt had Tmax of 101.2 and was more lethargic today. In ED, pt is AnOx2, at her baseline, and has no focal complaints. The patient denies chest pain, shortness of breath, headache and dizziness. Denies fever, chills, nausea, vomit, diarrhea and constipation. Denies dysuria, frequency, urgency and hematuria. - Current Medication List Current Medications: Active Medications Acetaminophen (Tylenol -) 650 mg PO Q6H PRN PRN Reason: PAIN LEVEL 4 - 6 Last Admin: 01/15/19 18:22 Dose: 650 mg Albuterol/Ipratropium (Duoneb -) 1 amp NEB RQID [facility] Last Admin: 01/16/19 08:32 Dose: 1 amp Atorvastatin Calcium (Lipitor -) 10 mg PO HS [facility] Last Admin: 01/15/19 22:37 Dose: Not Given Clopidogrel Bisulfate (Plavix -) 75 mg PO DAILY [facility] Last Admin: 01/16/19 09:01 Dose: 75 mg Docusate Sodium (Colace Liquid -) 200 mg PO Q24H PRN PRN Reason: CONSTIPATION Last Admin: 01/13/19 21:16 Dose: 200 mg Heparin Sodium (Porcine) (Heparin -) 5,000 unit SQ TID [facility] Last Admin: 01/16/19 06:57 Dose: Not Given Piperacillin Sod/Tazobactam (Sod 3.375 gm/ Dextrose) 50 mls @ 100 mls/hr IVPB Q8H-IV [facility]; Protocol Last Admin: 01/16/19 09:01 Dose: 100 mls/hr Lisinopril (Prinivil) 5 mg PO DAILY [facility] Last Admin: 01/16/19 09:01 Dose: 5 mg Lorazepam (Ativan -) 0.5 mg PO DAILY [facility] Last Admin: 01/16/19 09:01 Dose: 0.5 mg Metoprolol Tartrate (Lopressor -) 25 mg PO BID [facility] Last Admin: 01/16/19 09:01 Dose: 25 mg - Objective Vital Signs: Vital Signs Temperature 97.8 F 01/16/19 09:00 Pulse Rate 102 H 01/16/19 09:00 Respiratory Rate 18 01/16/19 09:00 Blood Pressure 154/88 01/16/19 09:00 O2 Sat by Pulse Oximetry (%) 97 01/15/19 20:39 Constitutional: Yes: Anxious, Thin Eyes: Yes: WNL HENT: Yes: WNL Neck: Yes: WNL Cardiovascular: Yes: Regular Rate and Rhythm Respiratory: Yes: Regular Gastrointestinal: Yes: Soft Genitourinary: No: Anuria Breast(s): Yes: WNL Musculoskeletal: Yes: Muscle Weakness, Other (pectus excavatum) Extremities: Yes: Cool Edema: No Peripheral Pulses WNL: Yes Integumentary: Yes: WNL Neurological: Yes: Confusion, Weakness Psychiatric: Yes: Other (dementia) Labs: CBC, BMP 01/14/19 06:17 01/14/19 06:17 INR, PTT INR 1.13 (0.83-1.09) H 01/10/19 13:13 Problem List - Problems (1) LEILA (acute kidney injury) Assessment/Plan: largely resolved off diuretics; encourage PO fluids. Code(s): N17.9 - ACUTE KIDNEY FAILURE, UNSPECIFIED (2) Failure to thrive Code(s): [id number] - (3) Fever Code(s): R50.9 - FEVER, UNSPECIFIED Qualifiers: Fever type: unspecified Qualified Code(s): R50.9 - Fever, unspecified (4) Very low level of personal hygiene Code(s): R46.0 - VERY LOW LEVEL OF PERSONAL HYGIENE (5) Hx of non-ST elevation myocardial infarction (NSTEMI) Assessment/Plan: Recent admission with fall and rhabdomyolysis that may have been engendered by NSTEMI (maximum TNI on that admission 15.8 on 11/2018); now 0.24. Conservative managment of pt's coronary disease:on metoprolol lisinopril, ASA, clopidogrel, atorvastatin. Code(s): I25.2 - OLD MYOCARDIAL INFARCTION (6) Acute on chronic diastolic (congestive) heart failure Code(s): I50.33 - ACUTE ON CHRONIC DIASTOLIC (CONGESTIVE) HEART FAILURE (7) UTI (urinary tract infection) Assessment/Plan: antibiotics; f/u dultures; f/u with ID. Code(s): N39.0 - URINARY TRACT INFECTION, SITE NOT SPECIFIED (8) Dementia Code(s): F03.90 - UNSPECIFIED DEMENTIA WITHOUT BEHAVIORAL DISTURBANCE
--- NOTE | 2019-01-16 11:31 | PN ---
Progress Note, Physician Chief Complaint: Pt remains disoriented to place, person, time; denies chest pain; moves limbs on request. History of Present Illness: The patient is a 73 year old white female, with a significant PMH of diastolic CHF, who presents to the emergency department today from [facility] for evaluation of fever and AMS. Per NH, pt had Tmax of 101.2 and was more lethargic today. In ED, pt is AnOx2, at her baseline, and has no focal complaints. The patient denies chest pain, shortness of breath, headache and dizziness. Denies fever, chills, nausea, vomit, diarrhea and constipation. Denies dysuria, frequency, urgency and hematuria. - Current Medication List Current Medications: Active Medications Acetaminophen (Tylenol -) 650 mg PO Q6H PRN PRN Reason: PAIN LEVEL 4 - 6 Last Admin: 01/15/19 18:22 Dose: 650 mg Albuterol/Ipratropium (Duoneb -) 1 amp NEB RQID [facility] Last Admin: 01/16/19 11:16 Dose: 1 amp Atorvastatin Calcium (Lipitor -) 10 mg PO HS [facility] Last Admin: 01/15/19 22:37 Dose: Not Given Clopidogrel Bisulfate (Plavix -) 75 mg PO DAILY [facility] Last Admin: 01/16/19 09:01 Dose: 75 mg Docusate Sodium (Colace Liquid -) 200 mg PO Q24H PRN PRN Reason: CONSTIPATION Last Admin: 01/13/19 21:16 Dose: 200 mg Heparin Sodium (Porcine) (Heparin -) 5,000 unit SQ TID [facility] Last Admin: 01/16/19 06:57 Dose: Not Given Piperacillin Sod/Tazobactam (Sod 3.375 gm/ Dextrose) 50 mls @ 100 mls/hr IVPB Q8H-IV [facility]; Protocol Last Admin: 01/16/19 09:01 Dose: 100 mls/hr Lisinopril (Prinivil) 5 mg PO DAILY [facility] Last Admin: 01/16/19 09:01 Dose: 5 mg Lorazepam (Ativan -) 0.5 mg PO DAILY [facility] Last Admin: 01/16/19 09:01 Dose: 0.5 mg Metoprolol Tartrate (Lopressor -) 25 mg PO BID [facility] Last Admin: 01/16/19 09:01 Dose: 25 mg - Objective Vital Signs: Vital Signs Temperature 97.8 F 01/16/19 09:00 Pulse Rate 102 H 01/16/19 09:00 Respiratory Rate 18 01/16/19 09:00 Blood Pressure 154/88 01/16/19 09:00 O2 Sat by Pulse Oximetry (%) 97 01/15/19 20:39 Constitutional: Yes: Calm, Thin Eyes: Yes: WNL HENT: Yes: WNL Neck: Yes: WNL Cardiovascular: Yes: Regular Rate and Rhythm Respiratory: Yes: Regular Gastrointestinal: Yes: Soft Genitourinary: No: Anuria Breast(s): Yes: WNL Musculoskeletal: Yes: Muscle Weakness Extremities: Yes: Cool Edema: No Peripheral Pulses WNL: Yes Integumentary: Yes: WNL Neurological: Yes: Confusion, Weakness Psychiatric: Yes: Other Labs: CBC, BMP 01/14/19 06:17 01/14/19 06:17 INR, PTT INR 1.13 (0.83-1.09) H 01/10/19 13:13 Problem List - Problems (1) LEILA (acute kidney injury) Assessment/Plan: largely resolved off diuretics; encourage PO fluids. Code(s): N17.9 - ACUTE KIDNEY FAILURE, UNSPECIFIED (2) Failure to thrive Code(s): [id number] - (3) Fever Code(s): R50.9 - FEVER, UNSPECIFIED Qualifiers: Fever type: unspecified Qualified Code(s): R50.9 - Fever, unspecified (4) Very low level of personal hygiene Code(s): R46.0 - VERY LOW LEVEL OF PERSONAL HYGIENE (5) Hx of non-ST elevation myocardial infarction (NSTEMI) Assessment/Plan: Recent admission with fall and rhabdomyolysis that may have been engendered by NSTEMI (maximum TNI on that admission 15.8 on 11/2018); now 0.24. Conservative managment of pt's coronary disease:on metoprolol lisinopril, ASA, clopidogrel, atorvastatin (LDL cholesterol 69 mg/dL).. F/u BP serially. Code(s): I25.2 - OLD MYOCARDIAL INFARCTION (6) Acute on chronic diastolic (congestive) heart failure Code(s): I50.33 - ACUTE ON CHRONIC DIASTOLIC (CONGESTIVE) HEART FAILURE (7) UTI (urinary tract infection) Assessment/Plan: antibiotics (on Zosyn) f/u dultures; f/u with ID. Code(s): N39.0 - URINARY TRACT INFECTION, SITE NOT SPECIFIED (8) Dementia Code(s): F03.90 - UNSPECIFIED DEMENTIA WITHOUT BEHAVIORAL DISTURBANCE
--- NOTE | 2019-01-16 13:09 | PN ---
Progress Note (short form) - Note Progress Note: PULMONARY Appears anxious VSS/Afebrile Constitutional: Yes: No Distress, Cachectic Eyes: Yes: Conjunctiva Clear HENT: Yes: Atraumatic, Normocephalic Neck: Yes: Supple, Trachea Midline Cardiovascular: Yes: Regular Rate and Rhythm Respiratory: Yes: Diminished, bilaterally Gastrointestinal: Yes: Normal Bowel Sounds, Soft Musculoskeletal: Yes: WNL Extremities: Yes: WNL Edema: No Peripheral Pulses WNL: Yes Integumentary: Yes: WNL Neurological: Yes: Alert, Confusion, Pre-Existing Deficit Labs: noted Chest X-ray: Report Reviewed, Image Reviewed (1) LEILA (acute kidney injury) Code(s): N17.9 - ACUTE KIDNEY FAILURE, UNSPECIFIED (2) CAD (coronary artery disease) Code(s): I25.10 - ATHSCL HEART DISEASE OF [place] CORONARY ARTERY W/O ANG PCTRS (3) Dementia Code(s): F03.90 - UNSPECIFIED DEMENTIA WITHOUT BEHAVIORAL DISTURBANCE (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 - DYSPHONIA (5) Failure to thrive Code(s): [id number] - (6) Fever Code(s): R50.9 - FEVER, UNSPECIFIED Qualifiers: Fever type: unspecified Qualified Code(s): R50.9 - Fever, unspecified (7) Hx of non-ST elevation myocardial infarction (NSTEMI) Code(s): I25.2 - OLD MYOCARDIAL INFARCTION (8) Toxic metabolic encephalopathy Code(s): G92 - TOXIC ENCEPHALOPATHY (9) UTI (urinary tract infection) Code(s): N39.0 - URINARY TRACT INFECTION, SITE NOT SPECIFIED (10) Dislocation, shoulder Code(s): S43.006A - UNSP DISLOCATION OF UNSPECIFIED SHOULDER JOINT, INIT ENCNTR Bronchodilators as needed No indication for steroids O2 as needed Aspiration precautions ABX per ID Avoid oversedation Ammy COLIN MD
--- NOTE | 2019-01-16 13:57 | PN ---
Progress Note, Physician History of Present Illness: anxious - Current Medication List Current Medications: Active Medications Acetaminophen (Tylenol -) 650 mg PO Q6H PRN PRN Reason: PAIN LEVEL 4 - 6 Last Admin: 01/15/19 18:22 Dose: 650 mg Albuterol/Ipratropium (Duoneb -) 1 amp NEB RQID [facility] Last Admin: 01/16/19 11:16 Dose: 1 amp Atorvastatin Calcium (Lipitor -) 10 mg PO HS [facility] Last Admin: 01/15/19 22:37 Dose: Not Given Clopidogrel Bisulfate (Plavix -) 75 mg PO DAILY [facility] Last Admin: 01/16/19 09:01 Dose: 75 mg Docusate Sodium (Colace Liquid -) 200 mg PO Q24H PRN PRN Reason: CONSTIPATION Last Admin: 01/13/19 21:16 Dose: 200 mg Heparin Sodium (Porcine) (Heparin -) 5,000 unit SQ TID [facility] Last Admin: 01/16/19 06:57 Dose: Not Given Piperacillin Sod/Tazobactam (Sod 3.375 gm/ Dextrose) 50 mls @ 100 mls/hr IVPB Q8H-IV [facility]; Protocol Last Admin: 01/16/19 09:01 Dose: 100 mls/hr Lisinopril (Prinivil) 5 mg PO DAILY [facility] Last Admin: 01/16/19 09:01 Dose: 5 mg Lorazepam (Ativan -) 0.5 mg PO DAILY [facility] Last Admin: 01/16/19 09:01 Dose: 0.5 mg Metoprolol Tartrate (Lopressor -) 25 mg PO BID [facility] Last Admin: 01/16/19 09:01 Dose: 25 mg - Objective Vital Signs: Vital Signs Temperature 97.8 F 01/16/19 09:00 Pulse Rate 102 H 01/16/19 09:00 Respiratory Rate 18 01/16/19 09:00 Blood Pressure 154/88 01/16/19 09:00 O2 Sat by Pulse Oximetry (%) 97 01/15/19 20:39 Constitutional: Yes: Anxious Cardiovascular: Yes: Regular Rate and Rhythm Respiratory: Yes: Regular, On Nasal O2 Gastrointestinal: Yes: Normal Bowel Sounds, Soft Musculoskeletal: Yes: WNL Extremities: Yes: WNL Neurological: Yes: Alert, Oriented Psychiatric: Yes: Alert, Oriented Labs: CBC, BMP 01/14/19 06:17 01/14/19 06:17 INR, PTT INR 1.13 (0.83-1.09) H 01/10/19 13:13 Assessment/Plan Problem List - Problems (1) LEILA (acute kidney injury) Code(s): N17.9 - ACUTE KIDNEY FAILURE, UNSPECIFIED (2) CAD (coronary artery disease) Code(s): I25.10 - ATHSCL HEART DISEASE OF [place] CORONARY ARTERY W/O ANG PCTRS (3) Dementia Code(s): F03.90 - UNSPECIFIED DEMENTIA WITHOUT BEHAVIORAL DISTURBANCE (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 - DYSPHONIA (5) Failure to thrive Code(s): [id number] - (6) Fever Code(s): R50.9 - FEVER, UNSPECIFIED Qualifiers: Fever type: unspecified Qualified Code(s): R50.9 - Fever, unspecified (7) Hx of non-ST elevation myocardial infarction (NSTEMI) Code(s): I25.2 - OLD MYOCARDIAL INFARCTION (8) Toxic metabolic encephalopathy Code(s): G92 - TOXIC ENCEPHALOPATHY (9) UTI (urinary tract infection) Code(s): N39.0 - URINARY TRACT INFECTION, SITE NOT SPECIFIED (10) Dislocation, shoulder Code(s): S43.006A - UNSP DISLOCATION OF UNSPECIFIED SHOULDER JOINT, INIT ENCNTR plan continue current mgmt d/w the team nutrition incentive ana maria rest as per the team
[2019-01-16 14:44] VITALS: BP 121/49; PULSE 104; TEMP 98.2
== END 2019-01-16 15:36 | DRG 871 ==
LOC: JER 12:30 → JERBED 15:11 → OBSVTOIN 01-11 07:48 → J4S 01-11 17:51
PROVIDERS: ADMIT Internal Medicine; ATTEND Nurse Practitioner Family
DX: A41.9 Sepsis, unspecified organism (principal); G93.41 Metabolic encephalopathy; I63.9 Cerebral infarction, unspecified; N17.9 Acute kidney failure, unspecified; Z68.1 Body mass index [BMI] 19.9 or less, adult; N39.0 Urinary tract infection, site not specified; R64 Cachexia; I50.30 Unspecified diastolic (congestive) heart failure; R50.9 Fever, unspecified; F03.90 Unspecified dementia, unspecified severity, without behavioral disturbance, psychotic disturbance, mood disturbance, and anxiety; E87.5 Hyperkalemia; I35.1 Nonrheumatic aortic (valve) insufficiency; F17.200 Nicotine dependence, unspecified, uncomplicated; R74.8 Abnormal levels of other serum enzymes; I25.10 Atherosclerotic heart disease of native coronary artery without angina pectoris; R62.7 Adult failure to thrive; R49.0 Dysphonia; N35.92 Unspecified urethral stricture, female; B96.20 Unspecified Escherichia coli [E. coli] as the cause of diseases classified elsewhere; R46.0 Very low level of personal hygiene; I25.2 Old myocardial infarction; R00.0 Tachycardia, unspecified; D72.829 Elevated white blood cell count, unspecified; S43.006A Unspecified dislocation of unspecified shoulder joint, initial encounter; Z71.89 Other specified counseling; Z74.01 Bed confinement status; Z78.0 Asymptomatic menopausal state; Z86.73 Personal history of transient ischemic attack (TIA), and cerebral infarction without residual deficits
CPT/HCPCS: 36415; 70450-TC; 71045-TC-FY; 80048; 80053; 80061; 81003; 81015; 82550; 82803; 83605; 83721; 83735; 84484; 85025; 85610; 85730; 87040; 87086; 87186; 93005; 93010; 94640; 99285-25; G0378; J1644; J7030